=== PATIENT | male | born 1985 | race Caucasian/White ===

== ENCOUNTER 2016-10-14 20:48 | Observation (INO) | payer OTHER ==
[~2016-10-14] VITALS: Ht 180.3 cm; Wt 75.0 kg
[~2016-10-14 20:48] MED LIST: LEVEMIR SQ; MAG-TAB PO; NOVOLOGP2 SQ; OMEP20TA PO; POTA8CAP PO; REGL10TA5 PO; REGL5TAB PO; ZOFR4TAB3 SL
[2016-10-14 20:50] VITALS: BP 140/78; PULSE 116; RESP 15; TEMP 98.8; O2SAT 96
[2016-10-14 21:06] VITALS: BP 137/87; PULSE 91; RESP 18; O2SAT 100
[2016-10-14] MEDS ORDERED: diphenhydrAMINE HCL 50 MG/ML VIAL IV PUSH ONE (21:15)
[2016-10-14] MEDS ORDERED: METOCLOPRAMIDE HCL 10 MG/2 ML VIAL IV PUSH ONE (21:15)
[2016-10-14] MEDS ORDERED: SODIUM CHLOR 0.9% 1000 ML INJ 1,000 ML IV ONE (21:15)
--- NOTE | 2016-10-14 22:31 | PD ---
HPI Chief Complaint: Diabetic Time Seen by Provider: 21:07 Travel History International Travel<30 days: No Contact w/Intl Traveler<30days: No Traveled to known affect area: No History of Present Illness HPI 30-year-old male complains of abdominal pain with nausea vomiting. Patient has history recurrent abdominal pain with nausea vomiting from gastroparesis. Patient has history diabetes. Patient states the blood sugars has been running high at home. Patient was seen here yesterday and given Reglan and IV fluid. Patient was discharged home with prescription Zofran and Reglan. Patient states that he took Zofran without much relief. Patient unable to keep recommended out because of the vomiting. Patient states that he has abdominal pain also in the past several days. Patient states the abdominal pain is recurrent pain usually shoulder with nausea vomiting. Patient states the abdominal pain is worse today. Patient stated pain is severe cramping pain diffuse over the abdomen. Patient denies any pain radiation. Patient denies any fever chills. Patient denies any blood or mucus in the vomitus or the stool. PFSH Past Medical History Arthritis: No Asthma: No Autoimmune Disease: No Blood Disorders: No Anxiety: Yes Depression: Yes Heart Rhythm Problems: No Cancer: No Cardiovascular Problems: No High Cholesterol: No Chest Pain: No Congestive Heart Failure: No COPD: No Cerebrovascular Accident: No Diabetes: Yes Patient Takes Glucophage: No Diminished Hearing: No Endocrine: Yes Gastrointestinal Disorders: Yes (Gastroparesis) GERD: No Genitourinary: No Headaches: Yes Hiatal Hernia: No Herniated Disk: Yes (2 DISCS IN BACK AND 2 IN NECK 2o TO LONG-TERM) Hypertension: No Implanted Vascular Access Dvce: No Kidney Stones: No Musculoskeletal: No Psychiatric: Yes Reproductive: No Respiratory: No Immunizations Current: Yes Migraines: No Seizures: No Sickle Cell Disease: No Sleep Apnea: No Thyroid Disease: No Ulcer: No PNEUMOCCOCAL Vaccine (Year): 1 Past Surgical History Abdominal Surgery: No Cardiac Surgery: No Ear Surgery: No Endocrine Surgery: No Eye Surgery: No Genitourinary Surgery: No Gynecologic Surgery: No Neurologic Surgery: No Oral Surgery: No Pacemaker: No Thoracic Surgery: No Social History Alcohol Use: No Tobacco Use: No Substance Use: Yes (marijuana) Allergies-Medications (Allergen,Severity, Reaction): Coded Allergies: No Known Allergies (Verified , 10/14/16) Reported Meds & Prescriptions Reported Meds & Active Scripts Active Omeprazole 20 Mg Tab 20 Mg PO DAILY Reglan (Metoclopramide HCl) 5 Mg Tab 5 Mg PO TIDAC Reglan (Metoclopramide HCl) 10 Mg Tab 10 Mg PO TIDAC PRN Zofran Odt (Ondansetron Odt) 4 Mg Tab 4 Mg SL Q6HR PRN Reported Potassium Chloride ER (Potassium Chloride) Unknown Strength Cap Unknown Dose PO DAILY Mag-Delay (Magnesium Chloride) Unknown Strength Tab Unknown Dose PO DAILY Novolog Inj (Insulin Aspart) 1,000 Unit/10 Ml Vial 0 SQ DIRECTED Sliding Scale as directed. Levemir Inj (Insulin Detemir) 1,000 unit/ 10 ML Vial 20 Units SQ BID Do not mix with any other Insulin. Review of Systems General / Constitutional: No: Fever Eyes: No: Visual changes HENT: No: Headaches Cardiovascular: No: Chest Pain or Discomfort Respiratory: No: Shortness of Breath Gastrointestinal: Positive: Nausea, Vomiting, Abdominal Pain Genitourinary: No: Dysuria Musculoskeletal: No: Pain Skin: No Rash Neurologic: No: Weakness Psychiatric: No: Depression Endocrine: No: Polydipsia Hematologic/Lymphatic: No: Easy Bruising Physical Exam Narrative GENERAL: Well-nourished, well-developed patient. SKIN: Warm and dry. HEAD: Normocephalic. EYES: No scleral icterus. No injection or drainage. NECK: Supple, trachea midline. No JVD or lymphadenopathy. CARDIOVASCULAR: Regular rate and rhythm without murmurs, gallops, or rubs. RESPIRATORY: Breath sounds equal bilaterally. No accessory muscle use. GASTROINTESTINAL: Abdomen soft, non-tender, nondistended. MUSCULOSKELETAL: No cyanosis, or edema. BACK: Nontender without obvious deformity. No CVA tenderness. Neurologic exam normal. Data Data Last Documented VS Vital Signs Date Time Temp Pulse Resp B/P Pulse Ox O2 Delivery O2 Flow Rate FiO2 10/14/16 23:02 71 22 137/87 99 Room Air 10/14/16 20:50 98.8 Orders Sodium Chlor 0.9% 1000 Ml Inj (Ns 1000 M (10/14/16 21:15) Metoclopramide Inj (Reglan Inj) (10/14/16 21:15) Diphenhydramine Inj (Benadryl Inj) (10/14/16 21:15) Complete Blood Count With Diff (10/14/16 22:22) Comprehensive Metabolic Panel (10/14/16 22:22) Lipase (10/14/16 22:22) Beta Hydroxybutyrate (Acetone) (10/14/16 22:22) Iv Access Insert/Monitor (10/14/16 22:22) Ecg Monitoring (10/14/16 22:22) Oximetry (10/14/16 22:22) Potassium Chlor 20 Meq Premix (Kcl 20 Me (10/15/16 00:15) Sodium Chlor 0.9% 1000 Ml Inj (Ns 1000 M (10/15/16 00:15) Admit Order (Ed Use Only) (10/15/16 00:19) Labs Laboratory Tests Test 10/14/16 22:10 White Blood Count 16.1 TH/MM3 Red Blood Count 4.46 MIL/MM3 Hemoglobin 12.6 GM/DL Hematocrit 36.5 % Mean Corpuscular Volume 81.9 FL Mean Corpuscular Hemoglobin 28.3 PG Mean Corpuscular Hemoglobin 34.5 % Concent Red Cell Distribution Width 13.0 % Platelet Count 313 TH/MM3 Mean Platelet Volume 7.2 FL Neutrophils (%) (Auto) 80.2 % Lymphocytes (%) (Auto) 11.8 % Monocytes (%) (Auto) 7.6 % Eosinophils (%) (Auto) 0.1 % Basophils (%) (Auto) 0.3 % Neutrophils # (Auto) 12.9 TH/MM3 Lymphocytes # (Auto) 1.9 TH/MM3 Monocytes # (Auto) 1.2 TH/MM3 Eosinophils # (Auto) 0.0 TH/MM3 Basophils # (Auto) 0.0 TH/MM3 CBC Comment DIFF FINAL Differential Comment Sodium Level 135 MEQ/L Potassium Level 2.9 MEQ/L Chloride Level 88 MEQ/L Carbon Dioxide Level 32.3 MEQ/L Anion Gap 15 MEQ/L Blood Urea Nitrogen 25 MG/DL Creatinine 1.43 MG/DL Estimat Glomerular Filtration 58 ML/MIN Rate Random Glucose 220 MG/DL Calcium Level 9.3 MG/DL Total Bilirubin 0.5 MG/DL Aspartate Amino Transf 15 U/L (AST/SGOT) Alanine Aminotransferase 18 U/L (ALT/SGPT) Alkaline Phosphatase 81 U/L Total Protein 8.1 GM/DL Albumin 4.0 GM/DL Lipase 90 U/L B-Hydroxybutyrate 1.54 MMOL/L MDM Medical Decision Making Medical Screen Exam Complete: Yes Emergency Medical Condition: Yes Interpretation(s) 12:07 AM. CBC WBC 16.1. Hemoglobin 12.6. Hematocrit 36.1. 80 neutrophil. Potassium 2.9. Chloride 88. BUN 25. Creatinine 1.43. GFR 58. Glucose 220. Beta hydroxybutyrate 1.54. Differential Diagnosis Differential diagnosis including gastroenteritis, acute exacerbation of gastroparesis, hyperglycemia, DKA, electrolyte abnormality, dehydration, gastritis, PUD, pancreatitis, cholecystitis, colitis, UTI, pyelonephritis. Narrative Course 30-year-old male with recurrent abdominal pain, nausea vomiting. History of gastroparesis. History of diabetes. Normal saline solution 1 L IV bolus. Reglan 10 g IV. Benadryl 50 g IV. Protonix 40 mg IV. KCl 20 mEq IV 2. Diagnosis Primary Impression: Gastroparesis Additional Impressions: Dehydration Hypokalemia Adams Pitts MD Oct 14, 2016 22:31
[2016-10-14 22:45] LABS: AUTOMATED NEUTROPHIL # 12.9 TH/MM3 (1.8-7.7); BASOPHIL % 0.3 % (0.0-2.0); EOSINOPHIL % 0.1 % (0.0-4.0); HEMATOCRIT 36.5 % (39.0-51.0); HEMO FLAGS DIFF FINAL; LYMPH % 11.8 % (9.0-44.0); LYMPHOCYTE # 1.9 TH/MM3 (1.0-4.8); MEAN CELL VOLUME 81.9 FL (80.0-100.0); MEAN CORPUSCULAR HEMOGLOBIN 28.3 PG (27.0-34.0); MEAN CORPUSCULAR HGB CONC 34.5 % (32.0-36.0); MONO % 7.6 % (0.0-8.0); NEUT % 80.2 % (16.0-70.0); PLATELET COUNT 313 TH/MM3 (150-450); RED BLOOD COUNT 4.46 MIL/MM3 (4.50-5.90); WHITE BLOOD COUNT 16.1 TH/MM3 (4.0-11.0)
[2016-10-14 23:02] VITALS: BP 137/87; PULSE 71; RESP 22; O2SAT 99
[2016-10-14 23:52] LABS: ALKALINE PHOSPHATASE 81 U/L (45-117); ALT (GPT) 18 U/L (12-78); ANION GAP 15 MEQ/L (5-15); AST (GOT) 15 U/L (15-37); BETA-HYDROXYBUTYRATE 1.54 MMOL/L (0.00-0.39); BICARBONATE 32.3 MEQ/L (21.0-32.0); BLOOD UREA NITROGEN 25 MG/DL (7-18); CHLORIDE 88 MEQ/L (98-107); GLOMERULAR FILTRATION RATE 58 ML/MIN (>89); POTASSIUM 2.9 MEQ/L (3.5-5.1); SODIUM (NA) 135 MEQ/L (136-145); TOTAL BILIRUBIN ADULT 0.5 MG/DL (0.2-1.0)
[2016-10-15] MEDS ORDERED: SODIUM CHLOR 0.9% 1000 ML INJ 1,000 ML IV ONE ×2 (00:15→16:00)
[2016-10-15] MEDS: POTASSIUM CHLOR 20 MEQ PREMIX 100 ML IV SCH ×2 (00:21→02:34)
[2016-10-15] MEDS ORDERED: ACETAMINOPHEN/HYDROcodone 325 MG/5 MG TAB PO PRN (01:00)
[2016-10-15] MEDS ORDERED: PROMETHAZINE INJ 25 MG/ML VIAL IM PRN (01:00)
[2016-10-15] MEDS ORDERED: DEXTROSE 50% IN WATER 50 ML VIAL(D50) IV PUSH PRN (01:00)
[2016-10-15] MEDS ORDERED: BISACODYL 10 MG SUPP PR PRN (01:00)
[2016-10-15] MEDS ORDERED: SODIUM CHLORIDE 0.9% FLUSH 5 ML FLUSH FLUSH PRN (01:00)
[2016-10-15] MEDS ORDERED: ACETAMINOPHEN 325 MG TAB PO PRN (01:00)
[2016-10-15] MEDS ORDERED: PANTOPRAZOLE SODIUM 40 MG VIAL IV PUSH ONE (01:00)
[2016-10-15] MEDS ORDERED: GLUCAGON 1 MG/ML VIAL OTHER PRN (01:00)
[2016-10-15] MEDS: SODIUM CHLOR 0.9% 1000 ML INJ 1,000 ML IV SCH ×3 (01:53→20:16)
[2016-10-15] MEDS: MORPHINE SULFATE 4 MG/ML INJ IV PRN ×5 (01:55→20:01)
[2016-10-15 01:56] VITALS: BP 129/63
[2016-10-15 02:25] VITALS: BP 131/74; PULSE 67; RESP 20; TEMP 98; O2SAT 96
--- NOTE | 2016-10-15 03:09 | HHI.HP ---
[facility] Primary Care Physician Belén Carter MD Admission Diagnosis gastroparesis. Dehydration. Hypokalemia. Hyperglycemia Diagnoses: (1) Intractable nausea and vomiting Diagnosis: Principal (2) Gastroenteritis Diagnosis: Principal (3) Hypokalemia Diagnosis: Principal (4) DM (diabetes mellitus) Diagnosis: Principal (5) GALA (acute kidney injury) Diagnosis: Principal Travel History International Travel<30 Days: No Contact w/Intl Traveler <30 Da: No Traveled to Known Affected Are: No History of Present Illness This is a 30-year-old male with a PMH of HTN, DM, Gastroparesis, Anxiety and Depression who came to the ER with complete abdominal pain addition to persistent nausea and vomiting. Presented to ER on 10/13/16 for similar complaints, s/p IVF and d/c'd home w/ Reglan and Omeprazole. Returned today due to persistent symptoms. Unable to take PO. On arrival, BP 137/87, HR 71, O2 sat 99% on RA, Afebrile. WBC 16.1. K+ 2.9 s/p replacement in ER. Creatinine 1.43, previously 1.08 on 10/13/16. S/p Benadryl, Reglan and IVF in ER w/ some improvement. Review of Systems Other ROS: 14 point review of systems otherwise negative. Past Family Social History Past Medical History PMH: HTN, DM, Gastroparesis, Anxiety and Depression Past Surgical History PAST SURGICAL HISTORY: None Allergies: Coded Allergies: No Known Allergies (Verified , 10/14/16) Family History PAST FAMILY HISTORY: Reviewed. No h/o DM or CAD Social History PAST SOCIAL HISTORY: Negative for alcohol or tobacco. Positive for Marijuana. Physical Exam Vital Signs Vital Signs Date Time Temp Pulse Resp B/P Pulse Ox O2 Delivery O2 Flow Rate FiO2 10/15/16 02:25 98.0 67 20 131/74 96 10/15/16 01:56 87 16 129/63 98 10/14/16 23:02 71 22 137/87 99 Room Air 10/14/16 21:06 91 18 137/87 100 Room Air 10/14/16 20:50 98.8 116 15 140/78 96 Room Air Physical Exam PE: GENERAL: Young white male in no acute distress, however appears to feel unwell. HEENT: PERRLA, EOMI. No scleral icterus or conjunctival pallor. No lid lag or facial droop. CARDIOVASCULAR: Regular rate and rhythm. No obvious murmurs to auscultation. No chest tenderness to palpation. RESPIRATORY: No obvious rhonchi or wheezing. Clear to auscultation. Breath sounds equal bilaterally. GASTROINTESTINAL: Abdomen soft, non-tender, nondistended. BS normal. MUSCULOSKELETAL: Extremities without clubbing, cyanosis, or edema. No obvious deformities. NEUROLOGICAL: Awake, alert and oriented x4. No focal neurologic deficits. Moving both upper and lower extremities spontaneously. Laboratory Laboratory Tests Test 10/14/16 22:10 White Blood Count 16.1 Red Blood Count 4.46 Hemoglobin 12.6 Hematocrit 36.5 Mean Corpuscular Volume 81.9 Mean Corpuscular Hemoglobin 28.3 Mean Corpuscular Hemoglobin 34.5 Concent Red Cell Distribution Width 13.0 Platelet Count 313 Mean Platelet Volume 7.2 Neutrophils (%) (Auto) 80.2 Lymphocytes (%) (Auto) 11.8 Monocytes (%) (Auto) 7.6 Eosinophils (%) (Auto) 0.1 Basophils (%) (Auto) 0.3 Neutrophils # (Auto) 12.9 Lymphocytes # (Auto) 1.9 Monocytes # (Auto) 1.2 Eosinophils # (Auto) 0.0 Basophils # (Auto) 0.0 CBC Comment DIFF FINAL Differential Comment Sodium Level 135 Potassium Level 2.9 Chloride Level 88 Carbon Dioxide Level 32.3 Anion Gap 15 Blood Urea Nitrogen 25 Creatinine 1.43 Estimat Glomerular Filtration 58 Rate Random Glucose 220 Calcium Level 9.3 Total Bilirubin 0.5 Aspartate Amino Transf 15 (AST/SGOT) Alanine Aminotransferase 18 (ALT/SGPT) Alkaline Phosphatase 81 Total Protein 8.1 Albumin 4.0 Lipase 90 B-Hydroxybutyrate 1.54 Result Diagram: 10/14/16220910/14/162209 Assessment and Plan Problem List: (1) Intractable nausea and vomiting ICD Code: R11.2 Status: Acute (2) Gastroparesis ICD Code: K31.84 Status: Acute (3) Hypokalemia ICD Code: E87.6 Status: Acute (4) DM (diabetes mellitus) ICD Code: E11.9 Status: Acute (5) GALA (acute kidney injury) ICD Code: N17.9 Status: Acute Assessment and Plan A/P: 1. Intractable N/V: secondary to Gastroparesis. S/p Benadryl and Reglan in ER. Continue w/ analgesics/antiemetics. IVF for hydration. Diet as tolerated. 2. Gastroparesis: Recurrent. IVF, Reglan, Antiemetics. DM control. 3. Hypokalemia: K+ 2.9, s/p replacement in ER. Will recheck and replace as needed. 4. DM: Sliding scale w/ Accu-Cheks, Hgb A1c 8.6 on 04/12/16. Resume home Levemir 5. GALA: Creatinine 1.43, previously 1.08 on 10/13/16. IVF, repeat labs in am. 6. DVT Prophylaxis: SCD/Teds. 7. Social work for d/c planning as needed. 8. Case discussed w/ ER physician at length. Lashell Pedroza MD Oct 15, 2016 03:09
[2016-10-15 03:32] VITALS: BP 132/61; PULSE 73; RESP 20; TEMP 98; O2SAT 96
[2016-10-15] MEDS: ONDANSETRON HCL 4 MG/2 ML VIAL IVP PRN ×3 (04:14→16:34)
[2016-10-15] MEDS: METOCLOPRAMIDE HCL 10 MG/2 ML VIAL IV PUSH SCH ×3 (05:55→22:13)
[2016-10-15] MEDS: INSULIN ASPART SUPPLEMENTAL SCALE SQ SCH ×4 (06:13→20:13)
[2016-10-15] MEDS: SODIUM CHLORIDE 0.9% FLUSH 5 ML FLUSH FLUSH SCH ×2 (08:20→20:12)
[2016-10-15] MEDS: INSULIN DETEMIR 100 UNITS/ML VIAL SQ SCH ×2 (08:20→20:13)
--- NOTE | 2016-10-15 08:20 | HHI.PR ---
Subjective Remarks Follow up for abdominal pain/nausea/vomiting. The patient is sleeping upon my arrival, when awakened, he moans in pain, states he still feels miserable. Reports continued diffuse abdominal pain, unchanged compared to yesterday. He has continued nausea, no vomiting since 8pm last night. He has not yet ate anything. He does not open his eyes throughout conversation and rolls back over to go to sleep. Objective Vitals Vital Signs Date Time Temp Pulse Resp B/P Pulse Ox O2 Delivery O2 Flow Rate FiO2 10/15/16 03:32 98.0 73 20 132/61 96 10/15/16 02:25 98.0 67 20 131/74 96 10/15/16 01:56 87 16 129/63 98 10/14/16 23:02 71 22 137/87 99 Room Air 10/14/16 21:06 91 18 137/87 100 Room Air 10/14/16 20:50 98.8 116 15 140/78 96 Room Air I/O 10/14/16 10/14/16 10/14/16 10/15/16 10/15/16 10/15/16 07:00 15:00 23:00 07:00 15:00 23:00 Intake Total 694 ml Output Total 500 ml Balance 194 ml Intake IV Total 694 ml Output Urine Total 500 ml # Voids 1 Result Diagram: 10/14/16220910/14/162209 Objective Remarks GENERAL: Well-nourished, well-developed young male patient in [facility]. Drowsy. SKIN: Warm and dry. No rash. HEAD: Normocephalic. Atraumatic. ENT: No nasal bleeding or discharge. Mucous membranes pink and moist. NECK: Supple. Trachea midline. CARDIOVASCULAR: Regular rate and rhythm. S1, S2 noted. No murmur appreciated. RESPIRATORY: No accessory muscle use. Clear to auscultation. Breath sounds equal bilaterally. GASTROINTESTINAL: Abdomen soft, nondistended, mild diffuse abdominal TTP. Normoactive bowel sounds x4. MUSCULOSKELETAL: No obvious deformities. Extremities without clubbing, cyanosis , or edema. NEUROLOGICAL: Awake and alert. No obvious cranial nerve deficits. Motor grossly within normal limits. Normal speech. Medications and IVs Current Medications Medications (Trade) Dose Ordered Sig/Brandy Route Start Time Stop Time Status Last Admin Pantoprazole Sodium 40 mg 40 mg Q12H IV PUSH 10/15/16 21:00 (NS 1000 ml Inj) 1,000 ml @ 100 mls/hr Q10H IV 10/15/16 00:47 10/15/16 01:53 (NS Flush) 2 ml UNSCH PRN FLUSH 10/15/16 01:00 (NS Flush) 2 ml BID FLUSH 10/15/16 09:00 (Zofran Inj) 4 mg Q6H PRN IVP 10/15/16 01:00 10/15/16 04:14 (Dulcolax Supp) 10 mg DAILY PRN LA 10/15/16 01:00 (Tylenol) 650 mg Q6H PRN PO 10/15/16 01:00 ([place] 5-325 Mg) 1 tab Q4H PRN PO 10/15/16 01:00 (Morphine Inj) 2 mg Q3H PRN IV 10/15/16 01:00 10/15/16 05:55 (Reglan Inj) 10 mg Q8HR IV PUSH 10/15/16 06:00 10/15/16 05:55 (Phenergan Inj) 12.5 mg Q4H PRN IM 10/15/16 01:00 (Levemir Inj) 20 units BID SQ 10/15/16 09:00 (D50w (Vial) Inj) 25 ml UNSCH PRN IV PUSH 10/15/16 01:00 (Glucagon Inj) 1 mg UNSCH PRN OTHER 10/15/16 01:00 Urinary Catheter: No Vascular Central Line Catheter: No A/P Problem List: (1) Intractable nausea and vomiting ICD Code: R11.2 Status: Acute (2) Gastroparesis ICD Code: K31.84 Status: Acute (3) Hypokalemia ICD Code: E87.6 Status: Acute (4) DM (diabetes mellitus) ICD Code: E11.9 Status: Acute (5) GALA (acute kidney injury) ICD Code: N17.9 Status: Acute Assessment and Plan 30-year-old male with PMH of HTN, DM, Gastroparesis, Anxiety/Depression came to the ER with abdominal pain, persistent nausea/vomiting. Presented to ER on for similar complaints, s/p IVF and d/c'd home w/ Reglan and Omeprazole. Returned today due to persistent symptoms. Unable to take PO. Intractable N/V: secondary to Gastroparesis. S/p Benadryl and Reglan in ER. Continue w/ analgesics/antiemetics. IVF for hydration. Diet as tolerated. Gastroparesis: Recurrent. IVF, Reglan, Antiemetics. DM control. Hypokalemia: K+ 2.9, s/p replacement in ER. Will recheck and replace as needed. DM: Sliding scale w/ Accu-Cheks, Hgb A1c 8.6 on 04/12/16. Resumed home Levemir. GALA: Creatinine 1.43, previously 1.08 on 10/13/16. IVF, repeat labs today. DVT Prophylaxis: SCD/Teds. Discharge Planning Not yet ready for discharge. Possibly tomorrow if tolerating oral intake. Attending Statement patient seen this morning in the ER. Agree with above. patient reports to me that he smokes marijuana which improves abdominal cramping, nausea. Discussed the possibility of marijuana hyperemesis syndrome with him. Advised complete cessation. Otherwise as above Nadira Em PA-C Oct 15, 2016 08:19 Elder Castro MD Oct 15, 2016 22:32
[2016-10-15 10:39] LABS: AUTOMATED NEUTROPHIL # 10.4 TH/MM3 (1.8-7.7); BASOPHIL % 0.2 % (0.0-2.0); EOSINOPHIL % 0.1 % (0.0-4.0); HEMATOCRIT 32.3 % (39.0-51.0); HEMO FLAGS DIFF FINAL; LYMPH % 15.5 % (9.0-44.0); LYMPHOCYTE # 2.1 TH/MM3 (1.0-4.8); MEAN CELL VOLUME 83.3 FL (80.0-100.0); MEAN CORPUSCULAR HEMOGLOBIN 28.5 PG (27.0-34.0); MEAN CORPUSCULAR HGB CONC 34.2 % (32.0-36.0); MONO % 7.2 % (0.0-8.0); PLATELET COUNT 239 TH/MM3 (150-450); RED BLOOD COUNT 3.88 MIL/MM3 (4.50-5.90); RED CELL DISTRIBUTION WIDTH 12.8 % (11.6-17.2); WHITE BLOOD COUNT 13.4 TH/MM3 (4.0-11.0)
[2016-10-15 11:03] LABS: BICARBONATE 29.1 MEQ/L (21.0-32.0); MAGNESIUM 1.7 MG/DL (1.5-2.5); POTASSIUM 3.8 MEQ/L (3.5-5.1)
[2016-10-15 11:34] VITALS: BP 149/79; PULSE 70; RESP 18; TEMP 98.1; O2SAT 93
[2016-10-15 15:54] VITALS: BP 124/68; PULSE 62; RESP 18; TEMP 98.8; O2SAT 95
[2016-10-15] MEDS ORDERED: INSULIN HUMAN REGULAR 1,000 UNITS/10 ML VIAL IVP ONE (16:00)
[2016-10-15] MEDS ORDERED: MAGNESIUM SULFATE 1 GM PREMIX 100 ML IV ONE (17:00)
[2016-10-15] MEDS: PANTOPRAZOLE SODIUM 40 MG VIAL IV PUSH SCH (20:13)
[2016-10-15 20:20] VITALS: BP 111/60; PULSE 64; RESP 18; TEMP 97.8; O2SAT 99
[2016-10-15] MEDS: HYDROmorphone HCL PF 1 MG/ML VIAL IV PUSH PRN (23:55)
[2016-10-16 01:01] VITALS: BP 118/70; PULSE 65; RESP 16; TEMP 96.7; O2SAT 98
[2016-10-16] MEDS: ONDANSETRON HCL 4 MG/2 ML VIAL IVP PRN (03:33)
[2016-10-16] MEDS: HYDROmorphone HCL PF 1 MG/ML VIAL IV PUSH PRN ×3 (03:33→10:54)
[2016-10-16 05:02] VITALS: BP 127/70; PULSE 65; RESP 18; TEMP 98.9; O2SAT 98
[2016-10-16 05:37] LABS: AUTOMATED NEUTROPHIL # 6.8 TH/MM3 (1.8-7.7); BASOPHIL % 0.3 % (0.0-2.0); EOSINOPHIL # 0.2 TH/MM3 (0-0.4); EOSINOPHIL % 1.6 % (0.0-4.0); HEMATOCRIT 32.3 % (39.0-51.0); HEMO FLAGS DIFF FINAL; LYMPH % 24.6 % (9.0-44.0); LYMPHOCYTE # 2.5 TH/MM3 (1.0-4.8); MEAN CORPUSCULAR HEMOGLOBIN 28.7 PG (27.0-34.0); MEAN CORPUSCULAR HGB CONC 34.6 % (32.0-36.0); MONO % 7.7 % (0.0-8.0); NEUT % 65.8 % (16.0-70.0); PLATELET COUNT 239 TH/MM3 (150-450); RED BLOOD COUNT 3.89 MIL/MM3 (4.50-5.90); RED CELL DISTRIBUTION WIDTH 12.8 % (11.6-17.2); WHITE BLOOD COUNT 10.3 TH/MM3 (4.0-11.0)
[2016-10-16 05:59] LABS: ALKALINE PHOSPHATASE 64 U/L (45-117); ALT (GPT) 15 U/L (12-78); ANION GAP 9 MEQ/L (5-15); AST (GOT) 16 U/L (15-37); BICARBONATE 26.4 MEQ/L (21.0-32.0); BLOOD UREA NITROGEN 15 MG/DL (7-18); CHLORIDE 103 MEQ/L (98-107); GLOMERULAR FILTRATION RATE 92 ML/MIN (>89); POTASSIUM 3.2 MEQ/L (3.5-5.1); SODIUM (NA) 138 MEQ/L (136-145); TOTAL BILIRUBIN ADULT 0.4 MG/DL (0.2-1.0)
[2016-10-16] MEDS: METOCLOPRAMIDE HCL 10 MG/2 ML VIAL IV PUSH SCH ×2 (06:19→13:06)
[2016-10-16] MEDS: SODIUM CHLOR 0.9% 1000 ML INJ 1,000 ML IV SCH (06:34)
[2016-10-16] MEDS: INSULIN ASPART SUPPLEMENTAL SCALE SQ SCH (06:36)
[2016-10-16] MEDS ORDERED: POTASSIUM CHLORIDE 20 MEQ CONTROLLED RELEASE TAB PO ONE (07:30)
[2016-10-16 07:36] VITALS: BP 120/56; PULSE 60; RESP 19; TEMP 98.8; O2SAT 98
--- NOTE | 2016-10-16 07:45 | HHI.PR ---
Subjective Remarks Follow up for abdominal pain/nausea/vomiting with gastroparesis. The patient is sleeping upon my arrival, easily awakens. He reports continued diffuse abdominal pains, states after he receives pain medications, the pains will go away for a few hours. He reports nausea but no vomiting overnight. He was able to tolerate broth for lunch yesterday but then was served a hamburger for dinner last night therefore he did not eat. Blood glucose 55 this morning. He denies any other medical complaints at this time. Objective Vitals Vital Signs Date Time Temp Pulse Resp B/P Pulse Ox O2 Delivery O2 Flow Rate FiO2 10/16/16 05:02 98.9 65 18 127/70 98 10/16/16 04:05 22 10/16/16 01:01 96.7 65 16 118/70 98 10/15/16 20:20 97.8 64 18 111/60 99 10/15/16 20:15 14 10/15/16 15:54 98.8 62 18 124/68 95 10/15/16 11:34 98.1 70 18 149/79 93 I/O 10/15/16 10/15/16 10/15/16 10/16/16 10/16/16 10/16/16 07:00 15:00 23:00 07:00 15:00 23:00 Intake Total 694 ml 930 ml Output Total 500 ml 1000 ml 1000 ml Balance 194 ml -70 ml -1000 ml Intake Oral Supplement 120 ml IV Total 694 ml 810 ml Output Urine Total 500 ml 1000 ml 1000 ml # Voids 1 Result Diagram: 10/16/16 0455 10/16/16 0455 Objective Remarks GENERAL: Well-nourished, well-developed young male patient in [facility]. SKIN: Warm and dry. No rash. HEAD: Normocephalic. Atraumatic. ENT: No nasal bleeding or discharge. Mucous membranes pink and moist. NECK: Supple. Trachea midline. CARDIOVASCULAR: Regular rate and rhythm. S1, S2 noted. No murmur appreciated. RESPIRATORY: No accessory muscle use. Clear to auscultation. Breath sounds equal bilaterally. GASTROINTESTINAL: Abdomen soft, nondistended, mild diffuse abdominal TTP. Normoactive bowel sounds x4. MUSCULOSKELETAL: No obvious deformities. Extremities without clubbing, cyanosis , or edema. NEUROLOGICAL: Awake and alert. No obvious cranial nerve deficits. Motor grossly within normal limits. Normal speech. Medications and IVs Current Medications Medications (Trade) Dose Ordered Sig/Brandy Route Start Time Stop Time Status Last Admin Pantoprazole Sodium 40 mg 40 mg Q12H IV PUSH 10/15/16 21:00 10/15/16 20:13 (NS 1000 ml Inj) 1,000 ml @ 100 mls/hr Q10H IV 10/15/16 00:47 10/15/16 08:21 (NS Flush) 2 ml UNSCH PRN FLUSH 10/15/16 01:00 (NS Flush) 2 ml BID FLUSH 10/15/16 09:00 10/15/16 20:12 (Zofran Inj) 4 mg Q6H PRN IVP 10/15/16 01:00 10/16/16 03:33 (Dulcolax Supp) 10 mg DAILY PRN NV 10/15/16 01:00 (Tylenol) 650 mg Q6H PRN PO 10/15/16 01:00 ([place] 5-325 Mg) 1 tab Q4H PRN PO 10/15/16 01:00 10/15/16 16:34 (Reglan Inj) 10 mg Q8HR IV PUSH 10/15/16 06:00 10/16/16 06:19 (Phenergan Inj) 12.5 mg Q4H PRN IM 10/15/16 01:00 (Levemir Inj) 20 units BID SQ 10/15/16 09:00 10/15/16 20:13 (D50w (Vial) Inj) 25 ml UNSCH PRN IV PUSH 10/15/16 01:00 (Glucagon Inj) 1 mg UNSCH PRN OTHER 10/15/16 01:00 (Dilaudid Pf Inj) 1 mg Q3H PRN IV PUSH 10/15/16 21:45 10/16/16 07:20 (KCl) 40 meq ONCE ONCE PO 10/16/16 07:30 10/16/16 07:31 UNV Urinary Catheter: No Vascular Central Line Catheter: No A/P Problem List: (1) Intractable nausea and vomiting ICD Code: R11.2 Status: Acute (2) Gastroparesis ICD Code: K31.84 Status: Acute (3) Hypokalemia ICD Code: E87.6 Status: Acute (4) DM (diabetes mellitus) ICD Code: E11.9 Status: Acute (5) GALA (acute kidney injury) ICD Code: N17.9 Status: Acute Assessment and Plan 30-year-old male with PMH of HTN, DM, Gastroparesis, Anxiety/Depression came to the ER with abdominal pain, persistent nausea/vomiting. Presented to ER on for similar complaints, s/p IVF and d/c'd home w/ Reglan and Omeprazole. Returned today due to persistent symptoms. Unable to take PO. Intractable N/V: secondary to Gastroparesis. S/p Benadryl and Reglan in ER. Continue w/ analgesics/antiemetics, changed pain medication to IV Dilaudid 1mg q3h prn. IVF for hydration. Diet as tolerated, will change to full liquid diet today. Gastroparesis: Recurrent. IVF, Reglan, Antiemetics. DM control. Hypokalemia: K+ 2.9, s/p replacement in ER. Will recheck and replace as needed. Still 3.2 today, given additional replacement. DM: Blood sugars labile, up to 421 yesterday, now 55 this morning. Patient did not eat dinner last night. Sliding scale w/ Accu-Cheks, Hgb A1c 8.6 on . Resumed home Levemir. Repeat HgbA1c. GALA: Creatinine 1.43, previously 1.08 on 10/13/16. IVF, repeat labs today show improvement back to baseline, Cr 0.95. DVT Prophylaxis: SCD/Teds. Discharge Planning 1340hrs: RN reports the patient is requesting to be discharged. He has tolerated his breakfast and lunch without any nausea/vomiting/abdominal pain. Blood glucose improved. Discussed with Dr. Castro, will discharge home. Discharge patient to home Condition on discharge: Improved Diabetic soft/full liquid diet as tolerated over the next few days, then advanced to solid foods Ad Lyudmila activity, avoid marijuana Rx written: Reglan 10mg po tidac, Zofran 4mg SL q6h prn nausea, Protonix 40mg daily Follow-up with primary care physician Dr. Phillips within 1 week Attending Statement The exam, history, and the medical decision-making described in the above note were completed with the assistance of the mid-level provider. I reviewed and agree with the findings presented. I attest that I had a [id number] encounter with the patient on the same day, and personally performed and documented my assessment and findings in the medical record. patient seen this morning. Appears comfortable. Later says he is tolerating diet, request discharge. Discharge home. Recommend marijuana cessation. Followup primary care. Nadira Em PA-C Oct 16, 2016 07:45 Elder Castro MD Oct 16, 2016 22:54
[2016-10-16] MEDS: SODIUM CHLORIDE 0.9% FLUSH 5 ML FLUSH FLUSH SCH (09:00)
[2016-10-16] MEDS: INSULIN DETEMIR 100 UNITS/ML VIAL SQ SCH (09:59)
[2016-10-16] MEDS: PANTOPRAZOLE SODIUM 40 MG VIAL IV PUSH SCH (09:59)
[2016-10-16] MEDS ORDERED: INSULIN ASPART SUPPLEMENTAL SCALE SQ SCH (11:00)
[2016-10-16] MEDS ORDERED: ZOFR4TAB3 SL (13:44)
[2016-10-16] MEDS ORDERED: REGL10TA5 PO (13:44)
[2016-10-16] MEDS ORDERED: PROT40TA PO (13:44)
--- NOTE | 2016-10-16 13:45 | HHI.DCPOC ---
Discharge Care Plan Diagnosis: (1) Type 1 diabetes mellitus (2) Gastroparesis Your Health Problems Are: Irregular Bowel Function Goals to Promote Your Health * To prevent worsening of your condition and complications * To maintain your health at the optimal level Directions to Meet Your Goals Take your medications as prescribed Follow your dietary instruction Follow activity as directed Keep your appointments as scheduled Take your immunizations and boosters as scheduled If your symptoms worsen call your PCP, if no PCP go to Urgent Care Center or Emergency Room Smoking is Dangerous to Your Health. Avoid second hand smoke Call the 24-hour hour crisis hotline for domestic abuse at Nadira Em PA-C Oct 16, 2016 13:45
[2016-10-17 17:39] LABS: HEMOGLOBIN A1a 1.2 %; HEMOGLOBIN A1b 2.3 %; HEMOGLOBIN Ao 81.6 %; HEMOGLOBIN LA1C 1.4 %; HEMOGLOBIN P3 4.4 %
[2016-11-25] MEDS ORDERED: METO10TA PO (11:23)
[2016-11-25] MEDS ORDERED: PANT40TA3 PO (11:23)
[2017-02-28] MEDS ORDERED: FLUO1TAB15 PO (11:37)
[2017-02-28] MEDS ORDERED: LEVEMIR SQ (12:05)
== END 2016-10-16 16:20 | disposition home or self-care (01) ==
LOC: NEPC 20:48 → NEDA 10-15 00:21 → NEPGCP 10-15 02:15
PROVIDERS: ADMIT Internal Medicine; ATTEND Internal Medicine
DX: K31.84 Gastroparesis (principal); E87.6 Hypokalemia; E86.0 Dehydration; I10 Essential (primary) hypertension; E11.43 Type 2 diabetes mellitus with diabetic autonomic (poly)neuropathy; E11.65 Type 2 diabetes mellitus with hyperglycemia; N17.9 Acute kidney failure, unspecified
CPT/HCPCS: 80048; 80053; 82010; 82948; 83036; 83690; 83735; 85025; 96361; 96374; 96375; 99285; C9113; G0378; J1170; J1200; J1815; J2270; J2405; J2765; J3475; J3480; J7030

== ENCOUNTER 2016-10-30 12:17 | Emergency (ER) | payer OTHER ==
[~2016-10-30] VITALS: Ht 180.3 cm; Wt 70.0 kg
[~2016-10-30 12:17] MED LIST changes: -OMEP20TA PO; +PROT40TA PO; -REGL5TAB PO
[2016-10-30 12:21] VITALS: BP 146/94; PULSE 87; RESP 20; TEMP 98.2; O2SAT 97
[2016-10-30] MEDS ORDERED: SODIUM CHLOR 0.9% 1000 ML INJ 1,000 ML IV ONE (12:41)
[2016-10-30] MEDS ORDERED: SODIUM CHLORIDE 0.9% FLUSH 5 ML FLUSH IVF PRN (12:45)
[2016-10-30] MEDS ORDERED: ONDANSETRON HCL 4 MG/2 ML VIAL IVP ONE (12:45)
--- NOTE | 2016-10-30 12:48 | PD ---
HPI Chief Complaint: Diabetic Time Seen by Provider: 12:48 Travel History International Travel<30 days: No Contact w/Intl Traveler<30days: No Traveled to known affect area: No History of Present Illness HPI 30-year-old male with history of diabetes, gastroparesis, recurrent abdominal pain, with multiple visits to the emergency department for similar complaints, presents to emergency department today for evaluation of nausea, vomiting and abdominal pain. He is accompanied by his mother who states that his blood glucose was greater than 500 last evening. She gave him Levemir and states she was unable to get down. He has been nauseous and vomiting throughout the night complaining of abdominal pain. Last episode of emesis was in triage. It is bilious in nature. No hematemesis or coffee-ground emesis. Or chills. No chest Tightness. No difficulty breathing. Patient is unable to specify exactly where his abdominal pain is but generalized and her umbilical. He has had no diarrhea. No other symptoms reported. PFSH Past Medical History Arthritis: No Asthma: No Autoimmune Disease: No Blood Disorders: No Anxiety: Yes Depression: Yes Heart Rhythm Problems: No Cancer: No Cardiovascular Problems: No High Cholesterol: No Chest Pain: No Congestive Heart Failure: No COPD: No Cerebrovascular Accident: No Diabetes: Yes Diminished Hearing: No Endocrine: Yes Gastrointestinal Disorders: Yes (Gastroparesis) GERD: No Genitourinary: No Headaches: Yes Hiatal Hernia: No Herniated Disk: Yes (2 DISCS IN BACK AND 2 IN NECK 2o TO CUSTODIAL) Hypertension: No Implanted Vascular Access Dvce: No Kidney Stones: No Musculoskeletal: No Neurologic: Yes (Neuropathy) Psychiatric: Yes Reproductive: No Respiratory: No Immunizations Current: Yes Migraines: No Seizures: No Sickle Cell Disease: No Sleep Apnea: No Thyroid Disease: No Ulcer: No PNEUMOCCOCAL Vaccine (Year): 1 Past Surgical History Abdominal Surgery: No Cardiac Surgery: No Ear Surgery: No Endocrine Surgery: No Eye Surgery: No Genitourinary Surgery: No Gynecologic Surgery: No Neurologic Surgery: No Oral Surgery: No Pacemaker: No Thoracic Surgery: No Social History Alcohol Use: No Tobacco Use: No Substance Use: Yes (marijuana) Allergies-Medications (Allergen,Severity, Reaction): Coded Allergies: No Known Allergies (Verified , 10/14/16) Reported Meds & Prescriptions Reported Meds & Active Scripts Active Zofran Odt (Ondansetron Odt) 4 Mg Tab 4 Mg SL Q6HR PRN Protonix (Pantoprazole Sodium) 40 Mg Tab 40 Mg PO DAILY Zofran Odt (Ondansetron Odt) 4 Mg Tab 4 Mg SL Q6HR PRN Reported Potassium Chloride ER (Potassium Chloride) Unknown Strength Cap Unknown Dose PO DAILY Mag-Delay (Magnesium Chloride) Unknown Strength Tab Unknown Dose PO DAILY Novolog Inj (Insulin Aspart) 1,000 Unit/10 Ml Vial 0 SQ DIRECTED Sliding Scale as directed. Levemir Inj (Insulin Detemir) 1,000 unit/ 10 ML Vial 20 Units SQ BID Do not mix with any other Insulin. Review of Systems Except as stated in HPI: all other systems reviewed are Neg Physical Exam Narrative GENERAL: Well-nourished male patient, lying in bed, in no acute distress SKIN: Warm and dry. HEAD: Atraumatic. Normocephalic. EYES: Pupils equal and round. No scleral icterus. No injection or drainage. ENT: No nasal bleeding or discharge. Mucous membranes pink and moist. NECK: Trachea midline. No JVD. CARDIOVASCULAR: Regular rate and rhythm. No murmur appreciated. RESPIRATORY: No accessory muscle use. Clear to auscultation. Breath sounds equal bilaterally. GASTROINTESTINAL: Abdomen soft, nondistended. Inconsistent tenderness to palpation, mostly periumbilical. No guarding. No rebound tenderness. Hepatic and splenic margins not palpable. MUSCULOSKELETAL: No obvious deformities. No clubbing. No cyanosis. No edema. NEUROLOGICAL: Awake and alert. No obvious cranial nerve deficits. Motor grossly within normal limits. Normal speech. Data Data Last Documented VS Vital Signs Date Time Temp Pulse Resp B/P Pulse Ox O2 Delivery O2 Flow Rate FiO2 10/30/16 12:21 98.2 87 20 146/94 97 Orders Complete Blood Count With Diff (10/30/16 12:41) Basic Metabolic Panel (Bmp) (10/30/16 12:41) Iv Access Insert/Monitor (10/30/16 12:41) Ecg Monitoring (10/30/16 12:41) Oximetry (10/30/16 12:41) Ondansetron Inj (Zofran Inj) (10/30/16 12:45) Sodium Chlor 0.9% 1000 Ml Inj (Ns 1000 M (10/30/16 12:41) Sodium Chloride 0.9% Flush (Ns Flush) (10/30/16 12:45) Blood Glucose (10/30/16 12:41) Diphenhydramine Inj (Benadryl Inj) (10/30/16 13:00) Metoclopramide Inj (Reglan Inj) (10/30/16 13:00) Beta Hydroxybutyrate (Acetone) (10/30/16 13:00) Ondansetron Inj (Zofran Inj) (10/30/16 14:45) Labs Laboratory Tests Test 10/30/16 13:00 White Blood Count 12.3 TH/MM3 Red Blood Count 4.47 MIL/MM3 Hemoglobin 12.6 GM/DL Hematocrit 36.9 % Mean Corpuscular Volume 82.5 FL Mean Corpuscular Hemoglobin 28.3 PG Mean Corpuscular Hemoglobin 34.3 % Concent Red Cell Distribution Width 13.5 % Platelet Count 323 TH/MM3 Mean Platelet Volume 7.2 FL Neutrophils (%) (Auto) 74.2 % Lymphocytes (%) (Auto) 19.9 % Monocytes (%) (Auto) 5.6 % Eosinophils (%) (Auto) 0.1 % Basophils (%) (Auto) 0.2 % Neutrophils # (Auto) 9.1 TH/MM3 Lymphocytes # (Auto) 2.4 TH/MM3 Monocytes # (Auto) 0.7 TH/MM3 Eosinophils # (Auto) 0.0 TH/MM3 Basophils # (Auto) 0.0 TH/MM3 CBC Comment DIFF FINAL Differential Comment Sodium Level 138 MEQ/L Potassium Level 3.5 MEQ/L Chloride Level 100 MEQ/L Carbon Dioxide Level 23.9 MEQ/L Anion Gap 14 MEQ/L Blood Urea Nitrogen 31 MG/DL Creatinine 1.47 MG/DL Estimat Glomerular Filtration 56 ML/MIN Rate Random Glucose 219 MG/DL Calcium Level 9.5 MG/DL B-Hydroxybutyrate 0.10 MMOL/L MDM Medical Decision Making Medical Screen Exam Complete: Yes Emergency Medical Condition: Yes Medical Record Reviewed: Yes Differential Diagnosis Gastroparesis, diabetic versus cannabinoids versus gastritis versus esophagitis versus recurrent abdominal pain versus gastroenteritis Narrative Course 30-year-old male presents to emergency department for evaluation. Patient has been seen in the emergency department several times for gastritis, gastroparesis , and elevated blood glucose. CBC is slightly elevated at 12.3. There is no significant left shift. BMP is with urine 31, creatinine 1.47, random glucose 219. Patient is given a liter normal saline fluid, Zofran, Reglan, Benadryl. Upon reassessment, patient is resting in the stretcher with his eyes closed. Vital signs are stable. I have discussed the pt with my attending physician Dr. Branch. At this time there are no additional findings that require emergent workup or admission. This is discussed the patient and his mother. They're encouraged to follow-up outpatient. Just prior to discharge, the patient is wretching in his room; no emesis noted. He is given additional zofran. His mother is requesting phenergan and dilaudid by name, stating he "always gets this when this happens". After additional discussion with my attending, it is explained to her that opiate medication is not appropriate in the setting of gastroparesis. Patient is to follow-up with his primary care provider. He will be discharged at this time. Diagnosis Primary Impression: Nausea & vomiting Qualified Code: R11.14 - Bilious vomiting with nausea Additional Impressions: Gastroparesis Abdominal pain Qualified Code: R10.9 - Abdominal pain, unspecified location Referrals: Primary Care Physician Patient Instructions: Diabetic Gastroparesis (DC), General Instructions Additional Instructions: Follow-up with her primary care provider Continue medication as already prescribed Return immediately to the emergency department with any acute worsening of symptoms Med/Other Pt SpecificInfo: Prescription(s) given Scripts Ondansetron Odt (Zofran Odt)4 Mg Tab4 Mg SL Q6HR PRN (Nausea/Vomiting) #15 TAB Ref 0 Prov:Jodee Leger 10/30/16 Disposition: 01 DISCHARGE HOME Condition: Stable Jodee Leger Oct 30, 2016 12:48
[2016-10-30] MEDS ORDERED: METOCLOPRAMIDE HCL 10 MG/2 ML VIAL IV PUSH ONE (13:00)
[2016-10-30] MEDS ORDERED: diphenhydrAMINE HCL 50 MG/ML VIAL IV PUSH ONE (13:00)
[2016-10-30 13:21] LABS: AUTOMATED NEUTROPHIL # 9.1 TH/MM3 (1.8-7.7); BASOPHIL % 0.2 % (0.0-2.0); EOSINOPHIL % 0.1 % (0.0-4.0); HEMATOCRIT 36.9 % (39.0-51.0); HEMO FLAGS DIFF FINAL; LYMPH % 19.9 % (9.0-44.0); LYMPHOCYTE # 2.4 TH/MM3 (1.0-4.8); MEAN CELL VOLUME 82.5 FL (80.0-100.0); MEAN CORPUSCULAR HEMOGLOBIN 28.3 PG (27.0-34.0); MEAN CORPUSCULAR HGB CONC 34.3 % (32.0-36.0); MONO % 5.6 % (0.0-8.0); NEUT % 74.2 % (16.0-70.0); PLATELET COUNT 323 TH/MM3 (150-450); RED BLOOD COUNT 4.47 MIL/MM3 (4.50-5.90); RED CELL DISTRIBUTION WIDTH 13.5 % (11.6-17.2); WHITE BLOOD COUNT 12.3 TH/MM3 (4.0-11.0)
[2016-10-30 13:39] LABS: BICARBONATE 23.9 MEQ/L (21.0-32.0); POTASSIUM 3.5 MEQ/L (3.5-5.1)
[2016-10-30 13:40] LABS: BETA-HYDROXYBUTYRATE 0.1 MMOL/L (0.00-0.39)
[2016-10-30] MEDS ORDERED: ZOFR4TAB3 SL (14:20)
[2016-10-30] MEDS ORDERED: ONDANSETRON HCL 4 MG/2 ML VIAL IV PUSH ONE (14:45)
[2016-11-25] MEDS ORDERED: PANT40TA3 PO (11:23)
[2016-11-25] MEDS ORDERED: METO10TA PO (11:23)
[2017-02-28] MEDS ORDERED: FLUO1TAB15 PO (11:37)
[2017-02-28] MEDS ORDERED: LEVEMIR SQ (12:05)
== END 2016-10-30 16:11 | disposition home or self-care (01) ==
LOC: NEPC 12:17
DX: K31.84 Gastroparesis (principal); F41.8 Other specified anxiety disorders; E11.9 Type 2 diabetes mellitus without complications; F12.10 Cannabis abuse, uncomplicated
CPT/HCPCS: 80048; 82010; 85025; 96361; 96374; 96375; 96376; 99284; J1200; J2405; J2765; J7030

== ENCOUNTER 2016-11-17 10:40 | Observation (INO) | payer OTHER ==
[~2016-11-17] VITALS: Ht 180.3 cm; Wt 72.7 kg
[~2016-11-17 10:40] MED LIST changes: -REGL10TA5 PO
[2016-11-17 10:42] VITALS: BP 118/88; PULSE 146; RESP 24; TEMP 97.8; O2SAT 96
[2016-11-17] MEDS ORDERED: SODIUM CHLOR 0.9% 1000 ML INJ 1,000 ML IV SCH ×2 (11:23→12:34)
[2016-11-17 11:25] VITALS: BP 143/92; PULSE 112; RESP 16; O2SAT 99
[2016-11-17 11:26] VITALS: O2SAT 99
[2016-11-17] MEDS ORDERED: OMEP40CA2 PO (11:29)
[2016-11-17] MEDS ORDERED: METOCLOPRAMIDE HCL 10 MG/2 ML VIAL IV PUSH ONE (11:30)
[2016-11-17] MEDS ORDERED: HYDROmorphone HCL PF 1 MG/ML VIAL IV PUSH ONE (11:45)
--- NOTE | 2016-11-17 11:51 | PD ---
HPI Chief Complaint: GI Complaint Time Seen by Provider: 11:47 Travel History International Travel<30 days: No Contact w/Intl Traveler<30days: No Traveled to known affect area: No History of Present Illness HPI 31-year-old male that presents to the ED for evaluation of nausea and vomiting as well as possible DKA and gastroparesis. Patient has a chronic history of diabetes type 1 with insulin-dependent. Per mother who was awoken is most information as patient cannot really tell me much other than make moans, patient has been vomiting multiple times since Monday and per mother's he is not really been able to keep anything down since. Not even small fluids. She does take Zofran and medications for the gastritis as well as the Gastro paresis but seems to be unable to keep them down. Patient has been able to keep his sugars down and his sugars have actually been in the 200s but mother is concerned the patient is not drinking anything and he could be dehydrated. He states having some abdominal pain. Patient does smoke marijuana. He denies any other medical problem. He denies any recent surgeries. He has not seen his doctor for this. He has no allergies to medication. Per patient the pain is 8 out of 10. Most of the history is obtained from family members patient would not really talk to me secondary to moaning. PFSH Past Medical History Arthritis: No Asthma: No Autoimmune Disease: No Blood Disorders: No Anxiety: Yes Depression: Yes Heart Rhythm Problems: No Cancer: No Cardiovascular Problems: No High Cholesterol: No Chest Pain: No Congestive Heart Failure: No COPD: No Cerebrovascular Accident: No Diabetes: Yes (type 1) Patient Takes Glucophage: No Diminished Hearing: No Endocrine: Yes Gastrointestinal Disorders: Yes (Gastroparesis) GERD: No Genitourinary: No Headaches: Yes Hiatal Hernia: No Herniated Disk: Yes (2 DISCS IN BACK AND 2 IN NECK 2o TO [facility]) Hypertension: No Implanted Vascular Access Dvce: No Kidney Stones: No Musculoskeletal: No Neurologic: Yes (Neuropathy) Psychiatric: Yes Reproductive: No Respiratory: No Immunizations Current: Yes Migraines: No Seizures: No Sickle Cell Disease: No Sleep Apnea: No Thyroid Disease: No Ulcer: No PNEUMOCCOCAL Vaccine (Year): 1 ?: Not Past Surgical History Abdominal Surgery: No Cardiac Surgery: No Ear Surgery: No Endocrine Surgery: No Eye Surgery: No Genitourinary Surgery: No Gynecologic Surgery: No Neurologic Surgery: No Oral Surgery: No Pacemaker: No Thoracic Surgery: No Other Surgery: Yes (Inguinal hernia repair) Social History Alcohol Use: No Tobacco Use: No Substance Use: Yes (marijuana) Allergies-Medications (Allergen,Severity, Reaction): Coded Allergies: No Known Allergies (Verified , 10/14/16) Reported Meds & Prescriptions Reported Meds & Active Scripts Active Protonix (Pantoprazole Sodium) 40 Mg Tab 40 Mg PO DAILY Zofran Odt (Ondansetron Odt) 4 Mg Tab 4 Mg SL Q6HR PRN Reported Omeprazole 40 Mg Cap 40 Mg PO DAILY Potassium Chloride ER (Potassium Chloride) Unknown Strength Cap Unknown Dose PO DAILY Mag-Delay (Magnesium Chloride) Unknown Strength Tab Unknown Dose PO DAILY Novolog Inj (Insulin Aspart) 1,000 Unit/10 Ml Vial 0 SQ DIRECTED Sliding Scale as directed. Levemir Inj (Insulin Detemir) 1,000 unit/ 10 ML Vial 20 Units SQ BID Do not mix with any other Insulin. Review of Systems Except as stated in HPI: all other systems reviewed are Neg Physical Exam Narrative GENERAL: SKIN: Warm and dry. HEAD: Atraumatic. Normocephalic. EYES: Pupils equal and round. No scleral icterus. No injection or drainage. ENT: No nasal bleeding or discharge. Mucous membranes pink and moist. Tongue is midline. No uvula deviation. NECK: Trachea midline. No JVD. CARDIOVASCULAR: Regular rate and rhythm. No murmurs, S3, S4. RESPIRATORY: No accessory muscle use. Clear to auscultation. Breath sounds equal bilaterally. GASTROINTESTINAL: Abdomen soft, tender with deep and soft palpation, nondistended. Hepatic and splenic margins not palpable. MUSCULOSKELETAL: Extremities without clubbing, cyanosis, or edema. No obvious deformities. Full range of motion of the upper and lower extremities bilaterally. Pupils pulses bilaterally. NEUROLOGICAL: Awake and alert. No obvious cranial nerve deficits. Motor grossly within normal limits. Five out of 5 muscle strength in the arms and legs. Normal speech. PSYCHIATRIC: Appropriate mood and affect; insight and judgment normal. Data Data Last Documented VS Vital Signs Date Time Temp Pulse Resp B/P Pulse Ox O2 Delivery O2 Flow Rate FiO2 11/17/16 14:13 16 11/17/16 14:10 90 113/72 97 Room Air 11/17/16 10:42 97.8 Orders Complete Blood Count With Diff (2/2/17 11:23) Comprehensive Metabolic Panel (11/17/16 11:23) Lipase (11/17/16 11:23) Urinalysis - C+S If Indicated (11/17/16 11:23) Magnesium (Mg) (11/17/16 11:23) Beta Hydroxybutyrate (Acetone) (11/17/16 11:23) Iv Access Insert/Monitor (11/17/16 11:23) Ecg Monitoring (11/17/16 11:23) Oximetry (11/17/16 11:23) NPO (11/17/16 11:23) Sodium Chlor 0.9% 1000 Ml Inj (Ns 1000 M (11/17/16 11:23) Metoclopramide Inj (Reglan Inj) (11/17/16 11:30) Hydromorphone Pf Inj (Dilaudid Pf Inj) (11/17/16 11:45) Ns + Kcl 20 Meq Inj (Ns + Kcl 20 Meq Inj (11/17/16 12:30) Ct Abd/Pel W Iv Contrast(Rout) (11/17/16 12:22) Sodium Chlor 0.9% 1000 Ml Inj (Ns 1000 M (11/17/16 12:34) Iohexol 350 Inj (Omnipaque 350 Inj) (11/17/16 13:10) Admit Order (Ed Use Only) (11/17/16 14:44) Labs Laboratory Tests Test 11/17/16 11/17/16 11:47 12:40 White Blood Count 8.4 TH/MM3 Red Blood Count 4.54 MIL/MM3 Hemoglobin 13.0 GM/DL Hematocrit 37.2 % Mean Corpuscular Volume 82.0 FL Mean Corpuscular Hemoglobin 28.6 PG Mean Corpuscular Hemoglobin 34.9 % Concent Red Cell Distribution Width 13.3 % Platelet Count 282 TH/MM3 Mean Platelet Volume 6.9 FL Neutrophils (%) (Auto) 74.2 % Lymphocytes (%) (Auto) 17.7 % Monocytes (%) (Auto) 7.6 % Eosinophils (%) (Auto) 0.2 % Basophils (%) (Auto) 0.3 % Neutrophils # (Auto) 6.2 TH/MM3 Lymphocytes # (Auto) 1.5 TH/MM3 Monocytes # (Auto) 0.6 TH/MM3 Eosinophils # (Auto) 0.0 TH/MM3 Basophils # (Auto) 0.0 TH/MM3 CBC Comment DIFF FINAL Differential Comment Sodium Level 129 MEQ/L Potassium Level 3.3 MEQ/L Chloride Level 84 MEQ/L Carbon Dioxide Level 34.5 MEQ/L Anion Gap 11 MEQ/L Blood Urea Nitrogen 28 MG/DL Creatinine 1.45 MG/DL Estimat Glomerular Filtration 56 ML/MIN Rate Random Glucose 193 MG/DL Calcium Level 9.3 MG/DL Magnesium Level 2.4 MG/DL Total Bilirubin 0.7 MG/DL Aspartate Amino Transf 11 U/L (AST/SGOT) Alanine Aminotransferase 18 U/L (ALT/SGPT) Alkaline Phosphatase 89 U/L Total Protein 8.4 GM/DL Albumin 4.0 GM/DL Lipase 91 U/L B-Hydroxybutyrate 1.06 MMOL/L Urine Color YELLOW Urine Turbidity CLEAR Urine pH 6.5 Urine Specific Floyd 1.021 Urine Protein 30 mg/dL Urine Glucose (UA) 300 mg/dL Urine Ketones 10 mg/dL Urine Occult Blood NEG Urine Nitrite NEG Urine Bilirubin NEG Urine Urobilinogen 2.0 MG/DL Urine Leukocyte Esterase NEG Urine RBC 2 /hpf Urine WBC 1 /hpf Urine Mucus FEW /lpf Microscopic Urinalysis Comment CULT NOT INDICATED MDM Medical Decision Making Medical Screen Exam Complete: Yes Emergency Medical Condition: Yes Medical Record Reviewed: Yes Interpretation(s) CBC & BMP Diagram 11/17/16 11:47 LFts and lipase WNL acetone WNL CT of the abdomen show mild distention of the small intestine Differential Diagnosis DKA versus hyperemesis versus gastroparesis versus electrolyte abnormality versus hyperglycemia versus severe dehydration versus diabetes versus gastritis Narrative Course 31-year-old male that presents to the ED for evaluation of nausea and vomiting. Patient was properly examined and was found to have signs and symptoms consistent appears to be likely gastroparesis with gastritis and severe nausea. Patient she cannot keep anything down. Patient has not thrown up here but can 't keep anything down by mouth. IV was established. Labs were ordered. I did review his medical records and patient has been here multiple times for similar complaint with DKA in the past as well as gastroparesis and admissions for severe vomiting. Patient was given IV antiemetics as well as fluids and pain medication. Labs and imaging showed slight dehydration but no DKA. CT did showed some mild bowel distention which my attending is concerned for possible partial obstruction. She recommends admission to for intractable nausea and vomit t as well as possible partial obstruction. Patient and family were told this and agrees with plan. Case discussed with Dr Mehta who agreed to admit patient. Procedures EKG Prior to Arrival: No Sepsis Criteria SIRS Criteria (2 or more): Heart rate over 90 Diagnosis Primary Impression: Nausea & vomiting Qualified Code: R11.2 - Intractable vomiting with nausea, unspecified vomiting type Additional Impression: Small bowel obstruction, partial Admitting Information Admitting Physician Requests: Observation Nelson Waldron Nov 17, 2016 11:51
[2016-11-17 11:58] LABS: AUTOMATED NEUTROPHIL # 6.2 TH/MM3 (1.8-7.7); BASOPHIL % 0.3 % (0.0-2.0); EOSINOPHIL % 0.2 % (0.0-4.0); HEMATOCRIT 37.2 % (39.0-51.0); HEMO FLAGS DIFF FINAL; LYMPH % 17.7 % (9.0-44.0); LYMPHOCYTE # 1.5 TH/MM3 (1.0-4.8); MEAN CORPUSCULAR HEMOGLOBIN 28.6 PG (27.0-34.0); MEAN CORPUSCULAR HGB CONC 34.9 % (32.0-36.0); MONO % 7.6 % (0.0-8.0); NEUT % 74.2 % (16.0-70.0); PLATELET COUNT 282 TH/MM3 (150-450); RED BLOOD COUNT 4.54 MIL/MM3 (4.50-5.90); RED CELL DISTRIBUTION WIDTH 13.3 % (11.6-17.2); WHITE BLOOD COUNT 8.4 TH/MM3 (4.0-11.0)
[2016-11-17 12:19] LABS: ANION GAP 11 MEQ/L (5-15); AST (GOT) 11 U/L (15-37); BICARBONATE 34.5 MEQ/L (21.0-32.0); BLOOD UREA NITROGEN 28 MG/DL (7-18); CHLORIDE 84 MEQ/L (98-107); GLOMERULAR FILTRATION RATE 56 ML/MIN (>89); MAGNESIUM 2.4 MG/DL (1.5-2.5); POTASSIUM 3.3 MEQ/L (3.5-5.1); SODIUM (NA) 129 MEQ/L (136-145)
[2016-11-17 12:22] LABS: ALKALINE PHOSPHATASE 89 U/L (45-117); ALT (GPT) 18 U/L (12-78); BETA-HYDROXYBUTYRATE 1.06 MMOL/L (0.00-0.39); TOTAL BILIRUBIN ADULT 0.7 MG/DL (0.2-1.0)
[2016-11-17] MEDS ORDERED: NS + KCL 20 MEQ INJ 1,000 ML IV ONE (12:30)
[2016-11-17] MEDS ORDERED: IOHEXOL 350 MG/ML 10 ML VIAL (for RAD DIAG) IV ONE (13:10)
--- NOTE | 2016-11-17 13:21 | RADRPT ---
EXAM DATE/TIME: 11/17/2016 13:03 [facility] COMPARISON: CT ABDOMEN & PELVIS W CONTRAST, March 18, 2016, 4:17. INDICATIONS : Abdominal and lower back pain, nausea and vomiting. IV CONTRAST: 92 cc Omnipaque 350 (iohexol) IV ORAL CONTRAST: No oral contrast ingested. RADIATION DOSE: 4.85 CTDIvol (mGy) MEDICAL HISTORY : Diabetes mellitus type 2. Hernia, inguinal. Gastroparesis.Neuropathy. SURGICAL HISTORY : Inguinal hernia repair. ENCOUNTER: Initial ACUITY: 1 day PAIN SCALE: 8/10 LOCATION: abdomen. TECHNIQUE: Volumetric scanning of the abdomen and pelvis was performed. Using automated exposure control and adjustment of the mA and/or kV according to patient size, radiation dose was kept as low as reasonably achievable to obtain optimal diagnostic quality images. FINDINGS: LOWER LUNGS: The visualized lower lungs are clear. LIVER: Homogeneous density without lesion. There is no dilation of the biliary tree. No calcifi ed gallstones. SPLEEN: Normal size without lesion. PANCREAS: Within normal limits. KIDNEYS: Normal in size and shape. There is no mass, stone or hydronephrosis. ADRENAL GLANDS: Within normal limits. VASCULAR: There is no aortic aneurysm. BOWEL/MESENTERY: Mild distention with increased fluid accumulation is identified in the proximal small bowel. Colon is unremarkable. There are no extraintestinal inflammatory changes or abnormal flu id collections. There is no free intraperitoneal air or fluid. ABDOMINAL WALL: Within normal limits. RETROPERITONEUM: There is no lymphadenopathy. BLADDER: No wall thickening or mass. REPRODUCTIVE: Within normal limits. INGUINAL: There is no lymphadenopathy or hernia. MUSCULOSKELETAL: Within normal limits for patient age. CONCLUSION: Mild proximal small bowel distention with increased fluid. No other significant abnormalities. Savage Field MD on November 17, 2016 at 13:16 Board Certified Radiologist. This report was verified electronically.
[2016-11-17 13:29] LABS: BLOOD, URINE NEG (NEG); GLUCOSE,URINE 300 mg/dL (NEG); KETONE, URINE 10 mg/dL (NEG); MUCUS URINE FEW /lpf (OCC); NITRITE,URINE NEG (NEG); PH, URINE 6.5 (5.0-8.5); URINE COLOR YELLOW (YELLW/STRAW)
[2016-11-17 13:30] LABS: COMMENT (UR) CULT NOT INDICATED; CULTURE IF INDICATED CULT NOT INDICATED
[2016-11-17 14:10] VITALS: BP 113/72; PULSE 90; RESP 15; O2SAT 97
[2016-11-17] MEDS ORDERED: GLUCAGON 1 MG/ML VIAL OTHER PRN (15:00)
[2016-11-17] MEDS ORDERED: DEXTROSE 50% IN WATER 50 ML VIAL(D50) IV PUSH PRN (15:00)
--- NOTE | 2016-11-17 15:06 | HHI.HP ---
[facility] Service [facility] Primary Care Physician Belén Carter MD Admission Diagnosis dehydration, nausea and vomit, possible bowel obstruction Diagnoses: (1) Dehydration Diagnosis: Principal (2) Gastroparesis Diagnosis: Principal (3) Intractable nausea and vomiting Diagnosis: Principal Chief Complaint: nausea and vomiting Travel History International Travel<30 Days: No Contact w/Intl Traveler <30 Da: No Traveled to Known Affected Are: No History of Present Illness patient is a 31 y/o male with history of diabetes and gastroparesis who presented to ER with abdominal pain, nausea and vomiting. he says that he started to have nausea and vomiting few days ago. this was associated with abdominal pain. the pain was localized in lower abdomen. pain is constant. denies fever or chills.had a BM yesterday.he says that his blood sugar at home is around 120-200's. Review of Systems Constitutional: DENIES: Fever, Weight loss, Chills, Night Sweats Eyes: DENIES: Blurred vision, Diplopia, Vision loss, Double Vision Ears, nose, mouth, throat: DENIES: Tinnitus, Vertigo, Throat pain, Epistaxis Respiratory: DENIES: Apneas, Cough, Snoring, Wheezing, Hemoptysis, Sputum production, Shortness of breath Cardiovascular: DENIES: Chest pain, Palpitations, Syncope, Dyspnea on Exertion , PND, Lower Extremity Edema, Orthopnea, Claudication Gastrointestinal: COMPLAINS OF: Abdominal pain, Nausea, Vomiting, DENIES: Black stools, Bloody stools, Constipation, Diarrhea, Difficulty Swallowing, Anorexia Genitourinary: DENIES: Urinary frequency, Urgency, Hematuria, Dysuria Musculoskeletal: DENIES: Joint pain, Muscle aches, Stiffness, Joint Swelling Integumentary: DENIES: Rash Neurologic: DENIES: Abnormal gait, Headache, Localized weakness, Paresthesias, Seizures, Speech Problems, Tremor, Poor Balance Psychiatric: DENIES: Anxiety, Confusion, Mood changes, Depression, Hallucinations, Agitation, Suicidal Ideation, Homicidal Ideation, Delusions Past Family Social History Past Medical History diabetes mellitus gastroparesis Past Surgical History inguinal hernia repair. Reported Medications Omeprazole 40 Mg Cap 40 Mg PO DAILY Potassium Chloride ER (Potassium Chloride) Unknown Strength Cap Unknown Dose PO DAILY Mag-Delay (Magnesium Chloride) Unknown Strength Tab Unknown Dose PO DAILY Novolog Inj (Insulin Aspart) 1,000 Unit/10 Ml Vial 0 SQ DIRECTED Sliding Scale as directed. Levemir Inj (Insulin Detemir) 1,000 unit/ 10 ML Vial 20 Units SQ BID Do not mix with any other Insulin. Allergies: Coded Allergies: No Known Allergies (Verified , 10/14/16) Active Ordered Medications Current Medications Sodium Chloride (NS 1000 ml Inj) 1,000 ml @ 1,000 mls/hr Q1H IV Last administered on 11/17/16 12:07; Start 11/17/16 at 11:23; Stop 11/17/16 at 12:22; Status DC Metoclopramide HCl (Reglan Inj) 10 mg ONCE ONCE IV PUSH Last administered on 12:08; Start 11/17/16 at 11:30; Stop 11/17/16 at 11:35; Status DC Hydromorphone HCl 1 mg 1 mg ONCE ONCE IV PUSH Last administered on 11/17/16 12 :08; Start 11/17/16 at 11:45; Stop 11/17/16 at 11:46; Status DC Potassium Chloride/Sodium Chloride 1,000 ml @ 250 mls/hr Q4H ONCE IV Last administered on 11/17/16 12:55; Start 11/17/16 at 12:30; Stop 11/17/16 at 16:29 Sodium Chloride (NS 1000 ml Inj) 1,000 ml @ 1,000 mls/hr Q1H IV Last administered on 11/17/16 12:55; Start 11/17/16 at 12:34; Stop 11/17/16 at 13:33; Status DC Iohexol (Omnipaque 350 Inj) 92 ml STK-MED ONCE IV Last administered on 13:10; Start 11/17/16 at 13:10; Stop 11/17/16 at 13:11; Status DC Social History no smoking or drinking. Physical Exam Vital Signs Vital Signs Date Time Temp Pulse Resp B/P Pulse Ox O2 Delivery O2 Flow Rate FiO2 11/17/16 14:13 16 11/17/16 14:10 90 15 113/72 97 Room Air 11/17/16 11:37 16 11/17/16 11:26 99 Room Air 11/17/16 11:25 112 16 143/92 99 Room Air 11/17/16 10:42 97.8 146 24 118/88 96 Room Air Physical Exam GENERAL: This is a well-nourished, well-developed patient, in no apparent distress. SKIN: No rashes, ecchymoses or lesions. Cool and dry. HEAD: Atraumatic. Normocephalic. No temporal or scalp tenderness. EYES: Pupils equal round and reactive. Extraocular motions intact. No scleral icterus. No injection or drainage. ENT: Nose without bleeding, purulent drainage or septal hematoma. Throat without erythema, tonsillar hypertrophy or exudate. Uvula midline. Airway patent. NECK: Trachea midline. No JVD or lymphadenopathy. Supple, nontender, no meningeal signs. CARDIOVASCULAR: Regular rate and rhythm without murmurs, gallops, or rubs. RESPIRATORY: Clear to auscultation. Breath sounds equal bilaterally. No wheezes , rales, or rhonchi. GASTROINTESTINAL: Abdomen soft, mild lower abdominal tenderness, nondistended. No hepato-splenomegaly, or palpable masses. No guarding. MUSCULOSKELETAL: Extremities without clubbing, cyanosis, or edema. No joint tenderness, effusion, or edema noted. No calf tenderness. Negative Homans sign bilaterally. NEUROLOGICAL: Awake and alert. Cranial nerves II through XII intact. Motor and sensory grossly within normal limits. Five out of 5 muscle strength in all muscle groups. Normal speech. Laboratory Laboratory Tests Test 11/17/16 11/17/16 11:47 12:40 White Blood Count 8.4 Red Blood Count 4.54 Hemoglobin 13.0 Hematocrit 37.2 Mean Corpuscular Volume 82.0 Mean Corpuscular Hemoglobin 28.6 Mean Corpuscular Hemoglobin 34.9 Concent Red Cell Distribution Width 13.3 Platelet Count 282 Mean Platelet Volume 6.9 Neutrophils (%) (Auto) 74.2 Lymphocytes (%) (Auto) 17.7 Monocytes (%) (Auto) 7.6 Eosinophils (%) (Auto) 0.2 Basophils (%) (Auto) 0.3 Neutrophils # (Auto) 6.2 Lymphocytes # (Auto) 1.5 Monocytes # (Auto) 0.6 Eosinophils # (Auto) 0.0 Basophils # (Auto) 0.0 CBC Comment DIFF FINAL Differential Comment Sodium Level 129 Potassium Level 3.3 Chloride Level 84 Carbon Dioxide Level 34.5 Anion Gap 11 Blood Urea Nitrogen 28 Creatinine 1.45 Estimat Glomerular Filtration 56 Rate Random Glucose 193 Calcium Level 9.3 Magnesium Level 2.4 Total Bilirubin 0.7 Aspartate Amino Transf 11 (AST/SGOT) Alanine Aminotransferase 18 (ALT/SGPT) Alkaline Phosphatase 89 Total Protein 8.4 Albumin 4.0 Lipase 91 B-Hydroxybutyrate 1.06 Urine Color YELLOW Urine Turbidity CLEAR Urine pH 6.5 Urine Specific [place] 1.021 Urine Protein 30 Urine Glucose (UA) 300 Urine Ketones 10 Urine Occult Blood NEG Urine Nitrite NEG Urine Bilirubin NEG Urine Urobilinogen 2.0 Urine Leukocyte Esterase NEG Urine RBC 2 Urine WBC 1 Urine Mucus FEW Microscopic Urinalysis Comment CULT NOT INDICATED Result Diagram: 11/17/16 1147 11/17/16 1147 Imaging Last Impressions Abdomen/Pelvis CT 11/17/16 1222 Signed Impressions: Service Date/Time: November 13:03 - CONCLUSION: Mild proximal small bowel distention with increased fluid. No other significant abnormalities. Savage Field MD Assessment and Plan Assessment and Plan A/P - diabetes with gastroparesis start on liquid diet - start IV hydration and Reglan- resume long acting insulin and start accu-check with SSI continue with pain control; will switch to po meds when able to tolerate. -hyponatremia and acute kidney injury; start aggressive IV hydration and will monitor the renal function -mild hypokalemia; will replace and monitor Discussed Condition With ER and the patient. Meagan Eid MD Nov 17, 2016 15:06
[2016-11-17] MEDS ORDERED: ONDANSETRON HCL 4 MG/2 ML VIAL IV PUSH ONE (15:15)
--- NOTE | 2016-11-17 15:18 | PD ---
Physical Exam Date Seen by Provider: Nov 17, 2016 Time Seen by Provider: 12:00 Narrative I, Dr. Hemphill, have reviewed the advance practice practitioner's documentation and am in agreement, met with the patient face to face, made the diagnosis, and the medical decision making was done by me. *My assessment and Findings: Patient seen and evaluated with PA, please see PA note for further details. Previous history of diabetes, gastroparesis, and here with severe nausea, vomiting, doing poorly according to mom. Abdomen is diffusely tender. Laboratory Tests Test 11/17/16 11/17/16 11:47 12:40 Hematocrit 37.2 % (39.0-51.0) Mean Platelet Volume 6.9 FL (7.0-11.0) Neutrophils (%) (Auto) 74.2 % (16.0-70.0) Sodium Level 129 MEQ/L (136-145) Potassium Level 3.3 MEQ/L (3.5-5.1) Chloride Level 84 MEQ/L (98-107) Carbon Dioxide Level 34.5 MEQ/L (21.0-32.0) Blood Urea Nitrogen 28 MG/DL (7-18) Creatinine 1.45 MG/DL (0.60-1.30) Estimat Glomerular Filtration 56 ML/MIN (>89) Rate Random Glucose 193 MG/DL (74-106) Aspartate Amino Transf 11 U/L (15-37) (AST/SGOT) Total Protein 8.4 GM/DL (6.4-8.2) B-Hydroxybutyrate 1.06 MMOL/L (0.00-0.39) Urine Protein 30 mg/dL (NEG-TRACE) Urine Glucose (UA) 300 mg/dL (NEG) Urine Ketones 10 mg/dL (NEG) Urine Mucus FEW /lpf (OCC) Last 24 hours Impressions Abdomen/Pelvis CT 11/17/16 1222 Signed Impressions: Service Date/Time: November 13:03 - CONCLUSION: Mild proximal small bowel distention with increased fluid. No other significant abnormalities. Savage Field MD Patient was given IV fluids and Reglan in the ER. Lab work returns showing significant electrolyte abnormalities. CAT scan done shows small bowel obstruction. At this point, plan would be to admit the patient as an observation for small bowel obstruction and vomiting. Data Data Last Documented VS Vital Signs Date Time Temp Pulse Resp B/P Pulse Ox O2 Delivery O2 Flow Rate FiO2 11/17/16 14:13 16 11/17/16 14:10 90 113/72 97 Room Air 11/17/16 10:42 97.8 Orders Complete Blood Count With Diff (11/17/16 11:23) Comprehensive Metabolic Panel (11/17/16 11:23) Lipase (11/17/16 11:23) Urinalysis - C+S If Indicated (11/17/16 11:23) Magnesium (Mg) (11/17/16 11:23) Beta Hydroxybutyrate (Acetone) (11/17/16 11:23) Iv Access Insert/Monitor (11/17/16 11:23) Ecg Monitoring (11/17/16 11:23) Oximetry (11/17/16 11:23) NPO (11/17/16 11:23) Sodium Chlor 0.9% 1000 Ml Inj (Ns 1000 M (11/17/16 11:23) Metoclopramide Inj (Reglan Inj) (11/17/16 11:30) Hydromorphone Pf Inj (Dilaudid Pf Inj) (11/17/16 11:45) Ns + Kcl 20 Meq Inj (Ns + Kcl 20 Meq Inj (11/17/16 12:30) Ct Abd/Pel W Iv Contrast(Rout) (11/17/16 12:22) Sodium Chlor 0.9% 1000 Ml Inj (Ns 1000 M (11/17/16 12:34) Iohexol 350 Inj (Omnipaque 350 Inj) (11/17/16 13:10) Admit Order (Ed Use Only) (11/17/16 14:44) Labs Laboratory Tests Test 11/17/16 11/17/16 11:47 12:40 White Blood Count 8.4 TH/MM3 Red Blood Count 4.54 MIL/MM3 Hemoglobin 13.0 GM/DL Hematocrit 37.2 % Mean Corpuscular Volume 82.0 FL Mean Corpuscular Hemoglobin 28.6 PG Mean Corpuscular Hemoglobin 34.9 % Concent Red Cell Distribution Width 13.3 % Platelet Count 282 TH/MM3 Mean Platelet Volume 6.9 FL Neutrophils (%) (Auto) 74.2 % Lymphocytes (%) (Auto) 17.7 % Monocytes (%) (Auto) 7.6 % Eosinophils (%) (Auto) 0.2 % Basophils (%) (Auto) 0.3 % Neutrophils # (Auto) 6.2 TH/MM3 Lymphocytes # (Auto) 1.5 TH/MM3 Monocytes # (Auto) 0.6 TH/MM3 Eosinophils # (Auto) 0.0 TH/MM3 Basophils # (Auto) 0.0 TH/MM3 CBC Comment DIFF FINAL Differential Comment Sodium Level 129 MEQ/L Potassium Level 3.3 MEQ/L Chloride Level 84 MEQ/L Carbon Dioxide Level 34.5 MEQ/L Anion Gap 11 MEQ/L Blood Urea Nitrogen 28 MG/DL Creatinine 1.45 MG/DL Estimat Glomerular Filtration 56 ML/MIN Rate Random Glucose 193 MG/DL Calcium Level 9.3 MG/DL Magnesium Level 2.4 MG/DL Total Bilirubin 0.7 MG/DL Aspartate Amino Transf 11 U/L (AST/SGOT) Alanine Aminotransferase 18 U/L (ALT/SGPT) Alkaline Phosphatase 89 U/L Total Protein 8.4 GM/DL Albumin 4.0 GM/DL Lipase 91 U/L B-Hydroxybutyrate 1.06 MMOL/L Urine Color YELLOW Urine Turbidity CLEAR Urine pH 6.5 Urine Specific [place] 1.021 Urine Protein 30 mg/dL Urine Glucose (UA) 300 mg/dL Urine Ketones 10 mg/dL Urine Occult Blood NEG Urine Nitrite NEG Urine Bilirubin NEG Urine Urobilinogen 2.0 MG/DL Urine Leukocyte Esterase NEG Urine RBC 2 /hpf Urine WBC 1 /hpf Urine Mucus FEW /lpf Microscopic Urinalysis Comment CULT NOT INDICATED MDM Medical Record Reviewed: Yes Supervised Visit with AURELIANO: Yes Diagnosis Primary Impression: Nausea & vomiting Qualified Code: R11.2 - Intractable vomiting with nausea, unspecified vomiting type Additional Impression: Small bowel obstruction, partial Admitting Information Admitting Physician Requests: Admit Eulalia Hemphill MD Nov 17, 2016 15:18
[2016-11-17] MEDS: PANTOPRAZOLE SODIUM 40 MG VIAL IV PUSH SCH (15:44)
[2016-11-17] MEDS: NS + KCL 20 MEQ INJ 1,000 ML IV SCH (15:46)
[2016-11-17] MEDS: INSULIN ASPART SUPPLEMENTAL SCALE SQ SCH ×2 (16:00→21:00)
[2016-11-17] MEDS: HYDROmorphone HCL PF 1 MG/ML VIAL IV PUSH PRN ×2 (17:27→21:43)
[2016-11-17 17:28] VITALS: BP 119/75; PULSE 96; RESP 16; O2SAT 99
[2016-11-17 21:00] VITALS: BP_SYST 126; BP_SYST 128; BP_DIAS 78; BP_DIAS 82; PULSE 80; PULSE 85; RESP 15; RESP 18; TEMP 96.6; O2SAT 98; O2SAT 99
[2016-11-17] MEDS: INSULIN DETEMIR 100 UNITS/ML VIAL SQ SCH (21:00)
[2016-11-17] MEDS: METOCLOPRAMIDE HCL 10 MG/2 ML VIAL IV PUSH SCH (22:00)
[2016-11-18] MEDS: HYDROmorphone HCL PF 1 MG/ML VIAL IV PUSH PRN ×4 (01:05→14:19)
[2016-11-18 04:02] VITALS: BP 125/78; PULSE 75; RESP 18; TEMP 97.8; O2SAT 98
[2016-11-18] MEDS: METOCLOPRAMIDE HCL 10 MG/2 ML VIAL IV PUSH SCH ×2 (05:01→13:04)
[2016-11-18] MEDS: INSULIN ASPART SUPPLEMENTAL SCALE SQ SCH ×3 (06:21→15:44)
--- NOTE | 2016-11-18 06:51 | RADRPT ---
EXAM DATE/TIME: 11/18/2016 06:18 [place] COMPARISON: CT ABDOMEN & PELVIS W CONTRAST, November 17, 2016, 13:03. ABDOMEN KUB ONLY, March 18, 2016, 4:22. INDICATIONS : Abdominal pain. MEDICAL HISTORY : Diabetes mellitus type II. Gastroparesis. Hernia, inguinal. Neuropathy. SURGICAL HISTORY : Inguinal hernia repair. ENCOUNTER: Subsequent ACUITY: 2 days PAIN SCORE: 4/10 LOCATION: abdomen, all quadrants. FINDINGS: Portable supine frontal view of the abdomen demonstrates air within bowel in a nonobstructive pattern . No organomegaly or abnormal calcifications are seen. There is opacified urine within the urinary bl adder related to the recent contrast-enhanced exam. Bones and soft tissues demonstrate no acute findi ng. CONCLUSION: No acute abnormality is identified. Narinder Parnell MD on November 18, 2016 at 6:49 Board Certified Radiologist. This report was verified electronically.
[2016-11-18] MEDS: NS + KCL 20 MEQ INJ 1,000 ML IV SCH ×2 (08:00)
[2016-11-18] MEDS: INSULIN DETEMIR 100 UNITS/ML VIAL SQ SCH (08:13)
[2016-11-18 08:20] LABS: BICARBONATE 30.3 MEQ/L (21.0-32.0); POTASSIUM 3.4 MEQ/L (3.5-5.1)
[2016-11-18 09:49] VITALS: BP 134/82; PULSE 76; RESP 18; TEMP 97.8; O2SAT 95
[2016-11-18 11:55] VITALS: BP 129/78; PULSE 79; RESP 18; O2SAT 95
--- NOTE | 2016-11-18 12:59 | HHI.PR ---
Subjective Remarks feels and looks much better today. nausea and vomiting has resolved. no abdominal pain. didn't receive his levemir this morning. had his breakfast this morning with no further nausea/ vomiting or abdominal pain. hoping that he would go home later today. Objective Vitals Vital Signs Date Time Temp Pulse Resp B/P Pulse Ox O2 Delivery O2 Flow Rate FiO2 11/18/16 11:55 79 18 129/78 95 11/18/16 10:32 16 11/18/16 09:49 97.8 76 18 134/82 95 11/18/16 04:02 97.8 75 18 125/78 98 11/17/16 21:00 85 15 126/82 99 Room Air 11/17/16 21:00 96.6 80 18 128/78 98 11/17/16 17:28 96 16 119/75 99 Room Air 11/17/16 14:13 16 11/17/16 14:10 90 15 113/72 97 Room Air I/O 11/17/16 11/17/16 11/17/16 11/18/16 11/18/16 11/18/16 07:00 15:00 23:00 07:00 15:00 23:00 Intake Total 240 ml Balance 240 ml Intake Oral 240 ml # Voids 1 Result Diagram: 11/17/16 1147 11/18/16 0550 Imaging Last Impressions Abdomen X-Ray 11/18/16 0600 Signed Impressions: Service Date/Time: Friday, November 18, 2016 06:18 - CONCLUSION: No acute abnormality is identified. Narinder Parnell MD Abdomen/Pelvis CT 11/17/16 1222 Signed Impressions: Service Date/Time: November 13:03 - CONCLUSION: Mild proximal small bowel distention with increased fluid. No other significant abnormalities. Savage Field MD Objective Remarks GENERAL: This is a well-nourished, well-developed patient, in no apparent distress. CARDIOVASCULAR: Regular rate and regular rhythm without murmurs, gallops, or rubs. RESPIRATORY: Clear to auscultation. Breath sounds equal bilaterally. No wheezes , rales, or rhonchi. GASTROINTESTINAL: Abdomen soft, non-tender, nondistended. Normal, active bowel sounds MUSCULOSKELETAL: Extremities without clubbing, cyanosis, or edema. NEURO: Alert & Oriented x4 to person, place, time, situation. Moves all ext x4 Procedures none Medications and IVs Current Medications Sodium Chloride (NS 1000 ml Inj) 1,000 ml @ 1,000 mls/hr Q1H IV Last administered on 11/17/16 12:07; Start 11/17/16 at 11:23; Stop 11/17/16 at 12:22; Status DC Metoclopramide HCl (Reglan Inj) 10 mg ONCE ONCE IV PUSH Last administered on 12:08; Start 11/17/16 at 11:30; Stop 11/17/16 at 11:35; Status DC Hydromorphone HCl 1 mg 1 mg ONCE ONCE IV PUSH Last administered on 11/17/16 12 :08; Start 11/17/16 at 11:45; Stop 11/17/16 at 11:46; Status DC Potassium Chloride/Sodium Chloride 1,000 ml @ 250 mls/hr Q4H ONCE IV Last administered on 11/17/16 12:55; Start 11/17/16 at 12:30; Stop 11/17/16 at 16:29; Status DC Sodium Chloride (NS 1000 ml Inj) 1,000 ml @ 1,000 mls/hr Q1H IV Last administered on 11/17/16 12:55; Start 11/17/16 at 12:34; Stop 11/17/16 at 13:33; Status DC Iohexol (Omnipaque 350 Inj) 92 ml STK-MED ONCE IV Last administered on 13:10; Start 11/17/16 at 13:10; Stop 11/17/16 at 13:11; Status DC Dextrose (D50w (Vial) Inj) 25 ml UNSCH PRN IV PUSH HYPOGLYCEMIA-SEE COMMENTS; Start 11/17/16 at 15:00 Glucagon (Glucagon Inj) 1 mg UNSCH PRN OTHER HYPOGLYCEMIA-SEE COMMENTS; Start 11/17/16 at 15:00 Insulin Aspart (NovoLOG SUPPLEMENTAL SCALE) 1 ACHS SLIDING SCALE SQ Last administered on 11/18/16 12:21; Start 11/17/16 at 16:00 Pantoprazole Sodium 40 mg 40 mg Q24H IV PUSH Last administered on 11/17/16 15: 44; Start 11/17/16 at 15:00 Potassium Chloride/Sodium Chloride (NS + KCl 20 Meq Inj) 1,000 ml @ 125 mls/hr Q8H IV Last administered on 11/18/16 08:00; Start 11/17/16 at 16:00 Metoclopramide HCl (Reglan Inj) 5 mg Q8HR IV PUSH Last administered on 05:01; Start 11/17/16 at 22:00 Insulin Detemir (Levemir Inj) 20 units BID SQ ; Start 11/17/16 at 21:00 Ondansetron HCl (Zofran Inj) 4 mg ONCE ONCE IV PUSH Last administered on 15:45; Start 11/17/16 at 15:15; Stop 11/17/16 at 15:16; Status DC Hydromorphone HCl (Dilaudid Pf Inj) 1 mg Q4H PRN IV PUSH PAIN Last administered on 11/18/16 10:02; Start 11/17/16 at 17:00 A/P Assessment and Plan A/P - diabetes with gastroparesis tolerated the regular diet - continue Regaln resumed long acting insulin and continue accu-check with SSI -hyponatremia and acute kidney injury; improved. -mild hypokalemia; will replace. Discharge Planning possible dc home later today if blood sugar stable. f/u; pcp. see med list. d/w the patient and RN. Meagan Eid MD Nov 18, 2016 12:59
[2016-11-18] MEDS ORDERED: INSULIN DETEMIR 100 UNITS/ML VIAL SQ ONE (13:00)
--- NOTE | 2016-11-18 13:00 | HHI.DCPOC ---
Discharge Care Plan Diagnosis: (1) Gastroparesis Additional Problems nausea/ vomiting. Goals to Promote Your Health * To prevent worsening of your condition and complications * To maintain your health at the optimal level Directions to Meet Your Goals Take your medications as prescribed Follow your dietary instruction Follow activity as directed Keep your appointments as scheduled Take your immunizations and boosters as scheduled If your symptoms worsen call your PCP, if no PCP go to Urgent Care Center or Emergency Room Smoking is Dangerous to Your Health. Avoid second hand smoke Call the 24-hour hour crisis hotline for domestic abuse at Meagan Eid MD Nov 18, 2016 13:00
[2016-11-18] MEDS ORDERED: POTASSIUM CHLORIDE 20 MEQ CONTROLLED RELEASE TAB PO ONE (13:15)
[2016-11-18] MEDS: PANTOPRAZOLE SODIUM 40 MG VIAL IV PUSH SCH (14:19)
[2016-11-18 15:48] VITALS: BP 126/63; PULSE 80; RESP 18; O2SAT 95
[2016-11-18] MEDS ORDERED: INSULIN DETEMIR 100 UNITS/ML VIAL SQ SCH (21:00)
[2016-11-25] MEDS ORDERED: PANT40TA3 PO (11:23)
[2016-11-25] MEDS ORDERED: METO10TA PO (11:23)
[2017-02-28] MEDS ORDERED: FLUO1TAB15 PO (11:37)
[2017-02-28] MEDS ORDERED: LEVEMIR SQ (12:05)
== END 2016-11-18 18:46 | disposition home or self-care (01) ==
LOC: NEPE 10:40 → NEDA 14:45 → NEDH 17:20 → NEPHCDU 22:09
PROVIDERS: ADMIT Internal Medicine; ATTEND Internal Medicine
DX: K31.84 Gastroparesis (principal); E10.43 Type 1 diabetes mellitus with diabetic autonomic (poly)neuropathy; K56.60 Unspecified intestinal obstruction; E86.0 Dehydration; E87.1 Hypo-osmolality and hyponatremia; E87.6 Hypokalemia; K29.70 Gastritis, unspecified, without bleeding; F12.90 Cannabis use, unspecified, uncomplicated; F17.200 Nicotine dependence, unspecified, uncomplicated; Z79.4 Long term (current) use of insulin
CPT/HCPCS: 74000; 74177; 80048; 80053; 81001; 82010; 82948; 83690; 83735; 85025; 96361; 96374; 96375; 99285; C9113; G0378; J1170; J1815; J2405; J2765; J3480; J7030; Q9967

== ENCOUNTER 2016-12-03 20:13 | Emergency (ER) | payer OTHER ==
[~2016-12-03] VITALS: Ht 180.3 cm; Wt 72.0 kg
[~2016-12-03 20:13] MED LIST changes: +METO10TA PO; +PANT40TA3 PO; -PROT40TA PO
[2016-12-03 20:14] VITALS: BP 144/96; PULSE 130; RESP 16; TEMP 98; O2SAT 96
[2016-12-03] MEDS ORDERED: SODIUM CHLOR 0.9% 1000 ML INJ 1,000 ML IV SCH (20:57)
[2016-12-03] MEDS ORDERED: MORPHINE SULFATE 4 MG/ML INJ IV PUSH ONE (21:00)
[2016-12-03] MEDS ORDERED: ONDANSETRON HCL 4 MG/2 ML VIAL IVP ONE (21:00)
--- NOTE | 2016-12-03 21:04 | PD ---
HPI Chief Complaint: GI Complaint Time Seen by Provider: 21:01 Travel History International Travel<30 days: No Contact w/Intl Traveler<30days: No Traveled to known affect area: No History of Present Illness HPI 31-year-old male presents to the emergency department for evaluation of nausea, vomiting, abdominal pain. Patient with history of gastroparesis and type 1 diabetes. He reports history of frequent DKA when he vomits. He is also takes potassium at home, but hasn't been able to take it due to the vomiting. The patient states he started checking his blood sugar and he has noticed it to be in the 300s. He denies any fevers or chills. Patient was just admitted earlier this month for nausea, vomiting. He does CT scan which was concerning for possible small bowel obstruction. Patient does admit to frequent abdominal pain with gastroparesis. However, he states it is more severe. Patient is moaning when I walk into room. He starts vomiting upon my examination. PFSH Past Medical History Arthritis: No Asthma: No Autoimmune Disease: No Blood Disorders: No Anxiety: Yes Depression: Yes Heart Rhythm Problems: No Cancer: No Cardiovascular Problems: No High Cholesterol: No Chest Pain: No Congestive Heart Failure: No COPD: No Cerebrovascular Accident: No Diabetes: Yes (type 1) Diminished Hearing: No Endocrine: Yes Gastrointestinal Disorders: Yes (Gastroparesis) GERD: No Genitourinary: No Headaches: Yes Hiatal Hernia: No Herniated Disk: Yes (2 DISCS IN BACK AND 2 IN NECK 2[place] [facility] [place] Hypertension: No Implanted Vascular Access Dvce: No Kidney Stones: No Musculoskeletal: No Neurologic: Yes (Neuropathy) Psychiatric: Yes Reproductive: No Respiratory: No Immunizations Current: Yes Migraines: No Seizures: No Sickle Cell Disease: No Sleep Apnea: No Thyroid Disease: No Ulcer: No PNEUMOCCOCAL Vaccine (Year): 1 Past Surgical History Abdominal Surgery: No Cardiac Surgery: No Ear Surgery: No Endocrine Surgery: No Eye Surgery: No Genitourinary Surgery: No Gynecologic Surgery: No Neurologic Surgery: No Oral Surgery: No Pacemaker: No Thoracic Surgery: No Other Surgery: Yes (Inguinal hernia repair) Social History Alcohol Use: No Tobacco Use: No Substance Use: Yes (marijuana) Allergies-Medications (Allergen,Severity, Reaction): Coded Allergies: No Known Allergies (Verified , 12/03/16) Reported Meds & Prescriptions Reported Meds & Active Scripts Active Zofran Odt (Ondansetron Odt) 4 Mg Tab 4 Mg SL Q6HR PRN Reported Metoclopramide (Metoclopramide HCl) 10 Mg Tab 15 Mg PO TIDAC Pantoprazole (Pantoprazole Sodium) 40 Mg Tab 40 Mg PO BID Potassium Chloride ER (Potassium Chloride) Unknown Strength Cap Unknown Dose PO DAILY Mag-Delay (Magnesium Chloride) Unknown Strength Tab Unknown Dose PO DAILY Novolog Inj (Insulin Aspart) 1,000 Unit/10 Ml Vial 0 SQ DIRECTED Sliding Scale as directed. Levemir Inj (Insulin Detemir) 1,000 unit/ 10 ML Vial 20 Units SQ BID Do not mix with any other Insulin. Review of Systems Except as stated in HPI: all other systems reviewed are Neg Physical Exam Narrative GENERAL: Well-developed well-nourished male patient, afebrile. Patient is moaning in pain. He vomits upon my examination. SKIN: Warm and dry. HEAD: Normocephalic. Atraumatic. EYES: No scleral icterus. No injection or drainage. NECK: Supple, trachea midline. No JVD or lymphadenopathy. CARDIOVASCULAR: Regular rate and rhythm without murmurs, gallops, or rubs. RESPIRATORY: Breath sounds equal bilaterally. No accessory muscle use. Lungs sounds are clear to auscultation. GASTROINTESTINAL: Abdomen soft and nondistended. He has diffuse tenderness to palpation. MUSCULOSKELETAL: No cyanosis, or edema. BACK: Nontender without obvious deformity. No CVA tenderness. Data Data Last Documented VS Vital Signs Date Time Temp Pulse Resp B/P Pulse Ox O2 Delivery O2 Flow Rate FiO2 12/03/16 20:14 98.0 130 16 144/96 96 Orders Morphine Inj (Morphine Inj) (12/03/16 21:00) Complete Blood Count With Diff (12/03/16 20:57) Comprehensive Metabolic Panel (12/03/16 20:57) Lipase (12/03/16 20:57) Urinalysis - C+S If Indicated (12/03/16 20:57) Ct Abd/Pel W Iv Contrast(Rout) (12/03/16 20:57) Iv Access Insert/Monitor (12/03/16 20:57) Ecg Monitoring (12/03/16 20:57) Oximetry (12/03/16 20:57) Ondansetron Inj (Zofran Inj) (12/03/16 21:00) Sodium Chlor 0.9% 1000 Ml Inj (Ns 1000 M (12/03/16 20:57) Sodium Chloride 0.9% Flush (Ns Flush) (12/03/16 21:00) Electrocardiogram (12/03/16 20:57) Beta Hydroxybutyrate (Acetone) (12/03/16 20:57) Blood Gas Venous (Vbg) (12/03/16 20:57) Magnesium (Mg) (12/03/16 20:57) Sodium Chlor 0.9% 1000 Ml Inj (Ns 1000 M (12/03/16 22:30) Labs Laboratory Tests Test 12/03/16 12/03/16 21:15 21:18 Blood Gas Puncture Site Blood Gas Patient Temperature 98.6 Venous Blood pH 7.52 Venous Blood Partial Pressure 35 mmHg CO2 Venous Blood Partial Pressure 36 mmHg O2 Venous Blood HCO3 29 mmol/L Venous Blood Oxygen Saturation 74 % Venous Blood Oxygen Content 13.9 Vol % Venous Blood Base Excess 5.9 mmol/L Oxygen Delivery Device ROOM AIR Blood Gas Inspired Oxygen 21 % Sodium Level 134 MEQ/L Potassium Level 4.2 MEQ/L Chloride Level 92 MEQ/L Carbon Dioxide Level 28.7 MEQ/L Anion Gap 13 MEQ/L Blood Urea Nitrogen 27 MG/DL Creatinine 1.64 MG/DL Estimat Glomerular Filtration 49 ML/MIN Rate Random Glucose 356 MG/DL Calcium Level 9.8 MG/DL Magnesium Level 2.1 MG/DL Total Bilirubin 0.7 MG/DL Aspartate Amino Transf 17 U/L (AST/SGOT) Alanine Aminotransferase 20 U/L (ALT/SGPT) Alkaline Phosphatase 95 U/L Total Protein 8.9 GM/DL Albumin 4.1 GM/DL Lipase 78 U/L B-Hydroxybutyrate 2.52 MMOL/L White Blood Count 9.4 TH/MM3 Red Blood Count 4.53 MIL/MM3 Hemoglobin 13.4 GM/DL Hematocrit 38.3 % Mean Corpuscular Volume 84.7 FL Mean Corpuscular Hemoglobin 29.6 PG Mean Corpuscular Hemoglobin 34.9 % Concent Red Cell Distribution Width 14.0 % Platelet Count 374 TH/MM3 Mean Platelet Volume 6.9 FL Neutrophils (%) (Auto) 80.7 % Lymphocytes (%) (Auto) 14.0 % Monocytes (%) (Auto) 4.9 % Eosinophils (%) (Auto) 0.1 % Basophils (%) (Auto) 0.3 % Neutrophils # (Auto) 7.6 TH/MM3 Lymphocytes # (Auto) 1.3 TH/MM3 Monocytes # (Auto) 0.5 TH/MM3 Eosinophils # (Auto) 0.0 TH/MM3 Basophils # (Auto) 0.0 TH/MM3 CBC Comment DIFF FINAL Differential Comment MDM Medical Decision Making Medical Screen Exam Complete: Yes Emergency Medical Condition: Yes Medical Record Reviewed: Yes Differential Diagnosis Gastroparesis versus electrolyte abnormality versus acute nausea/vomiting versus DKA versus hyperglycemia Narrative Course 31-year-old male presents to the emergency department redirection nausea, vomiting, abdominal pain with history of gastroparesis and type 1 diabetes. EKG , CBC, CMP, lipase, magnesium, beta hydroxybutyrate, VBG, UA are ordered and pending. CT abdomen/pelvis with IV contrast is ordered and pending. Patient is given normal saline 1 L IV bolus, Zofran 4 mg IV, morphine 4 mg IV. EKG is pending. CBC shows no acute abnormality. CMP shows sodium 134, BUN 27, crit 1.64, glucose 356. Lipase is 78. Magnesium is 2.1. Beta hydroxybutyrate is 2.5 to. VBG shows pH of 7.52, bicarbonate 29. They and CT abdomen/pelvis are pending. My attending physician, Dr. Parker, will resume care and disposition after remaining studies are resulted. Disposition will be based on her judgment. Leonor Pool Dec 03, 2016 21:04
[2016-12-03] MEDS: SODIUM CHLORIDE 0.9% FLUSH 5 ML FLUSH IVF PRN (21:23)
[2016-12-03 21:36] LABS: AUTOMATED NEUTROPHIL # 7.6 TH/MM3 (1.8-7.7); BASOPHIL % 0.3 % (0.0-2.0); EOSINOPHIL % 0.1 % (0.0-4.0); HEMATOCRIT 38.3 % (39.0-51.0); HEMO FLAGS DIFF FINAL; LYMPHOCYTE # 1.3 TH/MM3 (1.0-4.8); MEAN CELL VOLUME 84.7 FL (80.0-100.0); MEAN CORPUSCULAR HEMOGLOBIN 29.6 PG (27.0-34.0); MEAN CORPUSCULAR HGB CONC 34.9 % (32.0-36.0); MONO % 4.9 % (0.0-8.0); NEUT % 80.7 % (16.0-70.0); PLATELET COUNT 374 TH/MM3 (150-450); RED BLOOD COUNT 4.53 MIL/MM3 (4.50-5.90); WHITE BLOOD COUNT 9.4 TH/MM3 (4.0-11.0)
[2016-12-03 21:50] LABS: BLOOD GAS VENOUS BASE EXCESS 5.9 mmol/L (-2-2); BLOOD GAS VENOUS HCO3 29 mmol/L (22-26); BLOOD GAS VENOUS O2 CONTENT 13.9 Vol % (9.0-17.0); BLOOD GAS VENOUS O2 HGB SAT 74 % (70-76); BLOOD GAS VENOUS PCO2 35 mmHg (44-48); BLOOD GAS VENOUS PO2 36 mmHg (35-40); BLOOD GAS VENOUS pH 7.52 (7.360-7.400); TEMP CORR TO 98.6
[2016-12-03 21:51] LABS: FIO2 21 %; OXYGEN DEVICE ROOM AIR
[2016-12-03 21:52] LABS: STAT YES
[2016-12-03 22:18] LABS: ALKALINE PHOSPHATASE 95 U/L (45-117); ALT (GPT) 20 U/L (12-78); ANION GAP 13 MEQ/L (5-15); AST (GOT) 17 U/L (15-37); BETA-HYDROXYBUTYRATE 2.52 MMOL/L (0.00-0.39); BICARBONATE 28.7 MEQ/L (21.0-32.0); BLOOD UREA NITROGEN 27 MG/DL (7-18); CHLORIDE 92 MEQ/L (98-107); GLOMERULAR FILTRATION RATE 49 ML/MIN (>89); MAGNESIUM 2.1 MG/DL (1.5-2.5); POTASSIUM 4.2 MEQ/L (3.5-5.1); SODIUM (NA) 134 MEQ/L (136-145); TOTAL BILIRUBIN ADULT 0.7 MG/DL (0.2-1.0)
[2016-12-03] MEDS ORDERED: SODIUM CHLOR 0.9% 1000 ML INJ 1,000 ML IV ONE (22:30)
[2016-12-03] MEDS ORDERED: IOHEXOL 350 MG/ML 10 ML VIAL (for RAD DIAG) IV ONE (22:43)
--- NOTE | 2016-12-03 23:04 | RADRPT ---
EXAM DATE/TIME: 12/03/2016 22:41 [place] COMPARISON: No previous studies available for comparison. INDICATIONS : Diffuse abdominal pain with nausea and vomiting. IV CONTRAST: 93 cc Omnipaque 350 (iohexol) IV ORAL CONTRAST: No oral contrast ingested. RADIATION DOSE: 5.04 CTDIvol (mGy) MEDICAL HISTORY : Diabetes mellitus type 1. Gastroparesis. SURGICAL HISTORY : None. ENCOUNTER: Initial ACUITY: 1 day PAIN SCALE: 5/10 LOCATION: Bilateral abdomen TECHNIQUE: Volumetric scanning of the abdomen and pelvis was performed. Using automated exposure control and ad justment of the mA and/or kV according to patient size, radiation dose was kept as low as reasonably achievable to obtain optimal diagnostic quality images. FINDINGS: The stomach is distended with a large air-fluid level. There is no evidence for small bowel obstructi on. There is no free fluid or free air. Lung bases are clear. Mild fatty liver. Spleen, adrenals, kidneys and pancreas unremarkable. Small ri ght renal cyst. No acute bony abnormalities. CONCLUSION: 1. Distended stomach with a large air-fluid level. No acute findings on remainder of abdomen and pelv ic CT. Phillip Waite MD on December 03, 2016 at 22:58 Board Certified Radiologist. This report was verified electronically.
[2016-12-04] MEDS ORDERED: diphenhydrAMINE HCL 50 MG/ML VIAL IV PUSH ONE (00:15)
[2016-12-04] MEDS ORDERED: SODIUM CHLOR 0.9% 1000 ML INJ 1,000 ML IV ONE (00:15)
[2016-12-04] MEDS ORDERED: PROCHLORPERAZINE INJ 10 MG/2 ML VIAL IVS ONE (00:15)
--- NOTE | 2016-12-04 00:26 | PD ---
Physical Exam Date Seen by Provider: Dec 04, 2016 Narrative Patient was checked out to me by the PA at 11 PM. The patient and evaluated for diabetes, abdominal pain, persistent vomiting. Data Data Last Documented VS Vital Signs Date Time Temp Pulse Resp B/P Pulse Ox O2 Delivery O2 Flow Rate FiO2 12/04/16 00:36 100 14 113/60 98 12/03/16 20:14 98.0 Orders Morphine Inj (Morphine Inj) (12/03/16 21:00) Complete Blood Count With Diff (12/03/16 20:57) Comprehensive Metabolic Panel (12/03/16 20:57) Lipase (12/03/16 20:57) Urinalysis - C+S If Indicated (12/03/16 20:57) Ct Abd/Pel W Iv Contrast(Rout) (12/03/16 20:57) Iv Access Insert/Monitor (12/03/16 20:57) Ecg Monitoring (12/03/16 20:57) Oximetry (12/03/16 20:57) Ondansetron Inj (Zofran Inj) (12/03/16 21:00) Sodium Chlor 0.9% 1000 Ml Inj (Ns 1000 M (12/03/16 20:57) Sodium Chloride 0.9% Flush (Ns Flush) (12/03/16 21:00) Electrocardiogram (12/03/16 20:57) Beta Hydroxybutyrate (Acetone) (12/03/16 20:57) Blood Gas Venous (Vbg) (12/03/16 20:57) Magnesium (Mg) (12/03/16 20:57) Sodium Chlor 0.9% 1000 Ml Inj (Ns 1000 M (12/03/16 22:30) Iohexol 350 Inj (Omnipaque 350 Inj) (12/03/16 22:43) Sodium Chlor 0.9% 1000 Ml Inj (Ns 1000 M (12/04/16 00:15) Prochlorperazine Inj (Compazine Inj) (12/04/16 00:15) Diphenhydramine Inj (Benadryl Inj) (12/04/16 00:15) Cath For Specimen (12/04/16 00:13) Basic Metabolic Panel (Bmp) (12/04/16 03:03) Labs Laboratory Tests Test 12/03/16 12/03/16 12/04/16 2/19/17 21:15 21:18 03:25 03:40 Blood Gas Puncture Site Blood Gas Patient Temperature 98.6 Venous Blood pH 7.52 Venous Blood Partial Pressure 35 mmHg CO2 Venous Blood Partial Pressure 36 mmHg O2 Venous Blood HCO3 29 mmol/L Venous Blood Oxygen Saturation 74 % Venous Blood Oxygen Content 13.9 Vol % Venous Blood Base Excess 5.9 mmol/L Oxygen Delivery Device ROOM AIR Blood Gas Inspired Oxygen 21 % Sodium Level 134 MEQ/L 139 MEQ/L Potassium Level 4.2 MEQ/L 3.8 MEQ/L Chloride Level 92 MEQ/L 102 MEQ/L Carbon Dioxide Level 28.7 MEQ/L 27.8 MEQ/L Anion Gap 13 MEQ/L 9 MEQ/L Blood Urea Nitrogen 27 MG/DL 23 MG/DL Creatinine 1.64 MG/DL 1.28 MG/DL Estimat Glomerular Filtration 49 ML/MIN 65 ML/MIN Rate Random Glucose 356 MG/DL 261 MG/DL Calcium Level 9.8 MG/DL 8.2 MG/DL Magnesium Level 2.1 MG/DL Total Bilirubin 0.7 MG/DL Aspartate Amino Transf 17 U/L (AST/SGOT) Alanine Aminotransferase 20 U/L (ALT/SGPT) Alkaline Phosphatase 95 U/L Total Protein 8.9 GM/DL Albumin 4.1 GM/DL Lipase 78 U/L B-Hydroxybutyrate 2.52 MMOL/L White Blood Count 9.4 TH/MM3 Red Blood Count 4.53 MIL/MM3 Hemoglobin 13.4 GM/DL Hematocrit 38.3 % Mean Corpuscular Volume 84.7 FL Mean Corpuscular Hemoglobin 29.6 PG Mean Corpuscular Hemoglobin 34.9 % Concent Red Cell Distribution Width 14.0 % Platelet Count 374 TH/MM3 Mean Platelet Volume 6.9 FL Neutrophils (%) (Auto) 80.7 % Lymphocytes (%) (Auto) 14.0 % Monocytes (%) (Auto) 4.9 % Eosinophils (%) (Auto) 0.1 % Basophils (%) (Auto) 0.3 % Neutrophils # (Auto) 7.6 TH/MM3 Lymphocytes # (Auto) 1.3 TH/MM3 Monocytes # (Auto) 0.5 TH/MM3 Eosinophils # (Auto) 0.0 TH/MM3 Basophils # (Auto) 0.0 TH/MM3 CBC Comment DIFF FINAL Differential Comment Urine Color YELLOW Urine Turbidity CLEAR Urine pH 7.5 Urine Specific [place] GREATER THAN 1.050 Urine Protein 30 mg/dL Urine Glucose (UA) 1000 mg/dL Urine Ketones 80 mg/dL Urine Occult Blood NEG Urine Nitrite NEG Urine Bilirubin NEG Urine Urobilinogen LESS THAN 2.0 MG/DL Urine Leukocyte Esterase NEG Urine RBC 2 /hpf Urine WBC LESS THAN 1 /hpf Microscopic Urinalysis Comment CULT NOT INDICATED MDM Supervised Visit with AURELIANO: Yes Narrative Course GENERAL: This is a very thin, chronically ill-appearing young man. SKIN: Warm and dry. HEAD: Atraumatic. Normocephalic. EYES: Pupils equal and round. ENT: No nasal bleeding or discharge. Mucous membranes pink and moist. He does not smell of ketones. NECK: Trachea midline. Neck is supple. CARDIOVASCULAR: Regular rate and rhythm. RESPIRATORY: No accessory muscle use. GASTROINTESTINAL: Abdomen soft. Diffuse tenderness. Nondistended. MUSCULOSKELETAL: No obvious deformities. No edema. NEUROLOGICAL: Awake and alert. No obvious cranial nerve deficits. Motor grossly within normal limits. Normal speech. PSYCHIATRIC: Appropriate mood and affect; insight and judgment normal. CBC & BMP Diagram 12/03/16 21:15 12/03/16 21:18 Venous blood gas shows a pH of 7.52 with a bicarbonate of 29. Last Impressions Abdomen/Pelvis CT 12/03/162056 Signed Impressions: Service Date/Time: Saturday, December 03, 2016 22:41 - CONCLUSION: 1. Distended stomach with a large air-fluid level. No acute findings on remainder of abdomen and pelvic CT. Phillip Waite MD This patient probably has gastroparesis. He is not in DKA. Patient has not yet produced a urine for analysis. He has refused catheterization. 3 AM The plan has been to admit this patient. However, he has not yet produced a urine and he has not allowed catheterization. 4:15 AM The patient has been resting comfortably for a while now. I decided to recheck his electrolytes to see if perhaps he could just go home. We also finally got a urine. UA is negative for infection. Electrolytes are now normal. His creatinine has gone from 1.64 to 1.28. Glucose is down to 261. This patient now appears to be stable for discharge. Diagnosis Primary Impression: Persistent vomiting Additional Impression: Hyperglycemia Patient Instructions: Diabetic Hyperglycemia (DC), General Instructions, Narcotic given in the ED Disposition: 01 DISCHARGE HOME Condition: Stable Uma Parker MD Dec 04, 2016 00:26
[2016-12-04] MEDS: SODIUM CHLORIDE 0.9% FLUSH 5 ML FLUSH IVF PRN (00:31)
[2016-12-04 00:36] VITALS: BP 113/60; PULSE 100; RESP 14; O2SAT 98
[2016-12-04 03:50] LABS: BLOOD, URINE NEG (NEG); GLUCOSE,URINE 1000 mg/dL (NEG); KETONE, URINE 80 mg/dL (NEG); NITRITE,URINE NEG (NEG); PH, URINE 7.5 (5.0-8.5); URINE COLOR YELLOW (YELLW/STRAW)
[2016-12-04 03:52] LABS: COMMENT (UR) CULT NOT INDICATED; CULTURE IF INDICATED CULT NOT INDICATED
[2016-12-04 04:10] LABS: BICARBONATE 27.8 MEQ/L (21.0-32.0); POTASSIUM 3.8 MEQ/L (3.5-5.1)
[2016-12-04 04:50] VITALS: BP 121/71
--- NOTE | 2016-12-04 14:22 | EKG ---
Date Performed: 12/03/2016 Time Performed: 21:30:15 PTAGE: 31 years EKG: SINUS TACHYCARDIA LEFT VENTRICULAR HYPERTROPHY AND ST-T CHANGE Since previous tracing, HR i s faster, otherwise no significant change ABNORMAL ECG PREVIOUS TRACING : 08/14/2016 06.37.38 DOCTOR: Colten Flores Interpretating Date/Time 12/04/2016 15:12:56
[2016-12-05 09:38] LABS: DRAW SITE NURSE
[2016-12-05 09:39] LABS: CRITICAL VALUE YES
[2017-02-28] MEDS ORDERED: FLUO1TAB15 PO (11:37)
[2017-02-28] MEDS ORDERED: LEVEMIR SQ (12:05)
== END 2016-12-04 04:53 | disposition home or self-care (01) ==
LOC: NEPC 20:13
DX: R11.10 Vomiting, unspecified (principal); E10.43 Type 1 diabetes mellitus with diabetic autonomic (poly)neuropathy; F41.8 Other specified anxiety disorders; K31.84 Gastroparesis; Z79.4 Long term (current) use of insulin
CPT/HCPCS: 74177; 80048; 80053; 81001; 82010; 82805; 83690; 83735; 85025; 93005; 96361; 96374; 96375; 99285; J0780; J1200; J2270; J2405; J7030; Q9967

== ENCOUNTER → 2017-02-23 | Outpatient (CLI) | payer OTHER ==
[~2017-02-23] MED LIST changes: +FLUO1TAB15 PO
[2017-02-23 16:52] LABS: HEMOGLOBIN A1a 1.1 %; HEMOGLOBIN A1b 2.4 %; HEMOGLOBIN Ao 80.4 %; HEMOGLOBIN P3 4.5 %
== END ==
LOC: CLAB 11:42
PROVIDERS: ATTEND Nurse Practitioner Family
DX: E10.9 Type 1 diabetes mellitus without complications (principal)
CPT/HCPCS: 36415; 83036; 84443

== ENCOUNTER 2017-08-04 17:48 | Emergency (ER) | payer OTHER ==
[~2017-08-04 17:48] MED LIST changes: +GLUCTES27; -ZOFR4TAB3 SL
[2017-08-04 17:51] VITALS: BP 135/92; PULSE 133; RESP 26; TEMP 98.6; O2SAT 96
[2017-08-04] MEDS ORDERED: SODIUM CHLOR 0.9% 1000 ML INJ 1,000 ML IV ONE ×3 (18:04→19:45)
[2017-08-04] MEDS ORDERED: SODIUM CHLORIDE 0.9% FLUSH 10 ML FLUSH IVF PRN (18:15)
[2017-08-04] MEDS ORDERED: ONDANSETRON HCL 4 MG/2 ML VIAL IV PUSH ONE (18:15)
[2017-08-04 18:18] VITALS: BP 125/71; PULSE 98; RESP 16; TEMP 98.5; O2SAT 96
--- NOTE | 2017-08-04 18:20 | PD ---
HPI Chief Complaint: Diabetic Time Seen by Provider: 17:57 Travel History International Travel<30 days: No Contact w/Intl Traveler<30days: No History of Present Illness HPI 31-year-old type I diabetic is brought in the ED by his mother with 3 day history of nausea vomiting and dehydration. Blood sugar reportedly elevated 375 at 2 PM this afternoon. Patient was given 10 units of his NovoLog subcutaneous at that time. Patient has history of gastroparesis and recurrent vomiting in the past. Patient denies any recent illness with fever chills or significant abdominal pain, urine symptoms, or diarrhea. Patient has headache, and generalized weakness. Finger Blood sugar in triage is 215. Patient is nauseous but denies significant pain. He has no known drug allergies. PFSH Past Medical History Arthritis: No Asthma: No Autoimmune Disease: No Blood Disorders: No Anxiety: Yes Depression: Yes Heart Rhythm Problems: No Cancer: No Cardiovascular Problems: No High Cholesterol: No Chest Pain: No Congestive Heart Failure: No COPD: No Cerebrovascular Accident: No Diabetes: Yes (type 1) Diminished Hearing: No Endocrine: Yes Gastrointestinal Disorders: Yes (Gastroparesis) GERD: No Genitourinary: No Headaches: Yes Hiatal Hernia: No Herniated Disk: Yes (2 DISCS IN BACK AND 2 IN NECK 2o TO [facility]) Hypertension: No Implanted Vascular Access Dvce: No Kidney Stones: No Musculoskeletal: No Neurologic: Yes (Neuropathy) Psychiatric: Yes Reproductive: No Respiratory: No Immunizations Current: Yes Migraines: No Seizures: No Sickle Cell Disease: No Sleep Apnea: No Thyroid Disease: No Ulcer: No PNEUMOCCOCAL Vaccine (Year): 1 Past Surgical History Abdominal Surgery: No Cardiac Surgery: No Ear Surgery: No Endocrine Surgery: No Eye Surgery: No Genitourinary Surgery: No Gynecologic Surgery: No Neurologic Surgery: No Oral Surgery: No Pacemaker: No Thoracic Surgery: No Other Surgery: Yes (Inguinal hernia repair) Social History Alcohol Use: No Tobacco Use: No Substance Use: Yes (marijuana) Allergies-Medications (Allergen,Severity, Reaction): Coded Allergies: No Known Allergies (Verified , 08/04/17) Reported Meds & Prescriptions Reported Meds & Active Scripts Active Promethazine (Promethazine HCl) 12.5 Mg Tab 12.5 Mg PO Q6H PRN Levemir Inj (Insulin Detemir) 1,000 unit/ 10 ML Vial 25 Units SQ BID Do not mix with any other Insulin. 25 units in the AM 20 units in the PM Demetria Contour Next Blood Test Strips (Blood Glucose Test Strips) 1 Zuri Zuri 1 Strip .ROUTE DIRECTED Novolog Inj (Insulin Aspart) 1,000 Unit/10 Ml Vial 0 SQ DIRECTED Sliding Scale as directed. Review of Systems Except as stated in HPI: all other systems reviewed are Neg General / Constitutional: No: Fever Eyes: No: Visual changes HENT: No: Headaches Cardiovascular: No: Chest Pain or Discomfort Respiratory: No: Shortness of Breath Gastrointestinal: Positive: Nausea, Vomiting, Abdominal Pain, Loss of Appetite , No: Diarrhea, Hematemesis, Hematochezia, Constipation, Changes in Bowel Habits , Indigestion, Dysphagia Genitourinary: No: Dysuria Musculoskeletal: No: Pain Skin: No Rash Neurologic: No: Weakness Psychiatric: No: Depression Endocrine: No: Polydipsia Hematologic/Lymphatic: No: Easy Bruising Physical Exam Narrative GENERAL: Patient appears ill but not septic. SKIN: Warm and dry. Normal color. Normal turgor. HEAD: Atraumatic. Normocephalic. EYES: Pupils equal and round. No scleral icterus. No injection or drainage. ENT: No nasal bleeding or discharge. Mucous membranes pink and dry. Pharynx is clear. Airway is patent. NECK: Trachea midline. Supple and nontender. CARDIOVASCULAR: Regular rate and rhythm. RESPIRATORY: No accessory muscle use. Clear to auscultation. Breath sounds equal bilaterally. GASTROINTESTINAL: Abdomen soft, mild epigastric tenderness, nondistended. No CVA tenderness. Hepatic and splenic margins not palpable. MUSCULOSKELETAL: Extremities without clubbing, cyanosis, or edema. No obvious deformities. NEUROLOGICAL: Awake and alert. No obvious cranial nerve deficits. Motor grossly within normal limits. Five out of 5 muscle strength in the arms and legs. Normal speech. PSYCHIATRIC: Appropriate mood and affect; insight and judgment normal. Data Data Last Documented VS Vital Signs Date Time Temp Pulse Resp B/P (MAP) Pulse Ox O2 Delivery O2 Flow Rate FiO2 08/04/17 18:18 98.5 98 16 125/71 (89) 96 Room Air Orders Orders Electrocardiogram (08/04/17 18:04) Complete Blood Count With Diff (08/04/17 18:04) Comprehensive Metabolic Panel (08/04/17 18:04) Magnesium (Mg) (08/04/17 18:04) Phosphorus (Po4) (08/04/17 18:04) Beta Hydroxybutyrate (Acetone) (08/04/17 18:04) Osmolality,Serum (08/04/17 18:04) Lactic Acid (08/04/17 18:04) Urinalysis - C+S If Indicated (08/04/17 18:04) Chest, Single Ap (08/04/17 18:04) Blood Glucose (08/04/17 18:04) Blood Glucose (08/04/17 19:04) Ecg Monitoring (08/04/17 18:04) Iv Access Insert/Monitor (08/04/17 18:04) Oximetry (08/04/17 18:04) NPO (08/04/17 18:04) Sodium Chlor 0.9% 1000 Ml Inj (Ns 1000 M (08/04/17 18:04) Sodium Chlor 0.9% 1000 Ml Inj (Ns 1000 M (08/04/17 18:34) Sodium Chloride 0.9% Flush (Ns Flush) (08/04/17 18:15) Ondansetron Inj (Zofran Inj) (08/04/17 18:15) Ketorolac Inj (Toradol Inj) (08/04/17 19:45) Insulin Human Regular Inj (Novolin R Inj (08/04/17 19:45) Sodium Chlor 0.9% 1000 Ml Inj (Ns 1000 M (08/04/17 19:45) Promethazine (Phenergan) (08/04/17 21:15) Labs Laboratory Tests Test 08/04/17 18:20 White Blood Count 11.4 TH/MM3 Red Blood Count 5.04 MIL/MM3 Hemoglobin 14.9 GM/DL Hematocrit 42.5 % Mean Corpuscular Volume 84.4 FL Mean Corpuscular Hemoglobin 29.6 PG Mean Corpuscular Hemoglobin Concent 35.1 % Red Cell Distribution Width 13.1 % Platelet Count 298 TH/MM3 Mean Platelet Volume 7.1 FL Neutrophils (%) (Auto) 74.6 % Lymphocytes (%) (Auto) 18.7 % Monocytes (%) (Auto) 6.3 % Eosinophils (%) (Auto) 0.1 % Basophils (%) (Auto) 0.3 % Neutrophils # (Auto) 8.5 TH/MM3 Lymphocytes # (Auto) 2.1 TH/MM3 Monocytes # (Auto) 0.7 TH/MM3 Eosinophils # (Auto) 0.0 TH/MM3 Basophils # (Auto) 0.0 TH/MM3 CBC Comment DIFF FINAL Differential Comment Blood Urea Nitrogen 27 MG/DL Creatinine 1.45 MG/DL Random Glucose 254 MG/DL Total Protein 8.2 GM/DL Albumin 4.2 GM/DL Calcium Level 9.5 MG/DL Phosphorus Level 4.0 MG/DL Magnesium Level 2.1 MG/DL Alkaline Phosphatase 87 U/L Aspartate Amino Transf (AST/SGOT) 19 U/L Alanine Aminotransferase (ALT/SGPT) 14 U/L Total Bilirubin 0.8 MG/DL Sodium Level 131 MEQ/L Potassium Level 3.7 MEQ/L Chloride Level 86 MEQ/L Carbon Dioxide Level 32.5 MEQ/L Anion Gap 13 MEQ/L Estimat Glomerular Filtration Rate 56 ML/MIN Serum Osmolality 304 MOSM/KG Lactic Acid Level 1.3 mmol/L B-Hydroxybutyrate 3.83 MMOL/L [facility] Medical Decision Making Medical Screen Exam Complete: Yes Emergency Medical Condition: Yes Medical Record Reviewed: Yes Differential Diagnosis Hyperglycemia. DKA. Nausea vomiting. Dehydration. Electrolyte imbalance. Gastroparesis. Narrative Course Patient appears ill but not septic. IV access is obtained. Labs ordered CBC, CMP, lactic acid, lipase, urinalysis, osmolality. Patient is given 2 L of normal saline bolus. Patient is given 4 mg Zofran IV. No further insulin was given at this time as he was given 10 units of NovoLog at 1400 hrs. CBC shows slight leukocytosis of 11.4. CMP shows sodium of 131, potassium normal 3.7, chlorides 86, carbon dioxide is 32.5, with normal anion gap of 13. BUN is 27, creatinine is 1.45. GFR 56. Random glucose is 254. Lactic acid is normal 1.3. Serum osmolality is 304. Calcium, phosphorus, and magnesium are normal. Beta hydroxyoxybutyrate is 3.83. The patient is not felt to be in DKA based on his labs. Patient is given 2 units regular insulin subcutaneous. Patient is given 30 mg Toradol IV. Patient is given an additional 1000 mL normal saline bolus. Patient is given promethazine 12.5 mg by mouth now. Patient is felt to be stable for discharge signs labs and rehydration. Patient is to continue his insulin as previously prescribed. Patient is given promethazine 12.5 mg every 6 hours when necessary nausea or vomiting. Patient is to follow-up with his primary care physician in the next several days to ensure improvement. She can return to emergency department as needed. Diagnosis Primary Impression: Hyperglycemia Additional Impressions: Dehydration Nausea & vomiting Qualified Codes: R11.2 - Nausea with vomiting, unspecified Referrals: Primary Care Physician Patient Instructions: General Instructions Additional Instructions: Patient is felt to be stable for discharge signs labs and rehydration. Patient is to continue his insulin as previously prescribed. Patient is given promethazine 12.5 mg every 6 hours when necessary nausea or vomiting. Patient is to follow-up with his primary care physician in the next several days to ensure improvement. She can return to emergency department as needed. Med/Other Pt SpecificInfo: Prescription(s) given Scripts Promethazine (Promethazine) 12.5 Mg Tab 12.5 MG PO Q6H Y for NAUSEA OR VOMITING, #20 TAB 0 Refills Prov: Adams Pitts MD 08/04/17 Disposition: 01 DISCHARGE HOME Condition: Stable Nadeem Wilder Aug 04, 2017 18:20
[2017-08-04 18:37] LABS: AUTOMATED NEUTROPHIL # 8.5 TH/MM3 (1.8-7.7); BASOPHIL % 0.3 % (0.0-2.0); EOSINOPHIL % 0.1 % (0.0-4.0); HEMATOCRIT 42.5 % (39.0-51.0); HEMO FLAGS DIFF FINAL; LYMPH % 18.7 % (9.0-44.0); LYMPHOCYTE # 2.1 TH/MM3 (1.0-4.8); MEAN CELL VOLUME 84.4 FL (80.0-100.0); MEAN CORPUSCULAR HEMOGLOBIN 29.6 PG (27.0-34.0); MEAN CORPUSCULAR HGB CONC 35.1 % (32.0-36.0); MONO % 6.3 % (0.0-8.0); NEUT % 74.6 % (16.0-70.0); PLATELET COUNT 298 TH/MM3 (150-450); RED BLOOD COUNT 5.04 MIL/MM3 (4.50-5.90); RED CELL DISTRIBUTION WIDTH 13.1 % (11.6-17.2); WHITE BLOOD COUNT 11.4 TH/MM3 (4.0-11.0)
--- NOTE | 2017-08-04 18:41 | RADRPT ---
EXAM DATE/TIME: 08/04/2017 18:32 [facility] COMPARISON: CHEST SINGLE AP, May 26, 2016, 20:00. INDICATIONS : Chest pain and vomiting. MEDICAL HISTORY : Diabetes mellitus type 1. Gastroparesis. SURGICAL HISTORY : None. ENCOUNTER: Initial ACUITY: 1 day PAIN SCORE: 8/10 LOCATION: Bilateral chest FINDINGS: A single view of the chest demonstrates the lungs to be symmetrically aerated without evidence of mas s, infiltrate or effusion. The cardiomediastinal contours are unremarkable. Osseous structures are intact. CONCLUSION: Normal examination. No significant change has occurred. Petr Sabillon MD on August 04, 2017 at 18:39 Board Certified Radiologist. This report was verified electronically.
[2017-08-04 19:11] LABS: ALKALINE PHOSPHATASE 87 U/L (45-117); ALT (GPT) 14 U/L (12-78); BETA-HYDROXYBUTYRATE 3.83 MMOL/L (0.00-0.39); TOTAL BILIRUBIN ADULT 0.8 MG/DL (0.2-1.0)
[2017-08-04 19:32] LABS: ANION GAP 13 MEQ/L (5-15); AST (GOT) 19 U/L (15-37); BICARBONATE 32.5 MEQ/L (21.0-32.0); CHLORIDE 86 MEQ/L (98-107); GLOMERULAR FILTRATION RATE 56 ML/MIN (>89); MAGNESIUM 2.1 MG/DL (1.5-2.5); POTASSIUM 3.7 MEQ/L (3.5-5.1); SODIUM (NA) 131 MEQ/L (136-145)
[2017-08-04 19:44] LABS: BLOOD UREA NITROGEN 27 MG/DL (7-18)
[2017-08-04] MEDS ORDERED: KETOROLAC TROMETHAMINE 30 MG/ML (IVP) VIAL IV PUSH ONE (19:45)
[2017-08-04] MEDS ORDERED: INSULIN HUMAN REGULAR 1,000 UNITS/10 ML VIAL SQ ONE (19:45)
[2017-08-04] MEDS ORDERED: PROMETHAZINE HCL 25 MG TAB PO ONE (21:15)
[2017-08-04] MEDS ORDERED: PROM12.54 PO (21:16)
[2017-08-04] MEDS ORDERED: PROMETHAZINE INJ 25 MG/ML VIAL IM ONE (21:45)
--- NOTE | 2017-08-05 17:22 | EKG ---
Date Performed: 08/04/2017 Time Performed: 18:31:49 PTAGE: 31 years EKG: SINUS TACHYCARDIA NONSPECIFIC T-WAVE ABNORMALITY ABNORMAL RHYTHM ECG PREVIOUS TRACING : 12/03/2016 21.30 Compared to prior tracing no significant change DOCTOR: Carlin Powell Interpretating Date/Time 08/05/2017 17:20:20
== END 2017-08-04 22:30 | disposition home or self-care (01) ==
LOC: NEPC 17:48
DX: F12.90 Cannabis use, unspecified, uncomplicated (principal); E11.65 Type 2 diabetes mellitus with hyperglycemia; E86.0 Dehydration; R94.31 Abnormal electrocardiogram [ECG] [EKG]; K31.84 Gastroparesis; Z79.4 Long term (current) use of insulin
CPT/HCPCS: 71010; 80053; 82010; 83605; 83735; 83930; 84100; 85025; 93005; 96361; 96372; 96374; 96375; 99285; J1815; J1885; J2405; J2550; J7030

== ENCOUNTER 2017-09-12 17:55 | Emergency (ER) | payer OTHER ==
[~2017-09-12 17:55] MED LIST changes: -FLUO1TAB15 PO; -MAG-TAB PO; -METO10TA PO; -PANT40TA3 PO; -POTA8CAP PO; +PROM12.54 PO
[2017-09-12 17:56] VITALS: BP 166/75; PULSE 118; RESP 16; TEMP 99.3; O2SAT 99
[2017-09-12] MEDS ORDERED: REGL5TAB PO (18:20)
[2017-09-12] MEDS ORDERED: PANT20 PO (18:20)
[2017-09-12] MEDS ORDERED: SODIUM CHLOR 0.9% 1000 ML INJ 1,000 ML IV ONE ×2 (18:23→18:53)
--- NOTE | 2017-09-12 18:28 | PD ---
HPI Chief Complaint: Cold / Flu Symptoms Time Seen by Provider: 18:19 Travel History International Travel<30 days: No Contact w/Intl Traveler<30days: No Traveled to known affect area: No History of Present Illness HPI 31-year-old male with history of insulin dependent diabetes, gastroparesis, here for evaluation of flulike symptoms. For the last 2 days the patient has had cough productive of greenish sputum, generalized malaise, sore throat, nausea. Patient reports that coughing hurts his chest and abdomen. He has had a fever as well. Symptoms seem to be worsening. No sick contacts. No history of IVDU. PFSH Past Medical History Arthritis: No Asthma: No Autoimmune Disease: No Blood Disorders: No Anxiety: Yes Depression: Yes Heart Rhythm Problems: No Cancer: No Cardiovascular Problems: No High Cholesterol: No Chest Pain: No Congestive Heart Failure: No COPD: No Cerebrovascular Accident: No Diabetes: Yes Patient Takes Glucophage: No Diminished Hearing: No Endocrine: Yes Gastrointestinal Disorders: Yes (Gastroparesis) GERD: No Genitourinary: No Headaches: Yes Hiatal Hernia: No Herniated Disk: Yes (2 DISCS IN BACK AND 2 IN NECK 2o TO CUSTODIAL) Hypertension: No Implanted Vascular Access Dvce: No Kidney Stones: No Musculoskeletal: No Neurologic: Yes (Neuropathy) Psychiatric: Yes Reproductive: No Respiratory: No Immunizations Current: Yes Migraines: No Seizures: No Sickle Cell Disease: No Sleep Apnea: No Thyroid Disease: No Ulcer: No PNEUMOCCOCAL Vaccine (Year): 1 Past Surgical History Abdominal Surgery: No Cardiac Surgery: No Ear Surgery: No Endocrine Surgery: No Eye Surgery: No Genitourinary Surgery: No Gynecologic Surgery: No Neurologic Surgery: No Oral Surgery: No Pacemaker: No Thoracic Surgery: No Other Surgery: Yes (Inguinal hernia repair) Social History Alcohol Use: No Tobacco Use: No Substance Use: Yes (marijuana) Allergies-Medications (Allergen,Severity, Reaction): Coded Allergies: No Known Allergies (Verified , 08/04/17) Reported Meds & Prescriptions Reported Meds & Active Scripts Active Levemir Inj (Insulin Detemir) 1,000 unit/ 10 ML Vial 25 Units SQ BID Do not mix with any other Insulin. 25 units in the AM 20 units in the PM Demetria Contour Next Blood Test Strips (Blood Glucose Test Strips) 1 Zuri Zuri 1 Strip .ROUTE DIRECTED Novolog Inj (Insulin Aspart) 1,000 Unit/10 Ml Vial 0 SQ DIRECTED Sliding Scale as directed. Reported Reglan (Metoclopramide HCl) 5 Mg Tab 5 Mg PO QID Protonix (Pantoprazole Sodium) 20 Mg Tab 20 Mg PO DAILY Review of Systems Except as stated in HPI: all other systems reviewed are Neg Physical Exam Narrative GENERAL: Well-developed, well-nourished, persistent cough SKIN: Focused skin assessment warm/dry. No rash. HEAD: Atraumatic. Normocephalic. EYES: Pupils equal and round. No scleral icterus. No injection or drainage. ENT: No nasal bleeding or discharge. Mucous membranes pink and moist. Poor dentition. Pharynx is slightly erythematous without exudates. NECK: Trachea midline. No JVD. No nuchal rigidity. CARDIOVASCULAR: Regular rate and rhythm. No murmur appreciated. RESPIRATORY: No accessory muscle use. Clear to auscultation. Breath sounds equal bilaterally. GASTROINTESTINAL: Abdomen soft, non-tender, nondistended. MUSCULOSKELETAL: No obvious deformities. No clubbing. No cyanosis. No edema. NEUROLOGICAL: Awake and alert. No obvious cranial nerve deficits. Motor grossly within normal limits. Normal speech. PSYCHIATRIC: Appropriate mood and affect; insight and judgment normal. Data Data Last Documented VS Vital Signs Date Time Temp Pulse Resp B/P (MAP) Pulse Ox O2 Delivery O2 Flow Rate FiO2 09/12/17 19:13 99.1 77 16 109/56 (73) 99 Room Air Orders Orders Electrocardiogram (09/12/17 18:23) Complete Blood Count With Diff (09/12/17 18:23) Comprehensive Metabolic Panel (09/12/17 18:23) Beta Hydroxybutyrate (Acetone) (09/12/17 18:23) Urinalysis - C+S If Indicated (09/12/17 18:23) Chest, Single Ap (09/12/17 18:23) Blood Gas Venous (Vbg) (09/12/17 18:23) Ecg Monitoring (09/12/17 18:23) Iv Access Insert/Monitor (09/12/17 18:23) Oximetry (09/12/17 18:23) NPO (09/12/17 18:23) Sodium Chlor 0.9% 1000 Ml Inj (Ns 1000 M (09/12/17 18:23) Sodium Chlor 0.9% 1000 Ml Inj (Ns 1000 M (09/12/17 18:53) Sodium Chloride 0.9% Flush (Ns Flush) (09/12/17 18:30) Troponin I (09/12/17 18:23) Creatine Kinase (Cpk) (09/12/17 18:23) Influenzae A/B Antigen (09/12/17 18:23) Group A Rapid Strep Screen (09/12/17 18:23) Ondansetron Inj (Zofran Inj) (09/12/17 18:30) Ketorolac Inj (Toradol Inj) (09/12/17 18:30) Guaifen-Cod 200-20 Mg/10ml Liq (Robituss (09/12/17 18:30) Electrocardiogram (09/12/17 18:43) Strep Culture (Group A) (09/12/17 18:30) Labs Laboratory Tests Test 09/12/17 18:30 09/12/17 18:50 White Blood Count 10.6 TH/MM3 Red Blood Count 4.17 MIL/MM3 Hemoglobin 13.2 GM/DL Hematocrit 35.9 % Mean Corpuscular Volume 86.1 FL Mean Corpuscular Hemoglobin 31.6 PG Mean Corpuscular Hemoglobin Concent 36.7 % Red Cell Distribution Width 13.0 % Platelet Count 262 TH/MM3 Mean Platelet Volume 7.2 FL Neutrophils (%) (Auto) 74.2 % Lymphocytes (%) (Auto) 15.9 % Monocytes (%) (Auto) 6.6 % Eosinophils (%) (Auto) 3.0 % Basophils (%) (Auto) 0.3 % Neutrophils # (Auto) 7.9 TH/MM3 Lymphocytes # (Auto) 1.7 TH/MM3 Monocytes # (Auto) 0.7 TH/MM3 Eosinophils # (Auto) 0.3 TH/MM3 Basophils # (Auto) 0.0 TH/MM3 CBC Comment AUTO DIFF Differential Comment AUTO DIFF CONFIRMED Platelet Estimate NORMAL Platelet Morphology Comment NORMAL Blood Urea Nitrogen 19 MG/DL Creatinine 1.36 MG/DL Random Glucose 181 MG/DL Total Protein 7.5 GM/DL Albumin 3.5 GM/DL Calcium Level 9.0 MG/DL Alkaline Phosphatase 87 U/L Aspartate Amino Transf (AST/SGOT) 18 U/L Alanine Aminotransferase (ALT/SGPT) 11 U/L Total Bilirubin 0.3 MG/DL Sodium Level 137 MEQ/L Potassium Level 4.1 MEQ/L Chloride Level 107 MEQ/L Carbon Dioxide Level 24.3 MEQ/L Anion Gap 6 MEQ/L Estimat Glomerular Filtration Rate 61 ML/MIN Total Creatine Kinase 162 U/L Troponin I LESS THAN 0.02 NG/ML B-Hydroxybutyrate 0.50 MMOL/L Blood Gas Puncture Site CL Blood Gas Patient Temperature 37.0 Venous Blood pH 7.43 Venous Blood Partial Pressure CO2 36 mmHg Venous Blood Partial Pressure O2 37 mmHg Venous Blood HCO3 23 mmol/L Venous Blood Oxygen Saturation 73 % Venous Blood Oxygen Content 12.6 Vol % Venous Blood Base Excess -0.5 mmol/L Oxygen Delivery Device RA JESSICA Medical Decision Making Medical Screen Exam Complete: Yes Emergency Medical Condition: Yes Differential Diagnosis Influenza, viral illness, pneumonia, strep pharyngitis, DKA, dehydration, sepsis Narrative Course Initial vital signs show heart rate 118, blood pressure 166/75, pulse ox 99% on room air, oral temp of 99.3F. After 2 L normal saline IV and IV Toradol, repeat vital signs show heart rate 77 , blood pressure 109/56, pulse ox 99% on room air, oral temp of 99.1F. CBC: WBC 10.6, hemoglobin 13.2, hematocrit 35.9, platelets 262, neutrophils 74%. CMP is remarkable for BUN 19, creatinine 1.36, GFR 61, random glucose 181, otherwise unremarkable. Venous pH is 7.43. Beta hydroxybutyrate is 0.50. The patient is not in DKA. Chest x-ray shows no acute disease. Influenza and group A strep are negative. Patient was given 2 L normal saline IV, IV Toradol, and IV Zofran, and on reassessment he is sleeping comfortably. He was made aware of all findings. He is likely suffering from a viral URI. He is not in DKA. He is stable for discharge home with outpatient follow-up with his primary care physician in the next 1-2 days. He was informed on when to return to the emergency department. He verbalizes understanding and agreement with plan. Diagnosis Primary Impression: URI (upper respiratory infection) Qualified Codes: J06.9 - Acute upper respiratory infection, unspecified Referrals: Primary Care Physician 1 day Additional Instructions: Follow-up with your primary care physician in the next 1-2 days. Stay hydrated with plenty of fluids. Keep fever control with Tylenol and ibuprofen. Return to the emergency department for worsening symptoms or any other concerns. Scripts Guaifenesin-Dextromethorphan Liq (Guaifenesin DM Liq) 10-100 Mg/5 Ml Liq 10 ML PO Q4H Y for COUGH, #1 BOTTLE 0 Refills Prov: Kasi Hernandez MD 09/12/17 Disposition: 01 DISCHARGE HOME Condition: Stable Kasi Hernandez MD Sep 12, 2017 18:28
[2017-09-12] MEDS ORDERED: SODIUM CHLORIDE 0.9% FLUSH 10 ML FLUSH IVF PRN (18:30)
[2017-09-12] MEDS ORDERED: guaiFENesin/CODEINE SYRUP 200 MG/20 MG/10 ML CUP PO ONE (18:30)
[2017-09-12] MEDS ORDERED: KETOROLAC TROMETHAMINE 30 MG/ML (IVP) VIAL IV PUSH ONE (18:30)
[2017-09-12] MEDS ORDERED: ONDANSETRON HCL 4 MG/2 ML VIAL IV PUSH ONE (18:30)
--- NOTE | 2017-09-12 18:55 | RADRPT ---
EXAM DATE/TIME: 09/12/2017 18:44 [facility] COMPARISON: CHEST SINGLE AP, August 04, 2017, 18:32. INDICATIONS : Chest pain, shortness of breath. MEDICAL HISTORY : None. SURGICAL HISTORY : None. ENCOUNTER: Initial ACUITY: 1 day PAIN SCORE: 0/10 LOCATION: Bilateral chest FINDINGS: A single view of the chest demonstrates the lungs to be symmetrically aerated without evidence of mas s, infiltrate or effusion. The cardiomediastinal contours are unremarkable. Osseous structures are intact. CONCLUSION: No acute disease. Rip Concepcion MD on September 12, 2017 at 18:53 Board Certified Radiologist. This report was verified electronically.
[2017-09-12 19:00] LABS: BLOOD GAS VENOUS BASE EXCESS -0.5 mmol/L (-2-2); BLOOD GAS VENOUS HCO3 23 mmol/L (22-26); BLOOD GAS VENOUS O2 CONTENT 12.6 Vol % (9.0-17.0); BLOOD GAS VENOUS O2 HGB SAT 73 % (70-76); BLOOD GAS VENOUS PCO2 36 mmHg (44-48); BLOOD GAS VENOUS PO2 37 mmHg (35-40); BLOOD GAS VENOUS pH 7.43 (7.360-7.400); CRITICAL VALUE NO; DRAW SITE CL; OXYGEN DEVICE RA
[2017-09-12 19:07] LABS: AUTOMATED NEUTROPHIL # 7.9 TH/MM3 (1.8-7.7); BASOPHIL % 0.3 % (0.0-2.0); EOSINOPHIL # 0.3 TH/MM3 (0-0.4); HEMATOCRIT 35.9 % (39.0-51.0); LYMPH % 15.9 % (9.0-44.0); LYMPHOCYTE # 1.7 TH/MM3 (1.0-4.8); MEAN CELL VOLUME 86.1 FL (80.0-100.0); MEAN CORPUSCULAR HEMOGLOBIN 31.6 PG (27.0-34.0); MONO % 6.6 % (0.0-8.0); NEUT % 74.2 % (16.0-70.0); PLATELET COUNT 262 TH/MM3 (150-450); RED BLOOD COUNT 4.17 MIL/MM3 (4.50-5.90); WHITE BLOOD COUNT 10.6 TH/MM3 (4.0-11.0)
[2017-09-12 19:11] VITALS: RESP 20; O2SAT 98
[2017-09-12 19:13] VITALS: BP 109/56; PULSE 77; RESP 16; TEMP 99.1; O2SAT 99
[2017-09-12 19:22] LABS: HEMO FLAGS AUTO DIFF; MEAN CORPUSCULAR HGB CONC 36.7 % (32.0-36.0)
[2017-09-12 19:31] LABS: ANION GAP 6 MEQ/L (5-15); AST (GOT) 18 U/L (15-37); BICARBONATE 24.3 MEQ/L (21.0-32.0); BLOOD UREA NITROGEN 19 MG/DL (7-18); CHLORIDE 107 MEQ/L (98-107); GLOMERULAR FILTRATION RATE 61 ML/MIN (>89); POTASSIUM 4.1 MEQ/L (3.5-5.1); SODIUM (NA) 137 MEQ/L (136-145)
[2017-09-12 19:32] LABS: ALT (GPT) 11 U/L (12-78)
[2017-09-12 19:36] LABS: ALKALINE PHOSPHATASE 87 U/L (45-117); CREATINE KINASE 162 U/L (39-308); TOTAL BILIRUBIN ADULT 0.3 MG/DL (0.2-1.0)
[2017-09-12 19:48] LABS: SCAN/DIFF AUTO DIFF CONFIRMED
[2017-09-12 19:49] LABS: PLATELET ESTIMATE SMEAR NORMAL (NORMAL); PLATELET MORPHOLOGY NORMAL (NORMAL)
[2017-09-12 20:15] VITALS: RESP 20
[2017-09-12] MEDS ORDERED: GUAISYP7 PO (20:50)
--- NOTE | 2017-09-13 05:07 | EKG ---
Date Performed: 09/12/2017 Time Performed: 19:03:10 PTAGE: 31 years EKG: Sinus rhythm NORMAL ECG No significant change from prior electrocardiogram. PREVIOUS TRACING : 08/04/2017 18.31 DOCTOR: Aly Hill Interpretating Date/Time 09/13/2017 05:07:48
[2017-09-20 13:01] LABS: STAT YES
== END 2017-09-12 21:38 | disposition home or self-care (01) ==
LOC: NEPD 17:55
DX: J02.9 Acute pharyngitis, unspecified (principal)
CPT/HCPCS: 71010; 80053; 82010; 82550; 82805; 84484; 85025; 86403; 87081; 87804; 87880; 93005; 96361; 96374; 96375; 99285; J1885; J2405; J7030

== ENCOUNTER 2017-09-19 06:19 | Emergency (ER) | payer OTHER ==
[~2017-09-19] VITALS: Ht 180.3 cm; Wt 76.0 kg
[~2017-09-19 06:19] MED LIST changes: +GUAISYP7 PO; +PANT20 PO; -PROM12.54 PO; +REGL5TAB PO
[2017-09-19 06:21] VITALS: BP 135/93; PULSE 104; RESP 16; TEMP 97.8; O2SAT 98
[2017-09-19] MEDS ORDERED: SODIUM CHLOR 0.9% 1000 ML INJ 1,000 ML IV ONE (07:15)
[2017-09-19] MEDS ORDERED: diphenhydrAMINE HCL 50 MG/ML VIAL IV PUSH ONE (07:15)
[2017-09-19] MEDS ORDERED: METOCLOPRAMIDE HCL 10 MG/2 ML VIAL IV PUSH ONE (07:15)
[2017-09-19 07:48] LABS: AUTOMATED NEUTROPHIL # 7.8 TH/MM3 (1.8-7.7); BASOPHIL % 0.3 % (0.0-2.0); EOSINOPHIL % 0.4 % (0.0-4.0); HEMATOCRIT 38.9 % (39.0-51.0); HEMO FLAGS DIFF FINAL; LYMPH % 19.6 % (9.0-44.0); LYMPHOCYTE # 2.1 TH/MM3 (1.0-4.8); MEAN CELL VOLUME 85.5 FL (80.0-100.0); MEAN CORPUSCULAR HEMOGLOBIN 29.6 PG (27.0-34.0); MEAN CORPUSCULAR HGB CONC 34.7 % (32.0-36.0); MONO % 5.7 % (0.0-8.0); PLATELET COUNT 368 TH/MM3 (150-450); RED BLOOD COUNT 4.55 MIL/MM3 (4.50-5.90); RED CELL DISTRIBUTION WIDTH 12.8 % (11.6-17.2); WHITE BLOOD COUNT 10.6 TH/MM3 (4.0-11.0)
--- NOTE | 2017-09-19 07:57 | PD ---
HPI Chief Complaint: GI Complaint Time Seen by Provider: 07:02 Travel History International Travel<30 days: No Contact w/Intl Traveler<30days: No Traveled to known affect area: No History of Present Illness HPI This is a 31-year-old male who has a history of type 1 diabetes who presents to the emergency department with vomiting that's been going on for 2 days. One week ago he developed a upper respiratory infection. He's been taking Mucinex for it. This caused it, moderate severity, with no associated abdominal pain, fevers or chills and he hasn't been able to keep anything down. He's had vomiting like this in the past. He has a diagnosis of diabetic gastroparesis. He also acknowledges that he smokes marijuana not every day. PFSH Past Medical History Arthritis: No Asthma: No Autoimmune Disease: No Blood Disorders: No Anxiety: Yes Depression: Yes Heart Rhythm Problems: No Cancer: No Cardiovascular Problems: No High Cholesterol: No Chest Pain: No Congestive Heart Failure: No COPD: No Cerebrovascular Accident: No Diabetes: Yes Patient Takes Glucophage: Yes Diminished Hearing: No Endocrine: Yes Gastrointestinal Disorders: Yes (Gastroparesis) GERD: No Genitourinary: No Headaches: Yes Hiatal Hernia: No Herniated Disk: Yes (2 DISCS IN BACK AND 2 IN NECK 2o TO PRISON) Hypertension: No Implanted Vascular Access Dvce: No Kidney Stones: No Musculoskeletal: No Neurologic: Yes (Neuropathy) Psychiatric: Yes Reproductive: No Respiratory: No Immunizations Current: Yes Migraines: No Seizures: No Sickle Cell Disease: No Sleep Apnea: No Thyroid Disease: No Ulcer: No Tetanus Vaccination: > 5 Years Influenza Vaccination: No PNEUMOCCOCAL Vaccine (Year): 1 Past Surgical History Abdominal Surgery: No Cardiac Surgery: No Ear Surgery: No Endocrine Surgery: No Eye Surgery: No Genitourinary Surgery: No Gynecologic Surgery: No Neurologic Surgery: No Oral Surgery: No Pacemaker: No Thoracic Surgery: No Other Surgery: Yes (Inguinal hernia repair) Social History Alcohol Use: No Tobacco Use: No Substance Use: Yes (marijuana) Allergies-Medications (Allergen,Severity, Reaction): Coded Allergies: No Known Allergies (Verified Adverse Reaction, Unknown, 09/19/17) Reported Meds & Prescriptions Reported Meds & Active Scripts Active Guaifenesin DM Liq (Guaifenesin-Dextromethorphan Liq) 10-100 Mg/5 Ml Liq 10 Ml PO Q4H PRN Levemir Inj (Insulin Detemir) 1,000 unit/ 10 ML Vial 25 Units SQ BID Do not mix with any other Insulin. 25 units in the AM 20 units in the PM Demetria Contour Next Blood Test Strips (Blood Glucose Test Strips) 1 Zuri Zuri 1 Strip .ROUTE DIRECTED Novolog Inj (Insulin Aspart) 1,000 Unit/10 Ml Vial 0 SQ DIRECTED Sliding Scale as directed. Reported Reglan (Metoclopramide HCl) 5 Mg Tab 5 Mg PO QID Protonix (Pantoprazole Sodium) 20 Mg Tab 20 Mg PO DAILY Review of Systems Except as stated in HPI: all other systems reviewed are Neg Physical Exam Narrative GENERAL:Well appearing, no acute distress SKIN: Focused skin assessment warm and dry. HEAD: Atraumatic. Normocephalic. EYES: Pupils equal and round. No injection or drainage. ENT: Moist mucous membranes NECK: Trachea midline. CARDIOVASCULAR: Regular rate and rhythm. No murmur appreciated. RESPIRATORY: Clear to auscultation. Breath sounds equal bilaterally. GASTROINTESTINAL: Abdomen soft, non-tender, nondistended. MUSCULOSKELETAL: No obvious deformities. NEUROLOGICAL: Awake and alert. No obvious cranial nerve deficits. Moving all extremities. PSYCHIATRIC: Appropriate mood and affect; insight and judgment normal. Data Data Last Documented VS Vital Signs Date Time Temp Pulse Resp B/P (MAP) Pulse Ox O2 Delivery O2 Flow Rate FiO2 09/19/17 06:21 97.8 104 16 135/93 (107) 98 Orders Orders Complete Blood Count With Diff (09/19/17 07:07) Comprehensive Metabolic Panel (09/19/17 07:07) Lipase (09/19/17 07:07) ^ Insert Iv (09/19/17 07:07) Sodium Chlor 0.9% 1000 Ml Inj (Ns 1000 M (09/19/17 07:15) Metoclopramide Inj (Reglan Inj) (09/19/17 07:15) Diphenhydramine Inj (Benadryl Inj) (09/19/17 07:15) Sodium Chlor 0.9% 1000 Ml Inj (Ns 1000 M (09/19/17 08:15) Labs Laboratory Tests Test 09/19/17 07:15 White Blood Count 10.6 TH/MM3 Red Blood Count 4.55 MIL/MM3 Hemoglobin 13.5 GM/DL Hematocrit 38.9 % Mean Corpuscular Volume 85.5 FL Mean Corpuscular Hemoglobin 29.6 PG Mean Corpuscular Hemoglobin Concent 34.7 % Red Cell Distribution Width 12.8 % Platelet Count 368 TH/MM3 Mean Platelet Volume 6.7 FL Neutrophils (%) (Auto) 74.0 % Lymphocytes (%) (Auto) 19.6 % Monocytes (%) (Auto) 5.7 % Eosinophils (%) (Auto) 0.4 % Basophils (%) (Auto) 0.3 % Neutrophils # (Auto) 7.8 TH/MM3 Lymphocytes # (Auto) 2.1 TH/MM3 Monocytes # (Auto) 0.6 TH/MM3 Eosinophils # (Auto) 0.0 TH/MM3 Basophils # (Auto) 0.0 TH/MM3 CBC Comment DIFF FINAL Differential Comment Blood Urea Nitrogen 23 MG/DL Creatinine 1.47 MG/DL Random Glucose 259 MG/DL Total Protein 8.3 GM/DL Albumin 3.8 GM/DL Calcium Level 9.3 MG/DL Alkaline Phosphatase 97 U/L Aspartate Amino Transf (AST/SGOT) 9 U/L Alanine Aminotransferase (ALT/SGPT) 13 U/L Total Bilirubin 0.3 MG/DL Sodium Level 136 MEQ/L Potassium Level 3.4 MEQ/L Chloride Level 94 MEQ/L Carbon Dioxide Level 36.1 MEQ/L Anion Gap 6 MEQ/L Estimat Glomerular Filtration Rate 56 ML/MIN Lipase 88 U/L MDM Medical Decision Making Medical Screen Exam Complete: Yes Emergency Medical Condition: Yes Interpretation(s) afebrile, tachycardia, normotensive no leukocytosis bicarb elevated likely due to vomiting renal insufficiency Differential Diagnosis Gastroparesis, cannabis hyperemesis syndrome, DKA, bowel obstruction Narrative Course This is a 31-year-old male who presents to the emergency department with nausea and vomiting that started yesterday. He's had symptoms like this before and has been told that he has gastroparesis. He also uses marijuana recreationally which suggests possible cannabis hyperemesis syndrome. Patient was placed on a monitor and an IV was established. Labs are obtained which demonstrate an elevated bicarbonate and some renal insufficiency which is similar to prior. Patient was given 2 L of IV fluids and Reglan and he feels better. I think he can safely be discharged home. I don't think he requires any imaging based on his benign exam. Diagnosis Primary Impression: Nausea & vomiting Qualified Codes: R11.2 - Nausea with vomiting, unspecified Patient Instructions: General Instructions Additional Instructions: If you develop severe or worsening abdominal pain, fever>100.4, persistent vomiting or inability to eat or drink return to the emergency department immediately. Follow up with your primary care physician in 1-2 days for a check-up. Med/Other Pt SpecificInfo: Prescription(s) given Scripts Ondansetron Odt (Zofran Odt) 4 Mg Tab 4 MG SL Q6HR Y for Nausea/Vomiting, #30 TAB 0 Refills Prov: Maya Herman MD 09/19/17 Metoclopramide (Reglan) 10 Mg Tab 10 MG PO QID Y for NAUSEA, #30 TAB 0 Refills Prov: Maya Herman MD 09/19/17 Disposition: 01 DISCHARGE HOME Condition: Stable Maya Herman MD Sep 19, 2017 07:57
[2017-09-19 08:01] LABS: ANION GAP 6 MEQ/L (5-15); AST (GOT) 9 U/L (15-37); BICARBONATE 36.1 MEQ/L (21.0-32.0); BLOOD UREA NITROGEN 23 MG/DL (7-18); CHLORIDE 94 MEQ/L (98-107); GLOMERULAR FILTRATION RATE 56 ML/MIN (>89); POTASSIUM 3.4 MEQ/L (3.5-5.1); SODIUM (NA) 136 MEQ/L (136-145)
[2017-09-19 08:03] LABS: ALKALINE PHOSPHATASE 97 U/L (45-117); ALT (GPT) 13 U/L (12-78); TOTAL BILIRUBIN ADULT 0.3 MG/DL (0.2-1.0)
[2017-09-19] MEDS ORDERED: SODIUM CHLOR 0.9% 1000 ML INJ 1,000 ML IV SCH (08:15)
[2017-09-19] MEDS ORDERED: ZOFR4TAB3 SL (08:56)
[2017-09-19] MEDS ORDERED: REGL10TA5 PO (08:56)
== END 2017-09-19 10:38 | disposition home or self-care (01) ==
LOC: NEPE 06:19
DX: R11.2 Nausea with vomiting, unspecified (principal); E10.43 Type 1 diabetes mellitus with diabetic autonomic (poly)neuropathy; K31.84 Gastroparesis; E10.40 Type 1 diabetes mellitus with diabetic neuropathy, unspecified; F12.90 Cannabis use, unspecified, uncomplicated; R00.0 Tachycardia, unspecified; N28.9 Disorder of kidney and ureter, unspecified; F41.9 Anxiety disorder, unspecified; F32.9 Major depressive disorder, single episode, unspecified
CPT/HCPCS: 80053; 83690; 85025; 96361; 96374; 96375; 99284; J1200; J2765; J7030

== ENCOUNTER 2017-11-05 16:27 | Inpatient (IN) | payer OTHER ==
[2017-11-05] MEDS ORDERED: SODIUM CHLORIDE 0.9% FLUSH 10 ML FLUSH IV FLUSH (17:45)
[2017-11-05] MEDS: METOCLOPRAMIDE HCL 10 MG/2 ML VIAL IV PUSH (17:48)
[2017-11-05] MEDS: SODIUM CHLOR 0.9% 1000 ML INJ 1,000 ML IV ×3 (17:48→19:11)
[2017-11-05] MEDS: diphenhydrAMINE HCL 50 MG/ML VIAL IV PUSH (17:49)
[2017-11-05 18:13] LABS: AUTOMATED NEUTROPHIL # 16.1 TH/MM3 (1.8-7.7); BASOPHIL % 0.1 % (0.0-2.0); HEMATOCRIT 43.5 % (39.0-51.0); HEMO FLAGS DIFF FINAL; LYMPHOCYTE # 1.2 TH/MM3 (1.0-4.8); MEAN CELL VOLUME 88.4 FL (80.0-100.0); MEAN CORPUSCULAR HEMOGLOBIN 30.5 PG (27.0-34.0); MEAN CORPUSCULAR HGB CONC 34.5 % (32.0-36.0); MONO % 1.7 % (0.0-8.0); MONOCYTE # 0.3 TH/MM3 (0-0.9); NEUT % 91.2 % (16.0-70.0); PLATELET COUNT 379 TH/MM3 (150-450); RED BLOOD COUNT 4.93 MIL/MM3 (4.50-5.90); RED CELL DISTRIBUTION WIDTH 13.3 % (11.6-17.2); WHITE BLOOD COUNT 17.7 TH/MM3 (4.0-11.0)
[2017-11-05 18:25] LABS: ALKALINE PHOSPHATASE 127 U/L (45-117); TOTAL BILIRUBIN ADULT 0.6 MG/DL (0.2-1.0); TOTAL PROTEIN 9.3 GM/DL (6.4-8.2)
[2017-11-05 18:34] LABS: ALBUMIN 4.4 GM/DL (3.4-5.0); ALT (GPT) 18 U/L (12-78); ANION GAP 25 MEQ/L (5-15); AST (GOT) 18 U/L (15-37); BICARBONATE 19.3 MEQ/L (21.0-32.0); BLOOD UREA NITROGEN 37 MG/DL (7-18); CALCIUM 9.4 MG/DL (8.5-10.1); CHLORIDE 88 MEQ/L (98-107); CREATININE 2.27 MG/DL (0.60-1.30); GLOMERULAR FILTRATION RATE 34 ML/MIN (>89); GLUCOSE,RANDOM 391 MG/DL (74-106); LIPASE 106 U/L (73-393); POTASSIUM 4.2 MEQ/L (3.5-5.1); SODIUM (NA) 132 MEQ/L (136-145)
[2017-11-05 19:11] LABS: BLOOD GAS VENOUS BASE EXCESS -1.9 mmol/L (-2-2); BLOOD GAS VENOUS HCO3 22 mmol/L (22-26); BLOOD GAS VENOUS O2 CONTENT 14.8 Vol % (9.0-17.0); BLOOD GAS VENOUS O2 HGB SAT 86 % (70-76); BLOOD GAS VENOUS PCO2 38 mmHg (44-48); BLOOD GAS VENOUS PO2 54 mmHg (35-40); BLOOD GAS VENOUS pH 7.39 (7.360-7.400); TEMP CORR TO 98.6
[2017-11-05 19:12] LABS: CRITICAL VALUE NO; FIO2 21 %; OXYGEN DEVICE ROOM AIR; STAT YES
[2017-11-05] MEDS ORDERED: SODIUM CHLOR 0.9% 1000 ML INJ 1,000 ML IV (19:24)
[2017-11-05] MEDS ORDERED: MISCELLANEOUS NURSING INFORMATION XX (19:30)
[2017-11-05] MEDS ORDERED: CHLORHEXIDINE GLUCONATE 2 % 1 PACK (2 CLOTHS) TOP (19:30)
[2017-11-05] MEDS ORDERED: POTASSIUM CHLOR 20 MEQ PREMIX 100 ML IV ×4 (19:30)
[2017-11-05] MEDS ORDERED: SODIUM BICARBONATE 8.4% SOLN 50 MEQ/50 ML VIAL IV PUSH ×2 (19:30)
[2017-11-05] MEDS ORDERED: POTASSIUM CHLOR 40 MEQ PREMIX 100 ML IV ×2 (19:30)
[2017-11-05] MEDS ORDERED: SODIUM PHOSPHATE INJ 15 MMOL in SODIUM CHLORIDE 0.9% INJ 100 ML IV (19:30)
[2017-11-05 19:47] LABS: BILIRUBIN, URINE NEG (NEG); BLOOD, URINE TRACE (NEG); COMMENT (UR) CULT NOT INDICATED; CULTURE IF INDICATED CULT NOT INDICATED; GLUCOSE,URINE 1000 mg/dL (NEG); HYALINE CAST, URINE 3 /lpf (RARE); KETONE, URINE 150 mg/dL (NEG); MUCUS URINE FEW /lpf (OCC); NITRITE,URINE NEG (NEG); URINE COLOR YELLOW (YELLW/STRAW); URINE LEUKOCYTE ESTERASE NEG (NEG)
[2017-11-05 19:50] LABS: LACTIC ACID 1.7 mmol/L (0.4-2.0)
[2017-11-05 19:57] LABS: BETA-HYDROXYBUTYRATE 5.22 MMOL/L (0.00-0.39)
[2017-11-05] MEDS: DEXT 5%-NACL 0.9% 1000 ML INJ 1,000 ML IV (21:11)
[2017-11-05] MEDS: INSULIN REGULAR (IV INFUSION) 100 UNITS in SODIUM CHLORIDE 0.9% INJ 99 ML IV (21:15)
[2017-11-05] MEDS: ONDANSETRON HCL 4 MG/2 ML VIAL IV PUSH (22:33)
[2017-11-05] MEDS: POTASSIUM CHLOR 20 MEQ PREMIX 100 ML IV (23:33)
[2017-11-06] MEDS: METOCLOPRAMIDE HCL 10 MG/2 ML VIAL IV PUSH (00:31)
[2017-11-06 01:36] LABS: ANION GAP 10 MEQ/L (5-15); BICARBONATE 26.2 MEQ/L (21.0-32.0); BLOOD UREA NITROGEN 30 MG/DL (7-18); CALCIUM 8.4 MG/DL (8.5-10.1); CHLORIDE 105 MEQ/L (98-107); CREATININE 1.71 MG/DL (0.60-1.30); GLOMERULAR FILTRATION RATE 47 ML/MIN (>89); GLUCOSE,RANDOM 156 MG/DL (74-106); MAGNESIUM 2.3 MG/DL (1.5-2.5); PHOSPHORUS 2.7 MG/DL (2.5-4.9); POTASSIUM 3.4 MEQ/L (3.5-5.1); SODIUM (NA) 141 MEQ/L (136-145)
[2017-11-06] MEDS: POTASSIUM CHLOR 20 MEQ PREMIX 100 ML IV ×5 (01:38→13:16)
[2017-11-06 02:36] LABS: MRSA PCR SURVEILLANCE MRSA NOT DETECTED (NOT DETECT)
[2017-11-06] MEDS: PROMETHAZINE INJ 25 MG/ML VIAL IM ×2 (02:42→09:19)
[2017-11-06] MEDS: DEXT 5%-NACL 0.9% 1000 ML INJ 1,000 ML IV ×3 (02:48→13:16)
[2017-11-06] MEDS: ONDANSETRON HCL 4 MG/2 ML VIAL IV PUSH ×3 (03:31→15:52)
[2017-11-06] MEDS: CHLORHEXIDINE GLUCONATE 2 % 1 PACK (2 CLOTHS) TOP (04:00)
[2017-11-06 09:42] LABS: BLOOD UREA NITROGEN 25 MG/DL (7-18); CALCIUM 8.4 MG/DL (8.5-10.1); CREATININE 1.61 MG/DL (0.60-1.30); GLOMERULAR FILTRATION RATE 50 ML/MIN (>89); GLUCOSE,RANDOM 157 MG/DL (74-106); MAGNESIUM 2.2 MG/DL (1.5-2.5); PHOSPHORUS 2.2 MG/DL (2.5-4.9); SODIUM (NA) 143 MEQ/L (136-145)
[2017-11-06 09:43] LABS: ANION GAP 10 MEQ/L (5-15); BETA-HYDROXYBUTYRATE 3.05 MMOL/L (0.00-0.39); BICARBONATE 25.9 MEQ/L (21.0-32.0); CHLORIDE 107 MEQ/L (98-107)
[2017-11-06] MEDS: PANTOPRAZOLE SODIUM 40 MG VIAL IV PUSH (10:39)
[2017-11-06] MEDS: INSULIN REGULAR (IV INFUSION) 100 UNITS in SODIUM CHLORIDE 0.9% INJ 99 ML IV (13:19)
[2017-11-06 14:02] LABS: ANION GAP 10 MEQ/L (5-15); BICARBONATE 23.1 MEQ/L (21.0-32.0); BLOOD UREA NITROGEN 21 MG/DL (7-18); CALCIUM 8.6 MG/DL (8.5-10.1); CHLORIDE 109 MEQ/L (98-107); GLOMERULAR FILTRATION RATE 50 ML/MIN (>89); GLUCOSE,RANDOM 237 MG/DL (74-106); MAGNESIUM 2.2 MG/DL (1.5-2.5); POTASSIUM 4.2 MEQ/L (3.5-5.1); SODIUM (NA) 142 MEQ/L (136-145)
[2017-11-06 14:03] LABS: PHOSPHORUS 1.6 MG/DL (2.5-4.9)
[2017-11-06] MEDS ORDERED: GLUCAGON 1 MG/ML VIAL OTHER (15:00)
[2017-11-06] MEDS: DC previous DKA orders (HMC 1917) (15:00)
[2017-11-06] MEDS: DC Insulin drip 2 hrs post basal insulin dose (15:00)
[2017-11-06] MEDS ORDERED: DEXTROSE 50% IN WATER 50 ML VIAL(D50) IV PUSH (15:00)
[2017-11-06] MEDS: 1/2 NS + KCL 20 MEQ INJ 1,000 ML IV (15:52)
[2017-11-06] MEDS: INSULIN DETEMIR 100 UNITS/ML VIAL SQ ×2 (15:52→20:52)
[2017-11-06] MEDS: METOCLOPRAMIDE HCL 10 MG/2 ML VIAL IM (20:35)
[2017-11-06] MEDS: INSULIN ASPART SUPPLEMENTAL SCALE SQ (20:51)
[2017-11-06 21:07] LABS: ANION GAP 9 MEQ/L (5-15); BICARBONATE 25.1 MEQ/L (21.0-32.0); BLOOD UREA NITROGEN 16 MG/DL (7-18); CALCIUM 8.3 MG/DL (8.5-10.1); CHLORIDE 107 MEQ/L (98-107); CREATININE 1.42 MG/DL (0.60-1.30); GLOMERULAR FILTRATION RATE 58 ML/MIN (>89); GLUCOSE,RANDOM 144 MG/DL (74-106); PHOSPHORUS 2.3 MG/DL (2.5-4.9); SODIUM (NA) 141 MEQ/L (136-145)
[2017-11-06 21:08] LABS: BETA-HYDROXYBUTYRATE 1.45 MMOL/L (0.00-0.39)
[2017-11-07] MEDS: CHLORHEXIDINE GLUCONATE 2 % 1 PACK (2 CLOTHS) TOP (04:00)
[2017-11-07] MEDS: INSULIN ASPART SUPPLEMENTAL SCALE SQ ×3 (08:00→16:29)
[2017-11-07] MEDS: INSULIN DETEMIR 100 UNITS/ML VIAL SQ (08:22)
[2017-11-07] MEDS: PANTOPRAZOLE SODIUM 40 MG VIAL IV PUSH (08:29)
[2017-11-07 11:52] LABS: BASOPHIL % 0.5 % (0.0-2.0); EOSINOPHIL # 0.2 TH/MM3 (0-0.4); EOSINOPHIL % 1.8 % (0.0-4.0); HEMATOCRIT 35.7 % (39.0-51.0); HEMO FLAGS DIFF FINAL; HEMOGLOBIN 12.4 GM/DL (13.0-17.0); LYMPH % 32.2 % (9.0-44.0); LYMPHOCYTE # 2.7 TH/MM3 (1.0-4.8); MEAN CELL VOLUME 88.5 FL (80.0-100.0); MEAN CORPUSCULAR HEMOGLOBIN 30.7 PG (27.0-34.0); MEAN CORPUSCULAR HGB CONC 34.7 % (32.0-36.0); MONO % 6.4 % (0.0-8.0); MONOCYTE # 0.5 TH/MM3 (0-0.9); NEUT % 59.1 % (16.0-70.0); PLATELET COUNT 254 TH/MM3 (150-450); RED BLOOD COUNT 4.04 MIL/MM3 (4.50-5.90); RED CELL DISTRIBUTION WIDTH 13.5 % (11.6-17.2); WHITE BLOOD COUNT 8.4 TH/MM3 (4.0-11.0)
[2017-11-07 12:25] LABS: ANION GAP 12 MEQ/L (5-15); BLOOD UREA NITROGEN 12 MG/DL (7-18); CALCIUM 8.4 MG/DL (8.5-10.1); CHLORIDE 101 MEQ/L (98-107); CREATININE 1.58 MG/DL (0.60-1.30); GLOMERULAR FILTRATION RATE 51 ML/MIN (>89); GLUCOSE,RANDOM 223 MG/DL (74-106); SODIUM (NA) 137 MEQ/L (136-145)
== END 2017-11-07 17:10 | disposition home or self-care (01) | DRG 682 ==
LOC: NEPC 16:27 → NEDA 19:10 → HIME 22:30
DX: N17.9 Acute kidney failure, unspecified (principal); E10.10 Type 1 diabetes mellitus with ketoacidosis without coma; E10.22 Type 1 diabetes mellitus with diabetic chronic kidney disease; K31.84 Gastroparesis; E10.42 Type 1 diabetes mellitus with diabetic polyneuropathy; E10.43 Type 1 diabetes mellitus with diabetic autonomic (poly)neuropathy; N18.9 Chronic kidney disease, unspecified; Z79.4 Long term (current) use of insulin
CPT/HCPCS: 80048; 80053; 81001; 82010; 82805; 82948; 83605; 83690; 83735; 84100; 85025; 87641; 96361; 96374; 96375; 99291-25

== ENCOUNTER 2017-12-09 19:45 | Emergency (ER) | payer OTHER ==
[~2017-12-09] VITALS: Ht 180.3 cm; Wt 80.0 kg
[~2017-12-09 19:45] MED LIST changes: -GUAISYP7 PO; +ZOFR4TAB3 SL
[2017-12-09 19:47] VITALS: BP 131/82; PULSE 116; RESP 16; TEMP 97.6; O2SAT 96
[2017-12-09] MEDS ORDERED: SODIUM CHLOR 0.9% 1000 ML INJ 1,000 ML IV ONE (20:33)
[2017-12-09] MEDS ORDERED: SODIUM CHLORIDE 0.9% FLUSH 10 ML FLUSH IVF PRN (20:45)
[2017-12-09] MEDS ORDERED: METOCLOPRAMIDE HCL 10 MG/2 ML VIAL IV PUSH ONE (20:45)
[2017-12-09] MEDS ORDERED: diphenhydrAMINE HCL 50 MG/ML VIAL IV PUSH ONE (20:45)
--- NOTE | 2017-12-09 20:46 | PD ---
HPI Chief Complaint: Diabetic Time Seen by Provider: 20:33 Travel History International Travel<30 days: No Contact w/Intl Traveler<30days: No Traveled to known affect area: No History of Present Illness HPI 32-year-old male patient with history of insulin-dependent diabetes, gastroparesis, neuropathy, presents to the ER today because he has had 2 days history of headaches, nausea, vomiting, not feeling well. He apparently had elevated blood sugars before but states that today his blood sugars have been in the 100 range. He denies any fevers, or other issues. He has had similar headaches in the past but is usually not this bad. He states is a 9 out of 10. Modifying Factors: None Associated Signs & Symptoms: Headaches, nausea and vomiting, elevated blood sugars Risk Factors: Diabetic PFSH Past Medical History Arthritis: No Asthma: No Autoimmune Disease: No Blood Disorders: No Anxiety: Yes Depression: Yes Heart Rhythm Problems: No Cancer: No Cardiovascular Problems: No High Cholesterol: No Chest Pain: No Congestive Heart Failure: No COPD: No Cerebrovascular Accident: No Diabetes: Yes Patient Takes Glucophage: No Diminished Hearing: No Endocrine: Yes Gastrointestinal Disorders: Yes (Gastroparesis) GERD: No Genitourinary: No Headaches: Yes Hiatal Hernia: No Heparin Induced Thrombocytopen: No Herniated Disk: Yes (2 DISCS IN BACK AND 2 IN NECK 2o TO CUSTODIAL) Hypertension: No Immune Disorder: No Implanted Vascular Access Dvce: No Kidney Stones: No Musculoskeletal: No Neurologic: Yes (Neuropathy) Psychiatric: Yes Reproductive: No Respiratory: No Immunizations Current: Yes Migraines: No Renal Failure: No Seizures: No Sickle Cell Disease: No Sleep Apnea: No Thyroid Disease: No Ulcer: No PNEUMOCCOCAL Vaccine (Year): 1 Past Surgical History Abdominal Surgery: No Cardiac Surgery: No Ear Surgery: No Endocrine Surgery: No Eye Surgery: No Genitourinary Surgery: No Gynecologic Surgery: No Neurologic Surgery: No Oral Surgery: No Pacemaker: No Thoracic Surgery: No Other Surgery: Yes (Inguinal hernia repair) Social History Alcohol Use: No Tobacco Use: No Substance Use: Yes (marijuana) Allergies-Medications (Allergen,Severity, Reaction): Coded Allergies: No Known Allergies (Verified Adverse Reaction, Unknown, 12/09/17) Reported Meds & Prescriptions Reported Meds & Active Scripts Active Novolog Inj (Insulin Aspart) 1,000 Unit/10 Ml Vial 0 SQ DIRECTED Sliding Scale as directed. Zofran Odt (Ondansetron Odt) 4 Mg Tab 4 Mg SL Q6HR PRN Levemir Inj (Insulin Detemir) 1,000 unit/ 10 ML Vial 25 Units SQ BID Do not mix with any other Insulin. 25 units in the AM 20 units in the PM Demetria Contour Next Blood Test Strips (Blood Glucose Test Strips) 1 Zuri Zuri 1 Strip .ROUTE DIRECTED Reported Reglan (Metoclopramide HCl) 5 Mg Tab 5 Mg PO QID Protonix (Pantoprazole Sodium) 20 Mg Tab 20 Mg PO DAILY Review of Systems Except as stated in HPI: all other systems reviewed are Neg Physical Exam Narrative GENERAL: Well-developed young white male patient currently in moderate distress. Awake and oriented 3. Photophobia. SKIN: Focused skin assessment warm/dry. HEAD: Atraumatic. Normocephalic. EYES: Pupils equal and round. No scleral icterus. No injection or drainage. ENT: No nasal bleeding or discharge. Mucous membranes pink and moist. NECK: Trachea midline. No JVD. Supple. CARDIOVASCULAR: Regular rate and rhythm. No murmur appreciated. RESPIRATORY: No accessory muscle use. Clear to auscultation. Breath sounds equal bilaterally. GASTROINTESTINAL: Abdomen soft, mild diffuse abdominal tenderness without guarding or rebound, nondistended. Hepatic and splenic margins not palpable. MUSCULOSKELETAL: No obvious deformities. No clubbing. No cyanosis. No edema. NEUROLOGICAL: Awake and alert. No obvious cranial nerve deficits. Motor grossly within normal limits. Normal speech. PSYCHIATRIC: Appropriate mood and affect; insight and judgment normal. Data Data Last Documented VS Vital Signs Date Time Temp Pulse Resp B/P (MAP) Pulse Ox O2 Delivery O2 Flow Rate FiO2 12/09/17 20:54 17 100 Room Air 12/09/17 19:47 97.6 116 Orders Orders Complete Blood Count With Diff (12/09/17 20:33) Comprehensive Metabolic Panel (12/09/17 20:33) Magnesium (Mg) (12/09/17 20:33) Beta Hydroxybutyrate (Acetone) (12/09/17 20:33) Urinalysis - C+S If Indicated (12/09/17 20:33) Ecg Monitoring (12/09/17 20:33) Iv Access Insert/Monitor (12/09/17 20:33) Oximetry (12/09/17 20:33) NPO (12/09/17 20:33) Sodium Chloride 0.9% Flush (Ns Flush) (12/09/17 20:45) Sodium Chlor 0.9% 1000 Ml Inj (Ns 1000 M (12/09/17 20:33) Lipase (12/09/17 20:33) Influenzae A/B Antigen (12/09/17 20:33) Metoclopramide Inj (Reglan Inj) (12/09/17 20:45) Diphenhydramine Inj (Benadryl Inj) (12/09/17 20:45) Potassium Chloride Eff (K-Lyte Cl Eff) (12/09/17 22:00) Ns + Kcl 20 Meq Inj (Ns + Kcl 20 Meq Inj (12/09/17 22:00) Ct Brain W/O Iv Contrast(Rout) (12/09/17 21:54) Ed Discharge Order (12/10/17 00:44) Labs Laboratory Tests Test 12/09/17 20:50 12/10/17 00:10 White Blood Count 13.2 TH/MM3 Red Blood Count 4.49 MIL/MM3 Hemoglobin 13.9 GM/DL Hematocrit 38.4 % Mean Corpuscular Volume 85.6 FL Mean Corpuscular Hemoglobin 31.1 PG Mean Corpuscular Hemoglobin Concent 36.3 % Red Cell Distribution Width 13.1 % Platelet Count 337 TH/MM3 Mean Platelet Volume 6.8 FL Neutrophils (%) (Auto) 67.3 % Lymphocytes (%) (Auto) 23.7 % Monocytes (%) (Auto) 7.1 % Eosinophils (%) (Auto) 1.4 % Basophils (%) (Auto) 0.5 % Neutrophils # (Auto) 8.9 TH/MM3 Lymphocytes # (Auto) 3.1 TH/MM3 Monocytes # (Auto) 0.9 TH/MM3 Eosinophils # (Auto) 0.2 TH/MM3 Basophils # (Auto) 0.1 TH/MM3 CBC Comment DIFF FINAL Differential Comment Blood Urea Nitrogen 31 MG/DL Creatinine 1.61 MG/DL Random Glucose 64 MG/DL Total Protein 7.9 GM/DL Albumin 3.9 GM/DL Calcium Level 9.3 MG/DL Magnesium Level 2.1 MG/DL Alkaline Phosphatase 116 U/L Aspartate Amino Transf (AST/SGOT) 15 U/L Alanine Aminotransferase (ALT/SGPT) 15 U/L Total Bilirubin 0.5 MG/DL Sodium Level 135 MEQ/L Potassium Level 3.1 MEQ/L Chloride Level 91 MEQ/L Carbon Dioxide Level 35.1 MEQ/L Anion Gap 9 MEQ/L Estimat Glomerular Filtration Rate 50 ML/MIN Lipase 187 U/L B-Hydroxybutyrate 1.80 MMOL/L Urine Color YELLOW Urine Turbidity CLEAR Urine pH 6.0 Urine Specific [place] 1.016 Urine Protein 30 mg/dL Urine Glucose (UA) 300 mg/dL Urine Ketones 40 mg/dL Urine Occult Blood NEG Urine Nitrite NEG Urine Bilirubin NEG Urine Urobilinogen 2.0 MG/DL Urine Leukocyte Esterase NEG Urine RBC 1 /hpf Urine WBC 1 /hpf Microscopic Urinalysis Comment CULT NOT INDICATED MDM Medical Decision Making Medical Screen Exam Complete: Yes Emergency Medical Condition: Yes Medical Record Reviewed: Yes Interpretation(s) Laboratory Tests Test 12/09/17 20:50 12/10/17 00:10 White Blood Count 13.2 TH/MM3 (4.0-11.0) Red Blood Count 4.49 MIL/MM3 (4.50-5.90) Hematocrit 38.4 % (39.0-51.0) Mean Corpuscular Hemoglobin Concent 36.3 % (32.0-36.0) Mean Platelet Volume 6.8 FL (7.0-11.0) Neutrophils # (Auto) 8.9 TH/MM3 (1.8-7.7) Blood Urea Nitrogen 31 MG/DL (7-18) Creatinine 1.61 MG/DL (0.60-1.30) Random Glucose 64 MG/DL (74-106) Sodium Level 135 MEQ/L (136-145) Potassium Level 3.1 MEQ/L (3.5-5.1) Chloride Level 91 MEQ/L (98-107) Carbon Dioxide Level 35.1 MEQ/L (21.0-32.0) Estimat Glomerular Filtration Rate 50 ML/MIN (>89) B-Hydroxybutyrate 1.80 MMOL/L (0.00-0.39) Urine Protein 30 mg/dL (NEG-TRACE) Urine Glucose (UA) 300 mg/dL (NEG) Urine Ketones 40 mg/dL (NEG) Last [address] 12/09/17 4622 Signed Impressions: Service Date/Time: Saturday, December 09, 2017 22:05 - CONCLUSION: Negative noncontrast head CT. No acute abnormality is identified. Narinder Parnell MD Differential Diagnosis Nausea, vomiting, headache: Gastroenteritis versus dehydration versus DKA versus metabolic issues versus influenza versus migraine headaches Narrative Course Considering his headaches, I have offered to do the lumbar puncture for this patient to rule out meningitis as well, however, he is declining. I have talked him about the fact that meningitis can kill him and can cause further morbidity if not diagnosed in a timely manner, patient states understanding, states he understands the risk, but is declining. Lab work shows hypokalemia and IV and p.o. potassium was given. He had low blood sugars on the lab work and patient was given p.o. juice as well. UA did not show any signs a UTI. Patient is afebrile in the ER. Abdomen is benign I do not suspect an acute intra-abdominal process. At this point, I have taught the patient regarding findings and on reevaluation at 12:30 AM he is feeling improved, states that his headache is going away and he has no further vomiting episodes in the ER. Patient still declines getting a lumbar puncture. CT brain is negative for any signs of acute intracranial processes. At this point, he states he wants to go home. I will release him with nausea medication. He should return for any worsening in symptoms, fevers, headaches, vomiting, and as needed. I have taught him about the fact that I cannot exclude other underlying acute processes such as meningitis without further evaluation. Patient states understanding and wants to go home. Diagnosis Primary Impression: Nausea & vomiting Additional Impressions: Headache Dehydration Hypokalemia Med/Other Pt SpecificInfo: Prescription(s) given Scripts Metoclopramide (Reglan) 10 Mg Tab 10 MG PO QID, #12 TAB 0 Refills Prov: Eulalia Hemphill MD 12/10/17 Disposition: DISCHARGE HOME Condition: Stable Eulalia Hemphill MD Dec 09, 2017 20:46
[2017-12-09 20:54] VITALS: RESP 17; O2SAT 100
[2017-12-09 21:24] LABS: AUTOMATED NEUTROPHIL # 8.9 TH/MM3 (1.8-7.7); BASOPHIL # 0.1 TH/MM3 (0-0.2); BASOPHIL % 0.5 % (0.0-2.0); EOSINOPHIL # 0.2 TH/MM3 (0-0.4); EOSINOPHIL % 1.4 % (0.0-4.0); HEMATOCRIT 38.4 % (39.0-51.0); HEMOGLOBIN 13.9 GM/DL (13.0-17.0); LYMPH % 23.7 % (9.0-44.0); LYMPHOCYTE # 3.1 TH/MM3 (1.0-4.8); MEAN CELL VOLUME 85.6 FL (80.0-100.0); MEAN CORPUSCULAR HEMOGLOBIN 31.1 PG (27.0-34.0); MEAN PLATELET VOLUME 6.8 FL (7.0-11.0); MONO % 7.1 % (0.0-8.0); MONOCYTE # 0.9 TH/MM3 (0-0.9); NEUT % 67.3 % (16.0-70.0); PLATELET COUNT 337 TH/MM3 (150-450); RED BLOOD COUNT 4.49 MIL/MM3 (4.50-5.90); RED CELL DISTRIBUTION WIDTH 13.1 % (11.6-17.2); WHITE BLOOD COUNT 13.2 TH/MM3 (4.0-11.0)
[2017-12-09 21:26] LABS: MEAN CORPUSCULAR HGB CONC 36.3 % (32.0-36.0)
[2017-12-09 21:32] LABS: ALBUMIN 3.9 GM/DL (3.4-5.0); AST (GOT) 15 U/L (15-37); BICARBONATE 35.1 MEQ/L (21.0-32.0); BLOOD UREA NITROGEN 31 MG/DL (7-18); CALCIUM 9.3 MG/DL (8.5-10.1); CHLORIDE 91 MEQ/L (98-107); CREATININE 1.61 MG/DL (0.60-1.30); GLOMERULAR FILTRATION RATE 50 ML/MIN (>89); GLUCOSE,RANDOM 64 MG/DL (74-106); MAGNESIUM 2.1 MG/DL (1.5-2.5); SODIUM (NA) 135 MEQ/L (136-145)
[2017-12-09 21:33] LABS: ALT (GPT) 15 U/L (12-78)
[2017-12-09 21:36] LABS: ALKALINE PHOSPHATASE 116 U/L (45-117); TOTAL BILIRUBIN ADULT 0.5 MG/DL (0.2-1.0); TOTAL PROTEIN 7.9 GM/DL (6.4-8.2)
[2017-12-09] MEDS ORDERED: POTASSIUM CHLORIDE 25 MEQ EFFERVESCENT TAB PO ONE (22:00)
[2017-12-09] MEDS ORDERED: NS + KCL 20 MEQ INJ 1,000 ML IV ONE (22:00)
--- NOTE | 2017-12-09 22:18 | RADRPT ---
EXAM DATE/TIME: 12/09/2017 22:05 [facility] COMPARISON: No previous studies available for comparison. INDICATIONS : Headaches. RADIATION DOSE: 38.87 CTDIvol (mGy) MEDICAL HISTORY : Diabetes mellitus type 1. SURGICAL HISTORY : None. ENCOUNTER: Initial ACUITY: 1 day PAIN SCALE: 5/10 LOCATION: Bilateral cranial TECHNIQUE: Multiple contiguous axial images were obtained of the head. Using automated exposure control and adj ustment of the mA and/or kV according to patient size, radiation dose was kept as low as reasonably a chievable to obtain optimal diagnostic quality images. DICOM format image data is available electro nically for review and comparison. FINDINGS: CEREBRUM: The ventricles are normal for age. No evidence of midline shift, mass lesion, hemorrhage or acute in farction. No extra-axial fluid collections are seen. POSTERIOR FOSSA: The cerebellum and brainstem are intact. The 4th ventricle is midline. The cerebellopontine angle i s unremarkable. EXTRACRANIAL: Visualized sinuses are clear. SKULL: The calvaria is intact. No evidence of skull fracture. CONCLUSION: Negative noncontrast head CT. No acute abnormality is identified. Narinder Parnell MD on December 09, 2017 at 22:14 Board Certified Radiologist. This report was verified electronically.
[2017-12-10 00:33] LABS: BILIRUBIN, URINE NEG (NEG); BLOOD, URINE NEG (NEG); GLUCOSE,URINE 300 mg/dL (NEG); KETONE, URINE 40 mg/dL (NEG); NITRITE,URINE NEG (NEG); URINE COLOR YELLOW (YELLW/STRAW); URINE LEUKOCYTE ESTERASE NEG (NEG)
[2017-12-10] MEDS ORDERED: REGL10TA5 PO (00:48)
== END 2017-12-10 01:00 | disposition home or self-care (01) ==
LOC: NEPC 19:45
DX: E11.43 Type 2 diabetes mellitus with diabetic autonomic (poly)neuropathy (principal); K31.84 Gastroparesis; E86.0 Dehydration; E87.6 Hypokalemia; F12.90 Cannabis use, unspecified, uncomplicated; Z79.4 Long term (current) use of insulin
CPT/HCPCS: 70450; 80053; 81001; 82010; 83690; 83735; 85025; 87804; 96361; 96374; 96375; 99284; J1200; J2765; J3480; J7030

== ENCOUNTER 2018-01-01 09:41 | Emergency (ER) | payer OTHER ==
[~2018-01-01] VITALS: Ht 180.3 cm; Wt 76.0 kg
[~2018-01-01 09:41] MED LIST changes: +REGL10TA5 PO
[2018-01-01 09:56] VITALS: BP 118/59; PULSE 83; RESP 16; TEMP 97.9; O2SAT 98
[2018-01-01] MEDS ORDERED: SODIUM CHLOR 0.9% 1000 ML INJ 1,000 ML IV ONE ×2 (10:16→10:46)
[2018-01-01] MEDS ORDERED: LEVEMIR SQ ×2 (10:23)
[2018-01-01 10:25] VITALS: BP 128/60; PULSE 76; RESP 17; O2SAT 99
[2018-01-01] MEDS ORDERED: SODIUM CHLORIDE 0.9% FLUSH 10 ML FLUSH IVF PRN (10:30)
--- NOTE | 2018-01-01 10:43 | PD ---
HPI Chief Complaint: Skin Problem Time Seen by Provider: 10:09 Travel History International Travel<30 days: No Contact w/Intl Traveler<30days: No Traveled to known affect area: No History of Present Illness HPI This patient complains of pain in the left foot. 2 days ago he stepped on a nail. It went through the sole of his tennis shoes into his foot. He does not know his last tetanus immunization. He is a poorly controlled insulin- dependent diabetic. He says his sugar was 555 this morning. It is currently 467. He is not having fever or drainage or vomiting. Symptom severity is moderate. No alleviating factors. Duration 2 days. No exacerbating factors PFSH Past Medical History Arthritis: No Asthma: No Autoimmune Disease: No Blood Disorders: No Anxiety: Yes Depression: Yes Heart Rhythm Problems: No Cancer: No Cardiovascular Problems: No High Cholesterol: No Chest Pain: No Congestive Heart Failure: No COPD: No Cerebrovascular Accident: No Diabetes: Yes (INSULIN) Patient Takes Glucophage: No Diminished Hearing: No Endocrine: Yes Gastrointestinal Disorders: Yes (Gastroparesis) GERD: No Genitourinary: No Headaches: Yes Hiatal Hernia: No Heparin Induced Thrombocytopen: No Herniated Disk: Yes (2 DISCS IN BACK AND 2 IN NECK 2o TO DETENTION) Hypertension: No Immune Disorder: No Implanted Vascular Access Dvce: No Kidney Stones: No Musculoskeletal: No Neurologic: Yes (Neuropathy) Psychiatric: Yes Reproductive: No Respiratory: No Immunizations Current: Yes Migraines: No Renal Failure: No Seizures: No Sickle Cell Disease: No Sleep Apnea: No Thyroid Disease: No Ulcer: No Tetanus Vaccination: Unknown Influenza Vaccination: No PNEUMOCCOCAL Vaccine (Year): 1 Past Surgical History Abdominal Surgery: No Cardiac Surgery: No Ear Surgery: No Endocrine Surgery: No Eye Surgery: No Genitourinary Surgery: No Gynecologic Surgery: No Neurologic Surgery: No Oral Surgery: No Pacemaker: No Thoracic Surgery: No Other Surgery: Yes (Inguinal hernia repair) Social History Alcohol Use: No Tobacco Use: No Substance Use: Yes (marijuana) Allergies-Medications (Allergen,Severity, Reaction): Coded Allergies: No Known Allergies (Verified Adverse Reaction, Unknown, 01/01/18) Reported Meds & Prescriptions Reported Meds & Active Scripts Active Bactrim DS (Sulfamethoxazole-Trimethoprim) 800-160 Mg Tab 1 Tab PO BID Cipro (Ciprofloxacin HCl) 500 Mg Tab 500 Mg PO BID Reglan (Metoclopramide HCl) 10 Mg Tab 10 Mg PO QID Novolog Inj (Insulin Aspart) 1,000 Unit/10 Ml Vial 0 SQ DIRECTED Sliding Scale as directed. Zofran Odt (Ondansetron Odt) 4 Mg Tab 4 Mg SL Q6HR PRN Demetria Contour Next Blood Test Strips (Blood Glucose Test Strips) 1 Zuri Zuri 1 Strip .ROUTE DIRECTED Reported Levemir Inj (Insulin Detemir) 1,000 unit/ 10 ML Vial 20 Units SQ HS Do not mix with any other Insulin. Levemir Inj (Insulin Detemir) 1,000 unit/ 10 ML Vial 25 Units SQ AC BREAKFAST Do not mix with any other Insulin. Reglan (Metoclopramide HCl) 5 Mg Tab 5 Mg PO QID Protonix (Pantoprazole Sodium) 20 Mg Tab 20 Mg PO DAILY Review of Systems General / Constitutional: No: Fever Eyes: No: Visual changes HENT: No: Headaches Cardiovascular: No: Chest Pain or Discomfort Respiratory: No: Shortness of Breath Gastrointestinal: No: Abdominal Pain Genitourinary: No: Dysuria Musculoskeletal: Positive: Pain Skin: No Rash Neurologic: No: Weakness Psychiatric: No: Depression Endocrine: No: Polydipsia Hematologic/Lymphatic: No: Easy Bruising Physical Exam Narrative GENERAL: Well-nourished, well-developed patient in no apparent distress. SKIN: Focused skin assessment reveals no rash and nodules. Skin is Warm and dry. HEAD: Atraumatic. Normocephalic. EYES: Pupils equal and round. No scleral icterus. No injection or drainage. ENT: No nasal bleeding or discharge. Mucous membranes pink and moist. NECK: Trachea midline. No JVD. CARDIOVASCULAR: Regular rate and rhythm. No murmur appreciated. RESPIRATORY: No accessory muscle use. Clear to auscultation. Breath sounds equal bilaterally. GASTROINTESTINAL: Abdomen soft, non-tender, nondistended. Hepatic and splenic margins not palpable. MUSCULOSKELETAL: No obvious deformities. No clubbing. No cyanosis. No edema. On the sole of the left foot is a puncture wound with surrounding erythema and tenderness. There is no fluctuance or drainage. NEUROLOGICAL: Awake and alert. No obvious cranial nerve deficits. Motor grossly within normal limits. Normal speech. PSYCHIATRIC: Appropriate mood and affect; insight and judgment normal. Data Data Last Documented VS Vital Signs Date Time Temp Pulse Resp B/P (MAP) Pulse Ox O2 Delivery O2 Flow Rate FiO2 01/01/18 10:25 99 17 01/01/18 10:25 128/60 (82) 99 Room Air 01/01/18 09:56 97.9 Orders Orders Complete Blood Count With Diff (01/01/18 10:16) Comprehensive Metabolic Panel (01/01/18 10:16) Beta Hydroxybutyrate (Acetone) (01/01/18 10:16) Blood Gas Venous (Vbg) (01/01/18 10:16) Ecg Monitoring (01/01/18 10:16) Iv Access Insert/Monitor (01/01/18 10:16) NPO (01/01/18 10:16) Sodium Chlor 0.9% 1000 Ml Inj (Ns 1000 M (01/01/18 10:16) Sodium Chlor 0.9% 1000 Ml Inj (Ns 1000 M (01/01/18 10:46) Sodium Chloride 0.9% Flush (Ns Flush) (01/01/18 10:30) Tetanus/Diphtheria Tox Adult (Tetanus/Di (01/01/18 10:45) Insulin Human Regular Inj (Novolin R Inj (01/01/18 10:45) Labs Laboratory Tests Test 01/01/18 10:16 01/01/18 10:45 Blood Gas Puncture Site Blood Gas Patient Temperature 98.6 Venous Blood pH 7.35 Venous Blood Partial Pressure CO2 49 mmHg Venous Blood Partial Pressure O2 39 mmHg Venous Blood HCO3 26 mmol/L Venous Blood Oxygen Saturation 69 % Venous Blood Oxygen Content 11.0 Vol % Venous Blood Base Excess 1.1 mmol/L Blood Gas Inspired Oxygen 21 % White Blood Count 7.4 TH/MM3 Red Blood Count 3.66 MIL/MM3 Hemoglobin 11.0 GM/DL Hematocrit 32.4 % Mean Corpuscular Volume 88.4 FL Mean Corpuscular Hemoglobin 30.1 PG Mean Corpuscular Hemoglobin Concent 34.0 % Red Cell Distribution Width 12.7 % Platelet Count 325 TH/MM3 Mean Platelet Volume 7.7 FL Neutrophils (%) (Auto) 62.7 % Lymphocytes (%) (Auto) 21.3 % Monocytes (%) (Auto) 7.6 % Eosinophils (%) (Auto) 7.7 % Basophils (%) (Auto) 0.7 % Neutrophils # (Auto) 4.6 TH/MM3 Lymphocytes # (Auto) 1.6 TH/MM3 Monocytes # (Auto) 0.6 TH/MM3 Eosinophils # (Auto) 0.6 TH/MM3 Basophils # (Auto) 0.0 TH/MM3 CBC Comment DIFF FINAL Differential Comment Blood Urea Nitrogen 24 MG/DL Creatinine 1.57 MG/DL Random Glucose 541 MG/DL Total Protein 6.9 GM/DL Albumin 3.1 GM/DL Calcium Level 8.5 MG/DL Alkaline Phosphatase 110 U/L Aspartate Amino Transf (AST/SGOT) 24 U/L Alanine Aminotransferase (ALT/SGPT) 13 U/L Total Bilirubin 0.3 MG/DL Sodium Level 134 MEQ/L Potassium Level 5.3 MEQ/L Chloride Level 101 MEQ/L Carbon Dioxide Level 24.5 MEQ/L Anion Gap 9 MEQ/L Estimat Glomerular Filtration Rate 51 ML/MIN B-Hydroxybutyrate 0.14 MMOL/L MDM Medical Decision Making Medical Screen Exam Complete: Yes Emergency Medical Condition: Yes Medical Record Reviewed: Yes Differential Diagnosis Cellulitis, puncture wound, diabetic foot infection, DKA Narrative Course I have reviewed the patient's electronic medical record. He was admitted for DKA 1 month ago Current Accu-Chek is 467 and a poorly controlled diabetic with history of recent DKA This will necessitate some metabolic evaluation and correction I gave him 2 L normal saline IV bolus and 12 units IV regular insulin Lab studies sent Tetanus booster given Labs are reviewed. He was very hyperglycemic but not in DKA After fluid and insulin his sugar is improved Beta hydroxybutyrate is normal and pH is normal and bicarbonate is normal I gave him a course of Bactrim and Cipro. Would empirically cover Pseudomonas given the nail went through the sole of the sneaker and into his foot The patient was advised to follow up with their physician and return if they worsen. Diagnosis Primary Impression: Infected puncture wound Additional Impression: Hyperglycemia Additional Instructions: The patient was advised to follow up with their physician and return if they worsen. Med/Other Pt SpecificInfo: Prescription(s) given Scripts Sulfamethoxazole-Trimethoprim (Bactrim DS) 800-160 Mg Tab 1 TAB PO BID for Infection, #14 TAB 0 Refills Prov: Clay Branch MD 01/01/18 Ciprofloxacin (Cipro) 500 Mg Tab 500 MG PO BID for Infection, #14 TAB 0 Refills Prov: Clay Branch MD 01/01/18 Disposition: 01 DISCHARGE HOME Condition: Stable Clay Branch MD Jan 01, 2018 10:43
[2018-01-01] MEDS ORDERED: TETANUS/DIPHTHERIA TOXOID ADULT 0.5 ML VIAL IM ONE (10:45)
[2018-01-01] MEDS ORDERED: INSULIN HUMAN REGULAR 1,000 UNITS/10 ML VIAL IV PUSH ONE (10:45)
[2018-01-01 11:00] LABS: AUTOMATED NEUTROPHIL # 4.6 TH/MM3 (1.8-7.7); BASOPHIL % 0.7 % (0.0-2.0); EOSINOPHIL # 0.6 TH/MM3 (0-0.4); EOSINOPHIL % 7.7 % (0.0-4.0); HEMATOCRIT 32.4 % (39.0-51.0); LYMPH % 21.3 % (9.0-44.0); LYMPHOCYTE # 1.6 TH/MM3 (1.0-4.8); MEAN CELL VOLUME 88.4 FL (80.0-100.0); MEAN CORPUSCULAR HEMOGLOBIN 30.1 PG (27.0-34.0); MEAN PLATELET VOLUME 7.7 FL (7.0-11.0); MONO % 7.6 % (0.0-8.0); MONOCYTE # 0.6 TH/MM3 (0-0.9); NEUT % 62.7 % (16.0-70.0); PLATELET COUNT 325 TH/MM3 (150-450); RED BLOOD COUNT 3.66 MIL/MM3 (4.50-5.90); RED CELL DISTRIBUTION WIDTH 12.7 % (11.6-17.2); WHITE BLOOD COUNT 7.4 TH/MM3 (4.0-11.0)
[2018-01-01 11:21] LABS: ALBUMIN 3.1 GM/DL (3.4-5.0); ALKALINE PHOSPHATASE 110 U/L (45-117); ALT (GPT) 13 U/L (12-78); AST (GOT) 24 U/L (15-37); BICARBONATE 24.5 MEQ/L (21.0-32.0); BLOOD UREA NITROGEN 24 MG/DL (7-18); CALCIUM 8.5 MG/DL (8.5-10.1); CHLORIDE 101 MEQ/L (98-107); CREATININE 1.57 MG/DL (0.60-1.30); GLOMERULAR FILTRATION RATE 51 ML/MIN (>89); SODIUM (NA) 134 MEQ/L (136-145); TOTAL BILIRUBIN ADULT 0.3 MG/DL (0.2-1.0); TOTAL PROTEIN 6.9 GM/DL (6.4-8.2)
[2018-01-01 11:25] LABS: GLUCOSE,RANDOM 541 MG/DL (74-106)
[2018-01-01] MEDS ORDERED: BACT800T5 PO (13:56)
[2018-01-01] MEDS ORDERED: CIPR-9 PO (13:56)
[2018-01-01 14:45] VITALS: BP 125/67
== END 2018-01-01 14:45 | disposition home or self-care (01) ==
LOC: NEPC 09:41
DX: S91.332A Puncture wound without foreign body, left foot, initial encounter (principal); L08.9 Local infection of the skin and subcutaneous tissue, unspecified; W45.0XXA Nail entering through skin, initial encounter; E11.65 Type 2 diabetes mellitus with hyperglycemia; F41.9 Anxiety disorder, unspecified; G62.9 Polyneuropathy, unspecified; K31.84 Gastroparesis; F12.90 Cannabis use, unspecified, uncomplicated; Z23 Encounter for immunization
CPT/HCPCS: 80053; 82010; 82805; 85025; 90471; 90714; 96361; 96374; 99284; J1815; J7030

== ENCOUNTER 2018-01-05 12:14 | Observation (INO) | payer OTHER ==
[~2018-01-05] VITALS: Ht 180.3 cm; Wt 78.0 kg
[~2018-01-05 12:14] MED LIST changes: +BACT800T5 PO; +CIPR-9 PO
[2018-01-05 12:20] VITALS: BP 137/74; PULSE 99; RESP 20; TEMP 98.5; O2SAT 99
[2018-01-05 14:26] VITALS: BP 113/60; PULSE 88; RESP 18; O2SAT 100
[2018-01-05] MEDS ORDERED: KETOROLAC TROMETHAMINE 30 MG/ML (IVP) VIAL IV PUSH ONE (14:45)
--- NOTE | 2018-01-05 14:52 | PD ---
HPI Chief Complaint: Skin Problem Time Seen by Provider: 14:34 Travel History International Travel<30 days: No Contact w/Intl Traveler<30days: No Traveled to known affect area: No History of Present Illness HPI 32yo M with PMH of IDDM here with c/o worsening pain and infection in left foot. Pt was seen on 01/01/18 at [facility] after stepping on a nail and was given cipro and bactrim. Said he is on day 5 of antibiotics but infection is getting worst. He is now having redness on dorsum of left foot and there is worsening swelling. Denies any fever, chest pain, sob, n/v, abdominal pain, focal weakness or numbness. Pt was updated on tetanus. PFSH Past Medical History Arthritis: No Asthma: No Autoimmune Disease: No Blood Disorders: No Anxiety: Yes Depression: Yes Heart Rhythm Problems: No Cancer: No Cardiovascular Problems: No High Cholesterol: No Chest Pain: No Congestive Heart Failure: No COPD: No Cerebrovascular Accident: No Diabetes: Yes Patient Takes Glucophage: No Diminished Hearing: No Endocrine: Yes Gastrointestinal Disorders: Yes (Gastroparesis) GERD: No Genitourinary: No Headaches: Yes Hiatal Hernia: No Heparin Induced Thrombocytopen: No Herniated Disk: Yes (2 [place] IN [place] 2 [place] [facility] [place] Hypertension: No Immune Disorder: No Implanted Vascular Access Dvce: No Kidney Stones: No Musculoskeletal: No Neurologic: Yes (Neuropathy) Psychiatric: Yes Reproductive: No Respiratory: No Immunizations Current: Yes Migraines: No Renal Failure: No Seizures: No Sickle Cell Disease: No Sleep Apnea: No Thyroid Disease: No Ulcer: No PNEUMOCCOCAL Vaccine (Year): 1 Past Surgical History Abdominal Surgery: No Cardiac Surgery: No Ear Surgery: No Endocrine Surgery: No Eye Surgery: No Genitourinary Surgery: No Gynecologic Surgery: No Neurologic Surgery: No Oral Surgery: No Pacemaker: No Thoracic Surgery: No Other Surgery: Yes (Inguinal hernia repair) Social History Alcohol Use: No Tobacco Use: No Substance Use: Yes (marijuana occasionally) Allergies-Medications (Allergen,Severity, Reaction): Coded Allergies: No Known Allergies (Verified Adverse Reaction, Unknown, 01/05/18) Reported Meds & Prescriptions Reported Meds & Active Scripts Active Bactrim DS (Sulfamethoxazole-Trimethoprim) 800-160 Mg Tab 1 Tab PO BID Cipro (Ciprofloxacin HCl) 500 Mg Tab 500 Mg PO BID Reglan (Metoclopramide HCl) 10 Mg Tab 10 Mg PO QID Novolog Inj (Insulin Aspart) 1,000 Unit/10 Ml Vial 0 SQ DIRECTED Sliding Scale as directed. Demetria Contour Next Blood Test Strips (Blood Glucose Test Strips) 1 Zuri Zuri 1 Strip .ROUTE DIRECTED Reported Levemir Inj (Insulin Detemir) 1,000 unit/ 10 ML Vial 20 Units SQ HS Do not mix with any other Insulin. Levemir Inj (Insulin Detemir) 1,000 unit/ 10 ML Vial 25 Units SQ AC BREAKFAST Do not mix with any other Insulin. Reglan (Metoclopramide HCl) 5 Mg Tab 5 Mg PO QID Protonix (Pantoprazole Sodium) 20 Mg Tab 20 Mg PO DAILY Review of Systems Except as stated in HPI: all other systems reviewed are Neg Physical Exam Narrative GENERAL: 32yo M in mild distress. SKIN: Focused skin assessment warm/dry. HEAD: Atraumatic. Normocephalic. CARDIOVASCULAR: Regular rate and rhythm. No murmur appreciated. RESPIRATORY: No accessory muscle use. Clear to auscultation. Breath sounds equal bilaterally. GASTROINTESTINAL: Abdomen soft, non-tender, nondistended. MUSCULOSKELETAL: Left foot: +Puncture wound plantar surface of 2nd metatarsal. No fluctuance but very tender on palpation. +Erythema and edema on dorsum of second and third metatarsal. DP 2+. Sensation intact. NEUROLOGICAL: Awake and alert. No obvious cranial nerve deficits. Motor grossly within normal limits. Normal speech. PSYCHIATRIC: Appropriate mood and affect; insight and judgment normal. Data Data Last Documented VS Vital Signs Date Time Temp Pulse Resp B/P (MAP) Pulse Ox O2 Delivery O2 Flow Rate FiO2 01/05/18 14:26 89 18 01/05/18 14:26 113/60 (77) 100 Room Air 01/05/18 12:20 98.5 Orders Orders Complete Blood Count With Diff (01/05/18 13:14) Comprehensive Metabolic Panel (01/05/18 13:14) Blood Culture (01/05/18 13:14) Lactic Acid Sepsis Protocol (01/05/18 14:31) Ketorolac Inj (Toradol Inj) (01/05/18 14:45) Foot, Limited (2vws) (01/05/18 ) Vancomycin Inj (Vancomycin Inj) (01/05/18 16:00) Piperacil-Tazo 3.375 Gm Premix (Zosyn 3. (01/05/18 16:00) Sodium Chlor 0.9% 1000 Ml Inj (Ns 1000 M (01/05/18 16:00) Sodium Chlor 0.9% 1000 Ml Inj (Ns 1000 M (01/05/18 16:15) Insulin Human Regular Inj (Novolin R Inj (01/05/18 16:15) Admit Order (Ed Use Only) (01/05/18 16:40) Labs Laboratory Tests Test 01/05/18 14:25 01/05/18 14:30 Lactic Acid Level 3.8 mmol/L White Blood Count 9.5 TH/MM3 Red Blood Count 4.07 MIL/MM3 Hemoglobin 12.3 GM/DL Hematocrit 35.5 % Mean Corpuscular Volume 87.3 FL Mean Corpuscular Hemoglobin 30.1 PG Mean Corpuscular Hemoglobin Concent 34.5 % Red Cell Distribution Width 12.3 % Platelet Count 373 TH/MM3 Mean Platelet Volume 7.3 FL Neutrophils (%) (Auto) 63.8 % Lymphocytes (%) (Auto) 25.0 % Monocytes (%) (Auto) 6.9 % Eosinophils (%) (Auto) 3.8 % Basophils (%) (Auto) 0.5 % Neutrophils # (Auto) 6.0 TH/MM3 Lymphocytes # (Auto) 2.4 TH/MM3 Monocytes # (Auto) 0.7 TH/MM3 Eosinophils # (Auto) 0.4 TH/MM3 Basophils # (Auto) 0.0 TH/MM3 CBC Comment DIFF FINAL Differential Comment Blood Urea Nitrogen 24 MG/DL Creatinine 1.54 MG/DL Random Glucose 495 MG/DL Total Protein 8.4 GM/DL Albumin 3.3 GM/DL Calcium Level 9.3 MG/DL Alkaline Phosphatase 114 U/L Aspartate Amino Transf (AST/SGOT) 10 U/L Alanine Aminotransferase (ALT/SGPT) 11 U/L Total Bilirubin LESS THAN 0.1 MG/DL Sodium Level 133 MEQ/L Potassium Level 4.5 MEQ/L Chloride Level 97 MEQ/L Carbon Dioxide Level 24.9 MEQ/L Anion Gap 11 MEQ/L Estimat Glomerular Filtration Rate 52 ML/MIN MDM Medical Decision Making Medical Screen Exam Complete: Yes Emergency Medical Condition: Yes Differential Diagnosis Infection of left foot that failed outpatient therapy vs. osteomyelitis vs. abscess Narrative Course 32yo M with uncontrolled DM here with worsening pain and infection of left foot after puncture wound. Pt said he has been compliant with bactrim and cipro and has taken 5 days of antibiotics already but has worsening pain, redness and swelling. Said it had some drainage when he pushed on it before but not anymore. Labs reviewed, no leukocytosis. Lactic acid is elevated at 3.8. Pt given NS IVF x2. HR initially 99bpm. Glucose is elevated at 495. Pt given 10 units of regular insulin. CO2 normal, no increase anion gap. BUN/creatinine elevated at 24/1.54 which is baseline for him. Xray left foot negative. Empirically covered with vancomycin and zosyn since this was a puncture wound. Discussed with Dr. Hutchison and accepted to his service for infection that failed outpatient therapy. Diagnosis Primary Impression: Nail wound of left foot Qualified Codes: S91.332D - Puncture wound without foreign body, left foot, subsequent encounter Admitting Information Admitting Physician Requests: Admit Thania Rosas DO Jan 05, 2018 14:52
[2018-01-05 15:13] LABS: BASOPHIL % 0.5 % (0.0-2.0); EOSINOPHIL # 0.4 TH/MM3 (0-0.4); EOSINOPHIL % 3.8 % (0.0-4.0); HEMATOCRIT 35.5 % (39.0-51.0); HEMOGLOBIN 12.3 GM/DL (13.0-17.0); LYMPHOCYTE # 2.4 TH/MM3 (1.0-4.8); MEAN CELL VOLUME 87.3 FL (80.0-100.0); MEAN CORPUSCULAR HEMOGLOBIN 30.1 PG (27.0-34.0); MEAN CORPUSCULAR HGB CONC 34.5 % (32.0-36.0); MEAN PLATELET VOLUME 7.3 FL (7.0-11.0); MONO % 6.9 % (0.0-8.0); MONOCYTE # 0.7 TH/MM3 (0-0.9); NEUT % 63.8 % (16.0-70.0); PLATELET COUNT 373 TH/MM3 (150-450); RED BLOOD COUNT 4.07 MIL/MM3 (4.50-5.90); RED CELL DISTRIBUTION WIDTH 12.3 % (11.6-17.2); WHITE BLOOD COUNT 9.5 TH/MM3 (4.0-11.0)
[2018-01-05 15:22] LABS: LACTIC ACID SEPSIS PROTOCOL 3.8 mmol/L (0.4-2.0)
--- NOTE | 2018-01-05 15:28 | RADRPT ---
EXAM DATE/TIME: 01/05/2018 15:06 [facility] COMPARISON: No previous studies available for comparison. INDICATIONS : Pain from nail in bottom of foot one week ago. MEDICAL HISTORY : None. SURGICAL HISTORY : None. ENCOUNTER: Initial ACUITY: 1 week PAIN SCORE: 8/10 LOCATION: Left foot, third tarsal head region. FINDINGS: Two view examination of the left foot demonstrates no soft tissue swelling, dislocation, or fracture. The calcaneus is intact. Bony mineralization is normal. CONCLUSION: Negative Suleiman Lambert MD FACR on January 05, 2018 at 15:25 Board Certified Radiologist. This report was verified electronically.
[2018-01-05 15:56] LABS: ALBUMIN 3.3 GM/DL (3.4-5.0); ALKALINE PHOSPHATASE 114 U/L (45-117); ALT (GPT) 11 U/L (12-78); AST (GOT) 10 U/L (15-37); BICARBONATE 24.9 MEQ/L (21.0-32.0); BLOOD UREA NITROGEN 24 MG/DL (7-18); CALCIUM 9.3 MG/DL (8.5-10.1); CHLORIDE 97 MEQ/L (98-107); CREATININE 1.54 MG/DL (0.60-1.30); GLOMERULAR FILTRATION RATE 52 ML/MIN (>89); SODIUM (NA) 133 MEQ/L (136-145); TOTAL BILIRUBIN ADULT LESS THAN 0.1 MG/DL (0.2-1.0); TOTAL PROTEIN 8.4 GM/DL (6.4-8.2)
[2018-01-05] MEDS ORDERED: PIPERACIL-TAZO 3.375 GM PREMIX 50 ML IV ONE (16:00)
[2018-01-05] MEDS ORDERED: SODIUM CHLOR 0.9% 1000 ML INJ 1,000 ML IV ONE ×2 (16:00→16:15)
[2018-01-05] MEDS ORDERED: VANCOMYCIN INJ 1,150 MG in SODIUM CHLOR 0.9% 250 ML INJ 250 ML IV ONE (16:00)
[2018-01-05 16:02] LABS: GLUCOSE,RANDOM 495 MG/DL (74-106)
[2018-01-05] MEDS ORDERED: INSULIN HUMAN REGULAR 1,000 UNITS/10 ML VIAL SQ ONE (16:15)
[2018-01-05] MEDS ORDERED: GADODIAMIDE PF 287 MG/ML 20 ML VIAL (for RAD MRI) IVCONTRAST ONE (16:44)
[2018-01-05] MEDS ORDERED: DEXTROSE 50% IN WATER 50 ML VIAL(D50) IV PUSH PRN (17:00)
[2018-01-05] MEDS ORDERED: SENNOSIDES 8.6 MG TAB PO PRN (17:00)
[2018-01-05] MEDS ORDERED: NALOXONE HCL 0.4 MG/ML AMP IV PUSH PRN (17:00)
[2018-01-05] MEDS ORDERED: GLUCAGON 1 MG/ML VIAL OTHER PRN (17:00)
[2018-01-05] MEDS ORDERED: MAGNESIUM HYDROXIDE SUSP 30 ML CUP PO PRN (17:00)
[2018-01-05] MEDS ORDERED: ACETAMINOPHEN/HYDROcodone 325 MG/5 MG TAB PO PRN (17:00)
[2018-01-05] MEDS ORDERED: ONDANSETRON HCL 4 MG/2 ML VIAL IVP PRN (17:00)
--- NOTE | 2018-01-05 17:45 | HHI.HP ---
[facility] Service [facility] Primary Care Physician No Primary Care Physician Admission Diagnosis Left foot infection that failed outpatient treatment Diagnoses: (1) Nail wound of left foot Diagnosis: Principal (2) Diabetes mellitus type I (3) Neuropathy Chief Complaint: Left foot pain and rash. Travel History International Travel<30 Days: No Contact w/Intl Traveler <30 Da: No Traveled to Known Affected Are: No Review of Systems Except as stated in HPI: all other systems reviewed are Neg Past Family Social History Past Medical History DM I gastroparesis neuropathy DKA Past Surgical History Denies any past surgical history Reported Medications Reported Meds & Active Scripts Active Bactrim DS (Sulfamethoxazole-Trimethoprim) 800-160 Mg Tab 1 Tab PO BID Cipro (Ciprofloxacin HCl) 500 Mg Tab 500 Mg PO BID Reglan (Metoclopramide HCl) 10 Mg Tab 10 Mg PO QID Novolog Inj (Insulin Aspart) 1,000 Unit/10 Ml Vial 0 SQ DIRECTED Sliding Scale as directed. ContaAzul Contour Next Blood Test Strips (Blood Glucose Test Strips) 1 Zuri Zuri 1 Strip .ROUTE DIRECTED Reported Levemir Inj (Insulin Detemir) 1,000 unit/ 10 ML Vial 20 Units SQ HS Do not mix with any other Insulin. Levemir Inj (Insulin Detemir) 1,000 unit/ 10 ML Vial 25 Units SQ AC BREAKFAST Do not mix with any other Insulin. Reglan (Metoclopramide HCl) 5 Mg Tab 5 Mg PO QID Protonix (Pantoprazole Sodium) 20 Mg Tab 20 Mg PO DAILY Allergies: Coded Allergies: No Known Allergies (Verified Adverse Reaction, Unknown, 01/05/18) Physical Exam Vital Signs Vital Signs Date Time Temp Pulse Resp B/P (MAP) Pulse Ox O2 Delivery O2 Flow Rate FiO2 01/05/18 14:26 89 18 01/05/18 14:26 88 18 113/60 (77) 100 Room Air 01/05/18 12:20 98.5 99 20 137/74 (95) 99 Physical Exam GENERAL: This is a well-nourished, well-developed patient, in no apparent distress. SKIN: No rashes, ecchymoses or lesions. Cool and dry. HEAD: Atraumatic. Normocephalic. No temporal or scalp tenderness. EYES: Pupils equal round and reactive. Extraocular motions intact. No scleral icterus. No injection or drainage. ENT: Nose without bleeding, purulent drainage or septal hematoma. Throat without erythema, tonsillar hypertrophy or exudate. Uvula midline. Airway patent. NECK: Trachea midline. No JVD or lymphadenopathy. Supple, nontender, no meningeal signs. CARDIOVASCULAR: Regular rate and rhythm without murmurs, gallops, or rubs. RESPIRATORY: Clear to auscultation. Breath sounds equal bilaterally. No wheezes , rales, or rhonchi. GASTROINTESTINAL: Abdomen soft, non-tender, nondistended. No hepato-splenomegaly , or palpable masses. No guarding. MUSCULOSKELETAL: Extremities without clubbing, cyanosis, or edema. No joint tenderness, effusion, or edema noted. No calf tenderness. Negative Homans sign bilaterally. NEUROLOGICAL: Awake and alert. Cranial nerves II through XII intact. Motor and sensory grossly within normal limits. Five out of 5 muscle strength in all muscle groups. Normal speech. Laboratory Laboratory Tests Test 01/05/18 14:25 01/05/18 14:30 Lactic Acid Level 3.8 White Blood Count 9.5 Red Blood Count 4.07 Hemoglobin 12.3 Hematocrit 35.5 Mean Corpuscular Volume 87.3 Mean Corpuscular Hemoglobin 30.1 Mean Corpuscular Hemoglobin Concent 34.5 Red Cell Distribution Width 12.3 Platelet Count 373 Mean Platelet Volume 7.3 Neutrophils (%) (Auto) 63.8 Lymphocytes (%) (Auto) 25.0 Monocytes (%) (Auto) 6.9 Eosinophils (%) (Auto) 3.8 Basophils (%) (Auto) 0.5 Neutrophils # (Auto) 6.0 Lymphocytes # (Auto) 2.4 Monocytes # (Auto) 0.7 Eosinophils # (Auto) 0.4 Basophils # (Auto) 0.0 CBC Comment DIFF FINAL Differential Comment Blood Urea Nitrogen 24 Creatinine 1.54 Random Glucose 495 Total Protein 8.4 Albumin 3.3 Calcium Level 9.3 Alkaline Phosphatase 114 Aspartate Amino Transf (AST/SGOT) 10 Alanine Aminotransferase (ALT/SGPT) 11 Total Bilirubin LESS THAN 0.1 Sodium Level 133 Potassium Level 4.5 Chloride Level 97 Carbon Dioxide Level 24.9 Anion Gap 11 Estimat Glomerular Filtration Rate 52 Date/Time Source Procedure Growth Status 01/05/18 14:30 Blood Peripheral Aerobic Blood Culture Pending Received 01/05/18 14:30 Blood Peripheral Anaerobic Blood Culture Pending Received Result Diagram: 01/05/18 1430 01/05/18 1430 Caprini VTE Risk Assessment Caprini Risk Assessment Model Point Value = 1 Point Value = 2 Point Value = 3 Point Value = 5 Age 41-60 Minor surgery BMI > 25 kg/m2 Swollen legs Varicose veins or History of unexplained or recurrent spontaneous Oral contraceptives or hormone replacement Sepsis (< 1 month) Serious lung disease, including pneumonia (< 1 month) Abnormal pulmonary function Acute myocardial infarction Congestive heart failure (< 1 month) History of inflammatory bowel disease Medical patient at bed rest Age 61-74 Arthroscopic surgery Major open surgery (> 45 min) Laparoscopic surgery (> 45 min) Malignancy Confined to bed (> 72 hours) Immobilizing plaster cast Central venous access Age >= 75 History of VTE Family history of VTE Factor V Leiden Prothrombin [id number] Lupus anticoagulant Anticardiolipin antibodies Elevated serum homocysteine Heparin-induced thrombocytopenia Other congenital or acquired thrombophilia Stroke (< 1 month) Elective arthroplasty Hip, pelvis, or leg fracture Acute spinal cord injury (< 1 month) Prophylaxis Regimen Total Risk Factor Score Risk Level Prophylaxis Regimen 0-1 Low Early ambulation 2 Moderate Order ONE of the following: *Sequential Compression Device (SCD) *Heparin 5000 units SQ BID 3-4 Higher Order ONE of the following medications: *Heparin 5000 units SQ TID *Enoxaparin/Lovenox 40 mg SQ daily (WT < 150 kg, CrCl > 30 mL/min) *Enoxaparin/Lovenox 30 mg SQ daily (WT < 150 kg, CrCl > 10-29 mL/min) *Enoxaparin/Lovenox 30 mg SQ BID (WT < 150 kg, CrCl > 30 mL/min) AND/OR *Sequential Compression Device (SCD) 5 or more Highest Order ONE of the following medications: *Heparin 5000 units SQ TID (Preferred with Epidurals) *Enoxaparin/Lovenox 40 mg SQ daily (WT < 150 kg, CrCl > 30 mL/min) *Enoxaparin/Lovenox 30 mg SQ daily (WT < 150 kg, CrCl > 10-29 mL/min) *Enoxaparin/Lovenox 30 mg SQ BID (WT < 150 kg, CrCl > 30 mL/min) AND *Sequential Compression Device (SCD) Physician Certification Order for Inpatient Services The services are ordered in accordance with Medicare regulations or non- Medicare payer requirements, as applicable. In the case of services not specified as inpatient-only, they are appropriately provided as inpatient services in accordance with the 2-midnight benchmark. days is the estimated time the patient will need to remain in the hospital, assuming treatment plan goals are met and no additional complications. Alayna Burton Jan 05, 2018 17:45
--- NOTE | 2018-01-05 18:05 | HHI.HP ---
[facility] Primary [facility] Physician No Primary Care Physician Admission Diagnosis Left foot infection that failed outpatient treatment Diagnoses: (1) Nail wound of left foot Diagnosis: Principal (2) Diabetes mellitus type 1 (3) Neuropathy (4) Gastroparesis due to DM Chief Complaint: Left foot pain and rash Travel History International Travel<30 Days: No Contact w/Intl Traveler <30 Da: No Traveled to Known Affected Are: No History of Present Illness Written by Alayna Burton, acting as scribe for Dr. Hutchison on 01/05/18 at 17:44. is a 32-year-old male with a past medical history significant for diabetes type 1, neuropathy, gastroparesis, DKA in the past who presents to the emergency department with increased swelling, pain, and redness to the left foot. Patient was recently seen and evaluated in the emergency department on after patient stepped on a nail while wearing his shoes. During that emergency department visit he was administered a tetanus shot, and given a prescription for Bactrim as well as Cipro. Patient reports that while at home he was compliant with his medications however noticed increasing redness, and swelling to the left foot along with pain. At the moment he rates his pain 8/ 10 and describes his pain as throbbing. He reports that movement and placing foot in a dependent position will make pain worse. Elevating his foot will make pain better. He denies any fevers, chills, nausea, vomiting, diarrhea, constipation, headaches, cough or shortness of breath. Review of Systems Cardiovascular: COMPLAINS OF: Lower Extremity Edema (Left foot swelling) Integumentary: COMPLAINS OF: Rash (Left foot) Except as stated in HPI: all other systems reviewed are Neg Past Family Social History Past Medical History DM I gastroparesis neuropathy DKA Past Surgical History Denies any past surgical history. Reported Medications Reported Meds & Active Scripts Active Bactrim DS (Sulfamethoxazole-Trimethoprim) 800-160 Mg Tab 1 Tab PO BID Cipro (Ciprofloxacin HCl) 500 Mg Tab 500 Mg PO BID Reglan (Metoclopramide HCl) 10 Mg Tab 10 Mg PO QID Novolog Inj (Insulin Aspart) 1,000 Unit/10 Ml Vial 0 SQ DIRECTED Sliding Scale as directed. Demetria Contour Next Blood Test Strips (Blood Glucose Test Strips) 1 Zuri Zuri 1 Strip .ROUTE DIRECTED Reported Levemir Inj (Insulin Detemir) 1,000 unit/ 10 ML Vial 20 Units SQ HS Do not mix with any other Insulin. Levemir Inj (Insulin Detemir) 1,000 unit/ 10 ML Vial 25 Units SQ AC BREAKFAST Do not mix with any other Insulin. Reglan (Metoclopramide HCl) 5 Mg Tab 5 Mg PO QID Protonix (Pantoprazole Sodium) 20 Mg Tab 20 Mg PO DAILY Allergies: Coded Allergies: No Known Allergies (Verified Adverse Reaction, Unknown, 01/05/18) Family History Father: Pancreatic cancer Social History Patient denies any tobacco, or alcohol use. Reports smoking marijuana every other day for the past 3-4 years. Physical Exam Vital Signs Vital Signs Date Time Temp Pulse Resp B/P (MAP) Pulse Ox O2 Delivery O2 Flow Rate FiO2 01/05/18 14:26 89 18 01/05/18 14:26 88 18 113/60 (77) 100 Room Air 01/05/18 12:20 98.5 99 20 137/74 (95) 99 Physical Exam GENERAL: This is a well-nourished, well-developed patient, in no apparent distress. SKIN: Cool and dry. HEAD: Atraumatic. Normocephalic. No temporal or scalp tenderness. EYES: Pupils equal round and reactive. Extraocular motions intact. No scleral icterus. No injection or drainage. ENT: Nose without bleeding, purulent drainage. Throat without erythema, tonsillar hypertrophy or exudate. Uvula midline. Airway patent. NECK: Trachea midline. No JVD . Supple, nontender, no meningeal signs. CARDIOVASCULAR: Regular rate and rhythm without murmurs, gallops, or rubs. RESPIRATORY: Clear to auscultation. Breath sounds equal bilaterally. No wheezes , rales, or rhonchi. GASTROINTESTINAL: Abdomen soft, non-tender, nondistended. Normoactive bowel sounds. No guarding. MUSCULOSKELETAL: Extremities without clubbing or cyanosis. No joint tenderness, effusion, or edema noted. No calf tenderness. Left foot dorsal and plantar aspect edema. Dorsal aspect between second and third toe with noted erythema. Plantar aspect along second and third toe with small puncture wound noted. NEUROLOGICAL: Awake and alert. Cranial nerves II through XII intact. Motor and sensory grossly within normal limits. Five out of 5 muscle strength in all muscle groups. Normal speech. Laboratory Laboratory Tests Test 01/05/18 14:25 01/05/18 14:30 Lactic Acid Level 3.8 White Blood Count 9.5 Red Blood Count 4.07 Hemoglobin 12.3 Hematocrit 35.5 Mean Corpuscular Volume 87.3 Mean Corpuscular Hemoglobin 30.1 Mean Corpuscular Hemoglobin Concent 34.5 Red Cell Distribution Width 12.3 Platelet Count 373 Mean Platelet Volume 7.3 Neutrophils (%) (Auto) 63.8 Lymphocytes (%) (Auto) 25.0 Monocytes (%) (Auto) 6.9 Eosinophils (%) (Auto) 3.8 Basophils (%) (Auto) 0.5 Neutrophils # (Auto) 6.0 Lymphocytes # (Auto) 2.4 Monocytes # (Auto) 0.7 Eosinophils # (Auto) 0.4 Basophils # (Auto) 0.0 CBC Comment DIFF FINAL Differential Comment Blood Urea Nitrogen 24 Creatinine 1.54 Random Glucose 495 Total Protein 8.4 Albumin 3.3 Calcium Level 9.3 Alkaline Phosphatase 114 Aspartate Amino Transf (AST/SGOT) 10 Alanine Aminotransferase (ALT/SGPT) 11 Total Bilirubin LESS THAN 0.1 Sodium Level 133 Potassium Level 4.5 Chloride Level 97 Carbon Dioxide Level 24.9 Anion Gap 11 Estimat Glomerular Filtration Rate 52 Date/Time Source Procedure Growth Status 01/05/18 14:30 Blood Peripheral Aerobic Blood Culture Pending Received 01/05/18 14:30 Blood Peripheral Anaerobic Blood Culture Pending Received Result Diagram: 01/05/18 1430 01/05/18 1430 Imaging Last Impressions Foot X-Ray 01/05/18 0000 Signed Impressions: Service Date/Time: Friday, January 05, 2018 15:06 - CONCLUSION: Negative Suleiman Lambert MD FACR Caprini VTE Risk Assessment Caprini VTE Risk Assessment: No/Low Risk (score <= 1) Caprini Risk Assessment Model Point Value = 1 Point Value = 2 Point Value = 3 Point Value = 5 Age 41-60 Minor surgery BMI > 25 kg/m2 Swollen legs Varicose veins or History of unexplained or recurrent spontaneous Oral contraceptives or hormone replacement Sepsis (< 1 month) Serious lung disease, including pneumonia (< 1 month) Abnormal pulmonary function Acute myocardial infarction Congestive heart failure (< 1 month) History of inflammatory bowel disease Medical patient at bed rest Age 61-74 Arthroscopic surgery Major open surgery (> 45 min) Laparoscopic surgery (> 45 min) Malignancy Confined to bed (> 72 hours) Immobilizing plaster cast Central venous access Age >= 75 History of VTE Family history of VTE Factor V Leiden Prothrombin [id number] Lupus anticoagulant Anticardiolipin antibodies Elevated serum homocysteine Heparin-induced thrombocytopenia Other congenital or acquired thrombophilia Stroke (< 1 month) Elective arthroplasty Hip, pelvis, or leg fracture Acute spinal cord injury (< 1 month) Prophylaxis Regimen Total Risk Factor Score Risk Level Prophylaxis Regimen 0-1 Low Early ambulation 2 Moderate Order ONE of the following: *Sequential Compression Device (SCD) *Heparin 5000 units SQ BID 3-4 Higher Order ONE of the following medications: *Heparin 5000 units SQ TID *Enoxaparin/Lovenox 40 mg SQ daily (WT < 150 kg, CrCl > 30 mL/min) *Enoxaparin/Lovenox 30 mg SQ daily (WT < 150 kg, CrCl > 10-29 mL/min) *Enoxaparin/Lovenox 30 mg SQ BID (WT < 150 kg, CrCl > 30 mL/min) AND/OR *Sequential Compression Device (SCD) 5 or more Highest Order ONE of the following medications: *Heparin 5000 units SQ TID (Preferred with Epidurals) *Enoxaparin/Lovenox 40 mg SQ daily (WT < 150 kg, CrCl > 30 mL/min) *Enoxaparin/Lovenox 30 mg SQ daily (WT < 150 kg, CrCl > 10-29 mL/min) *Enoxaparin/Lovenox 30 mg SQ BID (WT < 150 kg, CrCl > 30 mL/min) AND *Sequential Compression Device (SCD) Assessment and Plan Assessment and Plan 32-year-old male with past medical history significant for diabetes mellitus type 1, neuropathy, and gastroparesis who was recently treated with oral Bactrim and Cipro after stepping on a nail while wearing shoes who returns to the emergency department for worsening left foot pain, swelling, and redness. Left foot nail wound -Patient has failed Cipro and Bactrim treatment as outpatient -Foot with increased redness, warmth, erythema, and pain. Admit patient to observation unit. -X-ray personally reviewed, no soft tissue swelling, dislocation, or fracture. Calcaneus are intact, bone mineralization normal. -CBC reviewed with no leukocytosis, patient is afebrile, heart rate 99 on admission, lactic acid 3.8 -Blood cultures 2 drawn -Patient received IV vancomycin and Zosyn in the ED, he also received 2L NS fluid boluses -We will continue IV vancomycin and Zosyn for empiric coverage, continue following blood cultures -Consult podiatry for further recommendations -Pain control with p.o. Butler, IV morphine for breakthrough pain. Bowel regimen on board. DM I -Poorly managed diabetes, hemoglobin A1c since 2006 has been around 8-9 -Patient reports blood sugars have been high since recent foot wound -Blood sugar on admission 495, patient received 10 units of Novolin R subcu -1800 ADA diet -Accu-Cheks with insulin sliding scale -Continue monitoring blood sugars and adjusting insulin as needed GALA on CKD - Patient's baseline creatinine since 2016 will fluctuate however seems to be around 1.4-1.6 - Labs reviewed, creatinine 1.57, BUN 24, GFR 52 - Decreased renal function likely due to poorly manage diabetes -IV hydration provided in the ED, continue monitoring renal function -Avoid nephrotoxins Gastroparesis -Stable at the moment, patient takes Reglan at home -Consider resuming if needed DVT prophylaxis-subcu heparin This note was transcribed by [email or web address] [Alayna Burton.]. I, Dr. Marleny Hutchison personally performed the history, physical exam, and medical decision making; and confirmed the accuracy of the information in the transcribed note. Authenticated by Dr. Marleny Hutchison on 01/05/18 at 18:12. Alayna Burton Jan 05, 2018 18:05 Marleny Hutchison MD Jan 05, 2018 19:11
[2018-01-05] MEDS ORDERED: MORPHINE SULFATE 4 MG/ML INJ IV PRN (18:30)
[2018-01-05] MEDS: INSULIN ASPART SUPPLEMENTAL SCALE SQ SCH ×2 (18:55→21:30)
[2018-01-05] MEDS: SODIUM CHLOR 0.9% 1000 ML INJ 1,000 ML IV SCH (20:11)
[2018-01-05] MEDS: ACETAMINOPHEN/HYDROcodone 325 MG/7.5 MG TAB PO PRN (20:11)
[2018-01-05 20:45] VITALS: BP 125/63; PULSE 93; RESP 18; TEMP 98.1; O2SAT 98
[2018-01-05] MEDS: DOCUSATE SODIUM 50 MG/SENNA 8.6 MG TAB PO SCH (21:00)
[2018-01-05] MEDS: PIPERACIL-TAZO 4.5 GM PREMIX 100 ML IV SCH (23:02)
[2018-01-05] MEDS: HEPARIN SODIUM - SQ 10,000 UNITS/ML VIAL SQ SCH (23:02)
[2018-01-06] VITALS (10 sets, daily range): BP systolic 113–126; BP diastolic 60–76; PULSE 76–108; RESP 18–20; TEMP 97.6–98.6; O2SAT 96–99
[2018-01-06] MEDS ORDERED: SODIUM CHLORIDE FLUSH PRN IV FLUSH (01:30)
[2018-01-06] MEDS: PIPERACIL-TAZO 4.5 GM PREMIX 100 ML IV SCH ×4 (04:34→22:03)
[2018-01-06] MEDS: VANCOMYCIN INJ 1,150 MG in SODIUM CHLOR 0.9% 250 ML INJ 250 ML IV SCH ×2 (05:09→17:58)
[2018-01-06] MEDS: HEPARIN SODIUM - SQ 10,000 UNITS/ML VIAL SQ SCH ×3 (06:31→22:00)
[2018-01-06] MEDS: INSULIN DETEMIR 100 UNITS/ML VIAL SQ SCH (06:31)
[2018-01-06 06:57] LABS: MAGNESIUM 1.7 MG/DL (1.5-2.5)
[2018-01-06 06:59] LABS: TROPONIN I LESS THAN 0.02 NG/ML (0.02-0.05)
[2018-01-06 07:13] LABS: AUTOMATED NEUTROPHIL # 3.1 TH/MM3 (1.8-7.7); BASOPHIL % 0.6 % (0.0-2.0); EOSINOPHIL # 0.5 TH/MM3 (0-0.4); EOSINOPHIL % 7.6 % (0.0-4.0); HEMATOCRIT 35.5 % (39.0-51.0); HEMOGLOBIN 12.4 GM/DL (13.0-17.0); LYMPH % 35.3 % (9.0-44.0); LYMPHOCYTE # 2.2 TH/MM3 (1.0-4.8); MEAN CELL VOLUME 87.9 FL (80.0-100.0); MEAN CORPUSCULAR HEMOGLOBIN 30.8 PG (27.0-34.0); MONO % 7.7 % (0.0-8.0); MONOCYTE # 0.5 TH/MM3 (0-0.9); NEUT % 48.8 % (16.0-70.0); PLATELET COUNT 247 TH/MM3 (150-450); RED BLOOD COUNT 4.04 MIL/MM3 (4.50-5.90); RED CELL DISTRIBUTION WIDTH 12.5 % (11.6-17.2); WHITE BLOOD COUNT 6.3 TH/MM3 (4.0-11.0)
[2018-01-06 07:48] LABS: BICARBONATE 21.2 MEQ/L (21.0-32.0); CALCIUM 7.9 MG/DL (8.5-10.1); CREATININE 1.41 MG/DL (0.60-1.30)
[2018-01-06] MEDS: DOCUSATE SODIUM 50 MG/SENNA 8.6 MG TAB PO SCH ×2 (08:55→21:59)
[2018-01-06] MEDS: INSULIN ASPART SUPPLEMENTAL SCALE SQ SCH ×4 (08:55→22:02)
[2018-01-06] MEDS: METOCLOPRAMIDE HCL 10 MG TAB PO SCH ×4 (09:00→22:01)
[2018-01-06] MEDS: SODIUM CHLORIDE FLUSH BID IV FLUSH SCH ×2 (09:00→21:59)
[2018-01-06] MEDS: SODIUM CHLOR 0.9% 1000 ML INJ 1,000 ML IV SCH (10:01)
--- NOTE | 2018-01-06 12:01 | HHI.PR ---
Subjective Remarks Follow up for left foot puncture wound infection and uncontrolled diabetes. The patient reports continued pain throughout the left foot, worse at the puncture site. He reports continued swelling throughout the foot, minimally improved compared to yesterday. He states last night the wound drained small amount of purulent bloody drainage. No drainage currently and patient unable to expel anything from the wound himself. Denies fevers/chills. He reports taking levemir 25u in am and 20u in pm. He is requesting 2200 ADA diet instead of 1800. He has no other medical complaints at this time including no chest pain, cough, shortness of breath, or abdominal pain. Objective Vitals Vital Signs Date Time Temp Pulse Resp B/P (MAP) Pulse Ox O2 Delivery O2 Flow Rate FiO2 01/06/18 07:50 98.3 77 18 113/61 (78) 98 01/06/18 04:53 81 01/06/18 03:31 98.1 81 18 126/60 (82) 96 01/06/18 00:58 98.4 85 18 120/62 (81) 97 01/06/18 00:13 87 01/05/18 20:45 98.1 93 18 125/63 (83) 98 01/05/18 19:31 01/05/18 14:26 89 18 01/05/18 14:26 88 18 113/60 (77) 100 Room Air 01/05/18 12:20 98.5 99 20 137/74 (95) 99 I/O 01/05/18 01/05/18 01/05/18 01/06/18 01/06/18 01/06/18 06:59 14:59 22:59 06:59 14:59 22:59 Intake Total 2776.0 ml Output Total 400 ml Balance 2376.0 ml IV Total 2776.0 ml Output Urine Total 400 ml Result Diagram: 01/06/1815 01/06/18 0615 Imaging Last Impressions Foot X-Ray 01/05/18 0000 Signed Impressions: Service Date/Time: Friday, January 05, 2018 15:06 - CONCLUSION: Negative Suleiman Lambert MD FACR Objective Remarks GENERAL: Well-nourished, well-developed young male patient in [facility]. SKIN: Warm and dry. Tattoos, ear piercings, nipple piercings. HEENT: Normocephalic. Atraumatic.Pupils equal and round. Mucous membranes pink and moist. NECK: Supple. Trachea midline. CARDIOVASCULAR: Regular rate and rhythm. S1, S2 noted. No murmur appreciated. RESPIRATORY: No accessory muscle use. Clear to auscultation. Breath sounds equal bilaterally. GASTROINTESTINAL: Abdomen soft, non-tender, nondistended. Normoactive bowel sounds x4. MUSCULOSKELETAL: No obvious deformities. Left plantar 2nd MTP with puncture wound, blood blister, minimal surrounding erythema, no active drainage; diffuse edema throughout the mid-distal foot and toes. NEUROLOGICAL: Awake and alert. No obvious cranial nerve deficits. Motor grossly within normal limits. Normal speech. PSYCHIATRIC: Appropriate mood and affect; insight and judgment normal. Medications and IVs Current Medications Medications (Trade) Dose Ordered Sig/Brandy Route Start Time Stop Time Status Last Admin Sodium Chloride 1,000 ml @ 100 mls/hr Q10H IV 01/05/18 18:00 01/06/18 10:01 (Tylenol) 650 mg Q4H PRN PO 01/05/18 17:00 01/06/18 12:06 (Zofran Inj) 4 mg Q6H PRN IVP 01/05/18 17:00 (Heparin Inj) 5,000 units Q8H SQ 01/05/18 22:00 01/06/18 06:31 ([place] 5-325 Mg) 1 tab Q4H PRN PO 01/05/18 17:00 ([place] 7.5-325 Mg) 1 tab Q4H PRN PO 01/05/18 17:00 01/05/18 20:11 (Morphine Inj) 3 mg Q3H PRN IV 01/05/18 18:30 (Narcan Inj) 0.4 mg UNSCH PRN IV PUSH 01/05/18 17:00 (Rosanna-Colace) 1 tab BID PO 01/05/18 21:00 (Milk Of Magnesia Liq) 30 ml Q12H PRN PO 01/05/18 17:00 (Senokot) 17.2 mg Q12H PRN PO 01/05/18 17:00 Piperacillin Sod/ Tazobactam Sod 100 ml @ 200 mls/hr Q6H IV 01/05/18 22:00 01/06/18 09:59 Vancomycin HCl 1150 mg/Sodium Chloride 261.5 ml @ 250 mls/hr Q12H IV 01/06/18 05:00 01/06/18 05:09 (NovoLOG SUPPLEMENTAL SCALE) 1 ACHS SLIDING SCALE SQ 01/05/18 17:00 01/06/18 13:41 (Glucagon Inj) 1 mg UNSCH PRN OTHER 01/05/18 17:00 (D50w (Vial) Inj) 50 ml UNSCH PRN IV PUSH 01/05/18 17:00 (Levemir Inj) 25 units AC BREAKFAST SQ 01/06/18 07:00 01/06/18 06:31 (Protonix) 20 mg DAILY PO 01/06/18 09:00 01/06/18 12:04 (Reglan) 5 mg QID PO 01/06/18 09:00 01/06/18 13:41 (Levemir Inj) 15 units HS SQ 01/06/18 21:00 (NS Flush) 2 ml BID IV FLUSH 01/06/18 09:00 (NS Flush) 2 ml UNSCH PRN IV FLUSH 01/06/18 01:30 Sodium Chloride 1,000 ml @ 999 mls/hr BOLUS ONCE IV 01/06/18 14:00 01/06/18 15:00 A/P Problem List: (1) Nail wound of left foot ICD Code: S91.332A - Puncture wound without foreign body, left foot, initial encounter (2) Diabetes mellitus type 1 ICD Code: E10.9 - Type 1 diabetes mellitus without complications (3) Neuropathy ICD Code: G62.9 - Polyneuropathy, unspecified (4) Gastroparesis due to DM ICD Code: E11.43 - Type 2 diabetes mellitus with diabetic autonomic (poly) neuropathy; K31.84 - Gastroparesis Assessment and Plan 32-year-old male with past medical history significant for diabetes mellitus type 1, neuropathy, and gastroparesis who was recently treated with oral Bactrim and Cipro after stepping on a nail while wearing shoes who returns to the emergency department for worsening left foot pain, swelling, and redness. Left foot puncture wound infection, failed outpatient: Patient has failed Cipro and Bactrim treatment as outpatient. Foot with increased redness, warmth, erythema, and pain. -X-ray personally reviewed, no soft tissue swelling, dislocation, or fracture. -CBC reviewed with no leukocytosis, patient is afebrile, heart rate 99 on admission, lactic acid 3.8 --> 1.3 -Blood cultures 2 with NGTD -Continue IV vancomycin and Zosyn for empiric coverage -Pain control with p.o. [place], IV morphine for breakthrough pain. Bowel regimen. -Consult podiatry for further recommendations, discussed with Dr. Bess, recommended MRI, may need I&D depending on results -Foot MRI ordered and pending Insulin Dependent DM: Poorly managed diabetes, hemoglobin A1c since 2006 has been around 8-9. Blood sugar on admission 495. S/p IVF bolus and insulin. -Patient reports blood sugars have been high since recent foot wound, suspect secondary to infection -2200 ADA diet per patient request -Accu-Cheks with insulin sliding scale -Continue monitoring blood sugars and adjusting insulin as needed -Continue patient's Levemir 25u in am and 20u hs GALA on CKD stage III: Patient's baseline creatinine since 2016 will fluctuate between 1.1-1.6 -Labs reviewed, creatinine 1.57, BUN 24, GFR 52 -Decreased renal function likely due to poorly manage diabetes -Continue IVF hydration and continue monitoring renal function -Avoid nephrotoxins Gastroparesis -Stable at the moment, patient takes Reglan at home -Consider resuming if needed DVT prophylaxis- heparin sq Discharge Planning Not ready for discharge. MRI pending. Blood sugars not well controlled. Nadira Em PA-C Jan 06, 2018 12:01
[2018-01-06] MEDS: PANTOPRAZOLE SOD 20 MG DELAYED RELEASE TAB PO SCH (12:04)
[2018-01-06] MEDS: ACETAMINOPHEN 325 MG TAB PO PRN (12:06)
[2018-01-06] MEDS ORDERED: SODIUM CHLOR 0.9% 1000 ML INJ 1,000 ML IV ONE (14:00)
--- NOTE | 2018-01-06 16:15 | RADRPT ---
EXAM DATE/TIME: 01/06/2018 14:48 [facility] COMPARISON: FOOT LEFT LIMITED (2VWS), January 05, 2018, 15:06. INDICATIONS : Abscess. CONTRAST: 16 cc Omniscan (gadodiamide) IV MEDICAL HISTORY : Diabetes mellitus type 1. SURGICAL HISTORY : Inguinal hernia repair. ENCOUNTER: Initial ACUITY: 1 day PAIN SCORE: 7/10 LOCATION: Left forefoot TECHNIQUE: Multiplanar, multisequence MRI examination was performed without contrast and after the intravenous a dministration of gadolinium. FINDINGS: BONE/CARTILAGE: There is a small focal areas of increased signal within the distal plantar lateral aspect of the firs t metacarpal. This is seen at the level of the sesamoids. This small focal areas signal abnormality measured less than 0.7 x 0.5 x 0.4 cm. The remaining bony structures demonstrate normal signal. No s oft tissue abscess is seen. There is superficial soft tissue swelling seen at the dorsum of foot and to a lesser degree at the plantar aspect of the foot. TENDONS: All of the visualized tendons are intact. MISCELLANEOUS: Plantar aponeurosis is intact. Sinus tarsi is within normal limits. POST-CONTRAST: There are no abnormal areas of enhancement on the post-contrast images. CONCLUSION: Small area of edema/signal abnormality in the distal lateral plantar aspect of the first metacarpal a t the level of the sesamoids. This is nonspecific. There can be some bone edema related to the sesamo ids which is the most likely explanation in this case. An extremely small focus of osteomyelitis tonia ot absolutely be excluded. Given the location of the small focal areas signal abnormality, reactive c hange would be more likely. This can be followed clinically. Narinder Mosquera MD on January 06, 2018 at 16:04 Board Certified Radiologist. This report was verified electronically.
--- NOTE | 2018-01-06 17:30 | PD.CONS ---
History of Present Illness Service Foot and ankle/podiatry Consult Requested By Reason for Consult Left foot infection Primary Care Physician No Primary Care Physician Diagnoses: (1) Nail wound of left foot History of Present Illness Podiatry consulted for this 32-year-old male with past medical history of IDDM with worsening pain infection to left foot and failed oral outpatient antibiotics. Patient was seen in the ED January 01 after stepping on a nail and was given Cipro and Bactrim. Patient took the oral antibiotics for 5 days but noticed increased redness to the top of his foot as well as swelling. Denies any nausea, fevers, chills. Patient is very guarded with his left foot, he states he does not want me to touch it or examine it. He states he will examine it for me and let me know if there is any drainage. Review of Systems Constitutional: DENIES: Fever Endocrine: DENIES: Heat/cold intolerance Eyes: DENIES: Blurred vision Ears, nose, mouth, throat: DENIES: Hearing loss Respiratory: DENIES: Cough, Shortness of breath Cardiovascular: COMPLAINS OF: Lower Extremity Edema, DENIES: Chest pain, Palpitations, Syncope Gastrointestinal: DENIES: Abdominal pain Musculoskeletal: COMPLAINS OF: Joint pain Neurologic: DENIES: Abnormal gait Psychiatric: DENIES: Anxiety, Confusion Past Family Social History Allergies: Coded Allergies: No Known Allergies (Verified Adverse Reaction, Unknown, 01/05/18) Past Medical History Insulin dependent diabetes mellitus Active Ordered Medications Current Medications Medications (Trade) Dose Ordered Sig/Brandy Route Start Time Stop Time Status Last Admin Sodium Chloride 1,000 ml @ 100 mls/hr Q10H IV 01/05/18 18:00 01/06/18 10:01 (Tylenol) 650 mg Q4H PRN PO 01/05/18 17:00 01/06/18 12:06 (Zofran Inj) 4 mg Q6H PRN IVP 01/05/18 17:00 (Heparin Inj) 5,000 units Q8H SQ 01/05/18 22:00 01/06/18 14:22 ([place] 5-325 Mg) 1 tab Q4H PRN PO 01/05/18 17:00 ([place] 7.5-325 Mg) 1 tab Q4H PRN PO 01/05/18 17:00 01/05/18 20:11 (Morphine Inj) 3 mg Q3H PRN IV 01/05/18 18:30 (Narcan Inj) 0.4 mg UNSCH PRN IV PUSH 01/05/18 17:00 (Rosanna-Colace) 1 tab BID PO 01/05/18 21:00 (Milk Of Magnesia Liq) 30 ml Q12H PRN PO 01/05/18 17:00 (Senokot) 17.2 mg Q12H PRN PO 01/05/18 17:00 Piperacillin Sod/ Tazobactam Sod 100 ml @ 200 mls/hr Q6H IV 01/05/18 22:00 01/06/18 17:02 Vancomycin HCl 1150 mg/Sodium Chloride 261.5 ml @ 250 mls/hr Q12H IV 01/06/18 05:00 01/06/18 05:09 (NovoLOG SUPPLEMENTAL SCALE) 1 ACHS SLIDING SCALE SQ 01/05/18 17:00 01/06/18 13:41 (Glucagon Inj) 1 mg UNSCH PRN OTHER 01/05/18 17:00 (D50w (Vial) Inj) 50 ml UNSCH PRN IV PUSH 01/05/18 17:00 (Levemir Inj) 25 units AC BREAKFAST SQ 01/06/18 07:00 01/06/18 06:31 (Protonix) 20 mg DAILY PO 01/06/18 09:00 01/06/18 12:04 (Reglan) 5 mg QID PO 01/06/18 09:00 01/06/18 13:41 (NS Flush) 2 ml BID IV FLUSH 01/06/18 09:00 (NS Flush) 2 ml UNSCH PRN IV FLUSH 01/06/18 01:30 (Levemir Inj) 20 units HS SQ 01/06/18 21:00 Physical Exam Vital Signs Vital Signs Date Time Temp Pulse Resp B/P (MAP) Pulse Ox O2 Delivery O2 Flow Rate FiO2 01/06/18 15:51 97.6 76 18 126/75 (92) 99 01/06/18 12:24 98.6 83 18 119/76 (90) 99 01/06/18 07:50 98.3 77 18 113/61 (78) 98 01/06/18 04:53 81 01/06/18 03:31 98.1 81 18 126/60 (82) 96 01/06/18 00:58 98.4 85 18 120/62 (81) 97 01/06/18 00:13 87 01/05/18 20:45 98.1 93 18 125/63 (83) 98 01/05/18 19:31 Physical Exam GENERAL: This is a well-nourished, well-developed patient, in no apparent distress. SKIN: Left foot plantar wound located with blood blister noted periwound HEAD: Atraumatic. EYES: Pupils equal round and reactive. ENT: Airway patent. NECK: Trachea midline. RESPIRATORY: Nonlabored breathing. MUSCULOSKELETAL:. Negative Homans sign bilaterally. NEUROLOGICAL: Awake and alert. Normal speech. Lower extremity physical exam: Physical exam limited due to patient not allowing me to examine his foot properly Vascular: Visible dorsal left foot edema Neuro: Gross sensation intact to bilateral lower extremity. Hyperalgesia noted to left lower extremity Dermatology: Normal temperature and turgor to bilateral lower extremity. Left foot plantar wound noted to metatarsal area with associated blood blister noted periwound. Mild periwound edema noted. Patient would not allow me to touch or compress the foot therefore cannot assess if any drainage is present. Musculoskeletal: Tender to palpation globally to left foot. Laboratory Laboratory Tests Test 01/05/18 18:40 01/06/18 06:15 Lactic Acid Level 2.7 1.3 White Blood Count 6.3 Red Blood Count 4.04 Hemoglobin 12.4 Hematocrit 35.5 Mean Corpuscular Volume 87.9 Mean Corpuscular Hemoglobin 30.8 Mean Corpuscular Hemoglobin Concent 35.0 Red Cell Distribution Width 12.5 Platelet Count 247 Mean Platelet Volume 7.0 Neutrophils (%) (Auto) 48.8 Lymphocytes (%) (Auto) 35.3 Monocytes (%) (Auto) 7.7 Eosinophils (%) (Auto) 7.6 Basophils (%) (Auto) 0.6 Neutrophils # (Auto) 3.1 Lymphocytes # (Auto) 2.2 Monocytes # (Auto) 0.5 Eosinophils # (Auto) 0.5 Basophils # (Auto) 0.0 CBC Comment DIFF FINAL Differential Comment Blood Urea Nitrogen 25 Creatinine 1.41 Random Glucose 388 Calcium Level 7.9 Sodium Level 136 Potassium Level 5.3 Chloride Level 106 Carbon Dioxide Level 21.2 Anion Gap 9 Estimat Glomerular Filtration Rate 58 Magnesium Level 1.7 Total Creatine Kinase 38 Troponin I LESS THAN 0.02 Date/Time Source Procedure Growth Status 01/05/18 14:30 Blood Peripheral Aerobic Blood Culture - Preliminary NO GROWTH IN 1 DAY Resulted 01/05/18 14:30 Blood Peripheral Anaerobic Blood Culture - Preliminary NO GROWTH IN 1 DAY Resulted Result Diagram: 01/06/18 0615 01/06/18 0615 Imaging Last Impressions Foot X-Ray 01/05/18 0000 Signed Impressions: Service Date/Time: Friday, January 05, 2018 15:06 - CONCLUSION: Negative Suleiman Lambert MD FACR Assessment and Plan Assessment and Plan 32-year-old man with left foot infection secondary to nail going through foot Patient examined and evaluated with all questions answered Patient was very guarded during examination and prevented from a thorough examination Recommend MRI left foot rule out osteomyelitis/septic joint We will consider bedside incision and drainage if MRI positive for subcutaneous abscess We will consider bone biopsy if MRI positive for osteomyelitis Continue with IV antibiotics Problem Qualifiers (1) Nail wound of left foot: Qualified Codes: S91.332A - Puncture wound without foreign body, left foot, initial encounter Caren Bess DPM Jan 06, 2018 17:30
[2018-01-06] MEDS ORDERED: INSULIN DETEMIR 100 UNITS/ML VIAL SQ SCH ×3 (21:00)
--- NOTE | 2018-01-06 21:54 | EKG ---
Date Performed: 01/06/2018 Time Performed: 05:00:34 PTAGE: 32 years EKG: Sinus rhythm ST ELEVATION, PROBABLY EARLY REPOLARIZATION BORDERLINE ECG Compared to PREVIOUS TRACING , there is now minimal ST elevation inferiorly and anterolaterally. This may represent early repolarization or pericarditis. PREVIOUS TRACIN09/12/2017 19.03 DOCTOR: Carlin Powell Interpretating Date/Time 01/06/2018 21:53:04
[2018-01-06] MEDS: ACETAMINOPHEN/HYDROcodone 325 MG/7.5 MG TAB PO PRN (22:11)
[2018-01-07] MEDS: SODIUM CHLOR 0.9% 1000 ML INJ 1,000 ML IV SCH
[2018-01-07 00:46] VITALS: BP 111/69; PULSE 85; RESP 16; TEMP 98.2; O2SAT 99
[2018-01-07] MEDS: PIPERACIL-TAZO 4.5 GM PREMIX 100 ML IV SCH ×2 (03:58→10:30)
[2018-01-07 04:00] VITALS: BP 131/73; PULSE 82; RESP 16; TEMP 98.3; O2SAT 98
[2018-01-07] MEDS: HEPARIN SODIUM - SQ 10,000 UNITS/ML VIAL SQ SCH (04:32)
[2018-01-07] MEDS: VANCOMYCIN INJ 1,150 MG in SODIUM CHLOR 0.9% 250 ML INJ 250 ML IV SCH (04:35)
[2018-01-07 05:24] LABS: AUTOMATED NEUTROPHIL # 3.4 TH/MM3 (1.8-7.7); BASOPHIL % 0.6 % (0.0-2.0); EOSINOPHIL # 0.6 TH/MM3 (0-0.4); EOSINOPHIL % 8.4 % (0.0-4.0); HEMATOCRIT 30.6 % (39.0-51.0); HEMOGLOBIN 10.8 GM/DL (13.0-17.0); LYMPH % 37.5 % (9.0-44.0); LYMPHOCYTE # 2.7 TH/MM3 (1.0-4.8); MEAN CELL VOLUME 85.4 FL (80.0-100.0); MEAN CORPUSCULAR HEMOGLOBIN 30.2 PG (27.0-34.0); MEAN CORPUSCULAR HGB CONC 35.3 % (32.0-36.0); MEAN PLATELET VOLUME 6.8 FL (7.0-11.0); MONO % 6.8 % (0.0-8.0); MONOCYTE # 0.5 TH/MM3 (0-0.9); NEUT % 46.7 % (16.0-70.0); PLATELET COUNT 304 TH/MM3 (150-450); RED BLOOD COUNT 3.59 MIL/MM3 (4.50-5.90); RED CELL DISTRIBUTION WIDTH 12.3 % (11.6-17.2); WHITE BLOOD COUNT 7.2 TH/MM3 (4.0-11.0)
[2018-01-07 06:02] LABS: BICARBONATE 27.5 MEQ/L (21.0-32.0); C-REACTIVE PROTEIN 1.9 MG/DL (0.00-0.30); CALCIUM 8.2 MG/DL (8.5-10.1); CREATININE 1.25 MG/DL (0.60-1.30)
[2018-01-07 07:30] VITALS: BP 123/74; PULSE 78; RESP 18; TEMP 98.4; O2SAT 99
[2018-01-07] MEDS: INSULIN DETEMIR 100 UNITS/ML VIAL SQ SCH (08:57)
[2018-01-07] MEDS: PANTOPRAZOLE SOD 20 MG DELAYED RELEASE TAB PO SCH (08:58)
[2018-01-07] MEDS: SODIUM CHLORIDE FLUSH BID IV FLUSH SCH (08:58)
[2018-01-07] MEDS: DOCUSATE SODIUM 50 MG/SENNA 8.6 MG TAB PO SCH (08:58)
[2018-01-07] MEDS: METOCLOPRAMIDE HCL 10 MG TAB PO SCH ×2 (08:58→12:28)
[2018-01-07] MEDS: INSULIN ASPART SUPPLEMENTAL SCALE SQ SCH ×2 (09:04→12:36)
--- NOTE | 2018-01-07 09:47 | HHI.PR ---
Subjective Remarks Follow up for left foot puncture wound infection and uncontrolled diabetes. The patient reports continued improvement of left foot edema and erythema with minimal scant drainage overnight, none today. Denies fevers/chills. Blood sugars better controlled today. He has no other medical complaints at this time. Objective Vitals Vital Signs Date Time Temp Pulse Resp B/P (MAP) Pulse Ox O2 Delivery O2 Flow Rate FiO2 01/07/18 07:30 98.4 78 18 123/74 (90) 99 01/07/18 04:00 98.3 82 16 131/73 (92) 98 01/07/18 00:46 98.2 85 16 111/69 (83) 99 01/06/18 21:35 98.5 95 20 124/70 (88) 99 01/06/18 20:00 85 01/06/18 15:51 97.6 76 18 126/75 (92) 99 01/06/18 12:24 98.6 83 18 119/76 (90) 99 I/O 01/06/18 01/06/18 01/06/18 01/07/18 01/07/18 01/07/18 07:00 15:00 23:00 07:00 15:00 23:00 Intake Total 2776.0 ml Output Total 400 ml 600 ml 900 ml Balance 2376.0 ml -600 ml -900 ml IV Total 2776.0 ml Output Urine Total 400 ml 600 ml 900 ml Result Diagram: 01/07/18 0445 01/07/18 0445 Imaging Last Impressions Foot X-Ray 01/05/18 0000 Signed Impressions: Service Date/Time: Friday, January 05, 2018 15:06 - CONCLUSION: Negative Suleiman Lambert MD FACR Objective Remarks GENERAL: Well-nourished, well-developed young male patient in [facility]. SKIN: Warm and dry. Tattoos, ear piercings, nipple piercings. HEENT: Normocephalic. Atraumatic.Pupils equal and round. Mucous membranes pink and moist. CARDIOVASCULAR: Regular rate and rhythm. S1, S2 noted. No murmur appreciated. RESPIRATORY: No accessory muscle use. Clear to auscultation. Breath sounds equal bilaterally. GASTROINTESTINAL: Abdomen soft, non-tender, nondistended. MUSCULOSKELETAL: No obvious deformities. Left plantar 2nd MTP with puncture wound, blood blister, minimal surrounding erythema, no active drainage; diffuse mild edema throughout the mid-distal foot and toes. NEUROLOGICAL: Awake and alert. No obvious cranial nerve deficits. Motor grossly within normal limits. Normal speech. PSYCHIATRIC: Appropriate mood and affect; insight and judgment normal. Procedures None. Medications and IVs Current Medications Medications (Trade) Dose Ordered Sig/Brandy Route Start Time Stop Time Status Last Admin Sodium Chloride 1,000 ml @ 100 mls/hr Q10H IV 01/05/18 18:00 01/07/18 00:00 (Tylenol) 650 mg Q4H PRN PO 01/05/18 17:00 01/07/18 10:15 (Zofran Inj) 4 mg Q6H PRN IVP 01/05/18 17:00 (Heparin Inj) 5,000 units Q8H SQ 01/05/18 22:00 01/06/18 14:22 ([place] 5-325 Mg) 1 tab Q4H PRN PO 01/05/18 17:00 ([place] 7.5-325 Mg) 1 tab Q4H PRN PO 01/05/18 17:00 01/06/18 22:11 (Morphine Inj) 3 mg Q3H PRN IV 01/05/18 18:30 (Narcan Inj) 0.4 mg UNSCH PRN IV PUSH 01/05/18 17:00 (Rosanna-Colace) 1 tab BID PO 01/05/18 21:00 (Milk Of Magnesia Liq) 30 ml Q12H PRN PO 01/05/18 17:00 (Senokot) 17.2 mg Q12H PRN PO 01/05/18 17:00 Piperacillin Sod/ Tazobactam Sod 100 ml @ 200 mls/hr Q6H IV 01/05/18 22:00 01/07/18 10:30 Vancomycin HCl 1150 mg/Sodium Chloride 261.5 ml @ 250 mls/hr Q12H IV 01/06/18 05:00 01/07/18 04:35 (NovoLOG SUPPLEMENTAL SCALE) 1 ACHS SLIDING SCALE SQ 01/05/18 17:00 01/07/18 09:04 (Glucagon Inj) 1 mg UNSCH PRN OTHER 01/05/18 17:00 (D50w (Vial) Inj) 50 ml UNSCH PRN IV PUSH 01/05/18 17:00 (Levemir Inj) 25 units AC BREAKFAST SQ 01/06/18 07:00 01/07/18 08:57 (Protonix) 20 mg DAILY PO 01/06/18 09:00 01/07/18 08:58 (Reglan) 5 mg QID PO 01/06/18 09:00 01/07/18 08:58 (NS Flush) 2 ml BID IV FLUSH 01/06/18 09:00 01/07/18 08:58 (NS Flush) 2 ml UNSCH PRN IV FLUSH 01/06/18 01:30 (Levemir Inj) 20 units HS SQ 01/06/18 21:00 01/06/18 22:02 A/P Problem List: (1) Nail wound of left foot ICD Code: S91.332A - Puncture wound without foreign body, left foot, initial encounter (2) Diabetes mellitus type 1 ICD Code: E10.9 - Type 1 diabetes mellitus without complications (3) Neuropathy ICD Code: G62.9 - Polyneuropathy, unspecified (4) Gastroparesis due to DM ICD Code: E11.43 - Type 2 diabetes mellitus with diabetic autonomic (poly) neuropathy; K31.84 - Gastroparesis Assessment and Plan 32-year-old male with past medical history significant for diabetes mellitus type 1, neuropathy, and gastroparesis who was recently treated with oral Bactrim and Cipro after stepping on a nail while wearing shoes who returns to the emergency department for worsening left foot pain, swelling, and redness. Left foot puncture wound infection, failed outpatient: Patient has failed Cipro and Bactrim treatment as outpatient. Foot with increased redness, warmth, erythema, and pain. -X-ray personally reviewed, no soft tissue swelling, dislocation, or fracture. -CBC reviewed with no leukocytosis, patient is afebrile, heart rate 99 on admission, lactic acid 3.8 --> 1.3 -Blood cultures 2 with NGTD -Given IV vancomycin and Zosyn for empiric coverage -Pain control with p.o. Bristol, IV morphine for breakthrough pain. Bowel regimen. -Left foot MRI showed Small area of edema/signal abnormality in the distal lateral plantar aspect of the first metacarpal at the level of the sesamoids. This is nonspecific. There can be some bone edema related to the sesamoids which is the most likely explanation in this case. An extremely small focus of osteomyelitis cannot absolutely be excluded. Given the location of the small focal areas signal abnormality, reactive change would be more likely. -Consulted podiatry, discussed with Dr. Bess, reviewed foot MRI, no evidence of abscess or osteomyelitis therefore nonsurgical at this point; cleared for discharge by podiatry on Cipro & Clinda, recommended outpatient f/ up in the office this week Insulin Dependent DM: Poorly managed diabetes, hemoglobin A1c since 2006 has been around 8-9. Blood sugar on admission 495. S/p IVF bolus and insulin. -Patient reports blood sugars have been high since recent foot wound, suspect secondary to infection -2199 ADA diet -Accu-Cheks with insulin sliding scale -Continue monitoring blood sugars and adjusting insulin as needed -Continue patient's Levemir 25u in am and 20u hs -blood sugars much better controlled today, stable for discharge; patient given prescription for all meds including Levemir/Novolog and diabetic supplies GALA on CKD stage III: Patient's baseline creatinine since 2015 will fluctuate between 1.1-1.6 -Labs reviewed, creatinine 1.57, BUN 24, GFR 52 -Decreased renal function likely due to poorly manage diabetes -Continue IVF hydration and continue monitoring renal function -Avoid nephrotoxins -renal function much improved, Cr 1.25 Gastroparesis -Stable at the moment, patient takes Reglan at home, continued at discharge DVT prophylaxis- heparin sq Discharge Planning Patient cleared for discharge by podiatry, discussed with Dr. Bess, recommended continuing cipro and adding clindamycin. Case management assisting with filling prescriptions. Patient has green card however [facility] outpatient pharmacy closed on Monday. Patient was also given refills of all home meds. All questions answered and patient verbalized understanding of plan. Mandatory follow up order placed to see Dr. Bess this week in the office. Discharge patient to home Condition on discharge: Improved Diabetic Diet as tolerated Ad Lyudmila activity Rx written: Clinda 300mg q6h [id number], Cipro 500mg bid [id number] total (patient already has 5day supply leftover at home), Bristol 7.5/325mg q12h prn pain #12 Refilled chronic meds including Levemir, Novolog, Protonix, Reglan, and all diabetic supplies including test strips, needles, and lancets Follow-up with primary care physician within 1 week Follow up with podiatry Dr. Bess in 3-5 days Nadira Em PA-C Jan 07, 2018 9:47 am
[2018-01-07] MEDS ORDERED: CLIN150C14 PO (09:55)
--- NOTE | 2018-01-07 09:58 | HHI.DCPOC ---
Discharge Care Plan Diagnosis: (1) Type 1 diabetes mellitus (2) Nail wound of left foot Goals to Promote Your Health * To prevent worsening of your condition and complications * To maintain your health at the optimal level Directions to Meet Your Goals Take your medications as prescribed Follow your dietary instruction Follow activity as directed Keep your appointments as scheduled Take your immunizations and boosters as scheduled If your symptoms worsen call your PCP, if no PCP go to Urgent Care Center or Emergency Room Smoking is Dangerous to Your Health. Avoid second hand smoke Call the 24-hour hour crisis hotline for domestic abuse at Nadira Em PA-C Jan 07, 2018 09:58
[2018-01-07] MEDS ORDERED: HYDR-3580 PO (09:59)
[2018-01-07] MEDS ORDERED: LEVEMIR SQ ×2 (10:11)
[2018-01-07] MEDS ORDERED: INSU1MIS15 (10:11)
[2018-01-07] MEDS ORDERED: NOVOLOGP2 SQ (10:11)
[2018-01-07] MEDS ORDERED: LANCETS1 MI1 (10:11)
[2018-01-07] MEDS ORDERED: GLUCTES12 (10:11)
[2018-01-07] MEDS: ACETAMINOPHEN 325 MG TAB PO PRN (10:15)
[2018-01-07] MEDS ORDERED: CIPR-9 PO (11:08)
[2018-01-07] MEDS ORDERED: PANT20 PO (11:18)
[2018-01-07] MEDS ORDERED: REGL5TAB PO (11:18)
[2018-01-07 11:44] VITALS: BP 111/71; PULSE 80; RESP 18; TEMP 98.6; O2SAT 100
--- NOTE | 2018-01-07 12:33 | HHI.PR ---
Subjective Remarks Spoke with Tatyana ER Physician [employer] Machine Operator. Discussed MRI findings. No plan for surgical intervention. Per patient no drainage. Per Tatyana improvement noted. Objective Vital Signs Date Time Temp Pulse Resp B/P (MAP) Pulse Ox O2 Delivery O2 Flow Rate FiO2 01/07/18 11:44 98.6 80 18 111/71 (84) 100 01/07/18 07:30 98.4 78 18 123/74 (90) 99 01/07/18 04:00 98.3 82 16 131/73 (92) 98 01/07/18 00:46 98.2 85 16 111/69 (83) 99 01/06/18 21:35 98.5 95 20 124/70 (88) 99 01/06/18 20:00 85 01/06/18 15:51 97.6 76 18 126/75 (92) 99 I/O 01/06/18 01/06/18 01/06/18 01/07/18 01/07/18 01/07/18 07:00 15:00 23:00 07:00 15:00 23:00 Intake Total 2776.0 ml Output Total 400 ml 600 ml 900 ml Balance 2376.0 ml -600 ml -900 ml IV Total 2776.0 ml Output Urine Total 400 ml 600 ml 900 ml Result Diagram: 01/07/18 0445 01/07/18 0445 Imaging Last Impressions Foot X-Ray 01/05/18 0000 Signed Impressions: Service Date/Time: Friday, January 05, 2018 15:06 - CONCLUSION: Negative Suleiman Lambert MD FACR Other Results Date/Time Source Procedure Growth Status 01/06/18 17:00 Wound Foot Gram Stain - Final Resulted 01/06/18 17:00 Wound Foot Wound Culture Pending Resulted Medications and IVs Current Medications Medications (Trade) Dose Ordered Sig/Brandy Route Start Time Stop Time Status Last Admin Sodium Chloride 1,000 ml @ 100 mls/hr Q10H IV 01/05/18 18:00 01/07/18 00:00 (Tylenol) 650 mg Q4H PRN PO 01/05/18 17:00 01/07/18 10:15 (Zofran Inj) 4 mg Q6H PRN IVP 01/05/18 17:00 (Heparin Inj) 5,000 units Q8H SQ 01/05/18 22:00 01/06/18 14:22 ([place] 5-325 Mg) 1 tab Q4H PRN PO 01/05/18 17:00 ([place] 7.5-325 Mg) 1 tab Q4H PRN PO 01/05/18 17:00 01/06/18 22:11 (Morphine Inj) 3 mg Q3H PRN IV 01/05/18 18:30 (Narcan Inj) 0.4 mg UNSCH PRN IV PUSH 01/05/18 17:00 (Rosanna-Colace) 1 tab BID PO 01/05/18 21:00 (Milk Of Magnesia Liq) 30 ml Q12H PRN PO 01/05/18 17:00 (Senokot) 17.2 mg Q12H PRN PO 01/05/18 17:00 Piperacillin Sod/ Tazobactam Sod 100 ml @ 200 mls/hr Q6H IV 01/05/18 22:00 01/07/18 10:30 Vancomycin HCl 1150 mg/Sodium Chloride 261.5 ml @ 250 mls/hr Q12H IV 01/06/18 05:00 01/07/18 04:35 (NovoLOG SUPPLEMENTAL SCALE) 1 ACHS SLIDING SCALE SQ 01/05/18 17:00 01/07/18 09:04 (Glucagon Inj) 1 mg UNSCH PRN OTHER 01/05/18 17:00 (D50w (Vial) Inj) 50 ml UNSCH PRN IV PUSH 01/05/18 17:00 (Levemir Inj) 25 units AC BREAKFAST SQ 01/06/18 07:00 01/07/18 08:57 (Protonix) 20 mg DAILY PO 01/06/18 09:00 01/07/18 08:58 (Reglan) 5 mg QID PO 01/06/18 09:00 01/07/18 12:28 (NS Flush) 2 ml BID IV FLUSH 01/06/18 09:00 01/07/18 08:58 (NS Flush) 2 ml UNSCH PRN IV FLUSH 01/06/18 01:30 (Levemir Inj) 20 units HS SQ 01/06/18 21:00 01/06/18 22:02 Assessment and Plan Problem List: (1) Nail wound of left foot ICD Codes: S91.332A - Puncture wound without foreign body, left foot, initial encounter Assessment and Plan 32-year-old man with left foot infection secondary to nail going through foot Follow up in office within 1 week of discharge Ok to DC per podiatry Discussed with Tatyana Tight glucose control recommended Oral abx Problem Qualifiers (1) Nail wound of left foot: Qualified Codes: S91.332A - Puncture wound without foreign body, left foot, initial encounter Caren Bess DPM Jan 07, 2018 12:33
[2018-01-10 21:56] LABS: HEMOGLOBIN A1C 9.7 % (4.3-6.0)
== END 2018-01-07 14:34 | disposition home or self-care (01) ==
LOC: NEPE 12:14 → NEDA 16:43 → NEPFCDU 19:41
PROVIDERS: ADMIT Hospitalist; ATTEND Hospitalist
DX: L08.9 Local infection of the skin and subcutaneous tissue, unspecified (principal); S91.332A Puncture wound without foreign body, left foot, initial encounter; E10.43 Type 1 diabetes mellitus with diabetic autonomic (poly)neuropathy; K31.84 Gastroparesis; E10.22 Type 1 diabetes mellitus with diabetic chronic kidney disease; N18.3 Chronic kidney disease, stage 3 (moderate); E10.65 Type 1 diabetes mellitus with hyperglycemia; N17.9 Acute kidney failure, unspecified; F41.9 Anxiety disorder, unspecified; F32.9 Major depressive disorder, single episode, unspecified; F12.90 Cannabis use, unspecified, uncomplicated; Z79.899 Other long term (current) drug therapy; W45.0XXA Nail entering through skin, initial encounter
CPT/HCPCS: 73620; 73720; 80048; 80053; 82550; 82948; 83036; 83605; 83735; 84484; 85025; 85652; 86140; 86403; 87040; 87070; 87205; 93005; 96361; 96365; 96366; 96372; 96375; 96376; 97166; 99285; A9579; G0378; J1644; J1815; J1885; J2543; J3370; J7030; J7050

== ENCOUNTER 2018-01-17 17:49 | Emergency (ER) | payer OTHER ==
[~2018-01-17] VITALS: Ht 180.3 cm; Wt 77.0 kg
[~2018-01-17 17:49] MED LIST changes: -BACT800T5 PO; +CLIN150C14 PO; +GLUCTES12; -GLUCTES27; +HYDR-3580 PO; +INSU1MIS15; +LANCETS1 MI1; -REGL10TA5 PO; -ZOFR4TAB3 SL
[2018-01-17 19:22] VITALS: BP 113/83; PULSE 121; RESP 25; TEMP 98.8; O2SAT 96
[2018-01-17] MEDS ORDERED: ONDANSETRON HCL 4 MG/2 ML VIAL IV PUSH ONE (22:15)
[2018-01-17] MEDS ORDERED: SODIUM CHLOR 0.9% 1000 ML INJ 1,000 ML IV ONE ×2 (22:15)
[2018-01-17 22:33] VITALS: RESP 15; O2SAT 98
[2018-01-17 23:00] LABS: AUTOMATED NEUTROPHIL # 7.3 TH/MM3 (1.8-7.7); BASOPHIL # 0.1 TH/MM3 (0-0.2); BASOPHIL % 0.6 % (0.0-2.0); EOSINOPHIL # 0.1 TH/MM3 (0-0.4); HEMATOCRIT 41.4 % (39.0-51.0); HEMOGLOBIN 14.4 GM/DL (13.0-17.0); LYMPH % 29.5 % (9.0-44.0); LYMPHOCYTE # 3.6 TH/MM3 (1.0-4.8); MEAN CELL VOLUME 85.5 FL (80.0-100.0); MEAN CORPUSCULAR HEMOGLOBIN 29.8 PG (27.0-34.0); MEAN CORPUSCULAR HGB CONC 34.8 % (32.0-36.0); MONO % 8.6 % (0.0-8.0); NEUT % 60.3 % (16.0-70.0); PLATELET COUNT 477 TH/MM3 (150-450); RED BLOOD COUNT 4.84 MIL/MM3 (4.50-5.90); RED CELL DISTRIBUTION WIDTH 13.1 % (11.6-17.2); WHITE BLOOD COUNT 12.1 TH/MM3 (4.0-11.0)
--- NOTE | 2018-01-17 23:01 | PD ---
HPI Chief Complaint: GI Complaint Time Seen by Provider: 22:02 Travel History International Travel<30 days: No Contact w/Intl Traveler<30days: No Traveled to known affect area: No History of Present Illness HPI Patient is a 32-year-old male presents emergency department for evaluation of nausea vomiting in generalized abdominal achiness. Patient thinks that he is in DKA and has been in the past. Patient states he recently stepped on a nail and is taking antibiotics at home for this. Denies any active infection but states is prophylactic. Denies any fevers endorses nausea with nonbilious nonbloody vomiting, no diarrhea. States symptoms started yesterday, gradually worsening, context as above, associated signs and symptoms as above. PFSH Past Medical History Arthritis: No Asthma: No Autoimmune Disease: No Blood Disorders: No Anxiety: Yes Depression: Yes Heart Rhythm Problems: No Cancer: No Cardiovascular Problems: No High Cholesterol: No Chest Pain: No Congestive Heart Failure: No COPD: No Cerebrovascular Accident: No Diabetes: Yes Patient Takes Glucophage: Yes Diminished Hearing: No Endocrine: Yes Gastrointestinal Disorders: Yes (Gastroparesis) GERD: No Genitourinary: No Headaches: Yes Hiatal Hernia: No Heparin Induced Thrombocytopen: No Herniated Disk: Yes (2 DISCS IN BACK AND 2 IN NECK 2o TO FDC) Hypertension: No Immune Disorder: No Implanted Vascular Access Dvce: No Kidney Stones: No Musculoskeletal: No Neurologic: Yes (NEUROPATHY) Psychiatric: Yes (PTSD) Reproductive: No Respiratory: No Immunizations Current: Yes Migraines: No Renal Failure: No Seizures: No Sickle Cell Disease: No Sleep Apnea: No Thyroid Disease: No Ulcer: No Tetanus Vaccination: < 5 Years Influenza Vaccination: Yes PNEUMOCCOCAL Vaccine (Year): 1 Past Surgical History Abdominal Surgery: No Cardiac Surgery: No Ear Surgery: No Endocrine Surgery: No Eye Surgery: No Genitourinary Surgery: No Gynecologic Surgery: No Neurologic Surgery: No Oral Surgery: No Pacemaker: No Thoracic Surgery: No Other Surgery: Yes (Inguinal hernia repair) Social History Alcohol Use: No Tobacco Use: No Substance Use: Yes (OCCASIONAL MARIJUANA) Allergies-Medications (Allergen,Severity, Reaction): Coded Allergies: No Known Allergies (Verified Adverse Reaction, Unknown, 01/05/18) Reported Meds & Prescriptions Reported Meds & Active Scripts Active Zofran (Ondansetron HCl) 4 Mg Tab 4 Mg PO Q6HR PRN Reglan (Metoclopramide HCl) 5 Mg Tab 5 Mg PO QID Protonix (Pantoprazole Sodium) 20 Mg Tab 20 Mg PO DAILY Cipro (Ciprofloxacin HCl) 500 Mg Tab 500 Mg PO BID 5 Days Glucocom Test Strips (Blood Glucose Test Strips) 1 Zuri Zuri Ea .XX DIRECTED Lancets 1 Mis Mis Ea .XX DIRECTED Insulin Syringe/U-100/31G X 5/16" 1 ml 31 Gauge X 5/16" Mis Ea .XX DIRECTED Levemir Inj (Insulin Detemir) 1,000 unit/ 10 ML Vial 20 Units SQ HS 30 Days Do not mix with any other Insulin. Levemir Inj (Insulin Detemir) 1,000 unit/ 10 ML Vial 25 Units SQ AC BREAKFAST 30 Days Do not mix with any other Insulin. Novolog Inj (Insulin Aspart) 1,000 Unit/10 Ml Vial 0 SQ DIRECTED Sliding Scale as directed. Hydrocodone-Acetamin 7.5-325 (Hydrocodone/Acetaminophen) 7.5 Mg-325 Mg Tablet 1 Tab PO Q12HR PRN Clindamycin (Clindamycin HCl) 150 Mg Cap 300 Mg PO Q6H 10 Days Review of Systems Except as stated in HPI: all other systems reviewed are Neg Physical Exam Narrative GENERAL: Well-developed, well-nourished, uncomfortable appearance but nontoxic appearance. SKIN: Focused skin assessment warm/dry. There is a small puncture wound on the plantar surface of his left foot, clean dry and intact, no swelling no erythema no discharge. No bony tenderness. HEAD: Atraumatic. Normocephalic. EYES: Pupils equal and round. No scleral icterus. No injection or drainage. ENT: No nasal bleeding or discharge. Mucous membranes pink and moist. NECK: Trachea midline. No JVD. CARDIOVASCULAR: Regular rate and rhythm. No murmur appreciated. RESPIRATORY: No accessory muscle use. Clear to auscultation. Breath sounds equal bilaterally. GASTROINTESTINAL: Abdomen soft, non-tender, nondistended. Hepatic and splenic margins not palpable. MUSCULOSKELETAL: No obvious deformities. No clubbing. No cyanosis. No edema. NEUROLOGICAL: Awake and alert. No obvious cranial nerve deficits. Motor grossly within normal limits. Normal speech. PSYCHIATRIC: Appropriate mood and affect; insight and judgment normal. Data Data Last Documented VS Vital Signs Date Time Temp Pulse Resp B/P (MAP) Pulse Ox O2 Delivery O2 Flow Rate FiO2 01/17/18 22:33 15 98 Room Air 01/17/18 19:22 98.8 121 113/83 (93) Orders Orders Complete Blood Count With Diff (01/17/18 19:35) Blood Glucose (01/17/18 19:35) Comprehensive Metabolic Panel (01/17/18 19:35) Iv Access Insert/Monitor (01/17/18 19:35) Oxygen Administration (01/17/18 19:35) Oximetry (01/17/18 19:35) Lipase (01/17/18 19:35) Sodium Chlor 0.9% 1000 Ml Inj (Ns 1000 M (01/17/18 22:15) Sodium Chlor 0.9% 1000 Ml Inj (Ns 1000 M (01/17/18 22:15) Ondansetron Inj (Zofran Inj) (01/17/18 22:15) Abdomen, Kub Only (01/17/18 ) Basic Metabolic Panel (Bmp) (01/18/18 01:40) Dextrose 50% In Darius (Syr) Inj (D50w (Syr (01/18/18 02:30) Ed Discharge Order (01/18/18 05:47) Labs Laboratory Tests Test 01/17/18 22:30 01/18/18 01:50 White Blood Count 12.1 TH/MM3 Red Blood Count 4.84 MIL/MM3 Hemoglobin 14.4 GM/DL Hematocrit 41.4 % Mean Corpuscular Volume 85.5 FL Mean Corpuscular Hemoglobin 29.8 PG Mean Corpuscular Hemoglobin Concent 34.8 % Red Cell Distribution Width 13.1 % Platelet Count 477 TH/MM3 Mean Platelet Volume 7.0 FL Neutrophils (%) (Auto) 60.3 % Lymphocytes (%) (Auto) 29.5 % Monocytes (%) (Auto) 8.6 % Eosinophils (%) (Auto) 1.0 % Basophils (%) (Auto) 0.6 % Neutrophils # (Auto) 7.3 TH/MM3 Lymphocytes # (Auto) 3.6 TH/MM3 Monocytes # (Auto) 1.0 TH/MM3 Eosinophils # (Auto) 0.1 TH/MM3 Basophils # (Auto) 0.1 TH/MM3 CBC Comment DIFF FINAL Differential Comment Blood Urea Nitrogen 50 MG/DL 43 MG/DL Creatinine 1.90 MG/DL 1.64 MG/DL Random Glucose 68 MG/DL 48 MG/DL Total Protein 9.0 GM/DL Albumin 3.9 GM/DL Calcium Level 9.5 MG/DL 8.4 MG/DL Alkaline Phosphatase 98 U/L Aspartate Amino Transf (AST/SGOT) 21 U/L Alanine Aminotransferase (ALT/SGPT) 16 U/L Total Bilirubin 0.5 MG/DL Sodium Level 131 MEQ/L 135 MEQ/L Potassium Level 3.2 MEQ/L 3.1 MEQ/L Chloride Level 85 MEQ/L 94 MEQ/L Carbon Dioxide Level 35.8 MEQ/L 32.5 MEQ/L Anion Gap 10 MEQ/L 9 MEQ/L Estimat Glomerular Filtration Rate 41 ML/MIN 49 ML/MIN Lipase 99 U/L MDM Medical Decision Making Medical Screen Exam Complete: Yes Emergency Medical Condition: Yes Differential Diagnosis Antibiotic induced nausea and vomiting, DKA, gastritis, gastroparesis, dehydration, acute kidney injury per Narrative Course Patient room to the emergency department, basic labs show what appears to be a contraction alkalosis, mild acute kidney injury with a creatinine of 1.9 though his creatinine has been quite variable in the past. After 2 L normal saline the labs rechecked and are responding nicely. Patient was given Zofran, he also had to be given some D50 but has never had any altered mental status while in the emergency department. His low sugar was 44, was observed for some time after tolerating a p.o. meal and his sugar was rechecked twice and is not had continued hypoglycemia. H he has ambulated to the bathroom, he is beginning to feel better but certainly not 100%. Discussed with him continued p.o. aggressive hydration at home, discussed with him that at this point I think he should avoid the antibiotics were prescribed to him, we did discuss an increased risk of infection without prophylactic antibiotics but certainly it is possibility that the antibiotics have triggered this episode. Discussed with him need for follow-up with a primary care physician, discussed return to ED criteria. He is stable for discharge. Diagnosis Primary Impression: Dehydration Additional Impression: Nausea & vomiting Med/Other Pt SpecificInfo: Prescription(s) given Scripts Ondansetron (Zofran) 4 Mg Tab 4 MG PO Q6HR Y for NAUSEA OR VOMITING, #20 TAB 0 Refills Prov: Feliz Suresh MD 01/18/18 Disposition: 01 DISCHARGE HOME Condition: Stable Feliz Suresh MD Jan 17, 2018 23:01
[2018-01-17 23:12] LABS: ALBUMIN 3.9 GM/DL (3.4-5.0); ALT (GPT) 16 U/L (12-78); AST (GOT) 21 U/L (15-37); BICARBONATE 35.8 MEQ/L (21.0-32.0); BLOOD UREA NITROGEN 50 MG/DL (7-18); CALCIUM 9.5 MG/DL (8.5-10.1); CHLORIDE 85 MEQ/L (98-107); GLUCOSE,RANDOM 68 MG/DL (74-106); SODIUM (NA) 131 MEQ/L (136-145)
[2018-01-17 23:14] LABS: ALKALINE PHOSPHATASE 98 U/L (45-117); GLOMERULAR FILTRATION RATE 41 ML/MIN (>89); TOTAL BILIRUBIN ADULT 0.5 MG/DL (0.2-1.0)
--- NOTE | 2018-01-18 00:24 | RADRPT ---
EXAM DATE/TIME: 01/18/2018 00:03 [facility] COMPARISON: No previous studies available for comparison. INDICATIONS : Vomiting, abdominal pain starting today MEDICAL HISTORY : Diabetes mellitus type 1. Gastroparesis SURGICAL HISTORY : None. ENCOUNTER: Initial ACUITY: 1 day PAIN SCORE: 10/10 LOCATION: Bilateral abdomen FINDINGS: Supine view of the abdomen was performed. The abdominal bowel gas pattern is normal. No abnormal ma sses, calcifications, or organomegaly is seen. The osseous structures are unremarkable. CONCLUSION: Normal examination. Narinder Shelton MD on January 18, 2018 at 0:21 Board Certified Radiologist. This report was verified electronically.
[2018-01-18 02:14] LABS: BICARBONATE 32.5 MEQ/L (21.0-32.0); CALCIUM 8.4 MG/DL (8.5-10.1); CREATININE 1.64 MG/DL (0.60-1.30)
[2018-01-18] MEDS ORDERED: DEXTROSE 50% IN WATER 50 ML SYRINGE IV PUSH ONE (02:30)
[2018-01-18] MEDS ORDERED: ZOFR4TAB PO (05:46)
== END 2018-01-18 06:27 | disposition home or self-care (01) ==
LOC: NEPE 17:49
DX: E86.0 Dehydration (principal); E11.43 Type 2 diabetes mellitus with diabetic autonomic (poly)neuropathy; K31.84 Gastroparesis; F12.90 Cannabis use, unspecified, uncomplicated; Z79.4 Long term (current) use of insulin
CPT/HCPCS: 74018; 80048; 80053; 83690; 85025; 96361; 96374; 96375; 99284; J2405; J7030

== ENCOUNTER 2018-02-14 12:19 | Observation (INO) | payer OTHER ==
[~2018-02-14] VITALS: Ht 180.3 cm; Wt 73.4 kg
[~2018-02-14 12:19] MED LIST changes: +ZOFR4TAB PO
[2018-02-14 12:23] VITALS: BP 123/74; PULSE 138; RESP 22; TEMP 98.5; O2SAT 98
[2018-02-14] MEDS ORDERED: SODIUM CHLOR 0.9% 1000 ML INJ 1,000 ML IV ONE ×4 (12:29→17:00)
[2018-02-14] MEDS ORDERED: SODIUM CHLORIDE 0.9% FLUSH 10 ML FLUSH IVF PRN (12:30)
--- NOTE | 2018-02-14 12:36 | PD ---
HPI Chief Complaint: Diabetic Time Seen by Provider: 12:29 Travel History International Travel<30 days: No Contact w/Intl Traveler<30days: No Traveled to known affect area: No History of Present Illness HPI 32-year-old male states he has been having nonbloody emesis over the past couple of days. He states he feels like he is either in DKA or his gastroparesis is acting up. He states that he is not having any other concurrent complaints at this time but he cannot keep any of his home medications down. He states that he has Protonix and Reglan at home. Quality is nonbloody. Severity is multiple episodes. Duration is 2 days. He denies specific modifying factors. PFSH Past Medical History Arthritis: No Asthma: No Autoimmune Disease: No Blood Disorders: No Anxiety: Yes Depression: Yes Heart Rhythm Problems: No Cancer: No Cardiovascular Problems: No High Cholesterol: No Chest Pain: No Congestive Heart Failure: No COPD: No Cerebrovascular Accident: No Diabetes: Yes Diminished Hearing: No Endocrine: Yes Gastrointestinal Disorders: Yes (Gastroparesis) GERD: No Genitourinary: No Headaches: Yes Hiatal Hernia: No Heparin Induced Thrombocytopen: No Herniated Disk: Yes (2 DISCS IN BACK AND 2 IN NECK 2o TO SHELTER) Hypertension: No Immune Disorder: No Implanted Vascular Access Dvce: No Kidney Stones: No Musculoskeletal: No Neurologic: Yes (NEUROPATHY) Psychiatric: Yes (PTSD) Reproductive: No Respiratory: No Immunizations Current: Yes Migraines: No Renal Failure: No Seizures: No Sickle Cell Disease: No Sleep Apnea: No Thyroid Disease: No Ulcer: No PNEUMOCCOCAL Vaccine (Year): 1 Past Surgical History Abdominal Surgery: No Cardiac Surgery: No Ear Surgery: No Endocrine Surgery: No Eye Surgery: No Genitourinary Surgery: No Gynecologic Surgery: No Neurologic Surgery: No Oral Surgery: No Pacemaker: No Thoracic Surgery: No Other Surgery: Yes (Inguinal hernia repair) Social History Alcohol Use: No Tobacco Use: No Substance Use: Yes (OCCASIONAL MARIJUANA) Allergies-Medications (Allergen,Severity, Reaction): Coded Allergies: No Known Allergies (Verified Adverse Reaction, Unknown, 01/05/18) Reported Meds & Prescriptions Reported Meds & Active Scripts Active Zofran (Ondansetron HCl) 4 Mg Tab 4 Mg PO Q6HR PRN Reglan (Metoclopramide HCl) 5 Mg Tab 5 Mg PO QID Protonix (Pantoprazole Sodium) 20 Mg Tab 20 Mg PO DAILY Levemir Inj (Insulin Detemir) 1,000 unit/ 10 ML Vial 20 Units SQ HS 30 Days Do not mix with any other Insulin. Levemir Inj (Insulin Detemir) 1,000 unit/ 10 ML Vial 25 Units SQ AC BREAKFAST 30 Days Do not mix with any other Insulin. Novolog Inj (Insulin Aspart) 1,000 Unit/10 Ml Vial 0 SQ DIRECTED Sliding Scale as directed. Hydrocodone-Acetamin 7.5-325 (Hydrocodone/Acetaminophen) 7.5 Mg-325 Mg Tablet 1 Tab PO Q12HR PRN Review of Systems Except as stated in HPI: all other systems reviewed are Neg Physical Exam Narrative GENERAL: 32 y/o male in no apparent distress SKIN: Focused skin assessment warm/dry. HEAD: Atraumatic. Normocephalic. EYES: Pupils equal and round. No scleral icterus. No injection or drainage. ENT: No nasal bleeding or discharge. Mucous membranes pink and moist. NECK: Trachea midline. CARDIOVASCULAR: Regular rate and rhythm. No murmur appreciated. RESPIRATORY: No accessory muscle use. Clear to auscultation. Breath sounds equal bilaterally. GASTROINTESTINAL: Abdomen soft, mild ttp in epigastric area, nondistended MUSCULOSKELETAL: No obvious deformities. No clubbing. No cyanosis. NEUROLOGICAL: Awake and alert. moves all extremities. Normal speech. PSYCHIATRIC: Appropriate mood and affect; insight and judgment normal. Data Data Last Documented VS Vital Signs Date Time Temp Pulse Resp B/P (MAP) Pulse Ox O2 Delivery O2 Flow Rate FiO2 02/14/18 14:37 98 18 105/80 (88) 99 Room Air 02/14/18 12:23 98.5 Orders Orders Complete Blood Count With Diff (02/14/18 12:29) Comprehensive Metabolic Panel (02/14/18 12:29) Magnesium (Mg) (02/14/18 12:29) Phosphorus (Po4) (02/14/18 12:29) Beta Hydroxybutyrate (Acetone) (02/14/18 12:29) Urinalysis - C+S If Indicated (02/14/18 12:29) Blood Glucose (02/14/18 12:29) Ecg Monitoring (02/14/18 12:29) Iv Access Insert/Monitor (02/14/18 12:29) Oximetry (02/14/18 12:29) NPO (02/14/18 12:29) Sodium Chlor 0.9% 1000 Ml Inj (Ns 1000 M (02/14/18 12:29) Sodium Chlor 0.9% 1000 Ml Inj (Ns 1000 M (02/14/18 12:59) Sodium Chloride 0.9% Flush (Ns Flush) (02/14/18 12:30) Blood Gas Venous (Vbg) (02/14/18 12:29) Pantoprazole Inj (Protonix Inj) (02/14/18 12:45) Metoclopramide Inj (Reglan Inj) (02/14/18 12:45) Sodium Chlor 0.9% 1000 Ml Inj (Ns 1000 M (02/14/18 15:15) Sodium Chlor 0.9% 1000 Ml Inj (Ns 1000 M (02/14/18 17:00) Basic Metabolic Panel (Bmp) (02/14/18 17:30) Admit Order (Ed Use Only) (02/14/18 18:01) Labs Laboratory Tests Test 02/14/18 12:45 02/14/18 12:48 02/14/18 13:50 White Blood Count 11.2 TH/MM3 Red Blood Count 4.85 MIL/MM3 Hemoglobin 14.6 GM/DL Hematocrit 40.8 % Mean Corpuscular Volume 84.0 FL Mean Corpuscular Hemoglobin 30.0 PG Mean Corpuscular Hemoglobin Concent 35.7 % Red Cell Distribution Width 13.4 % Platelet Count 438 TH/MM3 Mean Platelet Volume 7.0 FL Neutrophils (%) (Auto) 68.2 % Lymphocytes (%) (Auto) 24.5 % Monocytes (%) (Auto) 6.4 % Eosinophils (%) (Auto) 0.4 % Basophils (%) (Auto) 0.5 % Neutrophils # (Auto) 7.6 TH/MM3 Lymphocytes # (Auto) 2.7 TH/MM3 Monocytes # (Auto) 0.7 TH/MM3 Eosinophils # (Auto) 0.1 TH/MM3 Basophils # (Auto) 0.1 TH/MM3 CBC Comment DIFF FINAL Differential Comment Blood Gas Puncture Site IV SITE Blood Gas Patient Temperature 98.6 Venous Blood pH 7.48 Venous Blood Partial Pressure CO2 47 mmHg Venous Blood Partial Pressure O2 53 mmHg Venous Blood HCO3 34 mmol/L Venous Blood Oxygen Saturation 87 % Venous Blood Oxygen Content 18.1 Vol % Venous Blood Base Excess 10.1 mmol/L Blood Urea Nitrogen 34 MG/DL Creatinine 1.85 MG/DL Random Glucose 311 MG/DL Total Protein 6.8 GM/DL Albumin 3.2 GM/DL Calcium Level 8.4 MG/DL Phosphorus Level 4.6 MG/DL Magnesium Level 2.2 MG/DL Alkaline Phosphatase 87 U/L Aspartate Amino Transf (AST/SGOT) 14 U/L Alanine Aminotransferase (ALT/SGPT) 15 U/L Total Bilirubin 0.6 MG/DL Sodium Level 133 MEQ/L Potassium Level 3.4 MEQ/L Chloride Level 89 MEQ/L Carbon Dioxide Level 31.7 MEQ/L Anion Gap 12 MEQ/L Estimat Glomerular Filtration Rate 42 ML/MIN B-Hydroxybutyrate 2.75 MMOL/L [facility] Medical Decision Making Medical Screen Exam Complete: Yes Emergency Medical Condition: Yes Medical Record Reviewed: Yes (pmh confirmed) Interpretation(s) CBC & BMP Diagram 02/14/18 12:45 02/14/18 13:50 Total Protein 6.8, Albumin 3.2 L, Calcium Level 8.4 L, Phosphorus Level 4.6, Magnesium Level 2.2, Alkaline Phosphatase 87, Aspartate Amino Transf (AST/SGOT) 14 L, Alanine Aminotransferase (ALT/SGPT) 15, Total Bilirubin 0.6 Differential Diagnosis DKA, gastroparesis, renal failure, electrolyte abnormality Narrative Course We will check blood work, urinalysis and dose with IV fluids, Reglan, Protonix and reevaluate Patient has had 4 L of fluid and still does not feel like he needs to urinate. Given this and renal insufficiency will place in observation for further monitoring. Physician Communication Physician Communication dr deleon agrees to observation Diagnosis Primary Impression: GALA (acute kidney injury) Additional Impression: Nausea & vomiting Qualified Codes: R11.2 - Nausea with vomiting, unspecified Admitting Information Admitting Physician Requests: Observation Nishi Capps MD February 14, 2018 12:36
[2018-02-14] MEDS ORDERED: METOCLOPRAMIDE HCL 10 MG/2 ML VIAL IV PUSH ONE (12:45)
[2018-02-14] MEDS ORDERED: PANTOPRAZOLE SODIUM 40 MG VIAL IV PUSH ONE (12:45)
[2018-02-14 12:56] VITALS: O2SAT 99
[2018-02-14 13:02] LABS: AUTOMATED NEUTROPHIL # 7.6 TH/MM3 (1.8-7.7); BASOPHIL # 0.1 TH/MM3 (0-0.2); BASOPHIL % 0.5 % (0.0-2.0); EOSINOPHIL # 0.1 TH/MM3 (0-0.4); EOSINOPHIL % 0.4 % (0.0-4.0); HEMATOCRIT 40.8 % (39.0-51.0); HEMOGLOBIN 14.6 GM/DL (13.0-17.0); LYMPH % 24.5 % (9.0-44.0); LYMPHOCYTE # 2.7 TH/MM3 (1.0-4.8); MEAN CORPUSCULAR HGB CONC 35.7 % (32.0-36.0); MONO % 6.4 % (0.0-8.0); MONOCYTE # 0.7 TH/MM3 (0-0.9); NEUT % 68.2 % (16.0-70.0); PLATELET COUNT 438 TH/MM3 (150-450); RED BLOOD COUNT 4.85 MIL/MM3 (4.50-5.90); RED CELL DISTRIBUTION WIDTH 13.4 % (11.6-17.2); WHITE BLOOD COUNT 11.2 TH/MM3 (4.0-11.0)
[2018-02-14 13:12] VITALS: BP 115/68; PULSE 114; RESP 20; O2SAT 98
[2018-02-14 14:23] LABS: ALBUMIN 3.2 GM/DL (3.4-5.0); AST (GOT) 14 U/L (15-37); BICARBONATE 31.7 MEQ/L (21.0-32.0); BLOOD UREA NITROGEN 34 MG/DL (7-18); CALCIUM 8.4 MG/DL (8.5-10.1); CHLORIDE 89 MEQ/L (98-107); CREATININE 1.85 MG/DL (0.60-1.30); GLOMERULAR FILTRATION RATE 42 ML/MIN (>89); GLUCOSE,RANDOM 311 MG/DL (74-106); MAGNESIUM 2.2 MG/DL (1.5-2.5); SODIUM (NA) 133 MEQ/L (136-145)
[2018-02-14 14:27] LABS: ALKALINE PHOSPHATASE 87 U/L (45-117); ALT (GPT) 15 U/L (12-78); PHOSPHORUS 4.6 MG/DL (2.5-4.9); TOTAL BILIRUBIN ADULT 0.6 MG/DL (0.2-1.0); TOTAL PROTEIN 6.8 GM/DL (6.4-8.2)
[2018-02-14 14:37] VITALS: BP 105/80; PULSE 98; RESP 18; O2SAT 99
[2018-02-14] MEDS ORDERED: NALOXONE HCL 0.4 MG/ML AMP IV PUSH PRN (18:15)
[2018-02-14 18:43] LABS: BILIRUBIN, URINE NEG (NEG); BLOOD, URINE NEG (NEG); GLUCOSE,URINE 1000 mg/dL (NEG); HYALINE CAST, URINE 28 /lpf (RARE); KETONE, URINE 80 mg/dL (NEG); NITRITE,URINE NEG (NEG); URINE COLOR YELLOW (YELLW/STRAW); URINE LEUKOCYTE ESTERASE NEG (NEG)
[2018-02-14 18:44] VITALS: BP 118/72
[2018-02-14 20:00] VITALS: BP 140/83; PULSE 79; PULSE 83; RESP 18; TEMP 97.5; O2SAT 99
[2018-02-14] MEDS: SODIUM CHLOR 0.9% 1000 ML INJ 1,000 ML IV SCH (20:27)
[2018-02-15] VITALS: BP 134/73; PULSE 100; PULSE 89; RESP 17; TEMP 98.3; O2SAT 97
[2018-02-15 00:12] LABS: BICARBONATE 31.4 MEQ/L (21.0-32.0); CALCIUM 7.8 MG/DL (8.5-10.1); CREATININE 1.57 MG/DL (0.60-1.30)
[2018-02-15] MEDS ORDERED: DEXTROSE 50% IN WATER 50 ML VIAL(D50) IV PUSH PRN ×2 (00:45→10:30)
[2018-02-15] MEDS ORDERED: ACETAMINOPHEN/HYDROcodone 325 MG/7.5 MG TAB PO PRN (00:45)
[2018-02-15] MEDS ORDERED: ONDANSETRON HCL 4 MG/2 ML VIAL IV PUSH PRN (00:45)
[2018-02-15] MEDS ORDERED: GLUCAGON 1 MG/ML VIAL OTHER PRN ×2 (00:45→10:30)
--- NOTE | 2018-02-15 00:53 | HHI.HP ---
[facility] No Primary Care Physician Admission Diagnosis Renal insufficiency, vomiting, gastroparesis Diagnoses: Travel History International Travel<30 Days: No Contact w/Intl Traveler <30 Da: No Traveled to Known Affected Are: No History of Present Illness 32-year-old male with a past medical history significant for type 1 diabetes mellitus, gastroparesis and neuropathy presents to the emergency department for evaluation of emesis. The patient has had emesis since Monday and has a history of gastroparesis. He reports compliance with his medications including Reglan. He is also hyperglycemic and states that he last took his insulin earlier yesterday but had not been able to take it as scheduled because of his emesis. Patient also complains of the tooth pain. He states he has an exposed root and is planning on getting an extracted once he has the money for it. He denies any chest pain or shortness of breath. No fever/chills. No abdominal pain or diarrhea. No fatigue or weakness. No lateralizing signs/symptoms. Review of Systems Except as stated in HPI: all other systems reviewed are Neg Past Family Social History Past Medical History Diabetes mellitus Gastroparesis Neuropathy Past Surgical History Reported Meds & Active Scripts Active Zofran (Ondansetron HCl) 4 Mg Tab 4 Mg PO Q6HR PRN Reglan (Metoclopramide HCl) 5 Mg Tab 5 Mg PO QID Protonix (Pantoprazole Sodium) 20 Mg Tab 20 Mg PO DAILY Levemir Inj (Insulin Detemir) 1,000 unit/ 10 ML Vial 20 Units SQ HS 30 Days Do not mix with any other Insulin. Levemir Inj (Insulin Detemir) 1,000 unit/ 10 ML Vial 25 Units SQ AC BREAKFAST 30 Days Do not mix with any other Insulin. Novolog Inj (Insulin Aspart) 1,000 Unit/10 Ml Vial 0 SQ DIRECTED Sliding Scale as directed. Hydrocodone-Acetamin 7.5-325 (Hydrocodone/Acetaminophen) 7.5 Mg-325 Mg Tablet 1 Tab PO Q12HR PRN Allergies: Coded Allergies: No Known Allergies (Verified Adverse Reaction, Unknown, 01/05/18) Family History Negative for CAD/DM Social History Positive marijuana. Denies tobacco, alcohol and other illicit drugs. Physical Exam Vital Signs Vital Signs Date Time Temp Pulse Resp B/P (MAP) Pulse Ox O2 Delivery O2 Flow Rate FiO2 02/14/18 20:00 83 02/14/18 20:00 97.5 79 18 140/83 (102) 99 02/14/18 18:44 72 18 118/72 (87) 98 02/14/18 14:37 98 18 105/80 (88) 99 Room Air 02/14/18 14:37 104 18 99 Room Air 02/14/18 13:12 114 20 115/68 (84) 98 Room Air 02/14/18 12:56 99 Room Air 02/14/18 12:23 98.5 138 22 123/74 (90) 98 Physical Exam GENERAL: male lying in bed SKIN: No rashes, ecchymoses or lesions. Cool and dry. HEAD: Atraumatic. Normocephalic. No temporal or scalp tenderness. EYES: Pupils equal round and reactive. Extraocular motions intact. No scleral icterus. No injection or drainage. ENT: Nose without bleeding, purulent drainage or septal hematoma. Throat without erythema, tonsillar hypertrophy or exudate. Uvula midline. Airway patent. NECK: Trachea midline. No JVD or lymphadenopathy. Supple, nontender, no meningeal signs. CARDIOVASCULAR: Regular rate and rhythm without murmurs, gallops, or rubs. RESPIRATORY: Clear to auscultation. Breath sounds equal bilaterally. No wheezes , rales, or rhonchi. GASTROINTESTINAL: Abdomen soft, non-tender, nondistended. No hepato-splenomegaly , or palpable masses. No guarding. MUSCULOSKELETAL: Extremities without clubbing, cyanosis, or edema. No joint tenderness, effusion, or edema noted. No calf tenderness. NEUROLOGICAL: Awake and alert. Cranial nerves II through XII intact. Motor and sensory grossly within normal limits. Normal speech. Laboratory Laboratory Tests Test 02/14/18 12:45 02/14/18 12:48 02/14/18 13:50 02/14/18 17:45 White Blood Count 11.2 Red Blood Count 4.85 Hemoglobin 14.6 Hematocrit 40.8 Mean Corpuscular Volume 84.0 Mean Corpuscular Hemoglobin 30.0 Mean Corpuscular Hemoglobin Concent 35.7 Red Cell Distribution Width 13.4 Platelet Count 438 Mean Platelet Volume 7.0 Neutrophils (%) (Auto) 68.2 Lymphocytes (%) (Auto) 24.5 Monocytes (%) (Auto) 6.4 Eosinophils (%) (Auto) 0.4 Basophils (%) (Auto) 0.5 Neutrophils # (Auto) 7.6 Lymphocytes # (Auto) 2.7 Monocytes # (Auto) 0.7 Eosinophils # (Auto) 0.1 Basophils # (Auto) 0.1 CBC Comment DIFF FINAL Differential Comment Blood Gas Puncture Site IV SITE Blood Gas Patient Temperature 98.6 Venous Blood pH 7.48 Venous Blood Partial Pressure CO2 47 Venous Blood Partial Pressure O2 53 Venous Blood HCO3 34 Venous Blood Oxygen Saturation 87 Venous Blood Oxygen Content 18.1 Venous Blood Base Excess 10.1 Blood Urea Nitrogen 34 Creatinine 1.85 Random Glucose 311 Total Protein 6.8 Albumin 3.2 Calcium Level 8.4 Phosphorus Level 4.6 Magnesium Level 2.2 Alkaline Phosphatase 87 Aspartate Amino Transf (AST/SGOT) 14 Alanine Aminotransferase (ALT/SGPT) 15 Total Bilirubin 0.6 Sodium Level 133 Potassium Level 3.4 Chloride Level 89 Carbon Dioxide Level 31.7 Anion Gap 12 Estimat Glomerular Filtration Rate 42 B-Hydroxybutyrate 2.75 Urine Color YELLOW Urine Turbidity CLEAR Urine pH 6.0 Urine Specific [place] 1.023 Urine Protein 30 Urine Glucose (UA) 1000 Urine Ketones 80 Urine Occult Blood NEG Urine Nitrite NEG Urine Bilirubin NEG Urine Urobilinogen LESS THAN 2.0 Urine Leukocyte Esterase NEG Urine WBC 1 Urine Hyaline Casts 28 Urine Granular Casts 3 Microscopic Urinalysis Comment CULT NOT INDICATED Test 02/14/18 23:35 Blood Urea Nitrogen 28 Creatinine 1.57 Random Glucose 327 Calcium Level 7.8 Sodium Level 134 Potassium Level 4.0 Chloride Level 96 Carbon Dioxide Level 31.4 Anion Gap 7 Estimat Glomerular Filtration Rate 51 Total Creatine Kinase 46 Result Diagram: 02/14/18 1245 02/14/18 0095 Caprini VTE Risk Assessment Caprini VTE Risk Assessment: No/Low Risk (score <= 1) Caprini Risk Assessment Model Point Value = 1 Point Value = 2 Point Value = 3 Point Value = 5 Age 41-60 Minor surgery BMI > 25 kg/m2 Swollen legs Varicose veins or History of unexplained or recurrent spontaneous Oral contraceptives or hormone replacement Sepsis (< 1 month) Serious lung disease, including pneumonia (< 1 month) Abnormal pulmonary function Acute myocardial infarction Congestive heart failure (< 1 month) History of inflammatory bowel disease Medical patient at bed rest Age 61-74 Arthroscopic surgery Major open surgery (> 45 min) Laparoscopic surgery (> 45 min) Malignancy Confined to bed (> 72 hours) Immobilizing plaster cast Central venous access Age >= 75 History of VTE Family history of VTE Factor V Leiden Prothrombin [id number] Lupus anticoagulant Anticardiolipin antibodies Elevated serum homocysteine Heparin-induced thrombocytopenia Other congenital or acquired thrombophilia Stroke (< 1 month) Elective arthroplasty Hip, pelvis, or leg fracture Acute spinal cord injury (< 1 month) Prophylaxis Regimen Total Risk Factor Score Risk Level Prophylaxis Regimen 0-1 Low Early ambulation 2 Moderate Order ONE of the following: *Sequential Compression Device (SCD) *Heparin 5000 units SQ BID 3-4 Higher Order ONE of the following medications: *Heparin 5000 units SQ TID *Enoxaparin/Lovenox 40 mg SQ daily (WT < 150 kg, CrCl > 30 mL/min) *Enoxaparin/Lovenox 30 mg SQ daily (WT < 150 kg, CrCl > 10-29 mL/min) *Enoxaparin/Lovenox 30 mg SQ BID (WT < 150 kg, CrCl > 30 mL/min) AND/OR *Sequential Compression Device (SCD) 5 or more Highest Order ONE of the following medications: *Heparin 5000 units SQ TID (Preferred with Epidurals) *Enoxaparin/Lovenox 40 mg SQ daily (WT < 150 kg, CrCl > 30 mL/min) *Enoxaparin/Lovenox 30 mg SQ daily (WT < 150 kg, CrCl > 10-29 mL/min) *Enoxaparin/Lovenox 30 mg SQ BID (WT < 150 kg, CrCl > 30 mL/min) AND *Sequential Compression Device (SCD) Assessment and Plan Assessment and Plan Assessment/plan: 1. Gastroparesis/intractable vomiting IV Reglan scheduled Zofran as needed 2. Diabetes mellitus Resume home Levemir Sliding-scale insulin Monitor blood glucose 3. Tooth pain [place] as needed Follow-up outpatient with dentist 4. GALA Creatinine 1.85 Monitor renal function IV fluid hydration FEN Diabetic diet Electrolytes: Monitor and replete as needed NS at 150 cc/hr Tiana Gee MD February 15, 2018 00:53
[2018-02-15] MEDS: METOCLOPRAMIDE HCL 10 MG/2 ML VIAL IV PUSH SCH ×2 (01:18→10:01)
[2018-02-15] MEDS: SODIUM CHLOR 0.9% 1000 ML INJ 1,000 ML IV SCH ×3 (02:40→12:13)
[2018-02-15 04:00] VITALS: BP 140/84; PULSE 68; PULSE 76; RESP 16; TEMP 98.3; O2SAT 97
[2018-02-15] MEDS ORDERED: INSULIN DETEMIR 100 UNITS/ML VIAL SQ SCH ×2 (07:00→21:00)
[2018-02-15 07:21] LABS: BICARBONATE 29.2 MEQ/L (21.0-32.0); CALCIUM 8.1 MG/DL (8.5-10.1); CREATININE 1.56 MG/DL (0.60-1.30)
[2018-02-15 07:58] VITALS: PULSE 65
[2018-02-15 08:00] VITALS: BP_SYST 115; BP_SYST 125; BP_DIAS 67; BP_DIAS 73; PULSE 68; PULSE 78; RESP 14; RESP 16; TEMP 97.8; TEMP 98.1; O2SAT 100; O2SAT 99
[2018-02-15] MEDS ORDERED: INSULIN ASPART SUPPLEMENTAL SCALE SQ SCH ×2 (08:00→12:00)
[2018-02-15] MEDS ORDERED: INSULIN DETEMIR 100 UNITS/ML VIAL SQ ONE (08:45)
[2018-02-15] MEDS ORDERED: PANTOPRAZOLE SOD 20 MG DELAYED RELEASE TAB PO SCH (09:00)
[2018-02-15] MEDS ORDERED: HIGH DOSE INSULIN NOVOLOG SUPPLEMENTAL SCALE SQ SCH (09:05)
[2018-02-15 11:57] VITALS: PULSE 70
[2018-02-15 12:00] VITALS: BP 115/67; PULSE 78; RESP 16; TEMP 97.8; O2SAT 100
--- NOTE | 2018-02-15 13:39 | HHI.PR ---
Subjective Remarks Patient feeling much better today, was able to tolerate regular diet, passing gas and bowel movement she is ready to go home Objective Vitals Vital Signs Date Time Temp Pulse Resp B/P (MAP) Pulse Ox O2 Delivery O2 Flow Rate FiO2 02/15/18 04:00 68 02/15/18 04:00 98.3 76 16 140/84 (102) 97 02/15/18 00:00 100 02/15/18 00:00 98.3 89 17 134/73 (93) 97 02/14/18 20:00 83 02/14/18 20:00 97.5 79 18 140/83 (102) 99 02/14/18 18:44 72 18 118/72 (87) 98 02/14/18 14:37 98 18 105/80 (88) 99 Room Air 02/14/18 14:37 104 18 99 Room Air I/O 02/14/18 02/14/18 02/14/18 02/15/18 02/15/18 02/15/18 07:00 15:00 23:00 07:00 15:00 23:00 Intake Total 2000 ml 1000 ml 1000 ml Output Total 600 ml Balance 2000 ml 1000 ml 400 ml Intake Oral 1000 ml IV Total 2000 ml 1000 ml Output Urine Total 600 ml # Voids 6 # Bowel Movements 2 Result Diagram: 02/14/18 1245 02/15/18 0510 Objective Remarks GENERAL: This is a well-nourished, well-developed patient, in no apparent distress. CARDIOVASCULAR: RRR, no gallops, or rubs. RESPIRATORY: Fair air entry bilaterally. No W, R, or R GASTROINTESTINAL: Abdomen soft, non-tender, nondistended. Positive bowel sounds MUSCULOSKELETAL: Extremities without clubbing, cyanosis, or edema. Pedal pulses appreciated NEUROLOGICAL: Awake and alert. Moves all extremity. Normal speech.no focal neurological deficit A/P Assessment and Plan 1. Gastroparesis/intractable vomiting IV Reglan scheduled switch to p.o. Zofran as needed 2. Diabetes mellitus Resume home Levemir Sliding-scale insulin Monitor blood glucose 3. Tooth pain [place] as needed Follow-up outpatient with dentist 4. GALA Creatinine 1.85 Monitor renal function IV fluid hydration Discharge patient to home Condition on discharge: Improved Regular Diet as tolerated Ad Lyudmila activity Rx written: Reglan p.o. Follow-up with primary care physician in 1 week Nemou,Farmer MD February 15, 2018 13:39
== END 2018-02-15 16:44 | disposition home or self-care (01) ==
LOC: NEPC 12:19 → NEDA 18:02 → N04B 18:35
PROVIDERS: ADMIT Hospitalist; ATTEND Hospitalist
DX: E10.43 Type 1 diabetes mellitus with diabetic autonomic (poly)neuropathy (principal); K31.84 Gastroparesis; E10.65 Type 1 diabetes mellitus with hyperglycemia; K08.89 Other specified disorders of teeth and supporting structures; N17.9 Acute kidney failure, unspecified; F41.9 Anxiety disorder, unspecified; F32.9 Major depressive disorder, single episode, unspecified; F43.10 Post-traumatic stress disorder, unspecified; F12.90 Cannabis use, unspecified, uncomplicated
CPT/HCPCS: 80048; 80053; 81001; 82010; 82550; 82805; 82948; 83735; 84100; 85025; 96361; 96372; 96374; 96375; 96376; 99285; C9113; G0378; J1815; J2765; J7030

== ENCOUNTER 2018-03-15 21:28 | Inpatient (IN) | payer OTHER ==
[~2018-03-15] VITALS: Ht 180.3 cm; Wt 76.1 kg
[~2018-03-15 21:28] MED LIST changes: -CIPR-9 PO; -CLIN150C14 PO; -GLUCTES12; -INSU1MIS15; -LANCETS1 MI1
[2018-03-15 21:36] VITALS: BP 161/76; PULSE 135; RESP 22; TEMP 98; O2SAT 98
[2018-03-15] MEDS ORDERED: SODIUM CHLOR 0.9% 1000 ML INJ 1,000 ML IV ONE ×2 (21:46→22:16)
--- NOTE | 2018-03-15 21:51 | PD ---
HPI Chief Complaint: Diabetic Time Seen by Provider: 21:43 Travel History International Travel<30 days: No Contact w/Intl Traveler<30days: No Traveled to known affect area: No History of Present Illness HPI 32-year-old male with history of insulin dependent diabetes, here with his mom for evaluation of nausea, vomiting, abdominal pain, and elevated blood glucose. Apparently the patient has had several episodes of vomiting over the last 15 hours. He is not sure why he is having the symptoms. Abdominal pain is diffuse , moderate, constant, worse with movements. He reports compliance with his insulin. He has had several similar presentations to the emergency department in the past. PFSH Past Medical History Arthritis: No Asthma: No Autoimmune Disease: No Blood Disorders: No Anxiety: Yes Depression: Yes Heart Rhythm Problems: No Cancer: No Cardiovascular Problems: No High Cholesterol: No Chest Pain: No Congestive Heart Failure: No COPD: No Cerebrovascular Accident: No Diabetes: Yes Patient Takes Glucophage: Yes Diminished Hearing: No Endocrine: Yes Gastrointestinal Disorders: Yes (Gastroparesis) GERD: No Genitourinary: No Headaches: Yes Hiatal Hernia: No Heparin Induced Thrombocytopen: No [place]iated [place]: Yes [place]2 [place] [facility] [place] Hypertension: No Immune Disorder: No Implanted Vascular Access Dvce: No Kidney Stones: No Musculoskeletal: No Neurologic: Yes (NEUROPATHY) Psychiatric: Yes (PTSD) Reproductive: No Respiratory: No Immunizations Current: Yes Migraines: No Renal Failure: No Seizures: No Sickle Cell Disease: No Sleep Apnea: No Thyroid Disease: No Ulcer: No Tetanus Vaccination: < 5 Years Influenza Vaccination: Yes PNEUMOCCOCAL Vaccine (Year): 1 Past Surgical History Abdominal Surgery: No Cardiac Surgery: No Ear Surgery: No Endocrine Surgery: No Eye Surgery: No Genitourinary Surgery: No Gynecologic Surgery: No Neurologic Surgery: No Oral Surgery: No Pacemaker: No Thoracic Surgery: No Other Surgery: Yes (Inguinal hernia repair) Social History Alcohol Use: No Tobacco Use: No Substance Use: Yes (OCCASIONAL MARIJUANA) Allergies-Medications (Allergen,Severity, Reaction): Coded Allergies: No Known Allergies (Verified Adverse Reaction, Unknown, 03/15/18) Reported Meds & Prescriptions Reported Meds & Active Scripts Active Zofran (Ondansetron HCl) 4 Mg Tab 4 Mg PO Q6HR PRN Reglan (Metoclopramide HCl) 5 Mg Tab 5 Mg PO QID Protonix (Pantoprazole Sodium) 20 Mg Tab 20 Mg PO DAILY Levemir Inj (Insulin Detemir) 1,000 unit/ 10 ML Vial 20 Units SQ HS 30 Days Do not mix with any other Insulin. Levemir Inj (Insulin Detemir) 1,000 unit/ 10 ML Vial 25 Units SQ AC BREAKFAST 30 Days Do not mix with any other Insulin. Novolog Inj (Insulin Aspart) 1,000 Unit/10 Ml Vial 0 SQ DIRECTED Sliding Scale as directed. Hydrocodone-Acetamin 7.5-325 (Hydrocodone/Acetaminophen) 7.5 Mg-325 Mg Tablet 1 Tab PO Q12HR PRN Review of Systems Except as stated in HPI: all other systems reviewed are Neg Physical Exam Narrative GENERAL: Well-developed, well-nourished, laying in position, no apparent distress. SKIN: Focused skin assessment warm/dry. HEAD: Atraumatic. Normocephalic. EYES: Pupils equal and round. No scleral icterus. No injection or drainage. ENT: No nasal bleeding or discharge. Mucous membranes pink and dry. NECK: Trachea midline. No JVD. CARDIOVASCULAR: Regular rate and rhythm. RESPIRATORY: No accessory muscle use. Clear to auscultation. Breath sounds equal bilaterally. GASTROINTESTINAL: Abdomen soft, nondistended. Mild diffuse tenderness without peritoneal signs. Normal bowel sounds. MUSCULOSKELETAL: No obvious deformities. No clubbing. No cyanosis. No edema. NEUROLOGICAL: Awake and alert. No obvious cranial nerve deficits. Motor grossly within normal limits. Normal speech. PSYCHIATRIC: Appropriate mood and affect; insight and judgment normal. Data Data Last Documented VS Vital Signs Date Time Temp Pulse Resp B/P (MAP) Pulse Ox O2 Delivery O2 Flow Rate FiO2 03/15/18 22:23 97 20 99 Room Air 03/15/18 21:36 98.0 161/76 (104) Orders Orders Complete Blood Count With Diff (03/15/18 21:46) Comprehensive Metabolic Panel (03/15/18 21:46) Beta Hydroxybutyrate (Acetone) (03/15/18 21:46) Urinalysis - C+S If Indicated (03/15/18 21:46) Ecg Monitoring (03/15/18 21:46) Iv Access Insert/Monitor (03/15/18 21:46) Oximetry (03/15/18 21:46) NPO (03/15/18 21:46) Sodium Chlor 0.9% 1000 Ml Inj (Ns 1000 M (03/15/18 21:46) Sodium Chlor 0.9% 1000 Ml Inj (Ns 1000 M (03/15/18 22:16) Sodium Chloride 0.9% Flush (Ns Flush) (03/15/18 22:00) Lipase (03/15/18 21:46) Metoclopramide Inj (Reglan Inj) (03/15/18 22:00) Drug Screen, Random Urine (03/15/18 21:46) Ketorolac Inj (Toradol Inj) (03/15/18 22:00) Blood Gas Venous (Vbg) (03/15/18 21:51) Abdomen, Flat & Upright (03/15/18 ) Bell Maker / Telemetry VALENTIN.Q8H (03/15/18 23:12) ^ Insert Iv (03/15/18 23:12) Diet Npo (03/16/18 Breakfast) Sodium Chlor 0.9% 1000 Ml Inj (Ns 1000 M (03/15/18 23:12) Dext 5%-Nacl 0.9% 1000 Ml Inj (D5w-Ns 10 (03/15/18 23:12) Insulin Human Regular Inj (Novolin R Inj (03/15/18 23:15) Insulin Regular (Iv Infusion) (Novolin R (03/15/18 23:15) Potassium Chlor 40 Meq Premix (Kcl 40 Me (03/15/18 23:15) Potassium Chlor 40 Meq Premix (Kcl 40 Me (03/15/18 23:15) Potassium Chlor 20 Meq Premix (Kcl 20 Me (03/15/18 23:15) Potassium Chlor 20 Meq Premix (Kcl 20 Me (03/15/18 23:15) Potassium Chlor 20 Meq Premix (Kcl 20 Me (03/15/18 23:15) Potassium Chlor 20 Meq Premix (Kcl 20 Me (03/15/18 23:15) Potassium Chlor 20 Meq Premix (Kcl 20 Me (03/15/18 23:15) Potassium Chlor 20 Meq Premix (Kcl 20 Me (03/15/18 23:15) Sodium Bicarbonate 8.4% Inj (Sodium Bica (03/15/18 23:15) Sodium Bicarbonate 8.4% Inj (Sodium Bica (03/15/18 23:15) Sodium Phosphate Inj (Sodium Phosphate I (03/15/18 23:15) Hemoglobin (Hgb) A1c (03/15/18 23:12) Basic Metabolic Panel (Bmp) (03/16/18 04:12) Basic Metabolic Panel (Bmp) (03/16/18 10:12) Basic Metabolic Panel (Bmp) (03/16/18 16:12) Basic Metabolic Panel (Bmp) (03/16/18 22:12) Magnesium (Mg) (03/16/18 04:12) Magnesium (Mg) (03/16/18 10:12) Magnesium (Mg) (03/16/18 16:12) Magnesium (Mg) (03/16/18 22:12) Phosphorus (Po4) (03/16/18 04:12) Phosphorus (Po4) (03/16/18 10:12) Phosphorus (Po4) (03/16/18 16:12) Phosphorus (Po4) (03/16/18 22:12) Beta Hydroxybutyrate (Acetone) (03/16/18 10:12) Beta Hydroxybutyrate (Acetone) (03/16/18 22:12) Potassium, Serum (K) (03/16/18 01:30) Labs Laboratory Tests Test 03/15/18 21:52 03/15/18 22:15 White Blood Count 11.1 TH/MM3 Red Blood Count 4.65 MIL/MM3 Hemoglobin 13.7 GM/DL Hematocrit 39.9 % Mean Corpuscular Volume 85.7 FL Mean Corpuscular Hemoglobin 29.4 PG Mean Corpuscular Hemoglobin Concent 34.3 % Red Cell Distribution Width 13.3 % Platelet Count 354 TH/MM3 Mean Platelet Volume 7.1 FL Neutrophils (%) (Auto) 87.8 % Lymphocytes (%) (Auto) 8.1 % Monocytes (%) (Auto) 4.0 % Eosinophils (%) (Auto) 0.0 % Basophils (%) (Auto) 0.1 % Neutrophils # (Auto) 9.7 TH/MM3 Lymphocytes # (Auto) 0.9 TH/MM3 Monocytes # (Auto) 0.4 TH/MM3 Eosinophils # (Auto) 0.0 TH/MM3 Basophils # (Auto) 0.0 TH/MM3 CBC Comment DIFF FINAL Differential Comment Blood Urea Nitrogen 27 MG/DL Creatinine 1.69 MG/DL Random Glucose 414 MG/DL Total Protein 8.4 GM/DL Albumin 4.1 GM/DL Calcium Level 9.5 MG/DL Alkaline Phosphatase 92 U/L Aspartate Amino Transf (AST/SGOT) 12 U/L Alanine Aminotransferase (ALT/SGPT) 25 U/L Total Bilirubin 0.8 MG/DL Sodium Level 138 MEQ/L Potassium Level 3.3 MEQ/L Chloride Level 94 MEQ/L Carbon Dioxide Level 26.3 MEQ/L Anion Gap 18 MEQ/L Estimat Glomerular Filtration Rate 47 ML/MIN Lipase 77 U/L B-Hydroxybutyrate 4.40 MMOL/L Blood Gas Puncture Site PIV Blood Gas Patient Temperature 98.6 Venous Blood pH 7.50 Venous Blood Partial Pressure CO2 35 mmHg Venous Blood Partial Pressure O2 46 mmHg Venous Blood HCO3 27 mmol/L Venous Blood Oxygen Saturation 84 % Venous Blood Oxygen Content 15.6 Vol % Venous Blood Base Excess 3.9 mmol/L Oxygen Delivery Device ROOM AIR Blood Gas Inspired Oxygen 21 % [facility] Medical Decision Making Medical Screen Exam Complete: Yes Emergency Medical Condition: Yes Medical Record Reviewed: Yes Differential Diagnosis DKA, dehydration, hyperglycemia, metabolic abnormality, bowel obstruction Narrative Course Vital signs reviewed. Initial tachycardia improved to 97 with 2 L normal saline IV. CBC: WBC 11.1, hemoglobin 13.7, hematocrit 39.9, platelets 354. CMP is remarkable for potassium 3.3, anion gap 18, BUN 27, creatinine 1.69, random glucose 114. Beta hydroxybutyrate is 4.4. Venous pH is 7.5. Abdomen flat and upright x-ray shows normal bowel gas pattern. The patient was given 2 L normal saline IV and IV Reglan. He is overall ill- appearing. He has mild DKA and will be started on a DKA protocol. Both the patient and the patient's mom were made aware of findings and plan for admission. Case discussed with the medical residents. The patient will be admitted to their service under Dr. Kiser. Diagnosis Primary Impression: DKA (diabetic ketoacidoses) Qualified Codes: E10.10 - Type 1 diabetes mellitus with ketoacidosis without coma Additional Impression: Nausea and vomiting Qualified Codes: R11.2 - Nausea with vomiting, unspecified Admitting Information Admitting Physician Requests: Admit Kasi Hernandez MD March 15, 2018 21:51
[2018-03-15] MEDS ORDERED: KETOROLAC TROMETHAMINE 30 MG/ML (IVP) VIAL IV PUSH ONE (22:00)
[2018-03-15] MEDS ORDERED: SODIUM CHLORIDE 0.9% FLUSH 10 ML FLUSH IVF PRN (22:00)
[2018-03-15] MEDS ORDERED: METOCLOPRAMIDE HCL 10 MG/2 ML VIAL IV PUSH ONE (22:00)
[2018-03-15 22:04] VITALS: O2SAT 98
[2018-03-15 22:21] LABS: AUTOMATED NEUTROPHIL # 9.7 TH/MM3 (1.8-7.7); BASOPHIL % 0.1 % (0.0-2.0); HEMATOCRIT 39.9 % (39.0-51.0); HEMOGLOBIN 13.7 GM/DL (13.0-17.0); LYMPH % 8.1 % (9.0-44.0); LYMPHOCYTE # 0.9 TH/MM3 (1.0-4.8); MEAN CELL VOLUME 85.7 FL (80.0-100.0); MEAN CORPUSCULAR HEMOGLOBIN 29.4 PG (27.0-34.0); MEAN CORPUSCULAR HGB CONC 34.3 % (32.0-36.0); MEAN PLATELET VOLUME 7.1 FL (7.0-11.0); MONOCYTE # 0.4 TH/MM3 (0-0.9); NEUT % 87.8 % (16.0-70.0); PLATELET COUNT 354 TH/MM3 (150-450); RED BLOOD COUNT 4.65 MIL/MM3 (4.50-5.90); RED CELL DISTRIBUTION WIDTH 13.3 % (11.6-17.2); WHITE BLOOD COUNT 11.1 TH/MM3 (4.0-11.0)
[2018-03-15 22:23] VITALS: PULSE 97; RESP 20; O2SAT 99
--- NOTE | 2018-03-15 22:25 | RADRPT ---
EXAM DATE: 03/15/2018 10:17 PM EDT AGE/SEX: 32 years / Male INDICATIONS: Evaluate for obstruction CLINICAL DATA: This is the patient's initial encounter. Patient reports that signs and symptoms have been present for 1 day and indicates a pain score of 9/10. MEDICAL/SURGICAL HISTORY: . Diabetes mellitus type 1. Gastroparesis None. COMPARISON: Abdominal x-ray 09/17/2015. FINDINGS: Supine and upright views of the abdomen were performed. The abdominal bowel gas pattern is normal. No air-fluid levels are seen. No abnormal masses, calcifications, or organomegaly is seen. The visualiz ed lower lungs are clear. No evidence of free intraperitoneal gas. The osseous structures are unremar kable. CONCLUSION: Normal bowel gas pattern. Electronically signed by: yRan Low MD 03/15/2018 10:24 PM EDT
[2018-03-15 23:05] LABS: ALBUMIN 4.1 GM/DL (3.4-5.0); ALKALINE PHOSPHATASE 92 U/L (45-117); ALT (GPT) 25 U/L (12-78); AST (GOT) 12 U/L (15-37); BICARBONATE 26.3 MEQ/L (21.0-32.0); BLOOD UREA NITROGEN 27 MG/DL (7-18); CALCIUM 9.5 MG/DL (8.5-10.1); CHLORIDE 94 MEQ/L (98-107); CREATININE 1.69 MG/DL (0.60-1.30); GLOMERULAR FILTRATION RATE 47 ML/MIN (>89); GLUCOSE,RANDOM 414 MG/DL (74-106); SODIUM (NA) 138 MEQ/L (136-145); TOTAL BILIRUBIN ADULT 0.8 MG/DL (0.2-1.0); TOTAL PROTEIN 8.4 GM/DL (6.4-8.2)
[2018-03-15] MEDS: DEXT 5%-NACL 0.9% 1000 ML INJ 1,000 ML IV SCH (23:12)
[2018-03-15] MEDS ORDERED: SODIUM PHOSPHATE INJ 15 MMOL in SODIUM CHLORIDE 0.9% INJ 100 ML IV PRN (23:15)
[2018-03-15] MEDS ORDERED: INSULIN HUMAN REGULAR 1,000 UNITS/10 ML VIAL IV PUSH ONE (23:15)
[2018-03-15] MEDS ORDERED: POTASSIUM CHLOR 20 MEQ PREMIX 100 ML IV PRN ×5 (23:15)
[2018-03-15] MEDS ORDERED: POTASSIUM CHLOR 40 MEQ PREMIX 100 ML IV PRN ×2 (23:15)
[2018-03-15] MEDS ORDERED: INSULIN REGULAR (IV INFUSION) 100 UNITS in SODIUM CHLORIDE 0.9% INJ 99 ML IV PRN (23:15)
[2018-03-15] MEDS ORDERED: SODIUM BICARBONATE 8.4% SOLN 50 MEQ/50 ML VIAL IV PUSH PRN ×2 (23:15)
[2018-03-15] MEDS: SODIUM CHLOR 0.9% 1000 ML INJ 1,000 ML IV SCH (23:31)
[2018-03-15] MEDS: POTASSIUM CHLOR 20 MEQ PREMIX 100 ML IV PRN (23:32)
[2018-03-16] VITALS (21 sets, daily range): BP systolic 107–171; BP diastolic 59–92; PULSE 74–105; RESP 16–29; TEMP 98.2–99.2; O2SAT 97–100
--- NOTE | 2018-03-16 00:08 | HHI.HP ---
HPI Service Family Medicine Primary Care Physician No Primary Care Physician Admission Diagnosis DKA, Nausea and vomiting Diagnoses: International Travel<30 Days: No Contact w/Intl Traveler<30days: No Known Affected Area: No History of Present Illness 32-year-old M w/hx of DM1 presenting w/ nausea, vomiting, abdominal pain, and elevated blood glucose. Hx limited by patient's cooperativity. Symptoms happened suddenly this morning. Apparently, he has also had has episodes of vomiting and has been unable to take PO. States he did not eat anything today and is not sure why he is having the symptoms. Abdominal pain is diffuse pain that becomes intermittently severe. He reports compliance with his insulin, which he uses 6 x/day (5 units each) in addition to sliding scale. He has had several similar presentations to the emergency department in the past. Last glucose level was 468, which he said he had checked right before he decided to go to the hospital. Last went to his PCP at the beginning of the year. No new medications. States that he has not gotten into [facility] yet so was not able to see a doctor since last hospitalization for similar symptoms. No blurry vision, confusion. + dizziness. Denies alcohol, illicit/recreational drug use. No smoking. No recent illness, fevers, diarrhea, muscle aches, no cough, SOB. Has had to be in critical care in the past for DKA. Cannot further elaborate. Poor medication compliance reported by Mom to nurse. Oriented x3 per nurse report. (Kimberli Flower MD R1) Review of Systems ROS Limitations: Uncooperative Constitutional: COMPLAINS OF: Change in appetite, DENIES: Weight loss Endocrine: DENIES: Polyuria Eyes: DENIES: Blurred vision, Vision loss Respiratory: DENIES: Cough, Shortness of breath Cardiovascular: DENIES: Chest pain Gastrointestinal: DENIES: Constipation, Diarrhea Genitourinary: DENIES: Urinary frequency, Urgency Neurologic: DENIES: Paresthesias Psychiatric: DENIES: Confusion (Kimberli Flower MD R1) Past Family Social History Past Medical History DM I gastroparesis neuropathy DKA Past Surgical History None (Kimberli Flower MD R1) Allergies: Coded Allergies: No Known Allergies (Verified Adverse Reaction, Unknown, 03/15/18) Family History Father: Pancreatic cancer, passed Social History Patient denies any tobacco, or alcohol use. Reports smoking marijuana every other day for the past 3-4 years. (Kimberli Flower MD R1) Physical Exam Vital Signs Vital Signs Date Time Temp Pulse Resp B/P (MAP) Pulse Ox O2 Delivery O2 Flow Rate FiO2 03/15/18 22:23 97 20 99 Room Air 03/15/18 22:04 98 Room Air 03/15/18 21:36 98.0 135 22 161/76 (104) 98 Physical Exam GENERAL: This is a heavily tattooed male resting in bed quietly. Occasionally curls up into a ball endorses pain. SKIN: No rashes, ecchymoses or lesions. Cool and dry. HEAD: Atraumatic. Normocephalic. EYES: No injection or drainage. Extraocular motions intact. ENT: Nose without bleeding, purulent drainage or septal hematoma. Throat without erythema, tonsillar hypertrophy or exudate. Uvula midline. Airway patent. His membranes moist. Missing a few teeth but no signs of oral infection. NECK: Trachea midline. CARDIOVASCULAR: Regular rate and rhythm without murmurs, gallops, or rubs. RESPIRATORY: Clear to auscultation. Breath sounds equal bilaterally. No wheezes , rales, or rhonchi. GASTROINTESTINAL: Abdomen diffusely tender with voluntary guarding. Pain is most severe to palpation in the right upper quadrant. MUSCULOSKELETAL: Extremities without clubbing, cyanosis, or edema. No joint tenderness, effusion, or edema noted. NEUROLOGICAL: Drowsy and answers questions with single word answers. Motor exam limited by patient's pain. Normal speech. Laboratory Laboratory Tests Test 03/15/18 21:52 03/15/18 22:15 White Blood Count 11.1 Red Blood Count 4.65 Hemoglobin 13.7 Hematocrit 39.9 Mean Corpuscular Volume 85.7 Mean Corpuscular Hemoglobin 29.4 Mean Corpuscular Hemoglobin Concent 34.3 Red Cell Distribution Width 13.3 Platelet Count 354 Mean Platelet Volume 7.1 Neutrophils (%) (Auto) 87.8 Lymphocytes (%) (Auto) 8.1 Monocytes (%) (Auto) 4.0 Eosinophils (%) (Auto) 0.0 Basophils (%) (Auto) 0.1 Neutrophils # (Auto) 9.7 Lymphocytes # (Auto) 0.9 Monocytes # (Auto) 0.4 Eosinophils # (Auto) 0.0 Basophils # (Auto) 0.0 CBC Comment DIFF FINAL Differential Comment Blood Urea Nitrogen 27 Creatinine 1.69 Random Glucose 414 Total Protein 8.4 Albumin 4.1 Calcium Level 9.5 Alkaline Phosphatase 92 Aspartate Amino Transf (AST/SGOT) 12 Alanine Aminotransferase (ALT/SGPT) 25 Total Bilirubin 0.8 Sodium Level 138 Potassium Level 3.3 Chloride Level 94 Carbon Dioxide Level 26.3 Anion Gap 18 Estimat Glomerular Filtration Rate 47 Lipase 77 B-Hydroxybutyrate 4.40 Blood Gas Puncture Site PIV Blood Gas Patient Temperature 98.6 Venous Blood pH 7.50 Venous Blood Partial Pressure CO2 35 Venous Blood Partial Pressure O2 46 Venous Blood HCO3 27 Venous Blood Oxygen Saturation 84 Venous Blood Oxygen Content 15.6 Venous Blood Base Excess 3.9 Oxygen Delivery Device ROOM AIR Blood Gas Inspired Oxygen 21 (Kimberli Flower MD R1) Result Diagram: 03/15/18215103/15/182151 Imaging Last Impressions Abdomen X-Ray 03/15/18 0000 Signed Impressions: CONCLUSION: Normal bowel gas pattern. (Kimberli Flower MD R1) Caprini VTE Risk Assessment Capnicolai VTE Risk Assessment: No/Low Risk (score <= 1) (Kimberli Flower MD R1) Assessment and Plan Assessment and Plan 32 y/o w/PMH of insulin dependent DM1 admitted for moderate DKA. Glucose 414, anion gap of 18, ketones 4.4. Protocol initiated by ED physician. VBG shows alkalosis with a pH of 7.5, PCO2 is low at 35, bicarb slightly elevated. No obtundation on physical exam. Plan to continue protocol, but is replace potassium as needed. Will complete protocol at resolution of ketoacidosis and patient desiring diet. (Kimberli Flower MD R1) Attending Attestation THIS CASE WAS DISCUSSED WITH THE RESIDENT PHYSICIANS. I HAVE REVIEWED THE RECORD AND AGREE WITH THE ABOVE NOTE AND PLAN OF CARE WAS DISCUSSED. I HAVE AUTHORIZED THE ORDER FOR ADMISSION TO AN IN-PATIENT STATUS. (Steve Kiser MD) Problem List: (1) DKA (diabetic ketoacidoses) ICD Codes: E13.10 - Other specified diabetes mellitus with ketoacidosis without coma Status: Acute Plan: DKA ED protocol with aggressive fluid hydration and insulin drip that will be transitioned to subcutaneous insulin once glucose is less than 250 ( will make sure to continue drip 2 hours after basal insulin is started). -IV fluids at that time will run with dextrose. -Replace potassium as needed. -Frequent Accu-Cheks. -Because of history of multiple hospitalizations/poor compliance, case management consulted along with diabetic education -IV Reglan PRN for nausea. -Order UDS -No signs of infection. We will reassess for DKA trigger later this morning when patient is better able to answer questions (2) Diabetes mellitus type I ICD Codes: E10.9 - Type 1 diabetes mellitus without complications Status: Acute Plan: Per medical reconciliation on admission, patient takes sliding scale with 25 units of Levemir at breakfast time and 20 units at night Patient was not able to clearly state medication regimen on interview during physical exam - Will reevaluate w/patient after clinical improvement -Order diabetic education -Case management (3) GALA (acute kidney injury) ICD Codes: N17.9 - Acute kidney failure, unspecified Status: Acute Plan: Con't fluids Avoid nephrotoxic agents (4) Nutrition, metabolism, and development symptoms ICD Codes: R63.8 - Other symptoms and signs concerning food and fluid intake Status: Acute Plan: Fluids: IV Electrolytes: Replace as needed Nutrition: N.p.o. DVT prophylaxis: Not indicated (Kimberli Flower MD R1) Problem Qualifiers (1) Diabetes mellitus type I: Qualified Codes: E10.8 - Type 1 diabetes mellitus with unspecified complications Kimberli Flower MD R1 Mar 16, 2018 00:08 Steve Kiser MD Mar 16, 2018 13:46
[2018-03-16] MEDS ORDERED: LACTULOSE SYRUP 20 GM/30 ML CUP PO PRN (00:30)
[2018-03-16] MEDS ORDERED: NALOXONE HCL 0.4 MG/ML AMP IV PUSH PRN (00:30)
[2018-03-16] MEDS ORDERED: MAGNESIUM HYDROXIDE SUSP 30 ML CUP PO PRN (00:30)
[2018-03-16] MEDS ORDERED: SENNOSIDES 8.6 MG TAB PO PRN (00:30)
[2018-03-16] MEDS ORDERED: BISACODYL 10 MG SUPP RECTAL PRN (00:30)
[2018-03-16] MEDS: POTASSIUM CHLOR 20 MEQ PREMIX 100 ML IV PRN (01:43)
[2018-03-16] MEDS ORDERED: ACETAMINOPHEN 325 MG TAB PO PRN (01:45)
[2018-03-16] MEDS ORDERED: CHLORHEXIDINE GLUCONATE 2 % 1 PACK (2 CLOTHS)(extra cloths) TOPICAL PRN (02:15)
[2018-03-16] MEDS: SODIUM CHLOR 0.9% 1000 ML INJ 1,000 ML IV SCH ×6 (03:12→23:12)
[2018-03-16] MEDS: CHLORHEXIDINE GLUCONATE 2 % 1 PACK (2 CLOTHS)(taper/protocol) TOPICAL SCH (03:56)
[2018-03-16] MEDS: METOCLOPRAMIDE HCL 10 MG/2 ML VIAL IV PUSH PRN ×3 (04:03→22:46)
[2018-03-16] MEDS: DEXT 5%-NACL 0.9% 1000 ML INJ 1,000 ML IV SCH ×3 (04:12→10:10)
[2018-03-16 05:00] LABS: BICARBONATE 25.7 MEQ/L (21.0-32.0); CALCIUM 8.3 MG/DL (8.5-10.1); CREATININE 1.68 MG/DL (0.60-1.30); MAGNESIUM 1.9 MG/DL (1.5-2.5)
[2018-03-16] MEDS: INSULIN DETEMIR 100 UNITS/ML VIAL SQ SCH ×3 (06:30→20:37)
[2018-03-16] MEDS ORDERED: POTASSIUM PHOSPHATE MONOBASIC 500 MG TAB PO ONE (06:30)
[2018-03-16] MEDS ORDERED: DEXTROSE 50% IN WATER 50 ML VIAL(D50) IV PUSH PRN (06:30)
[2018-03-16] MEDS ORDERED: GLUCAGON 1 MG/ML VIAL OTHER PRN (06:30)
[2018-03-16] MEDS ORDERED: PROMETHAZINE INJ 25 MG/ML VIAL IM ONE (07:00)
[2018-03-16] MEDS ORDERED: MORPHINE SULFATE 4 MG/ML INJ IV PUSH ONE (07:00)
[2018-03-16] MEDS: INSULIN ASPART SUPPLEMENTAL SCALE SQ SCH ×4 (07:58→20:37)
[2018-03-16 11:46] LABS: AUTOMATED NEUTROPHIL # 12.4 TH/MM3 (1.8-7.7); BASOPHIL % 0.3 % (0.0-2.0); EOSINOPHIL % 0.1 % (0.0-4.0); HEMATOCRIT 32.5 % (39.0-51.0); HEMOGLOBIN 11.3 GM/DL (13.0-17.0); LYMPH % 10.3 % (9.0-44.0); LYMPHOCYTE # 1.5 TH/MM3 (1.0-4.8); MEAN CELL VOLUME 84.6 FL (80.0-100.0); MEAN CORPUSCULAR HEMOGLOBIN 29.3 PG (27.0-34.0); MEAN CORPUSCULAR HGB CONC 34.7 % (32.0-36.0); MEAN PLATELET VOLUME 7.8 FL (7.0-11.0); MONO % 4.5 % (0.0-8.0); MONOCYTE # 0.7 TH/MM3 (0-0.9); NEUT % 84.8 % (16.0-70.0); PLATELET COUNT 251 TH/MM3 (150-450); RED BLOOD COUNT 3.84 MIL/MM3 (4.50-5.90); RED CELL DISTRIBUTION WIDTH 13.4 % (11.6-17.2); WHITE BLOOD COUNT 14.6 TH/MM3 (4.0-11.0)
[2018-03-16 11:48] LABS: BICARBONATE 26.9 MEQ/L (21.0-32.0); BLOOD UREA NITROGEN 23 MG/DL (7-18); CALCIUM 8.4 MG/DL (8.5-10.1); CHLORIDE 108 MEQ/L (98-107); CREATININE 1.43 MG/DL (0.60-1.30); GLOMERULAR FILTRATION RATE 57 ML/MIN (>89); GLUCOSE,RANDOM 169 MG/DL (74-106); PHOSPHORUS 1.2 MG/DL (2.5-4.9); SODIUM (NA) 144 MEQ/L (136-145)
--- NOTE | 2018-03-16 12:08 | HHI.FPPN ---
Objective Vitals Vital Signs Date Time Temp Pulse Resp B/P (MAP) Pulse Ox O2 Delivery O2 Flow Rate FiO2 03/16/18 08:09 98 03/16/18 06:00 74 03/16/18 04:00 98.8 88 16 125/87 (100) 100 03/16/18 04:00 84 03/16/18 02:14 98 03/16/18 02:08 98.8 87 16 123/77 (92) 03/16/18 01:54 03/16/18 01:50 100 21 03/16/18 00:35 101 18 110/78 (89) 100 Room Air 03/15/18 22:23 97 20 99 Room Air 03/15/18 22:04 98 Room Air 03/15/18 21:36 98.0 135 22 161/76 (104) 98 I/O 03/15/18 03/15/18 03/15/18 03/16/18 03/16/18 03/16/18 07:00 15:00 23:00 07:00 15:00 23:00 Intake Total 2000 ml 0 ml 555 ml Balance 2000 ml 0 ml 555 ml Intake Oral 0 ml IV Total 2000 ml 555 ml Result Diagram: 03/16/18 1113 03/16/18 1113 A/P Assessment and Plan 32 y/o w/PMH of insulin dependent DM1 admitted for moderate DKA. Glucose 414, anion gap of 18, ketones 4.4. Protocol initiated by ED physician. VBG shows alkalosis with a pH of 7.5, PCO2 is low at 35, bicarb slightly elevated. No obtundation on physical exam. Plan to continue protocol, but is replace potassium as needed. Will complete protocol at resolution of ketoacidosis and patient desiring diet. Problem List: (1) DKA (diabetic ketoacidoses) ICD Codes: E13.10 - Other specified diabetes mellitus with ketoacidosis without coma Status: Acute Plan: DKA ED protocol with aggressive fluid hydration and insulin drip that will be transitioned to subcutaneous insulin once glucose is less than 250 ( will make sure to continue drip 2 hours after basal insulin is started). -IV fluids at that time will run with dextrose. -Replace potassium as needed. -Frequent Accu-Cheks. -Because of history of multiple hospitalizations/poor compliance, case management consulted along with diabetic education -IV Reglan PRN for nausea. -Order UDS -No signs of infection. We will reassess for DKA trigger later this morning when patient is better able to answer questions (2) Diabetes mellitus type I ICD Codes: E10.9 - Type 1 diabetes mellitus without complications Status: Acute Plan: Per medical reconciliation on admission, patient takes sliding scale with 25 units of Levemir at breakfast time and 20 units at night Patient was not able to clearly state medication regimen on interview during physical exam - Will reevaluate w/patient after clinical improvement -Order diabetic education -Case management (3) GALA (acute kidney injury) ICD Codes: N17.9 - Acute kidney failure, unspecified Status: Acute Plan: Con't fluids Avoid nephrotoxic agents (4) Nutrition, metabolism, and development symptoms ICD Codes: R63.8 - Other symptoms and signs concerning food and fluid intake Status: Acute Plan: Fluids: IV Electrolytes: Replace as needed Nutrition: N.p.o. DVT prophylaxis: Not indicated Problem Qualifiers (1) Diabetes mellitus type I: Qualified Codes: E10.8 - Type 1 diabetes mellitus with unspecified complications Keke Wilson MD R1 Mar 16, 2018 12:08
--- NOTE | 2018-03-16 13:46 | HHI.HP ---
[facility] Service Family Medicine Primary Care Physician No Primary Care Physician Admission Diagnosis DKA, Nausea and vomiting Diagnoses: (1) DKA (diabetic ketoacidoses) (2) Diabetes mellitus type I (3) GALA (acute kidney injury) (4) Nutrition, metabolism, and development symptoms International Travel<30 Days: No Contact w/Intl Traveler<30days: No Known Affected Area: No History of Present Illness 32-year-old male presenting to the emergency department with vomiting, abdominal pain, and hyperglycemia and found to be in DKA. He is a very poor historian and is not fully cooperative with history. Per the patient, early on the morning of admission he developed sudden onset abdominal pain that he describes as epigastric and sharp associated with emesis. At that time, he states he checked his blood glucose and that it was elevated to over 400. He continued to have nausea and vomiting along with abdominal pain throughout the night and presented to the emergency department for further evaluation. He has a history of multiple ER visits for hyperglycemia and DKA, mostly due to medication noncompliance. He states that he has been taking his insulin at home as prescribed, however he is unable to fully explain his insulin regimen. He denies any recent illness, denies any fevers or chills, denies any chest pain or palpitations, denies any cough or shortness of breath, denies any diarrhea or constipation. His appetite has not changed and he states that the last thing that he had was a fruit smoothie on the night prior to arrival. On examination this morning with resident team, he continues to be somewhat noncooperative but does state that he continues to have nausea and moderate abdominal pain. This has improved since his arrival, however he continues to require the insulin drip secondary to his nausea and hyperglycemia. He states the pain continues and is diffuse throughout his abdomen, but worse in his epigastric area. He denies any fevers or chills overnight. He denies any diarrhea or constipation overnight. He denies any new episodes of emesis Review of Systems Constitutional: DENIES: Fever, Weight gain, Weight loss, Chills, Dizziness, Change in appetite Respiratory: DENIES: Cough, Wheezing, Hemoptysis, Sputum production, Shortness of breath Cardiovascular: DENIES: Chest pain, Palpitations, Dyspnea on Exertion Gastrointestinal: COMPLAINS OF: Abdominal pain, Nausea, Vomiting, DENIES: Black stools, Bloody stools, Constipation, Diarrhea, Difficulty Swallowing Past Family Social History Past Medical History DM I gastroparesis neuropathy DKA Past Surgical History None Allergies: Coded Allergies: No Known Allergies (Verified Adverse Reaction, Unknown, 03/15/18) Family History Father: Pancreatic cancer, passed Social History Patient denies any tobacco, or alcohol use. Reports smoking marijuana every other day for the past 3-4 years. Physical Exam Vital Signs Vital Signs Date Time Temp Pulse Resp B/P (MAP) Pulse Ox O2 Delivery O2 Flow Rate FiO2 03/16/18 13:00 87 29 107/59 (75) 98 03/16/18 12:00 98.2 92 19 149/75 (99) 99 03/16/18 12:00 92 03/16/18 11:00 105 16 107/63 (78) 98 03/16/18 10:00 99 18 132/70 (90) 97 03/16/18 10:00 99 03/16/18 09:00 104 18 127/69 (88) 99 03/16/18 08:09 98 03/16/18 08:00 105 03/16/18 08:00 98.7 105 22 162/92 (115) 98 03/16/18 06:00 74 03/16/18 04:00 98.8 88 16 125/87 (100) 100 03/16/18 04:00 84 03/16/18 02:14 98 03/16/18 02:08 98.8 87 16 123/77 (92) 03/16/18 01:54 03/16/18 01:50 100 21 03/16/18 00:35 101 18 110/78 (89) 100 Room Air 03/15/18 22:23 97 20 99 Room Air 03/15/18 22:04 98 Room Air 03/15/18 21:36 98.0 135 22 161/76 (104) 98 Physical Exam GENERAL: Thin, somewhat lethargic/sleepy male lying in bed in no obvious distress SKIN: No rashes, ecchymoses or lesions. Multiple tattoos HEAD: Atraumatic. Normocephalic. CARDIOVASCULAR: Regular rate and rhythm without murmurs, gallops, or rubs. RESPIRATORY: Clear to auscultation. Breath sounds equal bilaterally. No wheezes , rales, or rhonchi. GASTROINTESTINAL: Abdomen diffusely tender without obvious hepatosplenomegaly. No rebound tenderness. MUSCULOSKELETAL: Extremities without clubbing, cyanosis, or edema. No joint tenderness, effusion, or edema noted. NEUROLOGICAL: Drowsy but answering questions appropriately Laboratory Laboratory Tests Test 03/15/18 21:52 03/15/18 22:15 03/16/18 01:35 03/16/18 02:10 White Blood Count 11.1 Red Blood Count 4.65 Hemoglobin 13.7 Hematocrit 39.9 Mean Corpuscular Volume 85.7 Mean Corpuscular Hemoglobin 29.4 Mean Corpuscular Hemoglobin Concent 34.3 Red Cell Distribution Width 13.3 Platelet Count 354 Mean Platelet Volume 7.1 Neutrophils (%) (Auto) 87.8 Lymphocytes (%) (Auto) 8.1 Monocytes (%) (Auto) 4.0 Eosinophils (%) (Auto) 0.0 Basophils (%) (Auto) 0.1 Neutrophils # (Auto) 9.7 Lymphocytes # (Auto) 0.9 Monocytes # (Auto) 0.4 Eosinophils # (Auto) 0.0 Basophils # (Auto) 0.0 CBC Comment DIFF FINAL Differential Comment Blood Urea Nitrogen 27 Creatinine 1.69 Random Glucose 414 Total Protein 8.4 Albumin 4.1 Calcium Level 9.5 Alkaline Phosphatase 92 Aspartate Amino Transf (AST/SGOT) 12 Alanine Aminotransferase (ALT/SGPT) 25 Total Bilirubin 0.8 Sodium Level 138 Potassium Level 3.3 3.6 Chloride Level 94 Carbon Dioxide Level 26.3 Anion Gap 18 Estimat Glomerular Filtration Rate 47 Lipase 77 B-Hydroxybutyrate 4.40 Blood Gas Puncture Site PIV Blood Gas Patient Temperature 98.6 Venous Blood pH 7.50 Venous Blood Partial Pressure CO2 35 Venous Blood Partial Pressure O2 46 Venous Blood HCO3 27 Venous Blood Oxygen Saturation 84 Venous Blood Oxygen Content 15.6 Venous Blood Base Excess 3.9 Oxygen Delivery Device ROOM AIR Blood Gas Inspired Oxygen 21 Nasal Screen MRSA (PCR) MRSA NOT DETECTED Test 03/16/18 04:01 03/16/18 05:15 03/16/18 11:13 Blood Urea Nitrogen 26 23 Creatinine 1.68 1.43 Random Glucose 244 169 Calcium Level 8.3 8.4 Phosphorus Level 2.0 1.2 Magnesium Level 1.9 2.0 Sodium Level 142 144 Potassium Level 3.3 3.6 Chloride Level 102 108 Carbon Dioxide Level 25.7 26.9 Anion Gap 14 9 Estimat Glomerular Filtration Rate 47 57 B-Hydroxybutyrate 1.80 0.29 Blood Gas Puncture Site RT RADIAL Blood Gas Patient Temperature 98.6 Blood Gas HCO3 27 Blood Gas Base Excess 3.3 Blood Gas Oxygen Saturation 95 Arterial Blood pH 7.44 Arterial Blood Partial Pressure CO2 40 Arterial Blood Partial Pressure O2 99 Arterial Blood Oxygen Content 15.4 Arterial Blood Carboxyhemoglobin 1.2 Arterial Blood Methemoglobin 1.6 Blood Gas Hemoglobin 11.4 Oxygen Delivery Device ROOM AIR Blood Gas Inspired Oxygen 21 White Blood Count 14.6 Red Blood Count 3.84 Hemoglobin 11.3 Hematocrit 32.5 Mean Corpuscular Volume 84.6 Mean Corpuscular Hemoglobin 29.3 Mean Corpuscular Hemoglobin Concent 34.7 Red Cell Distribution Width 13.4 Platelet Count 251 Mean Platelet Volume 7.8 Neutrophils (%) (Auto) 84.8 Lymphocytes (%) (Auto) 10.3 Monocytes (%) (Auto) 4.5 Eosinophils (%) (Auto) 0.1 Basophils (%) (Auto) 0.3 Neutrophils # (Auto) 12.4 Lymphocytes # (Auto) 1.5 Monocytes # (Auto) 0.7 Eosinophils # (Auto) 0.0 Basophils # (Auto) 0.0 CBC Comment AUTO DIFF Differential Comment AUTO DIFF CONFIRMED Platelet Estimate NORMAL Platelet Morphology Comment CLUMPED Hematology Comments Result Diagram: 03/16/18 1113 03/16/18 1113 Imaging Last Impressions Abdomen X-Ray 03/15/18 0000 Signed Impressions: CONCLUSION: Normal bowel gas pattern. Caprini VTE Risk Assessment Caprini VTE Risk Assessment: No/Low Risk (score <= 1) Caprini Risk Assessment Model Point Value = 1 Point Value = 2 Point Value = 3 Point Value = 5 Age 41-60 Minor surgery BMI > 25 kg/m2 Swollen legs Varicose veins or History of unexplained or recurrent spontaneous Oral contraceptives or hormone replacement Sepsis (< 1 month) Serious lung disease, including pneumonia (< 1 month) Abnormal pulmonary function Acute myocardial infarction Congestive heart failure (< 1 month) History of inflammatory bowel disease Medical patient at bed rest Age 61-74 Arthroscopic surgery Major open surgery (> 45 min) Laparoscopic surgery (> 45 min) Malignancy Confined to bed (> 72 hours) Immobilizing plaster cast Central venous access Age >= 75 History of VTE Family history of VTE Factor V Leiden Prothrombin [id number] Lupus anticoagulant Anticardiolipin antibodies Elevated serum homocysteine Heparin-induced thrombocytopenia Other congenital or acquired thrombophilia Stroke (< 1 month) Elective arthroplasty Hip, pelvis, or leg fracture Acute spinal cord injury (< 1 month) Prophylaxis Regimen Total Risk Factor Score Risk Level Prophylaxis Regimen 0-1 Low Early ambulation 2 Moderate Order ONE of the following: *Sequential Compression Device (SCD) *Heparin 5000 units SQ BID 3-4 Higher Order ONE of the following medications: *Heparin 5000 units SQ TID *Enoxaparin/Lovenox 40 mg SQ daily (WT < 150 kg, CrCl > 30 mL/min) *Enoxaparin/Lovenox 30 mg SQ daily (WT < 150 kg, CrCl > 10-29 mL/min) *Enoxaparin/Lovenox 30 mg SQ BID (WT < 150 kg, CrCl > 30 mL/min) AND/OR *Sequential Compression Device (SCD) 5 or more Highest Order ONE of the following medications: *Heparin 5000 units SQ TID (Preferred with Epidurals) *Enoxaparin/Lovenox 40 mg SQ daily (WT < 150 kg, CrCl > 30 mL/min) *Enoxaparin/Lovenox 30 mg SQ daily (WT < 150 kg, CrCl > 10-29 mL/min) *Enoxaparin/Lovenox 30 mg SQ BID (WT < 150 kg, CrCl > 30 mL/min) AND *Sequential Compression Device (SCD) Assessment and Plan Assessment and Plan 32 y/o w/PMH of insulin dependent DM1 admitted for moderate DKA. Glucose 414, anion gap of 18, ketones 4.4. Protocol initiated by ED physician. VBG shows alkalosis with a pH of 7.5, PCO2 is low at 35, bicarb slightly elevated. No obtundation on physical exam. Plan to continue protocol, but is replace potassium as needed. Will complete protocol at resolution of ketoacidosis and patient desiring diet. Problem List: (1) DKA (diabetic ketoacidoses) ICD Codes: E13.10 - Other specified diabetes mellitus with ketoacidosis without coma Status: Acute Plan: Continued on the insulin drip this morning -We will continue DKA protocol and recheck BMP this morning Continue IV fluids with dextrose -Replace potassium as needed. -Frequent Accu-Cheks. -Because of history of multiple hospitalizations/poor compliance, case management consulted along with diabetic education -IV Reglan PRN for nausea. -Order UDS -Obtain UA and chest x-ray to evaluate for source of infection (2) Diabetes mellitus type I ICD Codes: E10.9 - Type 1 diabetes mellitus without complications Status: Acute Plan: Per medical reconciliation on admission, patient takes sliding scale with 25 units of Levemir at breakfast time and 20 units at night Patient was not able to clearly state medication regimen on interview during physical exam - Will reevaluate w/patient after clinical improvement -Order diabetic education -Case management (3) GALA (acute kidney injury) ICD Codes: N17.9 - Acute kidney failure, unspecified Status: Acute Plan: Likely prerenal from diminished fluid/dehydration from hyperglycemic diuresis Status post 2 L bolus fluid in the emergency department Continue IV fluids as above Avoid nephrotoxic agents Recheck BMP later this morning (4) Nutrition, metabolism, and development symptoms ICD Codes: R63.8 - Other symptoms and signs concerning food and fluid intake Status: Acute Plan: Fluids: IV Electrolytes: Replace as needed Nutrition: N.p.o. DVT prophylaxis: Not indicated Physician Certification 2 Midnight Certification Type: Admission for Inpatient Services Order for Inpatient Services The services are ordered in accordance with Medicare regulations or non- Medicare payer requirements, as applicable. In the case of services not specified as inpatient-only, they are appropriately provided as inpatient services in accordance with the 2-midnight benchmark. Estimated LOS (days): 2 2 days is the estimated time the patient will need to remain in the hospital, assuming treatment plan goals are met and no additional complications. Post-Hospital Plan: Not yet determined Problem Qualifiers (1) Diabetes mellitus type I: Qualified Codes: E10.8 - Type 1 diabetes mellitus with unspecified complications Steve Kiser MD Mar 16, 2018 13:46
--- NOTE | 2018-03-16 14:50 | RADRPT ---
EXAM DATE: 03/16/2018 2:39 PM EDT AGE/SEX: 32 years / Male INDICATIONS: Shortness of breath. CLINICAL DATA: This is the patient's initial encounter. Patient reports that signs and symptoms have been present for 2 days and indicates a pain score of 0/10. MEDICAL/SURGICAL HISTORY: Diabetes mellitus type I. Gastroparesis. None. COMPARISON: [facility] [place], CHEST PA & LAT, 07/09/2011. . FINDINGS: PA and lateral views of the chest demonstrate the lungs to be symmetrically aerated without evidence of mass, infiltrate or effusion. The cardiomediastinal contours are unremarkable. Osseous structures are intact. CONCLUSION: No acute cardiopulmonary disease. Electronically signed by: Alexandro Ulrich MD 03/16/2018 2:49 PM EDT
[2018-03-16] MEDS ORDERED: LOPERAMIDE HCL 2 MG CAP PO ONE (15:00)
[2018-03-16 16:14] LABS: BILIRUBIN, URINE NEG (NEG); BLOOD, URINE NEG (NEG); GLUCOSE,URINE 1000 mg/dL (NEG); KETONE, URINE 40 mg/dL (NEG); MUCUS URINE FEW /lpf (OCC); NITRITE,URINE NEG (NEG); URINE COLOR LIGHT-YELLOW (YELLW/STRAW); URINE LEUKOCYTE ESTERASE NEG (NEG)
[2018-03-16 17:33] LABS: BICARBONATE 24.4 MEQ/L (21.0-32.0); CALCIUM 8.2 MG/DL (8.5-10.1); CREATININE 1.28 MG/DL (0.60-1.30); MAGNESIUM 1.8 MG/DL (1.5-2.5)
[2018-03-16 17:34] LABS: PHOSPHORUS 2.1 MG/DL (2.5-4.9)
[2018-03-16] MEDS: ONDANSETRON ODT 4 MG TAB PO PRN (20:37)
[2018-03-16] MEDS: DEXT 5%-NACL 0.45% 1000 ML INJ 1,000 ML IV SCH (20:45)
[2018-03-16 22:20] LABS: BICARBONATE 24.5 MEQ/L (21.0-32.0); CREATININE 1.32 MG/DL (0.60-1.30); MAGNESIUM 1.6 MG/DL (1.5-2.5); PHOSPHORUS 2.2 MG/DL (2.5-4.9)
[2018-03-17] VITALS (14 sets, daily range): BP systolic 123–144; BP diastolic 66–78; PULSE 65–88; RESP 7–20; TEMP 98.2–99.2; O2SAT 97–99
[2018-03-17] MEDS ORDERED: PROMETHAZINE INJ 25 MG/ML VIAL IM ONE (03:00)
[2018-03-17] MEDS ORDERED: MORPHINE SULFATE 4 MG/ML INJ IV PUSH ONE ×2 (03:00→19:15)
[2018-03-17] MEDS: SODIUM CHLOR 0.9% 1000 ML INJ 1,000 ML IV SCH ×5 (03:12→22:10)
[2018-03-17] MEDS: CHLORHEXIDINE GLUCONATE 2 % 1 PACK (2 CLOTHS)(taper/protocol) TOPICAL SCH (04:00)
[2018-03-17] MEDS: DEXT 5%-NACL 0.45% 1000 ML INJ 1,000 ML IV SCH ×3 (04:06→22:18)
[2018-03-17 04:26] LABS: HEMATOCRIT 32.3 % (39.0-51.0); HEMOGLOBIN 11.3 GM/DL (13.0-17.0); MEAN CELL VOLUME 86.1 FL (80.0-100.0); MEAN CORPUSCULAR HEMOGLOBIN 30.1 PG (27.0-34.0); PLATELET COUNT 280 TH/MM3 (150-450); RED BLOOD COUNT 3.75 MIL/MM3 (4.50-5.90); WHITE BLOOD COUNT 8.3 TH/MM3 (4.0-11.0)
[2018-03-17 04:48] LABS: BICARBONATE 24.8 MEQ/L (21.0-32.0); CALCIUM 8.4 MG/DL (8.5-10.1); CREATININE 1.34 MG/DL (0.60-1.30)
[2018-03-17] MEDS: INSULIN DETEMIR 100 UNITS/ML VIAL SQ SCH ×2 (08:23→21:00)
[2018-03-17] MEDS: INSULIN ASPART SUPPLEMENTAL SCALE SQ SCH ×4 (08:24→21:00)
--- NOTE | 2018-03-17 08:25 | HHI.FPPN ---
Objective Vitals Vital Signs Date Time Temp Pulse Resp B/P (MAP) Pulse Ox O2 Delivery O2 Flow Rate FiO2 03/17/18 06:00 76 03/17/18 04:00 99.2 74 16 142/76 (98) 98 03/17/18 04:00 74 03/17/18 02:00 80 03/17/18 00:00 88 03/17/18 00:00 98.2 88 20 144/78 (100) 97 03/16/18 22:00 90 03/16/18 20:00 82 03/16/18 20:00 99.2 82 19 126/71 98 03/16/18 18:00 85 03/16/18 17:00 81 25 171/81 (111) 99 03/16/18 16:00 92 03/16/18 16:00 98.2 92 16 130/65 (86) 99 03/16/18 15:00 79 16 134/79 (97) 99 03/16/18 14:57 85 17 141/82 (101) 100 03/16/18 14:00 91 03/16/18 14:00 91 18 123/67 (85) 99 03/16/18 13:00 87 29 107/59 (75) 98 03/16/18 12:00 98.2 92 19 149/75 (99) 99 03/16/18 12:00 92 03/16/18 11:00 105 16 107/63 (78) 98 03/16/18 10:00 99 18 132/70 (90) 97 03/16/18 10:00 99 03/16/18 09:00 104 18 127/69 (88) 99 I/O 03/16/18 03/16/18 03/16/18 03/17/18 03/17/18 03/17/18 07:00 15:00 23:00 07:00 15:00 23:00 Intake Total 0 ml 555 ml 430.6 ml 500 ml Output Total 1225 ml 2100 ml Balance 0 ml 555 ml -794.4 ml -1600 ml Intake Oral 0 ml 240 ml 500 ml IV Total 555 ml 190.6 ml Output Urine Total 1225 ml 2100 ml Stool Total 0 ml 0 ml # Voids 4 # Bowel Movements 0 Result Diagram: 03/17/18 0357 03/17/18 0357 A/P Assessment and Plan 32 y/o w/PMH of insulin dependent DM1 admitted for moderate DKA. Glucose 414, anion gap of 18, ketones 4.4. Protocol initiated by ED physician. VBG shows alkalosis with a pH of 7.5, PCO2 is low at 35, bicarb slightly elevated. No obtundation on physical exam. Plan to continue protocol, but is replace potassium as needed. Will complete protocol at resolution of ketoacidosis and patient desiring diet. Problem List: (1) DKA (diabetic ketoacidoses) ICD Codes: E13.10 - Other specified diabetes mellitus with ketoacidosis without coma Status: Acute Plan: Continued on the insulin drip this morning -We will continue DKA protocol and recheck BMP this morning Continue IV fluids with dextrose -Replace potassium as needed. -Frequent Accu-Cheks. -Because of history of multiple hospitalizations/poor compliance, case management consulted along with diabetic education -IV Reglan PRN for nausea. -Order UDS -Obtain UA and chest x-ray to evaluate for source of infection (2) Diabetes mellitus type I ICD Codes: E10.9 - Type 1 diabetes mellitus without complications Status: Acute Plan: Per medical reconciliation on admission, patient takes sliding scale with 25 units of Levemir at breakfast time and 20 units at night Patient was not able to clearly state medication regimen on interview during physical exam - Will reevaluate w/patient after clinical improvement -Order diabetic education -Case management (3) GALA (acute kidney injury) ICD Codes: N17.9 - Acute kidney failure, unspecified Status: Acute Plan: Likely prerenal from diminished fluid/dehydration from hyperglycemic diuresis Status post 2 L bolus fluid in the emergency department Continue IV fluids as above Avoid nephrotoxic agents Recheck BMP later this morning (4) Nutrition, metabolism, and development symptoms ICD Codes: R63.8 - Other symptoms and signs concerning food and fluid intake Status: Acute Plan: Fluids: IV Electrolytes: Replace as needed Nutrition: N.p.o. DVT prophylaxis: Not indicated Problem Qualifiers (1) Diabetes mellitus type I: Qualified Codes: E10.8 - Type 1 diabetes mellitus with unspecified complications Wendy Mckinley MD R2 Mar 17, 2018 08:25
--- NOTE | 2018-03-17 08:26 | HHI.FPPN ---
Subjective Remarks Patient was lying in bed this morning. States that he no longer has nausea and wants to eat breakfast. He still has 5/10 abdominal pain. No fever or chills Nurse at bedside states that he did not eat dinner last night. (Eko,Wendy YUEN R2) Objective Vitals Vital Signs Date Time Temp Pulse Resp B/P (MAP) Pulse Ox O2 Delivery O2 Flow Rate FiO2 03/17/18 06:00 76 03/17/18 04:00 99.2 74 16 142/76 (98) 98 03/17/18 04:00 74 03/17/18 02:00 80 03/17/18 00:00 88 03/17/18 00:00 98.2 88 20 144/78 (100) 97 03/16/18 22:00 90 03/16/18 20:00 82 03/16/18 20:00 99.2 82 19 126/71 98 03/16/18 18:00 85 03/16/18 17:00 81 25 171/81 (111) 99 03/16/18 16:00 92 03/16/18 16:00 98.2 92 16 130/65 (86) 99 03/16/18 15:00 79 16 134/79 (97) 99 03/16/18 14:57 85 17 141/82 (101) 100 03/16/18 14:00 91 03/16/18 14:00 91 18 123/67 (85) 99 03/16/18 13:00 87 29 107/59 (75) 98 03/16/18 12:00 98.2 92 19 149/75 (99) 99 03/16/18 12:00 92 03/16/18 11:00 105 16 107/63 (78) 98 03/16/18 10:00 99 18 132/70 (90) 97 03/16/18 10:00 99 03/16/18 09:00 104 18 127/69 (88) 99 I/O 03/16/18 03/16/18 03/16/18 03/17/18 03/17/18 03/17/18 07:00 15:00 23:00 07:00 15:00 23:00 Intake Total 0 ml 555 ml 430.6 ml 500 ml Output Total 1225 ml 2100 ml Balance 0 ml 555 ml -794.4 ml -1600 ml Intake Oral 0 ml 240 ml 500 ml IV Total 555 ml 190.6 ml Output Urine Total 1225 ml 2100 ml Stool Total 0 ml 0 ml # Voids 4 # Bowel Movements 0 (Wendy Mckinley MD R2) Result Diagram: 03/17/18 0357 03/17/18 0357 Imaging Last Impressions Chest X-Ray 03/16/18 0000 Signed Impressions: CONCLUSION: No acute cardiopulmonary disease. Abdomen X-Ray 03/15/18 0000 Signed Impressions: CONCLUSION: Normal bowel gas pattern. Objective Remarks GENERAL: Well developed, sleepy male lying in bed in no obvious distress SKIN: No rashes, ecchymoses or lesions. Multiple tattoos HEAD: Atraumatic. Normocephalic. CARDIOVASCULAR: Regular rate and rhythm without murmurs, gallops, or rubs. RESPIRATORY: Clear to auscultation. Breath sounds equal bilaterally. No wheezes , rales, or rhonchi. GASTROINTESTINAL: Abdomen mildly diffusely tender without obvious hepatosplenomegaly. No rebound tenderness. MUSCULOSKELETAL: Extremities without clubbing, cyanosis, or edema. No joint tenderness, effusion, or edema noted. NEUROLOGICAL: Drowsy but answering questions appropriately (EkWendy mullen MD R2) A/P Assessment and Plan 32 y/o w/PMH of insulin dependent DM1 admitted for moderate DKA. Discharge Planning Pending clinical improvement in nausea, abdominal pain, and able to tolerate oral intake (Wendy Mckinley MD R2) Attending Attestation Pt. examined independently and case discussed with resident physicians. I have read the above note and agree with the assessment and plan as discussed with me. I was involved in all medical decision making for this patient. Steve Kiser MD (Steve Kiser MD) Problem List: (1) DKA (diabetic ketoacidoses) ICD Codes: E13.10 - Other specified diabetes mellitus with ketoacidosis without coma Status: Acute Plan: -No identifiable source of infection * CXR and Abd XR wnl -Off insulin drip -Transitioned to Levemir 15 units BID - titrate up to home dose as needed -Medium strength Novolog SSI -Continue IV fluids with dextrose -Replace potassium as needed -Frequent Accu-Cheks -Because of history of multiple hospitalizations/poor compliance, case management consulted along with diabetic education -IM Phenergan PRN for nausea (2) Diabetes mellitus type I ICD Codes: E10.9 - Type 1 diabetes mellitus without complications Status: Acute Plan: Per medical reconciliation on admission, patient takes sliding scale with 25 units of Levemir at breakfast time and 20 units at night -Insulin regimen as above -Order diabetic education -Case management (3) GALA (acute kidney injury) ICD Codes: N17.9 - Acute kidney failure, unspecified Status: Acute Plan: Likely prerenal from diminished fluid/dehydration from hyperglycemic diuresis Status post 2 L bolus fluid in the emergency department Continue IV fluids as above Avoid nephrotoxic agents (4) Nutrition, metabolism, and development symptoms ICD Codes: R63.8 - Other symptoms and signs concerning food and fluid intake Status: Acute Plan: Fluids: IV Electrolytes: Replace as needed Nutrition: Diabetic diet DVT prophylaxis: Not indicated (Wendy Mckinley MD R2) Problem Qualifiers (1) Diabetes mellitus type I: Qualified Codes: E10.8 - Type 1 diabetes mellitus with unspecified complications Wendy Mckinley MD R2 Mar 17, 2018 08:26 Steve Kiser MD Mar 17, 2018 12:21
[2018-03-17] MEDS ORDERED: PROMETHAZINE INJ 25 MG/ML VIAL IM PRN (08:30)
[2018-03-17] MEDS: ONDANSETRON ODT 4 MG TAB PO PRN (20:58)
[2018-03-18] VITALS (24 sets, daily range): BP systolic 120–151; BP diastolic 74–89; PULSE 59–110; RESP 12–24; TEMP 98–99.2; O2SAT 97–100
[2018-03-18] MEDS: SODIUM CHLOR 0.9% 1000 ML INJ 1,000 ML IV SCH ×4 (02:14→10:44)
[2018-03-18] MEDS: CHLORHEXIDINE GLUCONATE 2 % 1 PACK (2 CLOTHS)(taper/protocol) TOPICAL SCH ×2 (04:00→21:43)
[2018-03-18] MEDS: DEXT 5%-NACL 0.45% 1000 ML INJ 1,000 ML IV SCH ×3 (06:12→14:00)
[2018-03-18] MEDS: INSULIN ASPART SUPPLEMENTAL SCALE SQ SCH ×4 (07:55→21:33)
[2018-03-18] MEDS: INSULIN DETEMIR 100 UNITS/ML VIAL SQ SCH (09:16)
--- NOTE | 2018-03-18 10:10 | HHI.FPPN ---
Subjective Remarks Patient had mild-moderate abdominal pain overnight, administered 1x dose of IV morphine.Patient has not had abdominal pain since per nurse. Patient resting comfortably in bed this AM. He was able to eat more than half of his breakfast. Appears more alert and oriented. No complaints this AM. Denies CP, SOB, N/V, and abdominal pain. (Keke Wilson MD R1) Objective Vitals Vital Signs Date Time Temp Pulse Resp B/P (MAP) Pulse Ox O2 Delivery O2 Flow Rate FiO2 03/18/18 08:10 99 21 03/18/18 08:00 99.2 59 12 120/76 (91) 99 03/18/18 08:00 59 03/18/18 06:00 69 03/18/18 04:00 99.2 92 24 131/80 (97) 100 03/18/18 04:00 92 03/18/18 02:00 79 03/18/18 00:00 99.2 78 21 148/74 (98) 100 03/18/18 00:00 78 03/17/18 22:00 65 03/17/18 20:00 99.2 70 7 134/74 (94) 99 03/17/18 20:00 70 03/17/18 19:54 99 21 03/17/18 18:00 75 03/17/18 16:00 66 03/17/18 16:00 99.0 67 20 135/71 (92) 03/17/18 14:00 75 03/17/18 12:00 75 03/17/18 12:00 99.0 70 20 123/70 (87) 03/17/18 11:02 98 I/O 03/17/18 03/17/18 03/17/18 03/18/18 03/18/18 03/18/18 07:00 15:00 23:00 07:00 15:00 23:00 Intake Total 500 ml 2250 ml 700 ml 1000 ml Output Total 2100 ml 2200 ml 2000 ml Balance -1600 ml 50 ml -1300 ml 1000 ml Intake Oral 500 ml 400 ml 700 ml IV Total 1850 ml 1000 ml Output Urine Total 2100 ml 2200 ml 2000 ml Stool Total 0 ml 0 ml 0 ml # Voids 4 3 3 # Bowel Movements 0 0 (Keke Wilson MD R1) Result Diagram: 03/17/18 0357 03/17/18 0357 Objective Remarks GENERAL: Well developed, sleepy male lying in bed in no obvious distress. More alert than prior. SKIN: No rashes, ecchymoses or lesions. Multiple tattoos HEAD: Atraumatic. Normocephalic. CARDIOVASCULAR: Regular rate and rhythm without murmurs, gallops, or rubs. RESPIRATORY: Clear to auscultation. Breath sounds equal bilaterally. No wheezes , rales, or rhonchi. GASTROINTESTINAL: Abdomen, nontender, without obvious hepatosplenomegaly. No rebound tenderness. MUSCULOSKELETAL: Extremities without clubbing, cyanosis, or edema. No joint tenderness, effusion, or edema noted. NEUROLOGICAL: Sleepy, alert and oriented (Keke Wilson MD R1) A/P Assessment and Plan 32 y/o w/PMH of insulin dependent DM1 admitted for moderate DKA. Discharge Planning Now able to tolerate PO Transition to stepdown unit Anticipate discharge in 1-2 days (Keke Wilson MD R1) Attending Attestation Pt. examined independently and case discussed with resident physicians. I have read the above note and agree with the assessment and plan as discussed with me. I was involved in all medical decision making for this patient. Steve Kiser MD (Steve Kiser MD) Problem List: (1) DKA (diabetic ketoacidoses) ICD Codes: E13.10 - Other specified diabetes mellitus with ketoacidosis without coma Status: Acute Plan: -No identifiable source of infection * CXR and Abd XR wnl -Off Insulin Drip -Blood sugars, 217, 335, 135, 154, 285- required 21 units total -Start home Determir regimen- 25 units in the AM, 20units HS -Medium strength Novolog SSI -Continue IV NS- decrease to 100mls/hr -Replace potassium as needed -Frequent Accu-Cheks -Because of history of multiple hospitalizations/poor compliance, case management consulted along with diabetic education -IM Phenergan PRN for nausea (2) Diabetes mellitus type I ICD Codes: E10.9 - Type 1 diabetes mellitus without complications Status: Acute Plan: Per medical reconciliation on admission, patient takes sliding scale with 25 units of Levemir at breakfast time and 20 units at night -Insulin regimen as above -Order diabetic education -Case management (3) GALA (acute kidney injury) ICD Codes: N17.9 - Acute kidney failure, unspecified Status: Acute Plan: Likely prerenal from diminished fluid/dehydration from hyperglycemic diuresis Status post 2 L bolus fluid in the emergency department Continue IV fluids as above- 100mls/hr Avoid nephrotoxic agents (4) Nutrition, metabolism, and development symptoms ICD Codes: R63.8 - Other symptoms and signs concerning food and fluid intake Status: Acute Plan: Fluids: IV Electrolytes: Replace as needed Nutrition: Diabetic diet DVT prophylaxis: Not indicated (Keke Wilson MD R1) Problem Qualifiers (1) Diabetes mellitus type I: Qualified Codes: E10.8 - Type 1 diabetes mellitus with unspecified complications Keke Wilson MD R1 Mar 18, 2018 10:10 Steve Kiser MD Mar 18, 2018 13:53
[2018-03-18 11:06] LABS: HEMATOCRIT 35.1 % (39.0-51.0); HEMOGLOBIN 12.1 GM/DL (13.0-17.0); MEAN CELL VOLUME 86.1 FL (80.0-100.0); MEAN CORPUSCULAR HEMOGLOBIN 29.7 PG (27.0-34.0); MEAN CORPUSCULAR HGB CONC 34.5 % (32.0-36.0); PLATELET COUNT 262 TH/MM3 (150-450); RED BLOOD COUNT 4.08 MIL/MM3 (4.50-5.90); RED CELL DISTRIBUTION WIDTH 13.1 % (11.6-17.2); WHITE BLOOD COUNT 6.8 TH/MM3 (4.0-11.0)
[2018-03-18 11:36] LABS: BICARBONATE 23.9 MEQ/L (21.0-32.0); CALCIUM 8.3 MG/DL (8.5-10.1); CREATININE 0.99 MG/DL (0.60-1.30)
[2018-03-18] MEDS ORDERED: KETOROLAC TROMETHAMINE 10 MG TAB PO PRN (13:00)
[2018-03-18] MEDS ORDERED: INSULIN DETEMIR 100 UNITS/ML VIAL SQ SCH (21:00)
[2018-03-19] VITALS (13 sets, daily range): BP systolic 134–140; BP diastolic 89–94; PULSE 64–100; RESP 16; TEMP 98.4–98.9; O2SAT 99–100
[2018-03-19 06:42] LABS: HEMATOCRIT 31.7 % (39.0-51.0); HEMOGLOBIN 11.1 GM/DL (13.0-17.0); MEAN CELL VOLUME 85.7 FL (80.0-100.0); MEAN CORPUSCULAR HEMOGLOBIN 30.1 PG (27.0-34.0); MEAN CORPUSCULAR HGB CONC 35.1 % (32.0-36.0); MEAN PLATELET VOLUME 7.3 FL (7.0-11.0); PLATELET COUNT 257 TH/MM3 (150-450); WHITE BLOOD COUNT 6.9 TH/MM3 (4.0-11.0)
[2018-03-19] MEDS ORDERED: INSULIN DETEMIR 100 UNITS/ML VIAL SQ SCH (07:00)
[2018-03-19 07:04] LABS: BICARBONATE 25.7 MEQ/L (21.0-32.0); CALCIUM 8.9 MG/DL (8.5-10.1); CREATININE 1.06 MG/DL (0.60-1.30)
[2018-03-19] MEDS: INSULIN ASPART SUPPLEMENTAL SCALE SQ SCH (08:00)
[2018-03-19] MEDS ORDERED: NOVOLOGP2 SQ (09:53)
[2018-03-19] MEDS ORDERED: BLOOD GLUCOSE T1 TES (09:53)
[2018-03-19] MEDS ORDERED: LEVEMIR SQ ×2 (09:53)
--- NOTE | 2018-03-19 09:58 | HHI.DCPOC ---
Discharge Care Plan Diagnosis: (1) Cocaine abuse (2) DKA (diabetic ketoacidosis) (3) DM (diabetes mellitus) type 1 with ketoacidosis (4) GALA (acute kidney injury) Goals to Promote Your Health * To prevent worsening of your condition and complications * To maintain your health at the optimal level Directions to Meet Your Goals Take your medications as prescribed Follow your dietary instruction Follow activity as directed Keep your appointments as scheduled Take your immunizations and boosters as scheduled If your symptoms worsen call your PCP, if no PCP go to Urgent Care Center or Emergency Room Smoking is Dangerous to Your Health. Avoid second hand smoke Call the 24-hour hour crisis hotline for domestic abuse at Gill Veronica MD R1 Mar 19, 2018 09:58
--- NOTE | 2018-03-19 10:23 | HHI.FPPN ---
Subjective Remarks Patient was seen and evaluated this morning. Patient denies chest or abdominal pain, heart palpitations, shortness of breath, nausea/vomiting, diarrhea and constipation. He says he feels well and is eager to go home. All questions were answered. (Gill Veronica MD R1) Objective Vitals Vital Signs Date Time Temp Pulse Resp B/P (MAP) Pulse Ox O2 Delivery O2 Flow Rate FiO2 03/19/18 07:30 98.9 89 16 134/94 (107) 99 03/19/18 06:03 78 03/19/18 05:03 71 03/19/18 04:00 64 03/19/18 03:14 98.4 78 16 140/89 (106) 100 03/19/18 03:05 84 03/19/18 02:03 70 03/19/18 01:01 73 03/19/18 00:08 100 03/18/18 23:09 98.1 84 16 151/89 (109) 100 03/18/18 23:00 77 03/18/18 22:04 110 03/18/18 21:25 97 21 03/18/18 21:08 69 03/18/18 20:01 69 03/18/18 19:32 98.1 70 16 145/88 (107) 100 03/18/18 19:08 70 03/18/18 18:00 84 03/18/18 17:00 74 03/18/18 16:00 72 03/18/18 15:39 98.5 77 16 136/81 (99) 100 03/18/18 15:00 72 03/18/18 15:00 72 03/18/18 14:00 68 03/18/18 13:40 98.0 67 18 132/81 (98) 98 03/18/18 13:00 66 03/18/18 12:00 71 03/18/18 12:00 98.9 71 18 127/79 (95) 100 03/18/18 10:00 66 I/O 03/18/18 03/18/18 03/18/18 03/19/18 03/19/18 03/19/18 07:00 15:00 23:00 07:00 15:00 23:00 Intake Total 700 ml 1000 ml 480 ml 480 ml Output Total 2000 ml 1200 ml 500 ml Balance -1300 ml -200 ml -20 ml 480 ml Intake Oral 700 ml 480 ml 480 ml IV Total 1000 ml Output Urine Total 2000 ml 1200 ml 500 ml Stool Total 0 ml # Voids 3 2 # Bowel Movements 0 1 (Gill Veronica MD R1) Result Diagram: 03/19/18 0503/19/18 0521 Imaging Last Impressions Chest X-Ray 03/16/18 0000 Signed Impressions: CONCLUSION: No acute cardiopulmonary disease. Abdomen X-Ray 03/15/18 0000 Signed Impressions: CONCLUSION: Normal bowel gas pattern. Objective Remarks GENERAL: Well developed male, lying in bed, in no apparent distress. SKIN: No rashes, ecchymoses or lesions. Multiple tattoos. HEAD: Atraumatic. Normocephalic. CARDIOVASCULAR: Regular rate and rhythm without murmurs, gallops, or rubs. RESPIRATORY: Clear to auscultation. Breath sounds equal bilaterally. No wheezes , rales, or rhonchi. GASTROINTESTINAL: Abdomen, nontender, without obvious hepatosplenomegaly. No rebound tenderness. MUSCULOSKELETAL: Extremities without clubbing, cyanosis, or edema. No joint tenderness, effusion, or edema noted. NEUROLOGICAL: Alert and oriented. Medications and IVs Current Medications Medications (Trade) Dose Ordered Sig/Brandy Route Start Time Stop Time Status Last Admin (NS Flush) 2 ml UNSCH PRN IVF 03/15/18 22:00 (Narcan Inj) 0.4 mg UNSCH PRN IV PUSH 03/16/18 00:30 (Milk Of Magnesia Liq) 30 ml Q12H PRN PO 03/16/18 00:30 (Senokot) 17.2 mg Q12H PRN PO 03/16/18 00:30 (Dulcolax Supp) 10 mg DAILY PRN RECTAL 03/16/18 00:30 (Lactulose Liq) 30 ml DAILY PRN PO 03/16/18 00:30 (Tylenol) 650 mg Q6H PRN PO 03/16/18 01:45 ([facility] Nursing Information) Patient in critical care unit? Ass... [id number] .XX 03/16/18 02:15 03/16/18 02:15 (Chlorhexidine 2% Cloth) 3 pack DAILY@04 TOPICAL 03/16/18 04:00 03/20/18 04:01 03/18/18 04:00 (Chlorhexidine 2% Cloth) 3 pack UNSCH PRN TOPICAL 03/16/18 02:15 03/21/18 02:02 (Zofran Odt) 4 mg Q6H PRN PO 03/16/18 06:30 03/17/18 20:58 (D50w (Vial) Inj) 50 ml UNSCH PRN IV PUSH 03/16/18 06:30 (Glucagon Inj) 1 mg UNSCH PRN OTHER 03/16/18 06:30 (NovoLOG SUPPLEMENTAL SCALE) 1 ACHS SLIDING SCALE SQ 03/16/18 08:00 03/18/18 21:33 (Phenergan Inj) 25 mg Q6H PRN IM 03/17/18 08:30 (Levemir Inj) 20 units HS SQ 03/18/18 21:00 03/18/18 21:33 (Levemir Inj) 25 units AC BREAKFAST SQ 03/19/18 07:00 03/19/18 07:28 (Toradol) 10 mg Q6H PRN PO 03/18/18 13:00 03/23/18 12:59 (Gill Veronica MD R1) Urinary Catheter: No (Gill Veronica MD R1) Vascular Central Line Catheter: No (Gill Veronica MD R1) A/P Assessment and Plan Patient is a 32 year old male with a PMH significant of DM Type1 admitted for DKA. Discharge Planning Discharge likely today. (Gill Veronica MD R1) Attending Attestation Pt. examined independently and case discussed with resident physicians. I have read the above note and agree with the assessment and plan as discussed with me. I was involved in all medical decision making for this patient. Steve Kiser MD (Steve Kiser MD) Problem List: (1) DKA (diabetic ketoacidoses) ICD Codes: E13.10 - Other specified diabetes mellitus with ketoacidosis without coma Status: Resolved Plan: Patient admitted on 03/16 with blood glucose of 414, anion gap of 18, ketones 4.4. VBG then showed alkalosis with a pH of 7.5, PCO2 low at 35, bicarb slightly elevated. No obtundation noted on admission physical exam. * No identifiable source of infection. * CXR and Abd XR wnl. * Off insulin drip. * Blood sugars over last 24hrs: 83, 220, 227, 279, 227, 159. Medications: * Determir 25 units AC breakfast and 20units HS. * LovoLOG Supplemental Scale - patient has required 13 units over past 24 hrs. Orders: * Bedside glucose at 08, 12, 17, 21, 03. (2) Diabetes mellitus type I ICD Codes: E10.9 - Type 1 diabetes mellitus without complications Status: Acute Plan: Patient with history of DM Type I. Medications: * Patient now on home insulin regimen: Determir 25 units AC breakfast and 20units HS plus NovoLOG sliding scale. Patient requests new prescription of insulin as well as test strips at discharge. (3) GALA (acute kidney injury) ICD Codes: N17.9 - Acute kidney failure, unspecified Status: Resolved Plan: On admission, patient with Cr 1.69/BUN 27. Resolved as of 03/18. * Likely prerenal from dehydration associated with hyperglycemic diuresis. * Status post fluid resuscitation. Labs: * 03/19: Cr 1.06, BUN 16. (4) Nutrition, metabolism, and development symptoms ICD Codes: R63.8 - Other symptoms and signs concerning food and fluid intake Status: Acute Plan: Fluids: * Tolerates PO. Electrolytes: * Monitor and replete as necessary. Nutrition: * Diabetic diet. DVT prophylaxis: * Not indicated at this time. (Gill Veronica MD R1) Problem Qualifiers (1) DKA (diabetic ketoacidoses): Qualified Codes: E10.10 - Type 1 diabetes mellitus with ketoacidosis without coma (2) Diabetes mellitus type I: Qualified Codes: E10.8 - Type 1 diabetes mellitus with unspecified complications Gill Veronica MD R1 Mar 19, 2018 10:23 Steve Kiser MD Mar 19, 2018 21:04
--- NOTE | 2018-03-19 10:34 | PD.PN.STU ---
Subjective Remarks Patient found resting comfortably in bed, in no acute distress. Reports no problems overnight. Able to tolerate food without nausea or vomiting. His abdominal pain has resolved. Denies fever, chills, chest pain, shortness of breath, headache, dizziness, constipation, or diarrhea. He is very eager to go home. He requests new prescription of insulin as well as test strips at discharge Objective Vitals Vital Signs Date Time Temp Pulse Resp B/P (MAP) Pulse Ox O2 Delivery O2 Flow Rate FiO2 03/19/18 07:30 98.9 89 16 134/94 (107) 99 03/19/18 06:03 78 03/19/18 05:03 71 03/19/18 04:00 64 03/19/18 03:14 98.4 78 16 140/89 (106) 100 03/19/18 03:05 84 03/19/18 02:03 70 03/19/18 01:01 73 03/19/18 00:08 100 03/18/18 23:09 98.1 84 16 151/89 (109) 100 03/18/18 23:00 77 03/18/18 22:04 110 03/18/18 21:25 97 21 03/18/18 21:08 69 03/18/18 20:01 69 03/18/18 19:32 98.1 70 16 145/88 (107) 100 03/18/18 19:08 70 03/18/18 18:00 84 03/18/18 17:00 74 03/18/18 16:00 72 03/18/18 15:39 98.5 77 16 136/81 (99) 100 03/18/18 15:00 72 03/18/18 15:00 72 03/18/18 14:00 68 03/18/18 13:40 98.0 67 18 132/81 (98) 98 03/18/18 13:00 66 03/18/18 12:00 71 03/18/18 12:00 98.9 71 18 127/79 (95) 100 I/O 03/18/18 03/18/18 03/18/18 03/19/18 03/19/18 03/19/18 07:00 15:00 23:00 07:00 15:00 23:00 Intake Total 700 ml 1000 ml 480 ml 480 ml Output Total 2000 ml 1200 ml 500 ml Balance -1300 ml -200 ml -20 ml 480 ml Intake Oral 700 ml 480 ml 480 ml IV Total 1000 ml Output Urine Total 2000 ml 1200 ml 500 ml Stool Total 0 ml # Voids 3 2 # Bowel Movements 0 1 Result Diagram: 03/19/1852003/19/18 0521 Other Results GENERAL: Well developed male, lying in bed, in no apparent distress. SKIN: No rashes, ecchymoses or lesions. Multiple tattoos. HEAD: Atraumatic. Normocephalic. CARDIOVASCULAR: Regular rate and rhythm without murmurs, gallops, or rubs. RESPIRATORY: Clear to auscultation. Breath sounds equal bilaterally. No wheezes , rales, or rhonchi. GASTROINTESTINAL: Abdomen, nontender, without obvious hepatosplenomegaly. No rebound tenderness. MUSCULOSKELETAL: Extremities without clubbing, cyanosis, or edema. No joint tenderness, effusion, or edema noted. NEUROLOGICAL: Normal speech. Alert and oriented x3. A/P Assessment and Plan Patient is a 32 year old male with Type 1 DM admitted for moderate DKA. Discharge Planning Discharge likely today. Problem List: (1) DKA (diabetic ketoacidoses) ICD Codes: E13.10 - Other specified diabetes mellitus with ketoacidosis without coma Status: Resolved Plan: Patient admitted on 03/16 with blood glucose of 414, anion gap of 18, ketones 4.4. ABG then showed alkalosis with a pH of 7.5, PCO2 low at 35, bicarb slightly elevated. No obtundation noted on admission physical exam. -No identifiable source of infection. CXR and Abd XR wnl. -Urine toxicology positive for cocaine and cannabinoids. -Blood sugars over last 24hrs: 83, 220 (4 units), 227, 279 (7 units), 227, 159. -Will continue monitoring bedside glucose. Medications: -No longer on insulin drip. -Determir 25 units AC breakfast and 20units HS. -LovoLOG Supplemental Scale - patient has required 11 units over past 24 hrs. (2) Diabetes mellitus type I ICD Codes: E10.9 - Type 1 diabetes mellitus without complications Status: Acute Plan: Patient with history of DM Type I. Patient now on home insulin regimen: Determir 25 units AC breakfast and 20units HS plus NovoLOG sliding scale. Diabetic education ordered. (3) GALA (acute kidney injury) ICD Codes: N17.9 - Acute kidney failure, unspecified Status: Resolved Plan: On admission, patient with Cr 1.69/BUN 27. Resolved as of 03/18. -03/19: Kidney function has improved significantly. Cr 1.06, BUN 16. (4) Nutrition, metabolism, and development symptoms ICD Codes: R63.8 - Other symptoms and signs concerning food and fluid intake Status: Acute Plan: Fluids: PO hydration Electrolytes: Continue to monitor. Nutrition: Diabetic diet DVT prophylaxis: Not indicated at this time Note completed by Maria Del Carmen Michelle, MS4 Discharge Planning Possible discharge today with new prescriptions for insulin and test strips. Maria Del Carmen Michelle M3 Mar 19, 2018 10:33
== END 2018-03-19 11:30 | disposition home or self-care (01) | DRG 638 ==
LOC: NEPE 21:28 → UNDOADMIN 23:51 → NEDA 23:51 → UNDOADMOB 03-16 00:21 → NEDA 03-16 00:21 → INTOOBSV 03-16 00:21 → OBSVTOIN 03-16 01:00 → HIMN 03-16 01:55 → HCIS 03-18 13:38
PROVIDERS: ADMIT Family Medicine; ATTEND Family Medicine
DX: E10.10 Type 1 diabetes mellitus with ketoacidosis without coma (principal); E87.3 Alkalosis; N17.9 Acute kidney failure, unspecified; F14.10 Cocaine abuse, uncomplicated; E10.40 Type 1 diabetes mellitus with diabetic neuropathy, unspecified; F43.10 Post-traumatic stress disorder, unspecified; F12.90 Cannabis use, unspecified, uncomplicated; R00.0 Tachycardia, unspecified; E86.0 Dehydration; R63.8 Other symptoms and signs concerning food and fluid intake; Z79.4 Long term (current) use of insulin; Z91.14 Patient's other noncompliance with medication regimen; Z80.0 Family history of malignant neoplasm of digestive organs
CPT/HCPCS: 36600; 71046; 74019; 80048; 80053; 80307; 81001; 82010; 82043; 82805; 82948; 83036; 83690; 83735; 84100; 84132; 85025; 85027; 87641; 96361; 96365; 96375; J1815; J1817; J1885; J2270; J2550; J2765; J3480; J7030; J7042

== ENCOUNTER 2018-09-12 08:54 | Inpatient (IN) ==
[2018-09-12] MEDS ORDERED: Sod Chloride 0.9% Inj 1,000 ML IV.SIG ONE (09:05)
--- NOTE | 2018-09-12 09:16 | ED ---
HPI General Chief Complaint: Seizure Stated Complaint: Poss Seizure Time Seen by Provider: 09/12/18 08:56 Source: patient Mode of arrival: EMS Limitations: other History of Present Illness HPI Narrative: The patient is a 32-year-old male who presents to the emergency department via EMS after possible seizure. The patient apparently lives at home with his mother who states the patient has had approximately 3 seizures over the last 3 days. EMS did not witness a seizure, however, stated the patient was postictal when they arrived. Upon arrival the patient is somewhat lethargic, denies a seizure, however, thinks his blood sugars were becoming elevated. He states he had a previous seizure secondary to elevated blood glucose levels, however, was not placed on medications at that time. The patient does take insulin for his diabetes, EMS states the patient's blood sugar was in the 70s. The patient denies any significant complaints except for nausea and vomiting. He denies any headache or neck pain. However, he is a somewhat limited historian who appears postictal. MD complaint: Reports possible seizure Onset (ago): hour(s) Description of Episode: Reports post-event confusion Witnessed: yes - by other Trauma: No Seizure History: Reports known seizure disorder Place: home Possible Precipitating Event: Reports other Associated symptoms: Reports other Treatments prior to arrival: Reports none Related Data Allergies Allergy/AdvReac Type Severity Reaction Status Date / Time No Known Allergies Allergy Verified 09/12/18 09:41 Review of Systems ROS: all other systems reviewed are negative [facility] Medical History Medical History DKA (diabetic ketoacidoses) (Acute) Dehydration (Acute) Diabetes (Acute) Gastroparesis (Acute) Renal insufficiency (Acute) Social History Social History Substance History: Active Abuse Second Hand Smoke Exposure: No Smoking Status: Never smoker How Often Do You Have a Drink Containing Alcohol: Monthly or less Recent Travel in [facility] within the Last 8 Weeks: No Recent Out of Country Travel within the Last 8 Weeks: No Exam Narrative Exam Narrative: GENERAL: Lethargic and apparent postictal appearing 32-year-old male. Had an episode of vomiting during the examination. SKIN: Focused skin assessment warm/dry. HEAD: Atraumatic. Normocephalic. EYES: Pupils equal and round. 3 mm bilateral and reactive. ENT: No nasal bleeding or discharge. Slightly dry mucous membranes. NECK: Trachea midline. No JVD. CARDIOVASCULAR: Regular rate and rhythm. No murmur appreciated. RESPIRATORY: No accessory muscle use. Clear to auscultation. Breath sounds equal bilaterally. GASTROINTESTINAL: Abdomen soft, non-tender, nondistended. MUSCULOSKELETAL: No obvious deformities. No clubbing. No cyanosis. No edema. NEUROLOGICAL: Slightly lethargic and apparent postictal. Does follow simple commands and answer questions with yes or no. PSYCHIATRIC: Unable to obtain. Course Initial Documented Vital Signs Temperature 98.6 F 09/12/18 09:06 Pulse Rate 103 H 09/12/18 09:06 Respiratory Rate 24 09/12/18 09:06 Blood Pressure 129/74 09/12/18 09:06 Pulse Oximetry 97 09/12/18 09:06 Last Documented Vital Signs Temperature 98.6 F 09/12/18 09:06 Pulse Rate 76 09/12/18 10:30 Respiratory Rate 16 09/12/18 10:30 Blood Pressure 138/77 09/12/18 10:30 Pulse Oximetry 98 09/12/18 10:30 Critical Care Time Critical Care Time: Yes Total Critical Care Time: 40 Attestation: Aggregate critical care time was 40 minutes. Time to perform other separately billable procedures was not included in the critical care time. My time did not include minutes spent treating any other patients simultaneously or on activities that did not directly contribute to the patient's treatment. The services I provided to this patient were to treat and/or prevent clinically significant deterioration that could result in: Hypoglycemia, seizure, coma, chronic neurologic deficit. I provided critical care services requiring my management, as noted below: Chart data review, documentation time, medication orders and management, vital sign assessments/reviewing monitor data, ordering and reviewing lab tests, ordering and interpreting/reviewing x-rays and diagnostic studies, care of the patient and discussion of the patient with the admitting physicians. Medical Decision Making MDM Narrative Medical decision making narrative: IV was established, labs are drawn and sent, and the patient was placed on cardiac telemetry monitoring and continuous pulse oximetry monitoring. The patient's blood sugar was reevaluated, was 48, therefore, the patient was administered 1 ampoule of D50 intravenously. Every 30 minute blood sugars were ordered for [address] the brain was obtained. Lactic acid and electrolytes were sent to lab. VBG was obtained. The patient' s VBG revealed a normal pH. The patient continued to have vomiting despite Zofran, therefore, was administered Reglan 10 mg intravenously. I did review the EMR, he does have prior admissions for persistent nausea/vomiting and possible gastroparesis. The patient's repeat blood sugar after the amp of D50 was 77. The patient did have nausea and vomiting and was unable to tolerate oral intake. Therefore, the patient was placed on a D5 one half normal saline drip. The patient returned from CT and once again had an episode of vomiting. Therefore, the patient was administered Zofran. The patient's lactic acid was 5.5, most likely secondary to seizure, possibly secondary to hypoglycemia. The patient's repeat Accu-Chek at 10:40 AM was 60, he was still unable to tolerate oral intake, therefore, was administered another amp of D50 intravenously. The patient was placed on D5 one half normal saline with potassium chloride at 100 cc/h secondary to persistent hypoglycemia with inability to tolerate oral intake secondary to intractable nausea and vomiting. The patient will be admitted to the on-call medical service, but will require intensive care unit monitoring for every hour Accu-Cheks until stable. Medical Screen Exam Complete: Yes Emergency Medical Condition: Yes Differential Diagnosis Differential Diagnosis: Differential diagnosis includes hypoglycemia, seizure, postictal state, dehydration, insulin side effect, intracranial hemorrhage, intracranial tumor, drug ingestion. Lab Data Lab results reviewed: Yes I reviewed the patient's lab results. Result diagrams: 09/12/18 09:29 09/12/18 09:29 Lab Results 09/12/18 09/12/18 09/12/18 Range/Units 09:10 09:15 09:29 WBC 7.3 (4.0-11.0) th/mm3 RBC 4.12 L (4.50-5.90) mil/mm3 Hgb 13.0 (13.0-17.0) gm/dL Hct 37.6 L (39.0-51.0) % MCV 91.2 (80.0-100.0) fL MCH 31.5 (27.0-34.0) pg MCHC 34.5 (32.0-36.0) % RDW 12.9 (11.6-17.2) % Plt Count 281 (150-450) th/mm3 MPV 7.0 (7.0-11.0) fL Neut % (Auto) 57.6 (16.0-70.0) % Lymph % (Auto) 28.6 (9.0-44.0) % [place] % (Auto) 6.8 (0.0-8.0) % Eos % (Auto) 6.2 H (0.0-4.0) % Baso % (Auto) 0.8 (0.0-2.0) % Neut # (Auto) 4.2 (1.8-7.7) th/mm3 Lymph # (Auto) 2.1 (1.0-4.8) th/mm3 [place] # (Auto) 0.5 (0.0-0.9) th/mm3 Eos # (Auto) 0.4 (0.0-0.4) th/mm3 Baso # (Auto) 0.1 (0.0-0.2) th/mm3 WBC Differential . Differential Comment Auto diff final Puncture Site Cl Patient Temperature 98.6 VBG pH 7.37 (7.360-7.400) VBG pCO2 44 (44-48) mmHG VBG pO2 62 H (35-40) mmHG VBG HCO3 25 (22-26) mmol/L VBG O2 Saturation 86 H (70-76) % VBG O2 Content 16.1 (9.0-17.0) Vol % VBG Base Excess 0.3 (-2-2) mmol/L VBG Carboxyhemoglobin 3.1 (0-4) % VBG Methemoglobin 0.9 (0-2) % Hemoglobin 13.3 (12.0-16.0) G/DL O2 Delivery Device Ra Critical Value No Sodium (136-145) meq/L Potassium (3.5-5.1) meq/L Chloride (98-107) meq/L Carbon Dioxide (21.0-32.0) meq/L Anion Gap (5-15) meq/L BUN (7-18) mg/dL Creatinine (0.60-1.30) mg/dL Estimated GFR (>89) mL/min POC Glucose 48 L* (68-110) mg/dl Random Glucose (74-106) mg/dL Lactic Acid (0.4-2.0) mmol/L Calcium (8.5-10.1) mg/dL Magnesium (1.5-2.5) mg/dL Total Bilirubin (0.2-1.0) mg/dL AST (15-37) U/L ALT (12-78) U/L Alkaline Phosphatase (45-117) U/L Total Protein (6.4-8.2) g/dL Albumin (3.4-5.0) g/dL Serum Alcohol (0-5) mg/dL 09/12/18 09/12/18 09/12/18 Range/Units 09:29 09:30 10:06 WBC (4.0-11.0) th/mm3 RBC (4.50-5.90) mil/mm3 Hgb (13.0-17.0) gm/dL Hct (39.0-51.0) % MCV (80.0-100.0) fL MCH (27.0-34.0) pg MCHC (32.0-36.0) % RDW (11.6-17.2) % Plt Count (150-450) th/mm3 MPV (7.0-11.0) fL Neut % (Auto) (16.0-70.0) % Lymph % (Auto) (9.0-44.0) % [place] % (Auto) (0.0-8.0) % Eos % (Auto) (0.0-4.0) % Baso % (Auto) (0.0-2.0) % Neut # (Auto) (1.8-7.7) th/mm3 Lymph # (Auto) (1.0-4.8) th/mm3 [place] # (Auto) (0.0-0.9) th/mm3 Eos # (Auto) (0.0-0.4) th/mm3 Baso # (Auto) (0.0-0.2) th/mm3 WBC Differential Differential Comment Puncture Site Patient Temperature VBG pH (7.360-7.400) VBG pCO2 (44-48) mmHG VBG pO2 (35-40) mmHG VBG HCO3 (22-26) mmol/L VBG O2 Saturation (70-76) % VBG O2 Content (9.0-17.0) Vol % VBG Base Excess (-2-2) mmol/L VBG Carboxyhemoglobin (0-4) % VBG Methemoglobin (0-2) % Hemoglobin (12.0-16.0) G/DL O2 Delivery Device Critical Value Sodium 145 (136-145) meq/L Potassium 3.6 (3.5-5.1) meq/L Chloride 108 H (98-107) meq/L Carbon Dioxide 26.5 (21.0-32.0) meq/L Anion Gap 11 (5-15) meq/L BUN 27 H (7-18) mg/dL Creatinine 1.47 H (0.60-1.30) mg/dL Estimated GFR 55 L (>89) mL/min POC Glucose 77 (68-110) mg/dl Random Glucose 43 L* (74-106) mg/dL Lactic Acid 5.5 H* (0.4-2.0) mmol/L Calcium 9.5 (8.5-10.1) mg/dL Magnesium 2.3 (1.5-2.5) mg/dL Total Bilirubin 0.3 (0.2-1.0) mg/dL AST 18 (15-37) U/L ALT 19 (12-78) U/L Alkaline Phosphatase 86 (45-117) U/L Total Protein 7.7 (6.4-8.2) g/dL Albumin 3.8 (3.4-5.0) g/dL Serum Alcohol Less than 3 (0-5) mg/dL 09/12/18 Range/Units 10:40 WBC (4.0-11.0) th/mm3 RBC (4.50-5.90) mil/mm3 Hgb (13.0-17.0) gm/dL Hct (39.0-51.0) % MCV (80.0-100.0) fL MCH (27.0-34.0) pg MCHC (32.0-36.0) % RDW (11.6-17.2) % Plt Count (150-450) th/mm3 MPV (7.0-11.0) fL Neut % (Auto) (16.0-70.0) % Lymph % (Auto) (9.0-44.0) % [place] % (Auto) (0.0-8.0) % Eos % (Auto) (0.0-4.0) % Baso % (Auto) (0.0-2.0) % Neut # (Auto) (1.8-7.7) th/mm3 Lymph # (Auto) (1.0-4.8) th/mm3 [place] # (Auto) (0.0-0.9) th/mm3 Eos # (Auto) (0.0-0.4) th/mm3 Baso # (Auto) (0.0-0.2) th/mm3 WBC Differential Differential Comment Puncture Site Patient Temperature VBG pH (7.360-7.400) VBG pCO2 (44-48) mmHG VBG pO2 (35-40) mmHG VBG HCO3 (22-26) mmol/L VBG O2 Saturation (70-76) % VBG O2 Content (9.0-17.0) Vol % VBG Base Excess (-2-2) mmol/L VBG Carboxyhemoglobin (0-4) % VBG Methemoglobin (0-2) % Hemoglobin (12.0-16.0) G/DL O2 Delivery Device Critical Value Sodium (136-145) meq/L Potassium (3.5-5.1) meq/L Chloride (98-107) meq/L Carbon Dioxide (21.0-32.0) meq/L Anion Gap (5-15) meq/L BUN (7-18) mg/dL Creatinine (0.60-1.30) mg/dL Estimated GFR (>89) mL/min POC Glucose 60 L (68-110) mg/dl Random Glucose (74-106) mg/dL Lactic Acid (0.4-2.0) mmol/L Calcium (8.5-10.1) mg/dL Magnesium (1.5-2.5) mg/dL Total Bilirubin (0.2-1.0) mg/dL AST (15-37) U/L ALT (12-78) U/L Alkaline Phosphatase (45-117) U/L Total Protein (6.4-8.2) g/dL Albumin (3.4-5.0) g/dL Serum Alcohol (0-5) mg/dL Imaging Data Radiologist's impression: Head CT 09/12/18 09:05 CONCLUSION: 1. Negative CT Head non contrast. . ECG Data EKG Prior to Arrival: No Attestation: I personally reviewed and interpreted this ECG as follows: Interpretation: EKG reveals sinus rhythm with sinus arrhythmia. Heart rate in the 80s. No ischemic changes noted. Discharge Plan Discharge Disposition Patient Disposition: 30 Still Patient Discharge Condition Condition: Serious Discharge Details Diagnosis: Hypoglycemia, Seizure, Intractable nausea and vomiting, Acidosis, lactic Physicians Team ED Provider: Wilbur Troy Primary Care Provider: UNKNOWN, Status ED Status: Pending Admission
[2018-09-12] MEDS ORDERED: Dextrose 50% in Water Syringe 50 ML ONE (09:19)
[2018-09-12 09:22] LABS: VBG Base Excess 0.3 mmol/L (-2-2); VBG Blood Gas Oxygen Content 16.1 Vol % (9.0-17.0); VBG PCO2 44 mmHG (44-48); VBG PH 7.37 (7.360-7.400); VBG PO2 62 mmHG (35-40)
[2018-09-12 10:06] LABS: Baso # (Auto) 0.1 th/mm3 (0.0-0.2); Baso % (Auto) 0.8 % (0.0-2.0); Eos # (Auto) 0.4 th/mm3 (0.0-0.4); Eos % (Auto) 6.2 % (0.0-4.0); Hematocrit 37.6 % (39.0-51.0); Lymph # (Auto) 2.1 th/mm3 (1.0-4.8); Lymph % (Auto) 28.6 % (9.0-44.0); Mean Corpuscular HGB Conc 34.5 % (32.0-36.0); Mean Corpuscular Hemoglobin 31.5 pg (27.0-34.0); Mean Corpuscular Volume 91.2 fL (80.0-100.0); Mono # (Auto) 0.5 th/mm3 (0.0-0.9); Mono % (Auto) 6.8 % (0.0-8.0); Neut # (Auto) 4.2 th/mm3 (1.8-7.7); Neut % (Auto) 57.6 % (16.0-70.0); Platelet Count 281 th/mm3 (150-450); Red Blood Count 4.12 mil/mm3 (4.50-5.90); Red Cell Distribution Width 12.9 % (11.6-17.2); White Blood Count 7.3 th/mm3 (4.0-11.0)
[2018-09-12 10:29] LABS: Alanine Aminotransferase 19 U/L (12-78); Albumin 3.8 g/dL (3.4-5.0); Alkaline Phosphatase 86 U/L (45-117); Anion Gap 11 meq/L (5-15); Aspartate Aminotransferase 18 U/L (15-37); Blood Urea Nitrogen 27 mg/dL (7-18); Calcium 9.5 mg/dL (8.5-10.1); Carbon Dioxide 26.5 meq/L (21.0-32.0); Chloride 108 meq/L (98-107); Glomerular Filtration Rate 55 mL/min (>89); Magnesium 2.3 mg/dL (1.5-2.5); Potassium 3.6 meq/L (3.5-5.1); Sodium 145 meq/L (136-145); Total Protein 7.7 g/dL (6.4-8.2)
[2018-09-12 10:32] LABS: Glucose,Random 43 mg/dL (74-106)
--- NOTE | 2018-09-12 10:57 | CT ---
EXAM DATE: 09/12/2018 10:23 AM EST AGE/SEX: 32 years / Male INDICATIONS: Seizure. Vomiting. CLINICAL DATA: This is the patient's initial encounter. Patient reports that signs and symptoms have been present for 1 day and indicates a pain score of 0/10. MEDICAL/SURGICAL HISTORY: None. None. RADIATION DOSE: 41.35 CTDI (mGy) [place] [facility] [place]. . TECHNIQUE: CT of the head without contrast. Using automated exposure control and adjustment of the mA and/or kV according to patient size, radiation dose was kept as low as reasonably achievable to ob tain optimal diagnostic quality images. DICOM format image data is available electronically for revi ew and comparison. FINDINGS: Cerebrum: The ventricles are normal for age. No evidence of midline shift, mass lesion, hemorrhage or acute infarction. No extraaxial fluid collections are seen. Posterior Fossa: The cerebellum and brainstem are intact. The 4th ventricle is midline. The cerebe llopontine angle is unremarkable. Extracranial: The visualized portion of the orbits is intact. Skull: The calvaria is intact. No evidence of skull fracture. CONCLUSION: 1. Negative CT Head non contrast. . Electronically signed by: Pancho Lambert MD 09/12/2018 10:55 AM EST
[2018-09-12] MEDS ORDERED: Dextrose 50% in Water 50 ML Vial IV.PUSH PRN (11:00)
[2018-09-12] MEDS ORDERED: Bisacodyl 10 MG Supp RECTAL PRN ×2 (11:02→11:03)
[2018-09-12] MEDS ORDERED: Acetaminophen 325 MG Tablet PO PRN (11:02)
[2018-09-12] MEDS: KCL 10 mEq/D5W/NaCl 0.45% Inj 1,000 ML IV.CONT SCH ×2 (11:49→21:32)
[2018-09-12 11:58] LABS: CKMB Percent 0.7 % (0.0-4.0); Creatine Kinase MB 3.3 ng/mL (0.5-3.6)
--- NOTE | 2018-09-12 12:50 | ECG ---
Date Performed: 09/12/2018 Time Performed: 11:06:34 PTAGE: 32 years EKG: Sinus rhythm WITH MARKED SINUS ARRHYTHMIA BORDERLINE ECG INTERPRETATION BASED ON A DEFAULT AGE OF 40 YEARS PREVIOUS TRACING : 01/06/2018 05.00 DOCTOR: John Amezquita Interpretating Date/Time 09/12/2018 12:48:54
--- NOTE | 2018-09-12 13:37 | P.HP ---
History of Present Illness Primary Care Physician: UNKNOWN Chief Complaint: sz History of Present Illness: This is a 32 yo male hx IRDM with neuropathy, previous hx DKA and dehydration and gastroparesis. Was brought in by EMS 2/2 sz. Hx taken from pt and GF. He is drowsy but answering q and ff commands appropriately. GF woke up coz pt was shaking with stiff LE, eyes rolled upward and had urinary incontinence. Hx hypoglycemic sz. In the ED, he had persistent hypoglycemia despite 3 doses of D50. Currently on D5 last FS 122. He reports of MAGANA now. Denies fever, chills , neck pain and MAGANA ASSISTANT FINANCIAL ACCOUNTANT. He has been vomiting in the ED despite multiple antiemetics. Per GF, prod cough for several days. CXR interpreted by me as negative for acute dse. All other sxs neg Inpatient Certification: I certify that the inpatient services were ordered in accordance with Medicare regulations governing the order. This includes certification that hospital inpatient services are reasonable and necessary and in the case of services not specified as inpatient-only under 42 CFR 419.22(n), that they are appropriately provided as inpatient services in accordance to with the 2-midnight benchmark under 43 CFR 412.3(e) Estimated Total Length of Stay (Days): 2 Plans for Post Hospital Care: Not yet determined Review of Systems All other systems reviewed negative except as stated in HPI PMFSH - History History Provided By: Significant Other, Marketing Recruiter / EMT - Medical History Medical History: Medical History (Last Reviewed 09/12/18 @ 15:18 by Kamran Richardson MD) DKA (diabetic ketoacidoses) Dehydration Diabetes Gastroparesis Renal insufficiency - Surgical History Surgical History: Surgical History (Last Updated 09/12/18 @ 15:19 by Kamran Richardson MD) No history of previous surgery - Family History Family History: Family History (Last Updated 09/12/18 @ 15:19 by Kamran Richardson MD) Other Family history non-contributory - Social History I have reviewed the patient's Social History: Yes - Tobacco History Second Hand Smoke Exposure: No Tobacco Use In Past 30 Days: No Smoking Status: Never smoker - Alcohol History How Often Do You Have a Drink Containing Alcohol: Monthly or less - Substance Use History Substance History: Active Abuse (MJ) - Substance Use Type Marijuana Status: Active Route Used: Inhalation Reason for Use: Calm Down - Travel History Recent Travel in the [place] Within the Last 8 Weeks: No Recent Travel Out of the Country Within the Last 8 Weeks: No - Immunization History Tetanus Immunization: Unsure Medications and Allergies Active Medications: Active Medications Acetaminophen (Tylenol) 650 mg PO Q4H PRN PRN Reason: Temp > 100.4 Bisacodyl (Dulcolax Supp) 10 mg RECTAL DAILY PRN PRN Reason: SEVERE CONSITIPATION Dextrose (D50w Vial) 50 ml IV.PUSH UNSCH PRN PRN Reason: PER HYPOGLYCEMIA PROTOCOL Glucagon (Glucagon Inj) 1 mg OTHER PRN PRN PRN Reason: for Hypoglycemia Protocol Potassium Chloride/Dextrose/Sod Cl (D5w/1/2ns + Kcl 10 Meq Inj) 1,000 mls @ 100 mls/hr IV.CONT .Q10H CANDY Last Admin: 09/12/18 11:49 Dose: 100 mls/hr Lactulose (Lactulose Liq) 30 ml PO DAILY PRN PRN Reason: SEVERE CONSITIPATION Lorazepam (Ativan Inj) 1 mg IV.PUSH Q4H PRN PRN Reason: seizure Metoclopramide HCl (Reglan Inj) 5 mg IV.PUSH Q8HR CANDY; Protocol Senna/Docusate Sodium (Rosanna-Colace) 1 tab PO BID CANDY Sennosides (Senokot) 17.2 mg PO Q12H PRN PRN Reason: Moderate Constipation Sodium Chloride (Ns Flush) 2 ml IV.FLUSH PRN PRN PRN Reason: FLUSH AFTER USING IV ACCESS Last Admin: 09/12/18 09:51 Dose: 2 ml Allergies Allergy/AdvReac Type Severity Reaction Status Date / Time No Known Allergies Allergy Verified 09/12/18 09:41 Exam Vital signs: Vital Signs 09/12/18 09:06 09/12/18 09:15 09/12/18 09:24 Temperature 98.6 F Pulse Rate 103 H Respiratory Rate 24 Blood Pressure 129/74 Pulse Oximetry 97 97 100 09/12/18 10:30 Temperature Pulse Rate 76 Respiratory Rate 16 Blood Pressure 138/77 Pulse Oximetry 98 Intake & Output 09/11/18 09/12/18 09/12/18 18:59 06:59 18:59 Weight 77.111 kg Narrative: GENERAL: WD WN in Nd SKIN: Warm and dry. HEAD: Atraumatic. Normocephalic. EYES: Pupils equal and round. No scleral icterus. No injection or drainage. ENT: No nasal bleeding or discharge. Mucous membranes pink and moist. NECK: Trachea midline. No JVD. CARDIOVASCULAR: Regular rate and rhythm. RESPIRATORY: No accessory muscle use. Clear to auscultation. Breath sounds equal bilaterally. GASTROINTESTINAL: Abdomen soft, non-tender, nondistended. MUSCULOSKELETAL: Extremities without clubbing, cyanosis, or edema. No obvious deformities. NEUROLOGICAL: Drowsy. No obvious cranial nerve deficits. Motor grossly within normal limits. Five out of 5 muscle strength in the arms and legs. Normal speech. PSYCHIATRIC: Appropriate mood and affect; insight and judgment normal. Results - Labs CBC & Chem 7: 09/12/18 09:29 09/12/18 09:29 Labs: Laboratory Results - last 24 hr 09/12/18 09/12/18 09/12/18 09:10 09:15 09:29 WBC 7.3 RBC 4.12 L Hgb 13.0 Hct 37.6 L MCV 91.2 MCH 31.5 MCHC 34.5 RDW 12.9 Plt Count 281 MPV 7.0 Neut % (Auto) 57.6 Lymph % (Auto) 28.6 [place] % (Auto) 6.8 Eos % (Auto) 6.2 H Baso % (Auto) 0.8 Neut # (Auto) 4.2 Lymph # (Auto) 2.1 [place] # (Auto) 0.5 Eos # (Auto) 0.4 Baso # (Auto) 0.1 WBC Differential . Differential Comment Auto diff final Puncture Site Cl Patient Temperature 98.6 VBG pH 7.37 VBG pCO2 44 VBG pO2 62 H VBG HCO3 25 VBG O2 Saturation 86 H VBG O2 Content 16.1 VBG Base Excess 0.3 VBG Carboxyhemoglobin 3.1 VBG Methemoglobin 0.9 Hemoglobin 13.3 O2 Delivery Device Ra Critical Value No Sodium Potassium Chloride Carbon Dioxide Anion Gap BUN Creatinine Estimated GFR POC Glucose 48 L* Random Glucose Lactic Acid Calcium Magnesium Total Bilirubin AST ALT Alkaline Phosphatase Total Creatine Kinase CK-MB (CK-2) CK-MB (CK-2) % Total Protein Albumin Serum Alcohol 09/12/18 09/12/18 09/12/18 09:29 09:29 09:30 WBC RBC Hgb Hct MCV MCH MCHC RDW Plt Count MPV Neut % (Auto) Lymph % (Auto) [place] % (Auto) Eos % (Auto) Baso % (Auto) Neut # (Auto) Lymph # (Auto) [place] # (Auto) Eos # (Auto) Baso # (Auto) WBC Differential Differential Comment Puncture Site Patient Temperature VBG pH VBG pCO2 VBG pO2 VBG HCO3 VBG O2 Saturation VBG O2 Content VBG Base Excess VBG Carboxyhemoglobin VBG Methemoglobin Hemoglobin O2 Delivery Device Critical Value Sodium 145 Potassium 3.6 Chloride 108 H Carbon Dioxide 26.5 Anion Gap 11 BUN 27 H Creatinine 1.47 H Estimated GFR 55 L POC Glucose Random Glucose 43 L* Lactic Acid 5.5 H* Calcium 9.5 Magnesium 2.3 Total Bilirubin 0.3 AST 18 ALT 19 Alkaline Phosphatase 86 Total Creatine Kinase 444 H CK-MB (CK-2) 3.3 CK-MB (CK-2) % 0.7 Total Protein 7.7 Albumin 3.8 Serum Alcohol Less than 3 09/12/18 09/12/18 09/12/18 10:06 10:40 12:18 WBC RBC Hgb Hct MCV MCH MCHC RDW Plt Count MPV Neut % (Auto) Lymph % (Auto) [place] % (Auto) Eos % (Auto) Baso % (Auto) Neut # (Auto) Lymph # (Auto) [place] # (Auto) Eos # (Auto) Baso # (Auto) WBC Differential Differential Comment Puncture Site Patient Temperature VBG pH VBG pCO2 VBG pO2 VBG HCO3 VBG O2 Saturation VBG O2 Content VBG Base Excess VBG Carboxyhemoglobin VBG Methemoglobin Hemoglobin O2 Delivery Device Critical Value Sodium Potassium Chloride Carbon Dioxide Anion Gap BUN Creatinine Estimated GFR POC Glucose 77 60 L 123 H Random Glucose Lactic Acid Calcium Magnesium Total Bilirubin AST ALT Alkaline Phosphatase Total Creatine Kinase CK-MB (CK-2) CK-MB (CK-2) % Total Protein Albumin Serum Alcohol - Imaging Impressions Head CT 09/12/18 09:05 CONCLUSION: 1. Negative CT Head non contrast. . Caprini VTE Risk Assessment Caprini VTE Risk Assessment: No/Low Risk (score <= 1) Caprini Risk Assessment Model: Point Value = 1 Point Value = 2 Point Value = 3 Point Value = 5 Age 41-60 Minor surgery BMI > 25 kg/m2 Swollen legs Varicose veins or History of unexplained or recurrent spontaneous Oral contraceptives or hormone replacement Sepsis (< 1 month) Serious lung disease, including pneumonia (< 1 month) Abnormal pulmonary function Acute myocardial infarction Congestive heart failure (< 1 month) History of inflammatory bowel disease Medical patient at bed rest Age 61-74 Arthroscopic surgery Major open surgery (> 45 min) Laparoscopic surgery (> 45 min) Malignancy Confined to bed (> 72 hours) Immobilizing plaster cast Central venous access Age >= 75 History of VTE Family history of VTE Factor V Leiden Prothrombin [id number] Lupus anticoagulant Anticardiolipin antibodies Elevated serum homocysteine Heparin-induced thrombocytopenia Other congenital or acquired thrombophilia Stroke (< 1 month) Elective arthroplasty Hip, pelvis, or leg fracture Acute spinal cord injury (< 1 month) Prophylaxis Regimen: Total Risk Factor Score Risk Level Prophylaxis Regimen 0-1 Low Early ambulation 2 Moderate Order ONE of the following: *Sequential Compression Device (SCD) *Heparin 5000 units SQ BID 3-4 Higher Order ONE of the following medications: *Heparin 5000 units SQ TID *Enoxaparin/Lovenox 40 mg SQ daily (WT < 150 kg, CrCl > 30 mL/min) *Enoxaparin/Lovenox 30 mg SQ daily (WT < 150 kg, CrCl > 10-29 mL/min) *Enoxaparin/Lovenox 30 mg SQ BID (WT < 150 kg, CrCl > 30 mL/min) AND/OR *Sequential Compression Device (SCD) 5 or more Highest Order ONE of the following medications: *Heparin 5000 units SQ TID (Preferred with Epidurals) *Enoxaparin/Lovenox 40 mg SQ daily (WT < 150 kg, CrCl > 30 mL/min) *Enoxaparin/Lovenox 30 mg SQ daily (WT < 150 kg, CrCl > 10-29 mL/min) *Enoxaparin/Lovenox 30 mg SQ BID (WT < 150 kg, CrCl > 30 mL/min) AND *Sequential Compression Device (SCD) Assessment and Plan - Plan This is a 32 yo male hx IRDM with neuropathy, previous hx DKA and dehydration and gastroparesis. Was brought in by EMS 2/2 sz. Hx taken from pt and GF. He is drowsy but answering q and ff commands appropriately. GF woke up coz pt was shaking with stiff LE, eyes rolled upward and had urinary incontinence. Hx hypoglycemic sz. In the ED, he had persistent hypoglycemia despite 3 doses of D50. Currently on D5 last FS 122. He reports of MAGANA now. Denies fever, chills , neck pain and MAGANA ASSISTANT FINANCIAL ACCOUNTANT. He has been vomiting in the ED despite multiple antiemetics Encephalopathy likely postictal. HCT neg. Neuro stable. Improving neuro checks and monitor on tele. UDS Hypoglycemic sz. Sz precautions. Ativan prn Hypoglycemia hx IRDM. Hypoglycemia protocol. Ct D5 with hourly FS monitoring. Consider decreasing frequency if improved and pt eating Gastroparesis exacerbation. Start Reglan check UA Lactic acidosis 2/2 sz. No evidence of infection GALA 2/[address] IVF Discharge Planning: ICU admit requiring hourly FS
--- NOTE | 2018-09-12 14:15 | XR ---
EXAM DATE: 09/12/2018 2:02 PM EST AGE/SEX: 32 years / Male INDICATIONS: Nausea, vomiting, fever. CLINICAL DATA: This is the patient's initial encounter. Patient reports that signs and symptoms have been present for 1 day and indicates a pain score of 0/10. MEDICAL/SURGICAL HISTORY: None. None. COMPARISON: [facility] [place], CHEST PA & LAT, 03/16/2018. . FINDINGS: A single AP view of the chest demonstrates the lungs to be symmetrically aerated without evidence of mass, infiltrate or effusion. The cardiomediastinal contours are unremarkable. Osseous structures a re intact. CONCLUSION: Negative examination. Electronically signed by: Narinder Shelton MD 09/12/2018 2:14 PM EST
[2018-09-12 19:10] LABS: Amphetamine Screen,Urine Neg (Neg); Barbiturate Screen,Urine Neg (Neg); Cannabinoid Screen,Urine Pos (Neg); Cocaine Screen,Urine Pos (Neg)
[2018-09-12 19:18] LABS: Opiate Screen,Urine Neg (Neg)
[2018-09-12] MEDS: Senna/Docusate Sodium 8.6/50 MG Tablet PO SCH (21:32)
[2018-09-12 22:21] LABS: Bilirubin,Urine Negative (Negative); Clarity,Urine Clear (Clear); Color,Urine Yellow (Yellw/Straw); Glucose,Urine (UA) 500 or Greater mg/dL (Negative); Leukocyte Esterase,Urine Negative (Negative); Nitrite,Urine Negative (Negative); Specific Gravity,Urine 1.017 (1.002-1.035)
[2018-09-13] MEDS ORDERED: Chlorhexidine Gluconate 2% 1 Pack (2 Cloths) TOPICAL PRN (04:00)
[2018-09-13 04:17] LABS: Calcium 8.8 mg/dL (8.5-10.1); Carbon Dioxide 23.2 meq/L (21.0-32.0); Potassium 4.2 meq/L (3.5-5.1)
[2018-09-13] MEDS: Chlorhexidine Gluconate 2% 1 Pack (2 Cloths) TOPICAL SCH (04:24)
[2018-09-13 04:40] LABS: CKMB Percent 0.4 % (0.0-4.0); Creatine Kinase MB 3.3 ng/mL (0.5-3.6)
[2018-09-13] MEDS ORDERED: Dextrose 50% in Water 50 ML Vial IV.PUSH PRN (08:20)
--- NOTE | 2018-09-13 08:26 | P.PN ---
Subjective Interval history: Follow-up hypoglycemia. Now hyperglycemic but continues to have nausea and vomiting. Reports of burning epigastric discomfort. Made aware of positive urine drug screen with cocaine and marijuana Physical Exam Vital signs: Vital Signs 09/12/18 09:06 09/12/18 09:15 09/12/18 09:24 Temperature 98.6 F Pulse Rate 103 H Respiratory Rate 24 Blood Pressure 129/74 Pulse Oximetry 97 97 100 09/12/18 10:30 09/12/18 11:30 09/12/18 12:30 Temperature Pulse Rate 76 84 86 Respiratory Rate 16 19 15 Blood Pressure 138/77 136/81 130/71 Pulse Oximetry 98 97 99 09/12/18 13:00 09/12/18 14:15 09/12/18 15:00 Temperature Pulse Rate 102 H 90 102 H Respiratory Rate 21 16 18 Blood Pressure 115/59 L Pulse Oximetry 99 09/12/18 16:00 09/12/18 17:00 09/12/18 18:16 Temperature Pulse Rate 108 H 103 H 110 H Respiratory Rate 18 18 17 Blood Pressure 144/72 H 167/77 H Pulse Oximetry 100 100 97 09/12/18 20:00 09/12/18 20:56 09/12/18 21:00 Temperature 98.5 F Pulse Rate 81 82 Respiratory Rate 18 22 21 Blood Pressure 151/78 H Pulse Oximetry 98 98 98 09/12/18 22:00 09/12/18 23:00 09/13/18 00:00 Temperature 98.8 F Pulse Rate 89 86 102 H Respiratory Rate 24 19 18 Blood Pressure 163/91 H 121/72 Pulse Oximetry 98 98 97 09/13/18 00:38 09/13/18 01:00 09/13/18 02:00 Temperature Pulse Rate 97 H 120 H Respiratory Rate 19 23 Blood Pressure 119/76 165/90 H Pulse Oximetry 97 97 98 09/13/18 03:00 09/13/18 04:00 09/13/18 05:00 Temperature 98.8 F Pulse Rate 81 98 H 97 H Respiratory Rate 22 20 23 Blood Pressure 154/77 H 119/60 122/72 Pulse Oximetry 98 98 97 09/13/18 06:00 Temperature Pulse Rate 109 H Respiratory Rate 22 Blood Pressure 117/60 Pulse Oximetry 98 Intake & Output 11/28/18 11/29/18 11/29/18 18:59 06:59 18:59 Intake Total 1050 / 1050 1480 / 1480 Output Total 600 / 600 Balance 1050 / 1050 880 / 880 Weight 77.111 kg 67 kg Intake: IV 1050 / 1050 1000 / 1000 D5W/1/2NS + KCL 10 mEq Inj 1, 1000 / 1000 000 ML @ 100 mls/hr IV.CONT . Q10H CANDY Rx#:[id number] Oral 480 / 480 Output: Urine 600 / 600 Other: # Urine Diapers 700 Date of Last Bowel Movement 09/12/18 Weight On Admission 68 kg Narrative: GENERAL: WD WN in Nd SKIN: Warm and dry. CARDIOVASCULAR: Regular rate and rhythm. RESPIRATORY: No accessory muscle use. Clear to auscultation. Breath sounds equal bilaterally. GASTROINTESTINAL: Abdomen soft, slightly tender epigastric , nondistended. MUSCULOSKELETAL: Extremities without clubbing, cyanosis, or edema. No obvious deformities. NEUROLOGICAL: AxOx3 No obvious cranial nerve deficits. Motor grossly within normal limits. Five out of 5 muscle strength in the arms and legs. Normal speech. PSYCHIATRIC: Appropriate mood and affect; insight and judgment normal. Results - Labs CBC & Chem 7: 09/12/18 09:29 09/13/18 03:40 Laboratory Results - last 24 hr 09/12/18 09/12/18 09/12/18 09:10 09:15 09:29 WBC 7.3 RBC 4.12 L Hgb 13.0 Hct 37.6 L MCV 91.2 MCH 31.5 MCHC 34.5 RDW 12.9 Plt Count 281 MPV 7.0 Neut % (Auto) 57.6 Lymph % (Auto) 28.6 [place] % (Auto) 6.8 Eos % (Auto) 6.2 H Baso % (Auto) 0.8 Neut # (Auto) 4.2 Lymph # (Auto) 2.1 [place] # (Auto) 0.5 Eos # (Auto) 0.4 Baso # (Auto) 0.1 WBC Differential . Differential Comment Auto diff final Puncture Site Cl Patient Temperature 98.6 VBG pH 7.37 VBG pCO2 44 VBG pO2 62 H VBG HCO3 25 VBG O2 Saturation 86 H VBG O2 Content 16.1 VBG Base Excess 0.3 VBG Carboxyhemoglobin 3.1 VBG Methemoglobin 0.9 Hemoglobin 13.3 O2 Delivery Device Ra Critical Value No Sodium Potassium Chloride Carbon Dioxide Anion Gap BUN Creatinine Estimated GFR POC Glucose 48 L* Random Glucose Lactic Acid Calcium Magnesium Total Bilirubin AST ALT Alkaline Phosphatase Total Creatine Kinase CK-MB (CK-2) CK-MB (CK-2) % Total Protein Albumin Urine Color Urine Clarity Urine pH Ur Specific [place] Urine Protein Urine Glucose (UA) Urine Ketones Urine Occult Blood Urine Nitrate Urine Bilirubin Urine Urobilinogen Ur Leukocyte Esterase Urine RBC Urine WBC Micro UA Comment Ur Microscopic Review Urine Culture Comments Nasal Screen MRSA (PCR) Urine Opiates Screen Ur Barbiturates Screen Ur Amphetamines Screen U Benzodiazepines Scrn Urine Cocaine Screen U Cannabinoids Screen Serum Alcohol 09/12/18 09/12/18 09/12/18 09:29 09:29 09:30 WBC RBC Hgb Hct MCV MCH MCHC RDW Plt Count MPV Neut % (Auto) Lymph % (Auto) [place] % (Auto) Eos % (Auto) Baso % (Auto) Neut # (Auto) Lymph # (Auto) [place] # (Auto) Eos # (Auto) Baso # (Auto) WBC Differential Differential Comment Puncture Site Patient Temperature VBG pH VBG pCO2 VBG pO2 VBG HCO3 VBG O2 Saturation VBG O2 Content VBG Base Excess VBG Carboxyhemoglobin VBG Methemoglobin Hemoglobin O2 Delivery Device Critical Value Sodium 145 Potassium 3.6 Chloride 108 H Carbon Dioxide 26.5 Anion Gap 11 BUN 27 H Creatinine 1.47 H Estimated GFR 55 L POC Glucose Random Glucose 43 L* Lactic Acid 5.5 H* Calcium 9.5 Magnesium 2.3 Total Bilirubin 0.3 AST 18 ALT 19 Alkaline Phosphatase 86 Total Creatine Kinase 444 H CK-MB (CK-2) 3.3 CK-MB (CK-2) % 0.7 Total Protein 7.7 Albumin 3.8 Urine Color Urine Clarity Urine pH Ur Specific [place] Urine Protein Urine Glucose (UA) Urine Ketones Urine Occult Blood Urine Nitrate Urine Bilirubin Urine Urobilinogen Ur Leukocyte Esterase Urine RBC Urine WBC Micro UA Comment Ur Microscopic Review Urine Culture Comments Nasal Screen MRSA (PCR) Urine Opiates Screen Ur Barbiturates Screen Ur Amphetamines Screen U Benzodiazepines Scrn Urine Cocaine Screen U Cannabinoids Screen Serum Alcohol Less than 3 09/12/18 09/12/18 09/12/18 10:06 10:40 12:18 WBC RBC Hgb Hct MCV MCH MCHC RDW Plt Count MPV Neut % (Auto) Lymph % (Auto) [place] % (Auto) Eos % (Auto) Baso % (Auto) Neut # (Auto) Lymph # (Auto) [place] # (Auto) Eos # (Auto) Baso # (Auto) WBC Differential Differential Comment Puncture Site Patient Temperature VBG pH VBG pCO2 VBG pO2 VBG HCO3 VBG O2 Saturation VBG O2 Content VBG Base Excess VBG Carboxyhemoglobin VBG Methemoglobin Hemoglobin O2 Delivery Device Critical Value Sodium Potassium Chloride Carbon Dioxide Anion Gap BUN Creatinine Estimated GFR POC Glucose 77 60 L 123 H Random Glucose Lactic Acid Calcium Magnesium Total Bilirubin AST ALT Alkaline Phosphatase Total Creatine Kinase CK-MB (CK-2) CK-MB (CK-2) % Total Protein Albumin Urine Color Urine Clarity Urine pH Ur Specific [place] Urine Protein Urine Glucose (UA) Urine Ketones Urine Occult Blood Urine Nitrate Urine Bilirubin Urine Urobilinogen Ur Leukocyte Esterase Urine RBC Urine WBC Micro UA Comment Ur Microscopic Review Urine Culture Comments Nasal Screen MRSA (PCR) Urine Opiates Screen Ur Barbiturates Screen Ur Amphetamines Screen U Benzodiazepines Scrn Urine Cocaine Screen U Cannabinoids Screen Serum Alcohol 09/12/18 09/12/18 09/12/18 17:24 18:13 18:40 WBC RBC Hgb Hct MCV MCH MCHC RDW Plt Count MPV Neut % (Auto) Lymph % (Auto) [place] % (Auto) Eos % (Auto) Baso % (Auto) Neut # (Auto) Lymph # (Auto) [place] # (Auto) Eos # (Auto) Baso # (Auto) WBC Differential Differential Comment Puncture Site Patient Temperature VBG pH VBG pCO2 VBG pO2 VBG HCO3 VBG O2 Saturation VBG O2 Content VBG Base Excess VBG Carboxyhemoglobin VBG Methemoglobin Hemoglobin O2 Delivery Device Critical Value Sodium Potassium Chloride Carbon Dioxide Anion Gap BUN Creatinine Estimated GFR POC Glucose 163 H 196 H Random Glucose Lactic Acid Calcium Magnesium Total Bilirubin AST ALT Alkaline Phosphatase Total Creatine Kinase CK-MB (CK-2) CK-MB (CK-2) % Total Protein Albumin Urine Color Urine Clarity Urine pH Ur Specific [place] Urine Protein Urine Glucose (UA) Urine Ketones Urine Occult Blood Urine Nitrate Urine Bilirubin Urine Urobilinogen Ur Leukocyte Esterase Urine RBC Urine WBC Micro UA Comment Ur Microscopic Review Urine Culture Comments Nasal Screen MRSA (PCR) Urine Opiates Screen Neg Ur Barbiturates Screen Neg Ur Amphetamines Screen Neg U Benzodiazepines Scrn Neg Urine Cocaine Screen Pos H U Cannabinoids Screen Pos H Serum Alcohol 09/12/18 09/12/18 09/12/18 18:40 20:00 20:51 WBC RBC Hgb Hct MCV MCH MCHC RDW Plt Count MPV Neut % (Auto) Lymph % (Auto) [place] % (Auto) Eos % (Auto) Baso % (Auto) Neut # (Auto) Lymph # (Auto) [place] # (Auto) Eos # (Auto) Baso # (Auto) WBC Differential Differential Comment Puncture Site Patient Temperature VBG pH VBG pCO2 VBG pO2 VBG HCO3 VBG O2 Saturation VBG O2 Content VBG Base Excess VBG Carboxyhemoglobin VBG Methemoglobin Hemoglobin O2 Delivery Device Critical Value Sodium Potassium Chloride Carbon Dioxide Anion Gap BUN Creatinine Estimated GFR POC Glucose 235 H Random Glucose Lactic Acid Calcium Magnesium Total Bilirubin AST ALT Alkaline Phosphatase Total Creatine Kinase CK-MB (CK-2) CK-MB (CK-2) % Total Protein Albumin Urine Color Yellow Urine Clarity Clear Urine pH 6.0 Ur Specific [place] 1.017 Urine Protein 100 H Urine Glucose (UA) 500 or greater Urine Ketones Negative Urine Occult Blood Negative Urine Nitrate Negative Urine Bilirubin Negative Urine Urobilinogen Less than 2 Ur Leukocyte Esterase Negative Urine RBC Less than 1 Urine WBC 1 Micro UA Comment Culture not ind Ur Microscopic Review Not Reportable Urine Culture Comments Culture not ind Nasal Screen MRSA (PCR) Not detected Urine Opiates Screen Ur Barbiturates Screen Ur Amphetamines Screen U Benzodiazepines Scrn Urine Cocaine Screen U Cannabinoids Screen Serum Alcohol 09/12/18 09/12/18 09/12/18 21:38 22:36 23:23 WBC RBC Hgb Hct MCV MCH MCHC RDW Plt Count MPV Neut % (Auto) Lymph % (Auto) [place] % (Auto) Eos % (Auto) Baso % (Auto) Neut # (Auto) Lymph # (Auto) [place] # (Auto) Eos # (Auto) Baso # (Auto) WBC Differential Differential Comment Puncture Site Patient Temperature VBG pH VBG pCO2 VBG pO2 VBG HCO3 VBG O2 Saturation VBG O2 Content VBG Base Excess VBG Carboxyhemoglobin VBG Methemoglobin Hemoglobin O2 Delivery Device Critical Value Sodium Potassium Chloride Carbon Dioxide Anion Gap BUN Creatinine Estimated GFR POC Glucose 264 H 270 H 259 H Random Glucose Lactic Acid Calcium Magnesium Total Bilirubin AST ALT Alkaline Phosphatase Total Creatine Kinase CK-MB (CK-2) CK-MB (CK-2) % Total Protein Albumin Urine Color Urine Clarity Urine pH Ur Specific [place] Urine Protein Urine Glucose (UA) Urine Ketones Urine Occult Blood Urine Nitrate Urine Bilirubin Urine Urobilinogen Ur Leukocyte Esterase Urine RBC Urine WBC Micro UA Comment Ur Microscopic Review Urine Culture Comments Nasal Screen MRSA (PCR) Urine Opiates Screen Ur Barbiturates Screen Ur Amphetamines Screen U Benzodiazepines Scrn Urine Cocaine Screen U Cannabinoids Screen Serum Alcohol 09/13/18 09/13/18 09/13/18 00:46 01:37 03:11 WBC RBC Hgb Hct MCV MCH MCHC RDW Plt Count MPV Neut % (Auto) Lymph % (Auto) [place] % (Auto) Eos % (Auto) Baso % (Auto) Neut # (Auto) Lymph # (Auto) [place] # (Auto) Eos # (Auto) Baso # (Auto) WBC Differential Differential Comment Puncture Site Patient Temperature VBG pH VBG pCO2 VBG pO2 VBG HCO3 VBG O2 Saturation VBG O2 Content VBG Base Excess VBG Carboxyhemoglobin VBG Methemoglobin Hemoglobin O2 Delivery Device Critical Value Sodium Potassium Chloride Carbon Dioxide Anion Gap BUN Creatinine Estimated GFR POC Glucose 316 H 348 H 444 H Random Glucose Lactic Acid Calcium Magnesium Total Bilirubin AST ALT Alkaline Phosphatase Total Creatine Kinase CK-MB (CK-2) CK-MB (CK-2) % Total Protein Albumin Urine Color Urine Clarity Urine pH Ur Specific [place] Urine Protein Urine Glucose (UA) Urine Ketones Urine Occult Blood Urine Nitrate Urine Bilirubin Urine Urobilinogen Ur Leukocyte Esterase Urine RBC Urine WBC Micro UA Comment Ur Microscopic Review Urine Culture Comments Nasal Screen MRSA (PCR) Urine Opiates Screen Ur Barbiturates Screen Ur Amphetamines Screen U Benzodiazepines Scrn Urine Cocaine Screen U Cannabinoids Screen Serum Alcohol 09/13/18 09/13/18 09/13/18 03:40 03:40 04:18 WBC RBC Hgb Hct MCV MCH MCHC RDW Plt Count MPV Neut % (Auto) Lymph % (Auto) [place] % (Auto) Eos % (Auto) Baso % (Auto) Neut # (Auto) Lymph # (Auto) [place] # (Auto) Eos # (Auto) Baso # (Auto) WBC Differential Differential Comment Puncture Site Patient Temperature VBG pH VBG pCO2 VBG pO2 VBG HCO3 VBG O2 Saturation VBG O2 Content VBG Base Excess VBG Carboxyhemoglobin VBG Methemoglobin Hemoglobin O2 Delivery Device Critical Value Sodium 137 Potassium 4.2 Chloride 99 D Carbon Dioxide 23.2 Anion Gap 15 BUN 22 H Creatinine 1.38 H Estimated GFR 59 L POC Glucose 418 H Random Glucose 476 H* D Lactic Acid 1.0 Calcium 8.8 Magnesium Total Bilirubin AST ALT Alkaline Phosphatase Total Creatine Kinase 833 H CK-MB (CK-2) 3.3 CK-MB (CK-2) % 0.4 Total Protein Albumin Urine Color Urine Clarity Urine pH Ur Specific [place] Urine Protein Urine Glucose (UA) Urine Ketones Urine Occult Blood Urine Nitrate Urine Bilirubin Urine Urobilinogen Ur Leukocyte Esterase Urine RBC Urine WBC Micro UA Comment Ur Microscopic Review Urine Culture Comments Nasal Screen MRSA (PCR) Urine Opiates Screen Ur Barbiturates Screen Ur Amphetamines Screen U Benzodiazepines Scrn Urine Cocaine Screen U Cannabinoids Screen Serum Alcohol 09/13/18 07:39 WBC RBC Hgb Hct MCV MCH MCHC RDW Plt Count MPV Neut % (Auto) Lymph % (Auto) [place] % (Auto) Eos % (Auto) Baso % (Auto) Neut # (Auto) Lymph # (Auto) [place] # (Auto) Eos # (Auto) Baso # (Auto) WBC Differential Differential Comment Puncture Site Patient Temperature VBG pH VBG pCO2 VBG pO2 VBG HCO3 VBG O2 Saturation VBG O2 Content VBG Base Excess VBG Carboxyhemoglobin VBG Methemoglobin Hemoglobin O2 Delivery Device Critical Value Sodium Potassium Chloride Carbon Dioxide Anion Gap BUN Creatinine Estimated GFR POC Glucose 442 H Random Glucose Lactic Acid Calcium Magnesium Total Bilirubin AST ALT Alkaline Phosphatase Total Creatine Kinase CK-MB (CK-2) CK-MB (CK-2) % Total Protein Albumin Urine Color Urine Clarity Urine pH Ur Specific [place] Urine Protein Urine Glucose (UA) Urine Ketones Urine Occult Blood Urine Nitrate Urine Bilirubin Urine Urobilinogen Ur Leukocyte Esterase Urine RBC Urine WBC Micro UA Comment Ur Microscopic Review Urine Culture Comments Nasal Screen MRSA (PCR) Urine Opiates Screen Ur Barbiturates Screen Ur Amphetamines Screen U Benzodiazepines Scrn Urine Cocaine Screen U Cannabinoids Screen Serum Alcohol - Imaging Impressions Head CT 09/12/18 09:05 CONCLUSION: 1. Negative CT Head non contrast. . Chest X-Ray 09/12/18 13:37 CONCLUSION: Negative examination. - Procedures none Assessment and Plan - Plan This is a 32 yo male hx IRDM with neuropathy, previous hx DKA and dehydration and gastroparesis. Was brought in by EMS 2/2 sz. Hx taken from pt and GF. He is drowsy but answering q and ff commands appropriately. GF woke up coz pt was shaking with stiff LE, eyes rolled upward and had urinary incontinence. Hx hypoglycemic sz. In the ED, he had persistent hypoglycemia despite 3 doses of D50. Currently on D5 last FS 122. He reports of MAGANA now. Denies fever, chills , neck pain and MAGANA RN POSTPARTUM. He has been vomiting in the ED despite multiple antiemetics Encephalopathy likely postictal. HCT neg. Neuro stable. Improving neuro checks and monitor on tele. UDS positive for cocaine and marijuana, patient counseled Hypoglycemic sz. Sz precautions. Ativan prn. No driving, climbing heights, swimming alone and carrying young children. EEG in light of cocaine use Hypoglycemia hx IRDM. Resolved hypoglycemia hyperglycemic. Discontinue D5 and start sliding scale coverage. Will restart long-acting insulin if patient tolerating p.o. Hypoglycemia protocol. Diabetic education Gastroparesis exacerbation. Continue Reglan add IV Zofran and p.o. or suppository Phenergan as well as GI prophylaxis with Pepcid. Check lipase Lactic acidosis 2/2 sz. No evidence of infection. Urinalysis and chest x-ray negative GALA 2/2 dehydration and rhabdomyolysis. Non[address]iguric. Ct IVF Discharge Planning: Will transfer out to [facility] if improved vomiting with no recurrence of hypoglycemia today
[2018-09-13] MEDS: Sod Chloride 0.9% Inj 1,000 ML IV.CONT SCH ×2 (09:08→20:00)
[2018-09-13] MEDS: Senna/Docusate Sodium 8.6/50 MG Tablet PO SCH ×2 (09:10→20:00)
[2018-09-13] MEDS ORDERED: Promethazine 25 MG Supp RECTAL PRN (09:15)
[2018-09-13] MEDS ORDERED: Insulin NovoLOG Aspart Correctional Sugar Inj SQ SCH (12:00)
[2018-09-13] MEDS: Erythromycin Ethylsuccinate Susp 400 MG/5ML 100 ML Bottle PO SCH ×2 (12:26→18:36)
[2018-09-13] MEDS: Famotidine 20 MG Tablet PO SCH ×2 (12:26→19:59)
--- NOTE | 2018-09-13 15:54 | MG ---
cc: Adri Rubalcava MD,Kamran Willis MD ELECTROENCEPHALOGRAM NUMBER: [id number] REFERRING PHYSICIAN: Kamran Richardson MD ROOM: [id number] CLINICAL HISTORY: Awake, drowsy, asleep. Photic stimulation. EEG on 07/07/[address] negative. A 32-year-old man admitted with 3 seizures over the past 3 days, postictal vomiting, glucose 476, with a history of seizures, elevated glucose levels, diabetic. MEDICATIONS: 1. Erythromycin. 2. Pepcid. 3. Reglan. DESCRIPTION OF RECORD: There is some slowing of background predominantly of 4-5 Hz. There is variability in the EEG and some artifact seen and documented. At times, there is more slowing, some leg jerking, twitching. There is no real correlation with any epileptiform features and more artifactual. Photic stimulation does have a good posterior driving response. IMPRESSION: Mild slowing of the background consistent with an encephalopathic process. I do not see any epileptiform features. Clinical correlation. MD OLIVIA Barrett/pratibha , 03:38 PM , 03:42 PM
[2018-09-13] MEDS ORDERED: Insulin Detemir Inj 1,000 UNIT/10 ML Vial SQ ONE (17:30)
[2018-09-13 19:24] LABS: Calcium 8.8 mg/dL (8.5-10.1); Carbon Dioxide 23.1 meq/L (21.0-32.0)
[2018-09-13] MEDS: Insulin NovoLOG Aspart Correctional Sugar Inj SQ SCH (19:59)
[2018-09-13] MEDS ORDERED: Dextrose 50% in Water Syringe 50 ML ONE (23:58)
[2018-09-14] MEDS: Erythromycin Ethylsuccinate Susp 400 MG/5ML 100 ML Bottle PO SCH ×2 (03:19→15:13)
[2018-09-14] MEDS: Chlorhexidine Gluconate 2% 1 Pack (2 Cloths) TOPICAL SCH (03:23)
[2018-09-14] MEDS: Insulin NovoLOG Aspart Correctional Sugar Inj SQ SCH ×6 (03:23→20:42)
[2018-09-14] MEDS: Sod Chloride 0.9% Inj 1,000 ML IV.CONT SCH ×3 (06:49→23:15)
[2018-09-14] MEDS: Famotidine 20 MG Tablet PO SCH ×2 (08:18→20:43)
[2018-09-14] MEDS: Senna/Docusate Sodium 8.6/50 MG Tablet PO SCH (08:18)
--- NOTE | 2018-09-14 08:56 | P.PN ---
Subjective Interval history: F/u DM and GALA. He feels much better denies nausea, vomiting and abdominal pain. He has been having loose stools according to [employer] patient received the whole bottle of erythromycin which is a total of 8000 mg instead of 400 mg only early this morning. Per poison control, monitor for dehydration because of diarrhea and arrhythmias patient on telemetry. [facility] Physical Exam Vital signs: Vital Signs 09/13/18 09:00 09/13/18 10:00 09/13/18 11:00 Temperature Pulse Rate 129 H 107 H 102 H Respiratory Rate 31 H 21 20 Blood Pressure 143/65 H 123/73 127/75 Pulse Oximetry 98 100 100 09/13/18 12:00 09/13/18 13:00 09/13/18 14:00 Temperature Pulse Rate 102 H 107 H 99 H Respiratory Rate 22 19 21 Blood Pressure 119/66 133/68 142/78 H Pulse Oximetry 99 99 100 09/13/18 15:00 09/13/18 16:00 09/13/18 17:00 Temperature 98.2 F Pulse Rate 122 H 110 H 105 H Respiratory Rate 24 22 32 H Blood Pressure 151/78 H 107/62 164/85 H Pulse Oximetry 99 99 98 09/13/18 18:00 09/13/18 19:00 09/13/18 20:00 Temperature 98.5 F Pulse Rate 89 98 H 104 H Respiratory Rate 20 20 27 H Blood Pressure 143/71 H 139/72 139/82 Pulse Oximetry 98 99 98 09/13/18 21:00 09/13/18 22:00 09/13/18 23:00 Temperature Pulse Rate 100 H 96 H 85 Respiratory Rate 24 15 18 Blood Pressure 148/102 H 125/71 117/65 Pulse Oximetry 98 97 98 09/14/18 00:00 09/14/18 01:00 09/14/18 02:00 Temperature 98.7 F Pulse Rate 82 92 H 93 H Respiratory Rate 20 25 H 17 Blood Pressure 135/75 122/70 121/69 Pulse Oximetry 99 98 99 09/14/18 03:00 09/14/18 04:00 09/14/18 05:00 Temperature 98.6 F Pulse Rate 74 77 92 H Respiratory Rate 15 22 20 Blood Pressure 124/58 L 123/73 130/63 Pulse Oximetry 98 99 99 09/14/18 06:00 Temperature Pulse Rate 92 H Respiratory Rate 21 Blood Pressure 126/82 Pulse Oximetry 99 Intake & Output 09/13/18 09/14/18 09/14/18 18:59 06:59 18:59 Intake Total 1525 / 1525 2530 / 2530 Output Total 1979 900 / 900 Balance -455 / -455 1630 / 1630 Weight 74.5 kg Intake: IV 700 / 700 2049 / 2049 D50W Syringe 50 ML @ 0 mls/hr . 50 / 50 ROUTE .STK-MED ONE Rx#:[id number] D5W/1/2NS + KCL 10 mEq Inj 1, 700 / 700 000 ML @ 100 mls/hr IV.CONT . Q10H CANDY Rx#:[id number] NS Inj 1,000 ML @ 100 mls/hr IV 1999 .CONT .Q10H CANDY Rx#:[id number] Oral 575 / 575 480 / 480 Oral Supplement 250 / 250 Output: Urine 1580 / 1580 900 / 900 Emesis 400 / 400 0 / 0 Other: Date of Last Bowel Movement 09/12/18 09/14/18 # Bowel Movements 0 1 # Emeses 6 Narrative: GENERAL: WD WN in Nd SKIN: Warm and dry. CARDIOVASCULAR: Regular rate and rhythm. RESPIRATORY: No accessory muscle use. Clear to auscultation. Breath sounds equal bilaterally. GASTROINTESTINAL: Abdomen soft, slightly tender epigastric , nondistended. MUSCULOSKELETAL: Extremities without clubbing, cyanosis, or edema. No obvious deformities. NEUROLOGICAL: AxOx3 No obvious cranial nerve deficits. Motor grossly within normal limits. Five out of 5 muscle strength in the arms and legs. Normal speech. PSYCHIATRIC: Appropriate mood and affect; insight and judgment normal. Results - Labs CBC & Chem 7: 09/12/18 09:29 09/14/18 08:48 Laboratory Results - last 24 hr 09/13/18 09/13/18 09/13/18 03:40 11:35 17:02 Sodium Potassium Chloride Carbon Dioxide Anion Gap BUN Creatinine Estimated GFR POC Glucose 290 H Greater than 600 H* Random Glucose Calcium Lipase 242 09/13/18 09/13/18 09/13/18 18:38 19:23 23:57 Sodium 133 L Potassium 4.0 Chloride 99 Carbon Dioxide 23.1 Anion Gap 11 BUN 23 H Creatinine 1.86 H Estimated GFR 42 L POC Glucose 309 H 50 L Random Glucose 437 H Calcium 8.8 Lipase 09/14/18 09/14/18 09/14/18 00:21 03:13 08:16 Sodium Potassium Chloride Carbon Dioxide Anion Gap BUN Creatinine Estimated GFR POC Glucose 153 H 105 284 H Random Glucose Calcium Lipase - Procedures none Assessment and Plan - Plan This is a 32 yo male hx IRDM with neuropathy, previous hx DKA and dehydration and gastroparesis. Was brought in by EMS 2/2 sz. Hx taken from pt and GF. He is drowsy but answering q and ff commands appropriately. GF woke up coz pt was shaking with stiff LE, eyes rolled upward and had urinary incontinence. Hx hypoglycemic sz. In the ED, he had persistent hypoglycemia despite 3 doses of D50. Encephalopathy likely postictal. HCT neg. Neuro stable. Improving neuro checks and monitor on tele. UDS positive for cocaine and marijuana, patient counseled Hypoglycemic sz. Sz precautions. Ativan prn. No driving, climbing heights, swimming alone and carrying young children. EEG negative procedure Hypoglycemia hx IRDM. He is a brittle diabetic. Discontinue D5 and start sliding scale coverage. Will restart long-acting insulin at a lower dose 10 units twice a day. Hypoglycemia protocol. Diabetic education Gastroparesis exacerbation. Improved continue as needed antiemetics Erythromycin overdose patient with diarrhea. Discontinue erythromycin and Reglan. Increase IV fluid repeat BMP and magnesium at 4 PM today. Monitor on telemetry. Lactic acidosis 2/2 sz. No evidence of infection. Urinalysis and chest x-ray negative GALA 2/2 dehydration and rhabdomyolysis. Nonoliguric. Improving. Ct IVF DVT prophylaxis with SCD and early ambulation Discharge Planning: [facility]
[2018-09-14 09:14] LABS: Calcium 8.2 mg/dL (8.5-10.1); Carbon Dioxide 28.4 meq/L (21.0-32.0); Magnesium 1.8 mg/dL (1.5-2.5)
[2018-09-14] MEDS: Insulin Detemir Inj 1,000 UNIT/10 ML Vial SQ SCH ×2 (09:27→20:43)
--- NOTE | 2018-09-14 11:11 | US ---
EXAM DATE: 09/14/2018 10:33 AM EST AGE/SEX: 32 years / Male INDICATIONS: Increased BUN/Creatinine. CLINICAL DATA: This is the patient's initial encounter. Patient reports that signs and symptoms have been present for 1 day and indicates a pain score of 0/10. MEDICAL/SURGICAL HISTORY: Diabetes. Gastroparesis. Diabetic ketoacidosis. Renal insufficiency. None. COMPARISON: [facility] [place], CT ABDOMEN & PELVIS W CONTRAST, 12/03/2016. . MEASUREMENTS: Right Kidney:__11.5 x 5.1 x 6.4 cm Left Kidney:__10.6 x 6.0 x 5.0 cm FINDINGS: Right Kidney: Increased echotexture. No hydronephrosis. There is a 1 cm cyst at the upper right kidne y. Left Kidney: Increased echotexture. No mass or hydronephrosis. Bladder: Within normal limits given the degree of distension. Other: None. CONCLUSION: The kidneys are normal in size but appear increased in echogenicity which can suggest some acute medi amadou renal disease. No hydronephrosis is seen. Electronically signed by: Narinder Mosquera MD 09/14/2018 11:09 AM EST
[2018-09-14] MEDS ORDERED: Metoclopramide 10 MG Tablet PO SCH (13:00)
[2018-09-14 17:29] LABS: Calcium 7.9 mg/dL (8.5-10.1); Carbon Dioxide 27.1 meq/L (21.0-32.0); Potassium 3.8 meq/L (3.5-5.1)
[2018-09-15] MEDS: Insulin NovoLOG Aspart Correctional Sugar Inj SQ SCH ×3 (00:06→08:24)
[2018-09-15] MEDS: Chlorhexidine Gluconate 2% 1 Pack (2 Cloths) TOPICAL SCH (04:26)
[2018-09-15 05:16] LABS: Calcium 8.4 mg/dL (8.5-10.1); Carbon Dioxide 28.1 meq/L (21.0-32.0); Potassium 3.4 meq/L (3.5-5.1)
[2018-09-15] MEDS: Sod Chloride 0.9% Inj 1,000 ML IV.CONT SCH (07:09)
[2018-09-15] MEDS: Insulin Detemir Inj 1,000 UNIT/10 ML Vial SQ SCH (08:24)
[2018-09-15] MEDS: Famotidine 20 MG Tablet PO SCH (08:24)
[2018-09-15 08:38] VITALS: O2SAT 100
[2018-09-15 10:34] VITALS: BP 130/60; PULSE 71; RESP 20; TEMP 97.8
--- NOTE | 2018-09-15 11:06 | P.DS ---
Date of admission: 09/12/18 11:11 Primary care physician: UNKNOWN Brief History from admission: This is a 32 yo male hx IRDM with neuropathy, previous hx DKA and dehydration and gastroparesis. Was brought in by EMS 2/2 sz. Hx taken from pt and GF. He is drowsy but answering q and ff commands appropriately. GF woke up coz pt was shaking with stiff LE, eyes rolled upward and had urinary incontinence. Hx hypoglycemic sz. In the ED, he had persistent hypoglycemia despite 3 doses of D50. Currently on D5 last FS 122. He reports of MAG[place] now. Denies fever, chills , neck pain and [employer]. He has been vomiting in the ED despite multiple antiemetics. Per GF, prod cough for several days. CXR interpreted by me as negative for acute dse. All other sxs neg DS: Medications - Discharge Medications Prescriptions: famotidine 20 mg PO BID #60 tab metoclopramide HCl [Reglan] 5 mg PO TID #90 tab DS: Summary Hospital Course: This is a 32 yo male hx IRDM with neuropathy, previous hx DKA and dehydration and gastroparesis. Was brought in by EMS 2/2 sz. Hx taken from pt and GF. He is drowsy but answering q and ff commands appropriately. GF woke up coz pt was shaking with stiff LE, eyes rolled upward and had urinary incontinence. Hx hypoglycemic sz. In the ED, he had persistent hypoglycemia despite 3 doses of D50. Encephalopathy likely postictal. HCT neg. Neuro stable. Improving neuro checks and monitor on tele. UDS positive for cocaine and marijuana, patient counseled Hypoglycemic sz. Sz precautions. Ativan prn. No driving, climbing heights, swimming alone and carrying young children. EEG negative Hypoglycemia hx IRDM. He is a brittle diabetic. Will restart long-acting insulin at a lower dose 10 units twice a day. Hypoglycemia protocol. Diabetic education Gastroparesis exacerbation. Improved continue as needed antiemetics Erythromycin overdose patient with diarrhea. Discontinued erythromycin resolved with IV hydration monitor on telemetry. Lactic acidosis 2/2 sz. No evidence of infection. Urinalysis and chest x-ray negative GALA 2/2 dehydration and rhabdomyolysis. Nonoliguric. Resolved on IVF DVT prophylaxis with SCD and early ambulation - Time Spent with Patient Total time spent providing and/or coordinating discharge services: Greater than 30 minutes - Quality: VTE Deep Vein Thrombosis/Pulmonary Embolism Present on Admission: No Exam Vital signs: Vital Signs 09/14/18 13:39 09/14/18 17:39 09/14/18 19:00 Temperature 97.8 F 98.2 F Pulse Rate 85 84 90 Respiratory Rate 33 H 33 H 19 Blood Pressure 151/71 H 142/56 H 140/83 Pulse Oximetry 100 91 L 98 09/14/18 20:00 09/14/18 21:00 09/14/18 22:00 Temperature 99.4 F Pulse Rate 101 H 85 81 Respiratory Rate 22 8 L Blood Pressure 157/87 H 138/76 135/82 Pulse Oximetry 99 99 97 09/14/18 23:00 09/14/18 23:01 09/15/18 00:00 Temperature 99.2 F Pulse Rate 97 H 94 H 81 Respiratory Rate 24 48 H 12 Blood Pressure 152/94 H 141/90 H Pulse Oximetry 96 94 L 96 09/15/18 01:00 09/15/18 02:00 09/15/18 02:02 Temperature Pulse Rate 69 70 81 Respiratory Rate 9 L 4 L 30 H Blood Pressure 131/75 123/78 Pulse Oximetry 98 98 97 09/15/18 03:00 09/15/18 04:00 09/15/18 05:00 Temperature 98.9 F Pulse Rate 69 89 66 Respiratory Rate 18 20 3 L Blood Pressure Pulse Oximetry 97 99 99 09/15/18 06:00 09/15/18 08:37 09/15/18 09:00 Temperature Pulse Rate 70 76 Respiratory Rate 17 Blood Pressure Pulse Oximetry 98 100 09/15/18 10:00 Temperature 97.8 F Pulse Rate 71 Respiratory Rate 20 Blood Pressure 130/60 Pulse Oximetry 100 Intake & Output 09/14/18 09/15/18 09/15/18 18:59 06:59 18:59 Intake Total 3659 / 3659 2200 / 2200 1000 / 1000 Output Total 1500 / 1500 Balance 3659 / 3659 700 / 700 1000 / 1000 Weight 65 kg Intake: IV 909 / 909 1000 / 1000 1000 / 1000 NS Inj 1,000 ML @ 125 mls/hr IV 909 / 909 1000 / 1000 1000 / 1000 .CONT .Q8H CANDY Rx#:[id number] Oral 2750 / 2750 1200 / 1200 Output: Urine 1500 / 1500 Other: # Voids 10 3 Date of Last Bowel Movement 09/14/18 09/15/18 09/15/18 # Bowel Movements 7 1 Narrative: GENERAL: WD WN in N[place] SKIN: Warm and dry. CARDIOVASCULAR: Regular rate and rhythm. RESPIRATORY: No accessory muscle use. Clear to auscultation. Breath sounds equal bilaterally. GASTROINTESTINAL: Abdomen soft, slightly tender epigastric , nondistended. MUSCULOSKELETAL: Extremities without clubbing, cyanosis, or edema. No obvious deformities. NEUROLOGICAL: AxOx3 No obvious cranial nerve deficits. Motor grossly within normal limits. Five out of 5 muscle strength in the arms and legs. Normal speech. PSYCHIATRIC: Appropriate mood and affect; insight and judgment normal. Results Procedures completed during hospitalization: none Labs on day of discharge: Labs from last 24 hours 09/15/18 09/15/18 09/15/18 08:01 05:38 04:04 Sodium 144 Potassium 3.4 L Chloride 109 H Carbon Dioxide 28.1 Anion Gap 7 BUN 14 Creatinine 0.99 Estimated GFR 87 L POC Glucose 133 H 151 H Random Glucose 60 L D Calcium 8.4 L Magnesium 2.0 09/15/18 09/14/18 09/14/18 00:03 19:53 17:41 Sodium Potassium Chloride Carbon Dioxide Anion Gap BUN Creatinine Estimated GFR POC Glucose 90 195 H 313 H Random Glucose Calcium Magnesium 09/14/18 09/14/18 09/14/18 16:13 16:13 12:57 Sodium 140 Potassium 3.8 Chloride 105 Carbon Dioxide 27.1 Anion Gap 8 BUN 14 Creatinine 1.30 Estimated GFR 64 L POC Glucose 361 H Random Glucose 163 H D Calcium 7.9 L Magnesium 1.8 - Impressions ITS Impressions Head CT 09/12/18 09:05 CONCLUSION: 1. Negative CT Head non contrast. . Chest X-Ray 09/12/18 13:37 CONCLUSION: Negative examination. Abdomen/Bladder Ultrasound 09/14/18 00:00 CONCLUSION: The kidneys are normal in size but appear increased in echogenicity which can suggest some acute medical renal disease. No hydronephrosis is seen. Discharge Plan - Discharge Disposition Patient Disposition: Discharge Home - Discharge Condition Condition: Serious - Discharge Order Discharge Orders: Discharge Order (Routine); Ordered 09/15/18 Ordered By: Kamran Richardson - Discharge Details Discharge Comment: dc after I see pt - Physicians Team Primary Care Provider: UNKNOWN, Attending Provider: aKmran Richardson
== END 2018-09-15 11:00 | disposition home or self-care (01) ==
LOC: NEPE 08:54 → NEDA 11:11 → HIMC 19:55
PROVIDERS: ADMIT Internal Medicine; ATTEND Internal Medicine